=== PATIENT | male | born 1980 | race Caucasian/White ===

== ENCOUNTER 2016-06-21 13:51 | Emergency (ER) | payer MEDICARE ==
[2016-06-21] MEDS ORDERED: SODIUM CHLORIDE 0.9% 1,000 ML IV STA (14:17)
[2016-06-21] MEDS ORDERED: ONDANSETRON 4 MG/2 ML VIAL IVP STA (14:21)
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
[2016-06-21 15:05] LABS: Basophils # (A) 0.1 k/uL (0-0.2); Basophils % (A) 1 %; CH 30.7; CHCM 34.5; Eosinophils # (A) 0.2 k/uL (0-0.7); Eosinophils % (A) 3 %; HCT 42.1 % (39.0-53.0); HDW 3.12; HGB 14.1 gm/dL (13.0-17.5); Luc # (Auto) 0.12; Luc % (Auto) 2; Lymphocytes # (A) 1.6 k/uL (1.0-4.8); Lymphocytes % (A) 32 %; MCH 29.9 pg (25.0-35.0); MCHC 33.4 g/dL (31.0-37.0); MCV 89.3 fL (80.0-100.0); Mean Platelet Volume 10.5; Monocytes # (A) 0.5 k/uL (0-1.0); Monocytes % (A) 9 %; Neutrophils # (A) 2.6 k/uL (1.3-7.7); Neutrophils % (A) 52 %; RBC 4.72 m/uL (4.30-5.90); RDW 13.1 % (11.5-15.5); WBC (Perox) 5.19
[2016-06-21 15:15] LABS: ALT 39 U/L (21-72); AST 24 U/L (17-59); Alkaline Phosphatase 85 U/L (38-126); Anion Gap 16 mmol/L; Blood Urea Nitrogen <2 mg/dL (9-20); Calcium 10.5 mg/dL (8.4-10.2); Carbon Dioxide 23 mmol/L (22-30); Chloride 105 mmol/L (98-107); Glucose 85 mg/dL (74-99); Non-African American GFR(MDRD) >60 (>60 ml/min/1.73 sqM); Potassium 4.5 mmol/L (3.5-5.1); Sodium 144 mmol/L (137-145); Total Protein 7.8 g/dL (6.3-8.2)
--- NOTE | 2016-06-21 15:49 | XR ---
Right hand HISTORY: Trauma and pain 3 views of the right hand Correlation to prior right hand September Bone mineralization, joint spaces and alignment are maintained. Suspect old fractures of the distal f ourth and fifth metacarpals, there is volar angulation as on prior exam. There is soft tissue swellin g. IMPRESSION: No fracture or dislocation is evident.
[2016-06-21 16:13] VITALS: BP 100/69; PULSE 54; RESP 16; TEMP 97.7
== END 2016-06-21 16:14 | disposition home or self-care (01) ==
LOC: EC 13:51
DX: S60.221A Contusion of right hand, initial encounter (principal); R11.2 Nausea with vomiting, unspecified; W51.XXXA Accidental striking against or bumped into by another person, initial encounter; Z88.8 Allergy status to other drugs, medicaments and biological substances; Z79.899 Other long term (current) drug therapy
CPT/HCPCS: 99284; 96374; 96361; 36415; 80053; 82140; 85025; 73130; J2405

== ENCOUNTER 2016-06-24 19:25 | Emergency (ER) | payer MEDICARE ==
[2016-06-24 19:31] VITALS: TEMP 98.2
--- NOTE | 2016-06-24 19:44 | ED ---
General Adult HPI - General Source: patient, RN notes reviewed Mode of arrival: ambulatory Limitations: no limitations <Tony Salcido - Last Filed: 06/24/16 20:29> <Humberto Sahu - Last Filed: 06/24/16 22:43> - General Chief complaint: Shortness of Breath Stated complaint: Revisit GEORGE Time Seen by Provider: 06/24/16 19:35 - History of Present Illness Initial comments: 36-year-old male presents emergency Department chief complaint of shortness breath, vomiting. Patient states he was seen here on Friday for concerns of his ammonia level. 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 In states that he has been admitted in the past for his ammonia level. Patient states that his protocol for his condition. Patient sees a doctor out of the [facility]. Patient states that he's been vomiting blood in which she was seen here for this. Patient states denies smoking shortness of breath which is abnormal for him. Patient states she has no chest pain but states that he just for breath at rest and with exertion. Patient has no history of blood clots. Patient has fever, chills. Patient states he has been taken his medication as directed. Patient denies any diarrhea or constipation. Patient denies any other complaints at this time. (Tony Salcido) - Related Data Home Medications Medication Instructions Recorded Confirmed Acetaminophen Tab [Tylenol Tab] 325 - 650 mg PO Q4H PRN 06/21/16 06/24/16 Glycerol Phenylbutyrate [Ravicti] 6 ml PO TID@0900,1500,2100 06/21/16 06/24/16 Ibuprofen [Motrin] 200 - 400 mg PO Q6HR PRN 06/21/16 06/24/16 Phenylephrine/Acetaminophn/Pnm 1 packet PO ONCE PRN 06/24/16 06/24/16 [Theraflu Sinus & Cold Packet] Previous Rx's Medication Instructions Recorded Ondansetron Odt [Zofran ODT] 4 mg PO Q8HR PRN #10 tab 06/24/16 Allergies Allergy/AdvReac Type Severity Reaction Status Date / Time alprazolam [From Xanax] Allergy Unknown Verified 06/24/16 19:45 olanzapine [From Zyprexa] Allergy Unknown Verified 06/24/16 19:45 Review of Systems ROS Other: All systems not noted in ROS Statement are negative. <Tony Salcido - Last Filed: 06/24/16 20:29> ROS Other: All systems not noted in ROS Statement are negative. <Luis AlbertoHumberto - Last Filed: 06/24/16 22:43> ROS Statement: Those systems with pertinent positive or pertinent negative responses have been documented in the HPI. 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 Torn left ACL and left knee effusion-uses brace and cane prn, anemia-nromocytic, 2014 bilateral feet fx and R ankle fx, recent R hand fx per pt, ulcers and vomitted blood in past. Bone deficiency, bones break easily. Seizures, shingles 2010 History of Any Multi-Drug Resistant Organisms: MRSA Date of last positivie culture/infection: 2013 MDRO Source:: Back Past Surgical History: Adenoidectomy, Ear Surgery, Tonsillectomy Additional Past Surgical History / Comment(s): liver biopsy, L-knee drained of 30 ml of fluid, tubes bilateral ears. Past Anesthesia/Blood Transfusion Reactions: Previous Problems w/ Anesthesia Additional Past Anesthesia/Blood Transfusion Reaction / Comment(s): Unable to wake up and being overly aggressive. Past Psychological History: Anxiety, Depression, Schizophrenia Additional Psychological History / Comment(s): Poor impulse control, anger management issues. History of being placed in restraints, numerous inpatient psychiatric admissions including [facility]. Schizoaffecctive diorder. PT lives in apt. alone. He has a L knee brace and cane he uses prn. He does not drive-his sister or brother take him places. His sister-Nadya helps him with bills etc. Pt can read and write alittle. Smoking Status: Never smoker Past Alcohol Use History: None Reported Additional Past Alcohol Use History / Comment(s): Patient states he has been a nonsmoker. He used to smoke marijuana but has quit for 20 days now. He denies any street drug use or alcohol use or abuse. Past Drug Use History: Marijuana Additional Drug Use History / Comment(s): Patient denies but admits to taking a tablet form of tenzin - Past Family History Father Additional Family Medical History / Comment(s): Father at age 61 in April 2014, patient does not know cause of . Mother Family Medical History: Cancer Brother(s) Family Medical History: No Reported History Sister(s) Family Medical History: No Reported History <MichiTony galvez - Last Filed: 06/24/16 20:29> General Exam Limitations: no limitations General appearance: alert, in no apparent distress Head exam: Present: atraumatic, normocephalic, normal inspection Respiratory exam: Present: normal lung sounds bilaterally. Absent: respiratory distress, wheezes, rales, rhonchi, stridor Cardiovascular Exam: Present: regular rate, normal rhythm, normal heart sounds. Absent: systolic murmur, diastolic murmur, rubs, gallop, clicks GI/Abdominal exam: Present: soft, normal bowel sounds. Absent: distended, tenderness, guarding, rebound, rigid Neurological exam: Present: alert, oriented X3, CN II-XII intact Skin exam: Present: warm, dry, intact, normal color. Absent: rash <LolyTony Montenegro - Last Filed: 06/24/16 20:29> EKG Findings - EKG Comments: EKG Findings:: EKG performed at 19:52 sinus rhythm with a rate of 67 MD interval 162, QRS duration 100, QT/QTC 370/399 <MichileonorTony Lan - Last Filed: 06/24/16 20:29> Medical Decision Making - Lab Data Result diagrams: 06/24/16 20:13 <MichileonorTony Montenegro - Last Filed: 06/24/16 20:29> - Lab Data Result diagrams: 06/24/16 20:13 06/24/16 20:13 <Humberto Sahu - Last Filed: 06/24/16 22:43> - Medical Decision Making His labs show a white count of 5.7 hemoglobin 14 hematocrit of 41, glucose 96. INR 1.2, potassium mildly elevated at 5.4. The patient's BUN to creatinine 0.5 for the GFR greater than 60. His ammonia level is only 18. Patient of vomiting today he was given 1 L of fluid after these numbers came back. Patient reports feeling much better. He'll be advised to follow-up with family physician return emergency room as needed. Patient was given a prescription for Zofran to be used at home. Told to advance his fluids and diet (Humberto Sahu) - Lab Data Lab Results 06/24/16 06/24/16 06/24/16 Range/Units 20:13 20:13 20:20 WBC 5.7 (3.8-10.6) k/uL RBC 4.68 (4.30-5.90) m/uL Hgb 14.1 (13.0-17.5) gm/dL Hct 41.4 (39.0-53.0) % MCV 88.6 (80.0-100.0) fL MCH 30.2 (25.0-35.0) pg MCHC 34.1 (31.0-37.0) g/dL RDW 13.2 (11.5-15.5) % Plt Count 177 (150-450) k/uL Neutrophils % 49 % Lymphocytes % 39 % Monocytes % 6 % Eosinophils % 2 % Basophils % 1 % Neutrophils # 2.8 (1.3-7.7) k/uL Lymphocytes # 2.2 (1.0-4.8) k/uL Monocytes # 0.3 (0-1.0) k/uL Eosinophils # 0.1 (0-0.7) k/uL Basophils # 0.0 (0-0.2) k/uL PT 11.8 (9.0-12.0) sec INR 1.2 (<1.1) APTT 21.6 L (22.0-30.0) sec D-Dimer 0.22 (<0.60) mg/L FEU Sodium 143 (137-145) mmol/L Potassium 5.4 H (3.5-5.1) mmol/L Chloride 107 (98-107) mmol/L Carbon Dioxide 18 L (22-30) mmol/L Anion Gap 18 mmol/L BUN <2 L (9-20) mg/dL Creatinine 0.54 L (0.66-1.25) mg/dL Est GFR (MDRD) Af Amer >60 (>60 ml/min/1.73 sqM) Est GFR (MDRD) Non-Af >60 (>60 ml/min/1.73 sqM) Glucose 96 (74-99) mg/dL Calcium 9.9 (8.4-10.2) mg/dL Total Bilirubin 1.3 (0.2-1.3) mg/dL AST 43 (17-59) U/L ALT 27 (21-72) U/L Alkaline Phosphatase 85 (38-126) U/L Ammonia (<30) umol/L Total Protein 8.0 (6.3-8.2) g/dL Albumin 4.8 (3.5-5.0) g/dL 06/24/16 Range/Units 20:20 WBC (3.8-10.6) k/uL RBC (4.30-5.90) m/uL Hgb (13.0-17.5) gm/dL Hct (39.0-53.0) % MCV (80.0-100.0) fL MCH (25.0-35.0) pg MCHC (31.0-37.0) g/dL RDW (11.5-15.5) % Plt Count (150-450) k/uL Neutrophils % % Lymphocytes % % Monocytes % % Eosinophils % % Basophils % % Neutrophils # (1.3-7.7) k/uL Lymphocytes # (1.0-4.8) k/uL Monocytes # (0-1.0) k/uL Eosinophils # (0-0.7) k/uL Basophils # (0-0.2) k/uL PT (9.0-12.0) sec INR (<1.1) APTT (22.0-30.0) sec D-Dimer (<0.60) mg/L FEU Sodium (137-145) mmol/L Potassium (3.5-5.1) mmol/L Chloride (98-107) mmol/L Carbon Dioxide (22-30) mmol/L Anion Gap mmol/L BUN (9-20) mg/dL Creatinine (0.66-1.25) mg/dL Est GFR (MDRD) Af Amer (>60 ml/min/1.73 sqM) Est GFR (MDRD) Non-Af (>60 ml/min/1.73 sqM) Glucose (74-99) mg/dL Calcium (8.4-10.2) mg/dL Total Bilirubin (0.2-1.3) mg/dL AST (17-59) U/L ALT (21-72) U/L Alkaline Phosphatase (38-126) U/L Ammonia 18 (<30) umol/L Total Protein (6.3-8.2) g/dL Albumin (3.5-5.0) g/dL Disposition <Tony Salcido - Last Filed: 06/24/16 20:29> Time of Disposition: 22:43 <Humberto Sahu - Last Filed: 06/24/16 22:43> Clinical Impression: Nausea & vomiting Disposition: HOME SELF-CARE Condition: Stable Additional Instructions: Advanced diet liquids first. Use Zofran for nausea vomiting follow-up with family physician. Prescriptions: Ondansetron Odt [Zofran ODT] 4 mg PO Q8HR PRN #10 tab PRN Reason: Nausea
[2016-06-24 20:23] LABS: Basophils % (A) 1 %; CH 30.4; CHCM 34.5; Eosinophils # (A) 0.1 k/uL (0-0.7); Eosinophils % (A) 2 %; HCT 41.4 % (39.0-53.0); HGB 14.1 gm/dL (13.0-17.5); Luc # (Auto) 0.17; Luc % (Auto) 3; Lymphocytes # (A) 2.2 k/uL (1.0-4.8); Lymphocytes % (A) 39 %; MCH 30.2 pg (25.0-35.0); MCHC 34.1 g/dL (31.0-37.0); MCV 88.6 fL (80.0-100.0); Mean Platelet Volume 10.1; Monocytes # (A) 0.3 k/uL (0-1.0); Monocytes % (A) 6 %; Neutrophils # (A) 2.8 k/uL (1.3-7.7); Neutrophils % (A) 49 %; RBC 4.68 m/uL (4.30-5.90); RDW 13.2 % (11.5-15.5); WBC 5.7 k/uL (3.8-10.6); WBC (Perox) 6.08
[2016-06-24 20:37] LABS: ALT 27 U/L (21-72); AST 43 U/L (17-59); Alkaline Phosphatase 85 U/L (38-126); Anion Gap 18 mmol/L; Blood Urea Nitrogen <2 mg/dL (9-20); Calcium 9.9 mg/dL (8.4-10.2); Carbon Dioxide 18 mmol/L (22-30); Chloride 107 mmol/L (98-107); Glucose 96 mg/dL (74-99); Non-African American GFR(MDRD) >60 (>60 ml/min/1.73 sqM); Sodium 143 mmol/L (137-145); Total Bilirubin 1.3 mg/dL (0.2-1.3)
--- NOTE | 2016-06-24 20:48 | XR ---
EXAMINATION TYPE: XR chest 2V DATE OF EXAM: 06/24/2016 8:42 PM COMPARISON: 03/15/2015 HISTORY: Pain TECHNIQUE: Frontal and lateral views of the chest are obtained. FINDINGS: There is no focal air space opacity, pleural effusion, or pneumothorax seen. The cardiac silhouette size is within normal limits. The osseous structures are intact. IMPRESSION: No acute cardiopulmonary process.
[2016-06-24 20:49] LABS: Potassium 5.4 mmol/L (3.5-5.1)
[2016-06-24] MEDS ORDERED: HYDROcodone/APAP 5-325MG 1 EACH TAB PO STA (21:02)
[2016-06-24 21:11] LABS: INR 1.2 (<1.1); Prothrombin Time 11.8 sec (9.0-12.0)
[2016-06-24 21:15] LABS: Partial Thromboplastin Time 21.6 sec (22.0-30.0)
[2016-06-24] MEDS ORDERED: SODIUM CHLORIDE 0.9% 500 ML IV STA (21:30)
[2016-06-24] MEDS ORDERED: ONDANSETRON 4 MG/2 ML VIAL IVP STA (21:31)
[2016-06-24 22:37] VITALS: BP 117/61; PULSE 65; RESP 18
== END 2016-06-24 22:48 | disposition home or self-care (01) ==
LOC: EC 19:25
DX: R11.2 Nausea with vomiting, unspecified (principal); Z88.8 Allergy status to other drugs, medicaments and biological substances; Z79.899 Other long term (current) drug therapy
CPT/HCPCS: 99285; 96374; 96361; 36415; 93005; 85379; 80053; 82140; 85025; 85610; 85730; 71020; J2405

== ENCOUNTER 2016-07-16 11:49 | Observation (INO) | payer MEDICARE ==
--- NOTE | 2016-07-16 13:53 | ED ---
General Adult HPI - General Source: patient, RN notes reviewed Mode of arrival: ambulatory Limitations: no limitations <Lebron Duke - Last Filed: 07/16/16 20:40> <Humberto Sahu - Last Filed: 07/16/16 21:03> - General Chief complaint: Recheck/Abnormal Lab/Rx Stated complaint: Weak/abnormal labs Time Seen by Provider: 07/16/16 13:26 - History of Present Illness Initial comments: Patient is a 36-year-old male with a significant past medical history for Ornithine Transcarbamylase, who presents emergency room today with chief complaint of feeling like his ammonia may be running high. He does admit that 3 days ago he had some symptoms of puffiness around his eyes. States seem to improve. States she's noticed again today. He feels that his ammonia may be running elevated. Patient denies any other complaints or symptoms currently. Patient denies any recent fever, chills, shortness of breath, chest pain, back pain, abdominal pain, nausea or vomiting, numbness or tingling, dysuria or hematuria, constipation or diarrhea, headaches or visual changes, or any other complaints. (Lebron Duke) - Related Data Home Medications Medication Instructions Recorded Confirmed Acetaminophen Tab [Tylenol Tab] 325 - 650 mg PO Q4H PRN 06/21/16 07/16/16 Glycerol Phenylbutyrate [Ravicti] 6.6 gm PO TID@0900,1500,2100 06/21/16 07/16/16 Allergies Allergy/AdvReac Type Severity Reaction Status Date / Time alprazolam [From Xanax] Allergy Unknown Verified 07/16/16 13:09 olanzapine [From Zyprexa] Allergy Unknown Verified 07/16/16 13:09 sertraline [From Zoloft] Allergy Unknown Verified 07/16/16 13:09 Review of Systems ROS Other: All systems not noted in ROS Statement are negative. <Lebron Duke - Last Filed: 07/16/16 20:40> ROS Other: All systems not noted in ROS Statement are negative. <Humberto Sahu - Last Filed: 07/16/16 21:03> ROS Statement: Those systems with pertinent positive or pertinent negative responses have been documented in the HPI. 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 Torn left ACL and left knee effusion-uses brace and cane prn, anemia-nromocytic, 2013 bilateral feet fx and R ankle fx, recent R hand fx per pt, ulcers and vomitted blood in past. Bone deficiency, bones break easily. Seizures, shingles 2010 History of Any Multi-Drug Resistant Organisms: MRSA Date of last positivie culture/infection: 2013 MDRO Source:: Back Past Surgical History: Adenoidectomy, Ear Surgery, Tonsillectomy Additional Past Surgical History / Comment(s): liver biopsy, L-knee drained of 30 ml of fluid, tubes bilateral ears. Past Anesthesia/Blood Transfusion Reactions: Previous Problems w/ Anesthesia Additional Past Anesthesia/Blood Transfusion Reaction / Comment(s): Unable to wake up and being overly aggressive. Past Psychological History: Anxiety, Depression, Schizophrenia Additional Psychological History / Comment(s): Poor impulse control, anger management issues. History of being placed in restraints, numerous inpatient psychiatric admissions including [facility]. Schizoaffecctive diorder. PT lives in apt. alone. He has a L knee brace and cane he uses prn. He does not drive-his sister or brother take him places. His sister-Nadya helps him with bills etc. Pt can read and write alittle. Smoking Status: Never smoker Past Alcohol Use History: None Reported Additional Past Alcohol Use History / Comment(s): Patient states he has been a nonsmoker. He used to smoke marijuana but has quit for 20 days now. He denies any street drug use or alcohol use or abuse. Past Drug Use History: Marijuana Additional Drug Use History / Comment(s): Patient denies but admits to taking a tablet form of tenzin - Past Family History Father Additional Family Medical History / Comment(s): Father at age 61 in April 2014, patient does not know cause of . Mother Family Medical History: Cancer Brother(s) Family Medical History: No Reported History Sister(s) Family Medical History: No Reported History <Lebron Duke - Last Filed: 07/16/16 20:40> General Exam Limitations: no limitations <Lebron Duke - Last Filed: 07/16/16 20:40> <Humberto Sahu - Last Filed: 07/16/16 21:03> - General Exam Comments Initial Comments: General: The patient is awake and alert, in no distress, and does not appear acutely ill. Eye: Pupils are equal, round and reactive to light, extra-ocular movements are intact. No nystagmus. There is normal conjunctiva bilaterally. No signs of icterus. Ears, nose, mouth and throat: There are moist mucous membranes and no oral lesions. Neck: The neck is supple, there is no tenderness or JVD. Cardiovascular: There is a regular rate and rhythm. No murmur, rub or gallop is appreciated. Respiratory: Lungs are clear to auscultation, respirations are non-labored, breath sounds are equal. No wheezes, stridor, rales, or rhonchi. Gastrointestinal: Soft, non-distended, non-tender abdomen without masses or organomegaly noted. There is no rebound or guarding present. No CVA tenderness. Bowel sounds are unremarkable. Musculoskeletal: Normal ROM, no tenderness. Strength 5/5. Sensation intact. Pulses equal bilaterally 2+. Neurological: A&O x 3. CN II-XII intact, There are no obvious motor or sensory deficits. Coordination appears grossly intact. Speech is normal. Skin: Skin is warm and dry and no rashes or lesions are noted. Psychiatric: Cooperative, appropriate mood & affect, normal judgment. (Lebron Duke) Course <Lebron Duke - Last Filed: 07/16/16 20:40> <Humberto Sahu - Last Filed: 07/16/16 21:03> Vital Signs 07/16/16 07/16/16 07/16/16 12:17 14:16 17:23 Temperature 98.1 F Pulse Rate 49 L 42 L 38 L Respiratory 18 18 18 Rate Blood Pressure 122/78 129/73 125/76 O2 Sat by Pulse 99 98 99 Oximetry 07/16/16 19:15 Temperature 97.6 F Pulse Rate 40 L Respiratory 18 Rate Blood Pressure 137/63 O2 Sat by Pulse 98 Oximetry - Reevaluation(s) Reevaluation #1: 07/16/16 16:56 Patient's reexamined at this time shows no signs of distress. His ammonia level L. In the emergency room on initial draw. Patient does have a hyperammonemia protocol which does recommend giving 1 L of D10 over 90 minutes with additives of sodium Phenylacetate, Na Benzoate, [id number]. This case was discussed with attending physician along with pharmacist. Our hospital does not have these additives. Reviews of patient's past visits were reviewed. Pharmacist also reviewing thoroughly which reveals potassium may be substituted along with a D10. Patient was given patient was given D10 with potassium acetate 20 mEq bolus over 2 hours which improved patient's symptoms and ammonia level in the past. Patient will be given this bolus here in the emergency room and have a pneumonia rechecked after bolus was done. 07/16/16 20:22 Patient reexamined at this time shows no signs of distress. Patient's repeat ammonia level was 53 in the emergency room after a bolus of D 10 with 20 mEq of potassium acetate. Patient case was discussed with on-call physician for his doctor discussed the case with Dr. Guevara his physician who manages his OTC. Recommending that he can be admitted and observed overnight with continuing fluids of D 10 1/2 at 150 an hour. Advised ammonia level in the morning. Advised neuro checks with stat ammonia level if any symptoms increase or worsen. On-call resident states she may be called if there is any change or questions with his care. Phone number is [phone] at pager #[phone] (Lebron Duke) EKG Findings - EKG Comments: EKG Findings:: EKG performed at 1408: Shows bradycardia 43 bpm. AL interval 160. QRS 86. QT/QTc 474/392. No acute ST changes. <Lebron Duke - Last Filed: 07/16/16 20:40> Medical Decision Making - Lab Data Result diagrams: 07/16/16 14:20 07/16/16 14:20 <Lebron Duke - Last Filed: 07/16/16 20:40> - Lab Data Result diagrams: 07/16/16 14:20 07/16/16 14:20 <Humberto Sahu - Last Filed: 07/16/16 21:03> - Medical Decision Making Case discussed with Dr. Starkey on-call hospitalist. Patient be admitted his service. Per recommendations from the patient's specialist she is to be admitted continued on D10 150 ML's per hour with recheck of his ammonia level morning. Dr. Sahu (Humberto Sahu) - Lab Data Lab Results 07/16/16 07/16/16 07/16/16 Range/Units 14:06 14:20 14:20 WBC 4.8 (3.8-10.6) k/uL RBC 4.38 (4.30-5.90) m/uL Hgb 13.0 (13.0-17.5) gm/dL Hct 38.5 L (39.0-53.0) % MCV 87.9 (80.0-100.0) fL MCH 29.6 (25.0-35.0) pg MCHC 33.6 (31.0-37.0) g/dL RDW 13.3 (11.5-15.5) % Plt Count 141 L (150-450) k/uL Neutrophils % 56 % Lymphocytes % 32 % Monocytes % 7 % Eosinophils % 3 % Basophils % 1 % Neutrophils # 2.6 (1.3-7.7) k/uL Lymphocytes # 1.5 (1.0-4.8) k/uL Monocytes # 0.3 (0-1.0) k/uL Eosinophils # 0.1 (0-0.7) k/uL Basophils # 0.0 (0-0.2) k/uL Sodium 144 (137-145) mmol/L Potassium 4.5 (3.5-5.1) mmol/L Chloride 107 (98-107) mmol/L Carbon Dioxide 25 (22-30) mmol/L Anion Gap 12 mmol/L BUN <2 L (9-20) mg/dL Creatinine 0.51 L (0.66-1.25) mg/dL Est GFR (MDRD) Af Amer >60 (>60 ml/min/1.73 sqM) Est GFR (MDRD) Non-Af >60 (>60 ml/min/1.73 sqM) Glucose 98 (74-99) mg/dL Calcium 9.6 (8.4-10.2) mg/dL Total Bilirubin 0.9 (0.2-1.3) mg/dL AST 29 (17-59) U/L ALT 37 (21-72) U/L Alkaline Phosphatase 71 (38-126) U/L Ammonia 50 H (<30) umol/L Troponin I (0.000-0.034) ng/mL Total Protein 7.4 (6.3-8.2) g/dL Albumin 4.4 (3.5-5.0) g/dL 07/16/16 07/16/16 07/16/16 Range/Units 14:20 18:32 19:59 WBC (3.8-10.6) k/uL RBC (4.30-5.90) m/uL Hgb (13.0-17.5) gm/dL Hct (39.0-53.0) % MCV (80.0-100.0) fL MCH (25.0-35.0) pg MCHC (31.0-37.0) g/dL RDW (11.5-15.5) % Plt Count (150-450) k/uL Neutrophils % % Lymphocytes % % Monocytes % % Eosinophils % % Basophils % % Neutrophils # (1.3-7.7) k/uL Lymphocytes # (1.0-4.8) k/uL Monocytes # (0-1.0) k/uL Eosinophils # (0-0.7) k/uL Basophils # (0-0.2) k/uL Sodium (137-145) mmol/L Potassium (3.5-5.1) mmol/L Chloride (98-107) mmol/L Carbon Dioxide (22-30) mmol/L Anion Gap mmol/L BUN (9-20) mg/dL Creatinine (0.66-1.25) mg/dL Est GFR (MDRD) Af Amer (>60 ml/min/1.73 sqM) Est GFR (MDRD) Non-Af (>60 ml/min/1.73 sqM) Glucose (74-99) mg/dL Calcium (8.4-10.2) mg/dL Total Bilirubin (0.2-1.3) mg/dL AST (17-59) U/L ALT (21-72) U/L Alkaline Phosphatase (38-126) U/L Ammonia 53 H 158 H (<30) umol/L Troponin I <0.012 (0.000-0.034) ng/mL Total Protein (6.3-8.2) g/dL Albumin (3.5-5.0) g/dL Disposition Time of Disposition: 20:26 <Lebron Duke - Last Filed: 01/31/17 20:40> <Humberto Sahu - Last Filed: 07/16/16 21:03> Clinical Impression: Hyperammonemia Disposition: ADMITTED IP TO THIS HOSP Condition: Stable
[2016-07-16 14:36] LABS: Basophils % (A) 1 %; CH 30.1; CHCM 34.4; Eosinophils # (A) 0.1 k/uL (0-0.7); Eosinophils % (A) 3 %; HCT 38.5 % (39.0-53.0); HDW 3.15; Luc # (Auto) 0.11; Luc % (Auto) 2; Lymphocytes # (A) 1.5 k/uL (1.0-4.8); Lymphocytes % (A) 32 %; MCH 29.6 pg (25.0-35.0); MCHC 33.6 g/dL (31.0-37.0); MCV 87.9 fL (80.0-100.0); Mean Platelet Volume 10.3; Monocytes # (A) 0.3 k/uL (0-1.0); Monocytes % (A) 7 %; Neutrophils # (A) 2.6 k/uL (1.3-7.7); Neutrophils % (A) 56 %; RBC 4.38 m/uL (4.30-5.90); RDW 13.3 % (11.5-15.5); WBC 4.8 k/uL (3.8-10.6)
[2016-07-16 14:56] LABS: Anion Gap 12 mmol/L; Calcium 9.6 mg/dL (8.4-10.2); Carbon Dioxide 25 mmol/L (22-30); Chloride 107 mmol/L (98-107); Glucose 98 mg/dL (74-99); Non-African American GFR(MDRD) >60 (>60 ml/min/1.73 sqM); Sodium 144 mmol/L (137-145); Total Bilirubin 0.9 mg/dL (0.2-1.3); Total Protein 7.4 g/dL (6.3-8.2)
[2016-07-16 15:09] LABS: Potassium 4.5 mmol/L (3.5-5.1)
[2016-07-16 15:10] LABS: ALT 37 U/L (21-72); AST 29 U/L (17-59); Alkaline Phosphatase 71 U/L (38-126); Blood Urea Nitrogen <2 mg/dL (9-20)
[2016-07-16] MEDS ORDERED: DEXTROSE 10% IN WATER 1,000 ML IV ONE (16:06)
[2016-07-16] MEDS ORDERED: [UNRECOGNIZED DRUG - OTHER] IV ONE ×3 (17:00)
[2016-07-16] MEDS ORDERED: SODIUM CHLORIDE IV ONE ×3 (17:00)
[2016-07-16] MEDS ORDERED: WATER IV ONE ×3 (17:00)
[2016-07-16] MEDS ORDERED: DEXTROSE IV ONE ×3 (17:00)
[2016-07-16] MEDS ORDERED: IBUPROFEN 600 MG TAB PO STA (17:42)
[2016-07-16] MEDS ORDERED: NALOXONE 0.4 MG/ML 1 ML VIAL IV PRN (20:29)
[2016-07-17] MEDS: DEXTROSE 10% IV ONE ×2 (00:52→03:46)
[2016-07-17] MEDS: WATER IV ONE ×2 (00:52→03:46)
[2016-07-17] MEDS: SODIUM ACETATE IV ONE ×2 (00:52→03:46)
[2016-07-17 07:57] LABS: Basophils % (A) 1 %; CH 30.1; CHCM 34.4; Eosinophils # (A) 0.1 k/uL (0-0.7); Eosinophils % (A) 3 %; HDW 3.14; Luc # (Auto) 0.09; Luc % (Auto) 2; Lymphocytes # (A) 1.5 k/uL (1.0-4.8); Lymphocytes % (A) 32 %; MCH 30.2 pg (25.0-35.0); MCHC 34.3 g/dL (31.0-37.0); MCV 87.8 fL (80.0-100.0); Mean Platelet Volume 10.5; Monocytes # (A) 0.3 k/uL (0-1.0); Monocytes % (A) 7 %; Neutrophils # (A) 2.7 k/uL (1.3-7.7); Neutrophils % (A) 56 %; RBC 3.99 m/uL (4.30-5.90); RDW 13.3 % (11.5-15.5); WBC 4.7 k/uL (3.8-10.6); WBC (Perox) 5.31
[2016-07-17 08:03] LABS: ALT 36 U/L (21-72); AST 19 U/L (17-59); Alkaline Phosphatase 60 U/L (38-126); Anion Gap 9 mmol/L; Blood Urea Nitrogen <2 mg/dL (9-20); Calcium 9.2 mg/dL (8.4-10.2); Carbon Dioxide 27 mmol/L (22-30); Chloride 106 mmol/L (98-107); Glucose 139 mg/dL (74-99); Non-African American GFR(MDRD) >60 (>60 ml/min/1.73 sqM); Potassium 3.6 mmol/L (3.5-5.1); Sodium 142 mmol/L (137-145); Total Bilirubin 0.8 mg/dL (0.2-1.3); Total Protein 6.4 g/dL (6.3-8.2)
[2016-07-17] MEDS: [UNRECOGNIZED DRUG - OTHER] PO SCH ×3 (09:03→21:06)
[2016-07-17] MEDS ORDERED: SODIUM ACETATE IV ONE (12:00)
[2016-07-17] MEDS ORDERED: DEXTROSE 10% IV ONE (12:00)
[2016-07-17] MEDS ORDERED: WATER IV ONE (12:00)
[2016-07-17] MEDS: LACTULOSE 20 GM/30 ML CUP PO SCH ×2 (13:57→15:52)
--- NOTE | 2016-07-17 17:49 | HP ---
The patient is a 36-year-old with significant medical history of ornithine transcarbamylase deficiency, came in with confusion, found to have hyperammonemia with ammonia going up to 158. Patient was started on D5 10 at 150 mL/h and patient was started on low-protein diet with improvement in his ammonia to 56. Patient will be started on lactulose. Unfortunately, we do not have do not have other medications like sodium benzoate and sodium phenylacetate and L-arginine available in our hospital since, but since his ammonia level is improving and patient's mental status is alert and oriented x3 today, will continue with the present treatment and will recheck the ammonia level tomorrow and patient probably can be discharged tomorrow. Patient does have IBS. Patient denied any nausea, vomiting at this point of time, dysuria, hematuria. Home medications include glycerol phenylbutyrate, as he cannot take lactulose because of multiple bowel movements in a day because of his bowel syndrome. ROS: All other systems were reviewed and were negative. ALLERGIES: ALLERGIC TO ALPRAZOLAM, OLANZEPINE AND SERTRALINE. PAST MEDICAL HISTORY: Significant for on the ornithine transcarbamylase deficiency and hyperammonemia which was diagnosed when he was born and seizures secondary to that. Adenoidectomy, ear surgery, tonsillectomy, liver biopsy in the past, depression, schizophrenia. SOCIAL HISTORY: Patient denied any smoking. Occasional use of marijuana. Denied any alcohol abuse. FAMILY HISTORY: Father at the age of 61 cause of is unknown. Mother had some kind of cancer. PHYSICAL EXAMINATION: VITAL SIGNS: Temperature 96.9, pulse of 48 which is sinus bradycardia, which is normal for him. Respiratory rate of 18, blood pressure 136/74, saturating at 98% on room air. GENERAL: The patient is alert and oriented x3, not in any acute distress. Well developed, well nourished. HEENT: Pupils are round and equally reacting to light. EOMI. No scleral icterus. No conjunctival pallor. Normocephalic, atraumatic. No pharyngeal erythema. No thyromegaly. CARDIOVASCULAR: S1 and S2 present. No murmurs, rubs, or gallops. PULMONARY: Chest is clear to auscultation, no wheezing or crackles. ABDOMEN: Soft, nontender, nondistended, normoactive bowel sounds. No palpable organomegaly. MUSCULOSKELETAL: No joint swelling or deformity. EXTREMITIES: No cyanosis, clubbing, or pedal edema. NEUROLOGICAL: Gross neurological examination did not reveal any focal deficits. SKIN: No rashes. LABORATORY DATA: Ammonia level as mentioned above in the interval history. The rest of the laboratory data, no significant abnormality was appreciated. ASSESSMENT AND PLAN: 1. Metabolic encephalopathy secondary to hyperammonemia ornithine transcarbamylase deficiency as mentioned above. I will also start him on lactulose for a day with a bedside commode. Continue with D5 10 and low-protein diet. 2. Irritable bowel syndrome. 3. Depression, schizophrenia as per the history, although did not verify that with the patient. 4. Sinus bradycardia, which is normal for the patient without any symptoms. PLAN: Will repeat ammonia level and electrolytes tomorrow. If ammonia comes down, patient will be discharged tomorrow. His symptoms of encephalopathy are resolved at this point of time. [facility]
[2016-07-17] MEDS: ACETAMINOPHEN TAB 325 MG TAB PO PRN (19:15)
[2016-07-17] MEDS ORDERED: DEXTROSE 10% IV SCH ×2 (22:45)
[2016-07-17] MEDS ORDERED: SODIUM ACETATE IV SCH ×2 (22:45)
[2016-07-17] MEDS ORDERED: WATER IV SCH ×2 (22:45)
[2016-07-18 00:02] VITALS: RESP 20
[2016-07-18] MEDS: SODIUM ACETATE IV SCH ×6 (00:26→08:15)
[2016-07-18] MEDS: WATER IV SCH ×6 (00:26→08:15)
[2016-07-18] MEDS: DEXTROSE 10% IV SCH ×6 (00:26→08:15)
[2016-07-18] MEDS: ACETAMINOPHEN TAB 325 MG TAB PO PRN (00:30)
[2016-07-18] MEDS: [UNRECOGNIZED DRUG - OTHER] PO SCH (08:16)
[2016-07-18] MEDS: LACTULOSE 20 GM/30 ML CUP PO SCH (08:17)
[2016-07-18 10:21] LABS: CH 30.1; CHCM 34.7; HCT 40.2 % (39.0-53.0); HDW 3.16; HGB 13.5 gm/dL (13.0-17.5); MCH 29.2 pg (25.0-35.0); MCHC 33.5 g/dL (31.0-37.0); MCV 87.1 fL (80.0-100.0); Mean Platelet Volume 9.5; RBC 4.62 m/uL (4.30-5.90); RDW 13.2 % (11.5-15.5); WBC 5.8 k/uL (3.8-10.6)
[2016-07-18 11:14] LABS: Anion Gap 14 mmol/L; Calcium 9.5 mg/dL (8.4-10.2); Carbon Dioxide 23 mmol/L (22-30); Chloride 108 mmol/L (98-107); Glucose 118 mg/dL (74-99); Non-African American GFR(MDRD) >60 (>60 ml/min/1.73 sqM); Sodium 145 mmol/L (137-145); Total Bilirubin 1.1 mg/dL (0.2-1.3)
[2016-07-18 11:27] LABS: ALT 29 U/L (21-72); AST 35 U/L (17-59); Blood Urea Nitrogen <2 mg/dL (9-20); Potassium 4.5 mmol/L (3.5-5.1)
[2016-07-18 11:28] LABS: Alkaline Phosphatase 60 U/L (38-126)
[2016-07-18 14:55] VITALS: BP 126/77; PULSE 72; TEMP 98
--- NOTE | 2016-07-19 09:06 | DS ---
DATE OF ADMISSION: 07/16/2016 DATE OF DISCHARGE: 07/18/2016 Patient is a 36-year-old admitted with metabolic encephalopathy secondary to hyperammonemia, which is again secondary to ornithine transcarbamylase deficiency. Patient cannot tolerate lactulose because of which he has his own medication for his ammonia and patient improved with D5 and low-protein diet and lactulose here. But patient had multiple bowel movements secondary to lactulose. Patient's ammonia has gone down to 45 and patient is clinically doing well and patient will be discharged today. Patient was seen and examined on the day of discharge. Vital signs stable. PHYSICAL EXAMINATION: GENERAL: The patient is alert and oriented x3, not in any acute distress. Well developed, well nourished. HEENT: Pupils are round and equally reacting to light. EOMI. No scleral icterus. No conjunctival pallor. Normocephalic, atraumatic. No pharyngeal erythema. No thyromegaly. CARDIOVASCULAR: S1 and S2 present. No murmurs, rubs, or gallops. PULMONARY: Chest is clear to auscultation, no wheezing or crackles. ABDOMEN: Soft, nontender, nondistended, normoactive bowel sounds. No palpable organomegaly. MUSCULOSKELETAL: No joint swelling or deformity. EXTREMITIES: No cyanosis, clubbing, or pedal edema. NEUROLOGICAL: Gross neurological examination did not reveal any focal deficits. SKIN: No rashes. DISCHARGE DIAGNOSES: 1. Metabolic encephalopathy secondary to hyperammonemia, which is again secondary to ornithine transcarbamylase deficiency. 2. Irritable bowel syndrome. 3. Depression. 4. Sinus bradycardia, which is normal for his age and which is normal for him. Patient will be discharged today. Please refer to my depart summary for further details of discharge medication. Patient will follow with his primary care physician, Dr. Salvador Guevara in 3 to 7 days. Activity as tolerated. DIET: Low-protein diet. I spent greater than 35 minutes in total discharge process.
== END 2016-07-18 15:17 | disposition home or self-care (01) ==
LOC: EC 11:49 → 4MS4W 20:29
PROVIDERS: ADMIT Hospitalist; ATTEND Hospitalist
DX: E72.4 Disorders of ornithine metabolism (principal); K58.9 Irritable bowel syndrome, unspecified; F32.9 Major depressive disorder, single episode, unspecified; Z79.899 Other long term (current) drug therapy; Z88.8 Allergy status to other drugs, medicaments and biological substances; F25.9 Schizoaffective disorder, unspecified
CPT/HCPCS: 99285; 96365; 96366; 36415; 93005; 80053 ×3; 82140 ×3; 84484; 85025 ×2; 85027; G0378 ×3; 96360; 96361

== ENCOUNTER 2016-08-12 12:29 | Emergency (ER) | payer MEDICARE ==
--- NOTE | 2016-08-12 13:33 | ED ---
General Adult HPI - General Chief complaint: Recheck/Abnormal Lab/Rx Stated complaint: weakness, vomiting Time Seen by Provider: 08/12/16 13:09 Source: patient, RN notes reviewed, old records reviewed Mode of arrival: ambulatory Limitations: no limitations - History of Present Illness Initial comments: 36-year-old male with a history of OTC deficiency presenting for evaluation of his ammonia levels. Patient states that he does follow with a specialist through [facility]. He does take a special medication 3 times a day for his disorder. States he's predisposed to high ammonia levels due to this. He states that he has had multiple hospitalizations in the past due to hyperammonemia. States that over the past few days he has been feeling more irritable and sleepy at times, which is consistent with his prior elevated ammonia symptoms. He does have his medications with him in the ED. He denies any fevers or chills. He denies any chest pain or abdominal pain. - Related Data Home Medications Medication Instructions Recorded Confirmed Acetaminophen Tab [Tylenol Tab] 650 mg PO Q4H PRN 06/21/16 08/12/16 Glycerol Phenylbutyrate [Ravicti] 6.6 gm PO TID@0900,1500,2100 06/21/16 08/12/16 Ibuprofen [Motrin] 400 mg PO Q6HR PRN 08/12/16 08/12/16 Allergies Allergy/AdvReac Type Severity Reaction Status Date / Time alprazolam [From Xanax] Allergy Unknown Verified 08/12/16 13:55 olanzapine [From Zyprexa] Allergy Unknown Verified 08/12/16 13:55 sertraline [From Zoloft] Allergy Unknown Verified 08/12/16 13:55 Review of Systems ROS Statement: Those systems with pertinent positive or pertinent negative responses have been documented in the HPI. ROS Other: All systems not noted in ROS Statement are negative. 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 Torn left ACL and left knee effusion-uses brace and cane prn, anemia-nromocytic, 2013 bilateral feet fx and R ankle fx, recent R hand fx per pt, ulcers and vomitted blood in past. Bone deficiency, bones break easily. Seizures, shingles 2009 History of Any Multi-Drug Resistant Organisms: MRSA Date of last positivie culture/infection: 2013 MDRO Source:: Back Past Surgical History: Adenoidectomy, Ear Surgery, Tonsillectomy Additional Past Surgical History / Comment(s): liver biopsy, L-knee drained of 30 ml of fluid, tubes bilateral ears. Past Anesthesia/Blood Transfusion Reactions: Previous Problems w/ Anesthesia Additional Past Anesthesia/Blood Transfusion Reaction / Comment(s): Unable to wake up and being overly aggressive. Past Psychological History: Anxiety, Depression, Schizophrenia Additional Psychological History / Comment(s): Poor impulse control, anger management issues. History of being placed in restraints, numerous inpatient psychiatric admissions including [facility]. Schizoaffecctive diorder. PT lives in apt. alone. He has a L knee brace and cane he uses prn. He does not drive-his sister or brother take him places. His sister-Nadya helps him with bills etc. Pt can read and write alittle. Smoking Status: Never smoker Past Alcohol Use History: None Reported Additional Past Alcohol Use History / Comment(s): Patient states he has been a nonsmoker. He used to smoke marijuana but has quit for 20 days now. He denies any street drug use or alcohol use or abuse. Past Drug Use History: Marijuana Additional Drug Use History / Comment(s): Patient denies but admits to taking a tablet form of tenzin - Past Family History Father Additional Family Medical History / Comment(s): Father at age 61 in April 2014, patient does not know cause of . Mother Family Medical History: Cancer Brother(s) Family Medical History: No Reported History Sister(s) Family Medical History: No Reported History General Exam - General Exam Comments Initial Comments: General: Awake and Alert. No acute distress. Does not appear acutely ill. Eyes: DEA, EOM intact. No nystagmus. No scleral icterus. HENT: Atraumatic, normocephalic. Mucous membranes moist. Trachea midline. Poor dentition. Neck: The neck is supple, there is no tenderness or JVD. Cardiovascular: Regular rate and rhythm. No murmur, rub, or gallop is appreciated. Distal pulses intact. Respiratory: Lungs are clear to auscultation bilaterally. No wheezes, rales, rhonchi. No respiratory distress. Gastrointestinal: Soft, Nontender. No rebound or guarding. Non-distended. No masses or organomegaly noted. No CVA tenderness. Musculoskeletal: No tenderness. Normal ROM. No gross deformity. No strength deficits. Neurological: A&Ox3. CN II-XII grossly intact, There are no obvious motor or sensory deficits. Coordination appears grossly intact. Speech is normal. No asterixis. Skin: Skin is warm and dry and no rashes or lesions are noted. Psychiatric: Cooperative, appropriate mood & affect, normal judgment. Limitations: no limitations Course Vital Signs 08/12/16 08/12/16 12:45 15:18 Temperature 97.7 F 98.3 F Pulse Rate 56 L 79 Respiratory 20 18 Rate Blood Pressure 127/77 134/89 O2 Sat by Pulse 99 98 Oximetry Medical Decision Making - Medical Decision Making 36-year-old male with history of OTC presenting for evaluation of his ammonia levels. Patient states he's been feeling more irritable recently and is concerned his levels are high. Initial vitals stable, afebrile. Lab results with ammonia level at 49. Remainder of results appears stable. LFTs within normal limits. Patient was updated on his results. He states he only needs IV therapy of his ammonia is above 60. States since the level is not significantly elevated, he feels comfortable with plan for discharge home at this time. He states he does follow up with specialist at [facility] on 09/10/16. Discussed continuing to follow his dietary recommendations as well as taking his medications. Discussed importance of continued follow-up through [facility] and his PCP. Discussed concerning signs and symptoms for immediate return to the ED. Patient is agreeable with plan to discharge home. - Lab Data Result diagrams: 08/12/16 13:44 08/12/16 13:44 Lab Results 08/12/16 08/12/16 08/12/16 Range/Units 13:44 13:44 13:44 WBC 6.1 (3.8-10.6) k/uL RBC 4.71 (4.30-5.90) m/uL Hgb 14.1 (13.0-17.5) gm/dL Hct 41.0 (39.0-53.0) % MCV 87.1 (80.0-100.0) fL MCH 30.0 (25.0-35.0) pg MCHC 34.5 (31.0-37.0) g/dL RDW 13.6 (11.5-15.5) % Plt Count 149 L (150-450) k/uL Neutrophils % 60 % Lymphocytes % 29 % Monocytes % 6 % Eosinophils % 2 % Basophils % 2 % Neutrophils # 3.6 (1.3-7.7) k/uL Lymphocytes # 1.7 (1.0-4.8) k/uL Monocytes # 0.4 (0-1.0) k/uL Eosinophils # 0.1 (0-0.7) k/uL Basophils # 0.1 (0-0.2) k/uL Sodium 145 (137-145) mmol/L Potassium 4.6 (3.5-5.1) mmol/L Chloride 108 H (98-107) mmol/L Carbon Dioxide 23 (22-30) mmol/L Anion Gap 14 mmol/L BUN <2 L (9-20) mg/dL Creatinine 0.50 L (0.66-1.25) mg/dL Est GFR (MDRD) Af Amer >60 (>60 ml/min/1.73 sqM) Est GFR (MDRD) Non-Af >60 (>60 ml/min/1.73 sqM) Glucose 81 (74-99) mg/dL Calcium 9.8 (8.4-10.2) mg/dL Total Bilirubin 0.9 (0.2-1.3) mg/dL AST 39 (17-59) U/L ALT 30 (21-72) U/L Alkaline Phosphatase 77 (38-126) U/L Ammonia 49 H (<30) umol/L Total Protein 7.8 (6.3-8.2) g/dL Albumin 4.7 (3.5-5.0) g/dL Disposition Clinical Impression: OTC (ornithine transcarbamylase deficiency), Hyperammonemia Disposition: HOME SELF-CARE Condition: Stable Additional Instructions: Please continue your normal medications and dietary recommendations. Please continue to follow up with [facility] specialist. Referrals: Salvador Guevara MD [Primary Care Provider] - 1-2 days Time of Disposition: 15:04
[2016-08-12 14:01] LABS: Basophils # (A) 0.1 k/uL (0-0.2); Basophils % (A) 2 %; CH 30.3; Eosinophils # (A) 0.1 k/uL (0-0.7); Eosinophils % (A) 2 %; HDW 3.05; HGB 14.1 gm/dL (13.0-17.5); Luc # (Auto) 0.13; Luc % (Auto) 2; Lymphocytes # (A) 1.7 k/uL (1.0-4.8); Lymphocytes % (A) 29 %; MCHC 34.5 g/dL (31.0-37.0); MCV 87.1 fL (80.0-100.0); Monocytes # (A) 0.4 k/uL (0-1.0); Monocytes % (A) 6 %; Neutrophils # (A) 3.6 k/uL (1.3-7.7); Neutrophils % (A) 60 %; RBC 4.71 m/uL (4.30-5.90); RDW 13.6 % (11.5-15.5); WBC 6.1 k/uL (3.8-10.6); WBC (Perox) 6.12
[2016-08-12 14:13] LABS: ALT 30 U/L (21-72); AST 39 U/L (17-59); Alkaline Phosphatase 77 U/L (38-126); Anion Gap 14 mmol/L; Blood Urea Nitrogen <2 mg/dL (9-20); Calcium 9.8 mg/dL (8.4-10.2); Carbon Dioxide 23 mmol/L (22-30); Chloride 108 mmol/L (98-107); Glucose 81 mg/dL (74-99); Non-African American GFR(MDRD) >60 (>60 ml/min/1.73 sqM); Sodium 145 mmol/L (137-145); Total Bilirubin 0.9 mg/dL (0.2-1.3); Total Protein 7.8 g/dL (6.3-8.2)
[2016-08-12 14:30] LABS: Potassium 4.6 mmol/L (3.5-5.1)
[2016-08-12 15:18] VITALS: BP 134/89; PULSE 79; RESP 18; TEMP 98.3
== END 2016-08-12 15:18 | disposition home or self-care (01) ==
LOC: EC 12:29
DX: E72.4 Disorders of ornithine metabolism (principal); Z88.8 Allergy status to other drugs, medicaments and biological substances; Z86.14 Personal history of Methicillin resistant Staphylococcus aureus infection; Z79.899 Other long term (current) drug therapy
CPT/HCPCS: 36415; 80053; 82140; 85025; 99284

== ENCOUNTER 2016-08-19 05:22 | Emergency (ER) | payer MEDICARE ==
[2016-08-19 05:28] VITALS: RESP 18
[2016-08-19] MEDS ORDERED: traMADol 50 MG TAB PO STA (05:55)
--- NOTE | 2016-08-19 06:37 | ED ---
Lower Extremity Injury HPI - General Chief Complaint: Extremity Injury, Lower Stated Complaint: Foot Injury Time Seen by Provider: 08/19/16 05:41 Source: patient Mode of arrival: ambulatory Limitations: no limitations - History of Present Illness Initial Comments: This patient is a 36-year-old man who presents with pain and swelling to the dorsolateral aspect of his right foot which is been going on getting worse over the course of tonight. The patient does not recall any specific injury to his foot. Patient furthermore denies any systemic symptoms, including no fever or chills, chest pain, dyspnea, or palpitations. Denies risk factor for septic arthritis/osteomyelitis, including no IV drug use. He does state he has previously had gout. MD Complaint: foot injury Onset/Timin -: days(s) Injury: Foot: Right Place: home Severity: moderate Improves With: nothing Worsens With: weight bearing Associated Symptoms: swelling - Related Data Home Medications Medication Instructions Recorded Confirmed Acetaminophen Tab [Tylenol Tab] 650 mg PO Q4H PRN 06/21/16 08/19/16 Glycerol Phenylbutyrate [Ravicti] 6.6 gm PO TID@0900,1500,2100 06/21/16 08/19/16 Ibuprofen [Motrin] 400 mg PO Q6HR PRN 08/12/16 08/19/16 traMADol HCL [Ultram] 50 mg PO Q6HR PRN 08/19/16 08/19/16 Previous Rx's Medication Instructions Recorded predniSONE 60 mg PO DAILY #30 tab 08/19/16 traMADol HCl [Ultram] 50 mg PO Q6H PRN #20 tab 08/19/16 Allergies Allergy/AdvReac Type Severity Reaction Status Date / Time alprazolam [From Xanax] Allergy Unknown Verified 08/19/16 05:28 olanzapine [From Zyprexa] Allergy Unknown Verified 08/19/16 05:28 sertraline [From Zoloft] Allergy Unknown Verified 08/19/16 05:28 Review of Systems ROS Statement: Those systems with pertinent positive or pertinent negative responses have been documented in the HPI. ROS Other: All systems not noted in ROS Statement are negative. Constitutional: Denies: fever, chills Respiratory: Denies: cough, dyspnea Cardiovascular: Denies: chest pain, palpitations Musculoskeletal: Reports: as per HPI, joint swelling, arthralgia Skin: Denies: rash Neurological: Denies: weakness, numbness Past Medical History Additional Past Medical History / Comment(s): Other HX: Ornithine TransCarbamylase (OTC) deficiency, Impaired processing of protein and risk for intermittent hyperammonemia. Torn left ACL and left knee effusion-uses brace and cane prn, anemia-nromocytic, 2013 bilateral feet fx and R ankle fx, recent R hand fx per pt, ulcers and vomitted blood in past. Bone deficiency, bones break easily. Seizures, shingles 2010 History of Any Multi-Drug Resistant Organisms: MRSA Date of last positivie culture/infection: 2013 MDRO Source:: Back Past Surgical History: Adenoidectomy, Ear Surgery, Tonsillectomy Additional Past Surgical History / Comment(s): liver biopsy, L-knee drained of 30 ml of fluid, tubes bilateral ears. Past Anesthesia/Blood Transfusion Reactions: Previous Problems w/ Anesthesia Additional Past Anesthesia/Blood Transfusion Reaction / Comment(s): Unable to wake up and being overly aggressive. Past Psychological History: Anxiety, Depression, Schizophrenia Additional Psychological History / Comment(s): Poor impulse control, anger management issues. History of being placed in restraints, numerous inpatient psychiatric admissions including [facility]. Schizoaffecctive diorder. PT lives in apt. alone. He has a L knee brace and cane he uses prn. He does not drive-his sister or brother take him places. His sister-Nadya helps him with bills etc. Pt can read and write alittle. Smoking Status: Never smoker Past Alcohol Use History: None Reported Additional Past Alcohol Use History / Comment(s): Patient states he has been a nonsmoker. He used to smoke marijuana but has quit for 20 days now. He denies any street drug use or alcohol use or abuse. Past Drug Use History: Marijuana Additional Drug Use History / Comment(s): Patient denies but admits to taking a tablet form of tenzin - Past Family History Father Additional Family Medical History / Comment(s): Father at age 61 in April 2014, patient does not know cause of . Mother Family Medical History: Cancer Brother(s) Family Medical History: No Reported History Sister(s) Family Medical History: No Reported History General Exam Limitations: no limitations General appearance: alert, in no apparent distress Head exam: Present: atraumatic, normocephalic Eye exam: Present: normal appearance Cardiovascular Exam: Present: other (Normal pedal pulses) Extremities exam: Present: tenderness, other (The patient has tenderness and mild soft tissue swelling along the dorsum of the right foot particularly laterally over the fifth metatarsal. No obvious deformity.) Neurological exam: Absent: motor sensory deficit Skin exam: Present: warm, dry, intact, normal color. Absent: rash Course Vital Signs 08/19/16 05:26 Temperature 97.2 F L Pulse Rate 70 Respiratory 18 Rate Blood Pressure 116/79 O2 Sat by Pulse 98 Oximetry Disposition Clinical Impression: Sprain of foot, right Narrative: Possible gout Disposition: HOME SELF-CARE Condition: Fair Instructions: Foot Sprain (ED) Prescriptions: predniSONE 60 mg PO DAILY #30 tab traMADol HCl [Ultram] 50 mg PO Q6H PRN #20 tab PRN Reason: Pain Referrals: Salvador Guevara MD [Primary Care Provider] - 1-2 days
[2016-08-19] MEDS ORDERED: predniSONE 20 MG TAB PO STA (06:51)
[2016-08-19 06:57] VITALS: BP 119/69; PULSE 88; TEMP 98
--- NOTE | 2016-08-19 06:59 | XR ---
EXAM: XR Right Foot Complete, 3 Views. CLINICAL HISTORY: Pain. TECHNIQUE: Frontal, lateral and oblique views of the right foot. COMPARISON: No relevant prior studies available. FINDINGS: Bones/joints: No acute fracture. No dislocation. Soft tissues: Unremarkable. No radiopaque foreign body. IMPRESSION: No acute abnormality.
== END 2016-08-19 06:57 | disposition home or self-care (01) ==
LOC: EC 05:22
DX: S93.601A Unspecified sprain of right foot, initial encounter (principal); E72.4 Disorders of ornithine metabolism; Z79.899 Other long term (current) drug therapy; Z88.8 Allergy status to other drugs, medicaments and biological substances; Z87.39 Personal history of other diseases of the musculoskeletal system and connective tissue; X58.XXXA Exposure to other specified factors, initial encounter
CPT/HCPCS: 73630; 99283; J7512

== ENCOUNTER 2016-08-30 08:04 | Emergency (ER) | payer MEDICARE ==
[2016-08-30] MEDS ORDERED: SODIUM CHLORIDE 0.9% 1,000 ML IV STA (08:25)
[2016-08-30] MEDS ORDERED: ONDANSETRON 4 MG/2 ML VIAL IVP STA ×2 (08:25→09:45)
--- NOTE | 2016-08-30 08:36 | ED ---
General Adult HPI - General Chief complaint: Recheck/Abnormal Lab/Rx Stated complaint: THINKS AMONIA LEVEL OFF Time Seen by Provider: 08/30/16 08:17 Source: patient, RN notes reviewed Mode of arrival: ambulatory Limitations: no limitations - History of Present Illness Initial comments: Patient 36-year-old male with significant past medical history for\ Ornithine transcarbamylase deficiency, who presents today with chief complaint of increased nausea vomiting and symptoms of elevated ammonia. Patient does admit that he's noticed that his mood has changed work he's been more irritable over the last 2 days. States she's had symptoms of nausea vomiting over the last 2 days. Patient does admit that the symptoms are consistent with his ammonia level on the rise. He states he has been taking his medication as prescribed. He denies any other complaints or symptoms. Patient denies any recent fever, chills, shortness of breath, chest pain, back pain, abdominal pain, numbness or tingling, dysuria or hematuria, constipation or diarrhea, headaches or visual changes, or any other complaints. - Related Data Home Medications Medication Instructions Recorded Confirmed Acetaminophen Tab [Tylenol Tab] 650 mg PO Q4H PRN 06/21/16 08/30/16 Glycerol Phenylbutyrate [Ravicti] 6.6 gm PO TID@0900,1500,2100 06/21/16 08/30/16 Ibuprofen [Motrin] 400 mg PO Q6HR PRN 08/12/16 08/30/16 traMADol HCL [Ultram] 50 mg PO Q6HR PRN 08/19/16 08/30/16 Allergies Allergy/AdvReac Type Severity Reaction Status Date / Time alprazolam [From Xanax] Allergy Unknown Verified 08/30/16 08:25 olanzapine [From Zyprexa] Allergy Unknown Verified 08/30/16 08:25 sertraline [From Zoloft] Allergy Unknown Verified 08/30/16 08:25 Review of Systems ROS Statement: Those systems with pertinent positive or pertinent negative responses have been documented in the HPI. ROS Other: All systems not noted in ROS Statement are negative. 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 Torn left ACL and left knee effusion-uses brace and cane prn, anemia-nromocytic, 2013 bilateral feet fx and R ankle fx, recent R hand fx per pt, ulcers and vomitted blood in past. Bone deficiency, bones break easily. Seizures, shingles 2010 History of Any Multi-Drug Resistant Organisms: MRSA Date of last positivie culture/infection: 2013 MDRO Source:: Back Past Surgical History: Adenoidectomy, Ear Surgery, Tonsillectomy Additional Past Surgical History / Comment(s): liver biopsy, L-knee drained of 30 ml of fluid, tubes bilateral ears. Past Anesthesia/Blood Transfusion Reactions: Previous Problems w/ Anesthesia Additional Past Anesthesia/Blood Transfusion Reaction / Comment(s): Unable to wake up and being overly aggressive. Past Psychological History: Anxiety, Depression, Schizophrenia Additional Psychological History / Comment(s): Poor impulse control, anger management issues. History of being placed in restraints, numerous inpatient psychiatric admissions including [facility]. Schizoaffecctive diorder. PT lives in apt. alone. He has a L knee brace and cane he uses prn. He does not drive-his sister or brother take him places. His sister-Nadya helps him with bills etc. Pt can read and write alittle. Smoking Status: Never smoker Past Alcohol Use History: None Reported Additional Past Alcohol Use History / Comment(s): Patient states he has been a nonsmoker. He used to smoke marijuana but has quit for 20 days now. He denies any street drug use or alcohol use or abuse. Past Drug Use History: Marijuana Additional Drug Use History / Comment(s): Patient denies but admits to taking a tablet form of tenzin - Past Family History Father Additional Family Medical History / Comment(s): Father at age 61 in April 2014, patient does not know cause of . Mother Family Medical History: Cancer Brother(s) Family Medical History: No Reported History Sister(s) Family Medical History: No Reported History General Exam - General Exam Comments Initial Comments: General: The patient is awake and alert, in no distress, and does not appear acutely ill. Eye: Pupils are equal, round and reactive to light, extra-ocular movements are intact. No nystagmus. There is normal conjunctiva bilaterally. No signs of icterus. Ears, nose, mouth and throat: There are moist mucous membranes and no oral lesions. Neck: The neck is supple, there is no tenderness or JVD. Cardiovascular: There is a regular rate and rhythm. No murmur, rub or gallop is appreciated. Respiratory: Lungs are clear to auscultation, respirations are non-labored, breath sounds are equal. No wheezes, stridor, rales, or rhonchi. Gastrointestinal: Soft, non-distended, non-tender abdomen without masses or organomegaly noted. There is no rebound or guarding present. No CVA tenderness. Bowel sounds are unremarkable. Musculoskeletal: Normal ROM, no tenderness. Strength 5/5. Sensation intact. Pulses equal bilaterally 2+. Neurological: A&O x 3. CN II-XII intact, There are no obvious motor or sensory deficits. Coordination appears grossly intact. Speech is normal. Skin: Skin is warm and dry and no rashes or lesions are noted. Psychiatric: Cooperative, appropriate mood & affect, normal judgment. Limitations: no limitations Course Vital Signs 08/30/16 08/30/16 08/30/16 08:06 08:37 11:13 Temperature 97.8 F Pulse Rate 95 72 83 Respiratory 20 16 16 Rate Blood Pressure 126/105 118/77 165/65 O2 Sat by Pulse 98 96 100 Oximetry - Reevaluation(s) Reevaluation #1: 08/30/16 09:35 [place] with [place] [facility] recommends starting D10 0.9 at 150 hour. He will consult attending and calls back. 08/30/16 09:49 Case was rediscussed with beverage specialist at [facility] [place] Jae who at this time recommends transfer to [facility] for further evaluation and medications as we do not have some of the additives available here at [facility]. Patient has been started on D10 0.9. Patient updated at this time and aware of the plan. Will be transferred via EMS. 08/30/16 10:08 Case discussed with [facility] emergency physician Dr. Perry who recommends as patient is stable that he can be a direct admit to the hospital. At this time we are awaiting callback from hospitalist group for possible direct admission. 08/30/16 11:14 Case discussed with beverage specialist Dr. Rowe once again who recommends that patient go to the ER for faster treatment and possible admission to ICU from the ER. Case was then again discussed with human services case manager who notified accepting physician Dr. Perry. Patient will be transferred by EMS. Medical Decision Making - Lab Data Result diagrams: 08/30/16 08:25 08/30/16 08:25 Lab Results 08/30/16 08/30/16 08/30/16 Range/Units 08:25 08:25 08:25 WBC 7.6 (3.8-10.6) k/uL RBC 4.91 (4.30-5.90) m/uL Hgb 14.6 (13.0-17.5) gm/dL Hct 42.9 (39.0-53.0) % MCV 87.5 (80.0-100.0) fL MCH 29.7 (25.0-35.0) pg MCHC 33.9 (31.0-37.0) g/dL RDW 13.8 (11.5-15.5) % Plt Count 179 (150-450) k/uL Neutrophils % 55 % Lymphocytes % 30 % Monocytes % 9 % Eosinophils % 1 % Basophils % 1 % Neutrophils # 4.2 (1.3-7.7) k/uL Lymphocytes # 2.3 (1.0-4.8) k/uL Monocytes # 0.7 (0-1.0) k/uL Eosinophils # 0.1 (0-0.7) k/uL Basophils # 0.1 (0-0.2) k/uL Sodium 143 (137-145) mmol/L Potassium 4.8 (3.5-5.1) mmol/L Chloride 109 H (98-107) mmol/L Carbon Dioxide 18 L (22-30) mmol/L Anion Gap 16 mmol/L BUN 4 L (9-20) mg/dL Creatinine 0.61 L (0.66-1.25) mg/dL Est GFR (MDRD) Af Amer >60 (>60 ml/min/1.73 sqM) Est GFR (MDRD) Non-Af >60 (>60 ml/min/1.73 sqM) Glucose 109 H (74-99) mg/dL Calcium 10.0 (8.4-10.2) mg/dL Total Bilirubin 1.5 H (0.2-1.3) mg/dL AST 30 (17-59) U/L ALT 37 (21-72) U/L Alkaline Phosphatase 70 (38-126) U/L Ammonia 114 H (<30) umol/L Total Protein 7.9 (6.3-8.2) g/dL Albumin 4.7 (3.5-5.0) g/dL Disposition Clinical Impression: Hyperammonemia, OTC (ornithine transcarbamylase deficiency) Disposition: OTHER INSTITUTION NOT DEFINED Condition: Stable Referrals: Salvador Guevara MD [Primary Care Provider] - 1-2 days Time of Disposition: 09:50 (Transferred via EMS) - Out of Hospital Transfer - Req. Specs Out of Hospital Transfer - Requested Specifics: Other Emergency Center ([facility])
[2016-08-30 08:54] LABS: Basophils # (A) 0.1 k/uL (0-0.2); Basophils % (A) 1 %; CH 30.8; CHCM 35.3; Eosinophils # (A) 0.1 k/uL (0-0.7); Eosinophils % (A) 1 %; HCT 42.9 % (39.0-53.0); HDW 2.92; HGB 14.6 gm/dL (13.0-17.5); Luc # (Auto) 0.26; Luc % (Auto) 3; Lymphocytes # (A) 2.3 k/uL (1.0-4.8); Lymphocytes % (A) 30 %; MCH 29.7 pg (25.0-35.0); MCHC 33.9 g/dL (31.0-37.0); MCV 87.5 fL (80.0-100.0); Mean Platelet Volume 10.2; Monocytes # (A) 0.7 k/uL (0-1.0); Monocytes % (A) 9 %; Neutrophils # (A) 4.2 k/uL (1.3-7.7); Neutrophils % (A) 55 %; RBC 4.91 m/uL (4.30-5.90); RDW 13.8 % (11.5-15.5); WBC 7.6 k/uL (3.8-10.6); WBC (Perox) 7.65
[2016-08-30 09:08] LABS: ALT 37 U/L (21-72); AST 30 U/L (17-59); Alkaline Phosphatase 70 U/L (38-126); Anion Gap 16 mmol/L; Blood Urea Nitrogen 4 mg/dL (9-20); Carbon Dioxide 18 mmol/L (22-30); Chloride 109 mmol/L (98-107); Glucose 109 mg/dL (74-99); Non-African American GFR(MDRD) >60 (>60 ml/min/1.73 sqM); Potassium 4.8 mmol/L (3.5-5.1); Sodium 143 mmol/L (137-145); Total Bilirubin 1.5 mg/dL (0.2-1.3); Total Protein 7.9 g/dL (6.3-8.2)
[2016-08-30] MEDS ORDERED: DEXTROSE 5%-0.9% NACL 1,000 ML IV SCH (09:45)
[2016-08-30 12:09] VITALS: BP 117/57; PULSE 76; RESP 14; TEMP 97.5
== END 2016-08-30 12:15 | disposition short-term general hospital (02) ==
LOC: EC 08:04
DX: E72.4 Disorders of ornithine metabolism (principal); R11.2 Nausea with vomiting, unspecified; Z79.899 Other long term (current) drug therapy; Z88.8 Allergy status to other drugs, medicaments and biological substances
CPT/HCPCS: 99284; 96374; 96376; 96361; 36415; 80053; 82140; 85025; J2405

== ENCOUNTER 2016-09-20 00:56 | Emergency (ER) | payer MEDICARE ==
--- NOTE | 2016-09-20 01:30 | ED ---
General Adult HPI - General Chief complaint: Extremity Injury, Upper Stated complaint: Poss Hand Fx Time Seen by Provider: 09/20/16 01:10 Source: patient, RN notes reviewed Mode of arrival: ambulatory Limitations: no limitations - History of Present Illness Initial comments: This is a 36-year-old male presents with right hand and wrist pain after punching a table. Patient states he got angry and upset when he punched a table. Patient denies any numbness/tingling/weakness. Patient reports pain to the ulnar aspect of the right hand and wrist. Patient reports he has OTC deficiency and feels he's been vomiting more lately and would like his ammonia level checked. Patient states he also feels more angry when his ammonia levels are elevated. Patient denies any recent fever, chills, shortness breath, chest pain, abdominal pain, nausea/vomiting/diarrhea, back pain, hematuria, headache , or visual changes, or any other complaints. - Related Data Home Medications Medication Instructions Recorded Confirmed Acetaminophen Tab [Tylenol Tab] 650 mg PO Q4H PRN 06/21/16 08/30/16 Glycerol Phenylbutyrate [Ravicti] 6.6 gm PO TID@0900,1500,2100 06/21/16 08/30/16 Ibuprofen [Motrin] 400 mg PO Q6HR PRN 08/12/16 08/30/16 traMADol HCL [Ultram] 50 mg PO Q6HR PRN 08/19/16 08/30/16 Previous Rx's Medication Instructions Recorded traMADol HCL [Ultram] 50 mg PO Q6HR #12 tab 09/20/16 Allergies Allergy/AdvReac Type Severity Reaction Status Date / Time alprazolam [From Xanax] Allergy Unknown Verified 08/30/16 08:25 olanzapine [From Zyprexa] Allergy Unknown Verified 08/30/16 08:25 sertraline [From Zoloft] Allergy Unknown Verified 08/30/16 08:25 Review of Systems ROS Statement: Those systems with pertinent positive or pertinent negative responses have been documented in the HPI. ROS Other: All systems not noted in ROS Statement are negative. 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 Torn left ACL and left knee effusion-uses brace and cane prn, anemia-nromocytic, 2013 bilateral feet fx and R ankle fx, recent R hand fx per pt, ulcers and vomitted blood in past. Bone deficiency, bones break easily. Seizures, shingles 2010 History of Any Multi-Drug Resistant Organisms: MRSA Date of last positivie culture/infection: 2013 MDRO Source:: Back Past Surgical History: Adenoidectomy, Ear Surgery, Tonsillectomy Additional Past Surgical History / Comment(s): liver biopsy, L-knee drained of 30 ml of fluid, tubes bilateral ears. Past Anesthesia/Blood Transfusion Reactions: Previous Problems w/ Anesthesia Additional Past Anesthesia/Blood Transfusion Reaction / Comment(s): Unable to wake up and being overly aggressive. Past Psychological History: Anxiety, Depression, Schizophrenia Additional Psychological History / Comment(s): Poor impulse control, anger management issues. History of being placed in restraints, numerous inpatient psychiatric admissions including [facility]. Schizoaffecctive diorder. PT lives in apt. alone. He has a L knee brace and cane he uses prn. He does not drive-his sister or brother take him places. His sister-Nadya helps him with bills etc. Pt can read and write alittle. Smoking Status: Never smoker Past Alcohol Use History: None Reported Additional Past Alcohol Use History / Comment(s): Patient states he has been a nonsmoker. He used to smoke marijuana but has quit for 20 days now. He denies any street drug use or alcohol use or abuse. Past Drug Use History: Marijuana Additional Drug Use History / Comment(s): Patient denies but admits to taking a tablet form of tenzin - Past Family History Father Additional Family Medical History / Comment(s): Father at age 61 in April 2014, patient does not know cause of . Mother Family Medical History: Cancer Brother(s) Family Medical History: No Reported History Sister(s) Family Medical History: No Reported History General Exam - General Exam Comments Initial Comments: General: The patient is awake and alert, in no distress, and does not appear acutely ill. Neck: The neck is supple, there is no tenderness or JVD. Cardiovascular: There is a regular rate and rhythm. No murmur, rub or gallop is appreciated. Respiratory: Lungs are clear to auscultation, respirations are non-labored, breath sounds are equal. No wheezes, stridor, rales, or rhonchi. Musculoskeletal: Patient has limited range of motion of the right hand due to pain. Patient has tenderness to palpation over the ulnar aspect of the right hand and to the fourth and fifth digits. Patient also has tenderness to palpation over the ulnar aspect of the right wrist. No tenderness of the anatomical snuffbox. Patient strength 5/5 and Sensation intact. Radial pulses 2+ bilaterally and capillary refill is normal at less than 2 seconds. Neurological: A&O x 3. CN II-XII intact, There are no obvious motor or sensory deficits. Coordination appears grossly intact. Speech is normal. Skin: There is erythema to the ulnar aspect of the right hand. Abrasion over the third MCP joint of the dorsal aspect of the right hand. Skin is warm and dry and no rashes or lesions are noted. Psychiatric: Normal mood and affect. Limitations: no limitations Course Vital Signs 09/20/16 09/20/16 00:59 03:14 Temperature 98.2 F 97.8 F Pulse Rate 69 80 Respiratory 16 20 Rate Blood Pressure 117/68 119/69 O2 Sat by Pulse 99 97 Oximetry Medical Decision Making - Medical Decision Making This is a 36-year-old male presents with right hand and wrist pain after punching a table. On physical exam patient has limited range of motion of the right hand due to pain. Patient is tender to palpation over the ulnar aspect of the right hand and to the fourth and fifth digits. Patient also has tenderness to palpation over the ulnar aspect of the right wrist. No tenderness of the anatomical snuffbox. Patient strength 5/5 and Sensation intact. Radial pulses 2+ bilaterally and capillary refill is normal at less than 2 seconds. There is swelling and ecchymosis to the ulnar aspect of the right hand. Patient is also requesting that his ammonia levels be checked due to history of OTC deficiency. Basic labs are drawn. X-rays of the right hand and wrist were done and reviewed showing: X-ray right hand: Acute largely nondisplaced fracture involving the fifth metacarpal Center at the neck. X-ray right wrist: Acute boxer's fracture of the fifth metacarpal neck. Reports by Dr. Forrest A short arm ulnar gutter splint to the right upper extremity was placed. Neurovascular was rechecked and is intact. Patient was instructed to stay non -weightbearing to the right upper extremity. Patient was instructed to rest, ice, elevate and keep splint on until follow-up with orthopedics. Discussed with patient to follow-up with orthopedics in the next 1-2 days. Please return to the [facility] symptoms worsen or for any other concerns. Patient's ammonia level was elevated but patient states he will not stay for any further evaluation as he "knows that that is not high enough for him to be treated". I offered patient further workup. Patient refuses any further workup and states he will come back if his symptoms begin to worsen. I discussed return parameters. I discussed follow-up with orthopedics and his family doctor. Patient will be given a prescription for tramadol for breakthrough pain otherwise I discussed Motrin. Discussed that patient should follow up with PCP in one to 2 days or return to the [facility] for any worsening symptoms or for any further concerns. Patient was receptive to this plan and patient will be discharged home. I discussed this case with attending physician Dr. Hewitt who agrees the plan as stated above. - Lab Data Result diagrams: 09/20/16 02:01 Lab Results 09/20/16 09/20/16 Range/Units 02:01 02:01 WBC 7.2 (3.8-10.6) k/uL RBC 4.73 (4.30-5.90) m/uL Hgb 14.1 (13.0-17.5) gm/dL Hct 42.1 (39.0-53.0) % MCV 89.0 (80.0-100.0) fL MCH 29.8 (25.0-35.0) pg MCHC 33.5 (31.0-37.0) g/dL RDW 14.0 (11.5-15.5) % Plt Count 166 (150-450) k/uL Neutrophils % 54 % Lymphocytes % 34 % Monocytes % 7 % Eosinophils % 2 % Basophils % 1 % Neutrophils # 3.8 (1.3-7.7) k/uL Lymphocytes # 2.5 (1.0-4.8) k/uL Monocytes # 0.5 (0-1.0) k/uL Eosinophils # 0.1 (0-0.7) k/uL Basophils # 0.1 (0-0.2) k/uL Ammonia 51 H (<30) umol/L Disposition Clinical Impression: Boxers fracture Disposition: HOME SELF-CARE Condition: Good Instructions: Boxer Fracture (ED) Additional Instructions: Please rest, ice, elevate, and use splint for support. Do not get the splint wet. Please leave splint on until follow-up. Please stay nonweightbearing to the right upper extremity. Please use [id number] Motrin and tramadol for pain. Please follow up with orthopedics tomorrow or as soon as possible. Please follow-up with the PCP tomorrow. Please return to the [facility] for any worsening symptoms or for any further concerns. Prescriptions: traMADol HCL [Ultram] 50 mg PO Q6HR #12 tab Referrals: Salvador Guevara MD [Primary Care Provider] - 1-2 days Curly Patton MD [Medical Doctor] - 1-2 days Time of Disposition: 03:12
--- NOTE | 2016-09-20 01:51 | XR ---
EXAM: XR Right Wrist Complete, 3 or More Views. CLINICAL HISTORY: Reason: Pain fifth metacarpal. TECHNIQUE: Frontal, lateral, and oblique views of the right wrist. COMPARISON: No relevant prior studies available. FINDINGS: Acute largely nondisplaced fracture involving the neck of the fifth metacarpal with volar angulation of the distal component. This is compatible with a boxer's type fracture. Adjacent soft tissue swelling. No dislocation. IMPRESSION: Acute boxer's fracture of the fifth metacarpal neck.
--- NOTE | 2016-09-20 01:53 | XR ---
EXAM: XR Right Hand Complete, 3 or More Views. CLINICAL HISTORY: Reason: Pain TECHNIQUE: Frontal, lateral, and oblique views of the right hand. COMPARISON: No relevant prior studies available. FINDINGS: Bones/joints: Acute largely nondisplaced fracture involving the fifth metacarpal centered at the neck. Associated volar angulation of the distal component. No other acute or healing fracture or malalignment. Soft tissues: Soft tissue swelling about the fracture site. No additional soft tissue abnormalities. No radiopaque foreign body. IMPRESSION: Acute largely nondisplaced fracture involving the fifth metacarpal centered at the neck.
[2016-09-20 02:16] LABS: Basophils # (A) 0.1 k/uL (0-0.2); Basophils % (A) 1 %; CH 30.3; CHCM 34.2; Eosinophils # (A) 0.1 k/uL (0-0.7); Eosinophils % (A) 2 %; HCT 42.1 % (39.0-53.0); HDW 2.84; HGB 14.1 gm/dL (13.0-17.5); Luc # (Auto) 0.17; Luc % (Auto) 2; Lymphocytes # (A) 2.5 k/uL (1.0-4.8); Lymphocytes % (A) 34 %; MCH 29.8 pg (25.0-35.0); MCHC 33.5 g/dL (31.0-37.0); Mean Platelet Volume 9.5; Monocytes # (A) 0.5 k/uL (0-1.0); Monocytes % (A) 7 %; Neutrophils # (A) 3.8 k/uL (1.3-7.7); Neutrophils % (A) 54 %; RBC 4.73 m/uL (4.30-5.90); WBC 7.2 k/uL (3.8-10.6); WBC (Perox) 6.81
[2016-09-20] MEDS ORDERED: traMADol 50 MG TAB PO STA (02:25)
[2016-09-20 03:03] LABS: ALT 32 U/L (21-72); AST 23 U/L (17-59); Alkaline Phosphatase 76 U/L (38-126); Anion Gap 16 mmol/L; Blood Urea Nitrogen <2 mg/dL (9-20); Calcium 10.4 mg/dL (8.4-10.2); Carbon Dioxide 20 mmol/L (22-30); Chloride 108 mmol/L (98-107); Glucose 91 mg/dL (74-99); Non-African American GFR(MDRD) >60 (>60 ml/min/1.73 sqM); Potassium 3.9 mmol/L (3.5-5.1); Sodium 144 mmol/L (137-145); Total Bilirubin 1.2 mg/dL (0.2-1.3); Total Protein 7.6 g/dL (6.3-8.2)
[2016-09-20 03:15] VITALS: BP 119/69; PULSE 80; RESP 20; TEMP 97.8
== END 2016-09-20 03:15 | disposition home or self-care (01) ==
LOC: EC 00:56
DX: S62.366A Nondisplaced fracture of neck of fifth metacarpal bone, right hand, initial encounter for closed fracture (principal); E72.4 Disorders of ornithine metabolism; Z88.8 Allergy status to other drugs, medicaments and biological substances; Z79.899 Other long term (current) drug therapy; W22.03XA Walked into furniture, initial encounter
CPT/HCPCS: 29125; 36415; 80053; 82140; 85025; 99283

== ENCOUNTER 2016-10-19 09:54 | Emergency (ER) | payer MEDICARE ==
[2016-10-19 10:59] VITALS: BP 116/59; PULSE 50; RESP 18; TEMP 98
[2016-10-19] MEDS ORDERED: ONDANSETRON 4 MG/2 ML VIAL IVP STA (12:07)
[2016-10-19] MEDS ORDERED: SODIUM CHLORIDE 0.45% 1,000 ML IV SCH (12:15)
--- NOTE | 2016-10-19 12:25 | ED ---
General Adult HPI - General Chief complaint: Recheck/Abnormal Lab/Rx Stated complaint: abn labs Time Seen by Provider: 10/19/16 11:45 Source: patient, RN notes reviewed, old records reviewed Mode of arrival: ambulatory Limitations: no limitations - History of Present Illness Initial comments: This is a 36-year-old male with a history of an ornithine transcarbamylase deficiency. He frequently gets hyper ammonia anemia who states he had the onset around 9 PM last evening of multiple episodes of nausea and vomiting he's had some chills along with it some dizziness lightheadedness. He still feels nauseated now. He did present with a protocol for how he is to be treated when this happens. He believes his ammonia level may be high. He has no other complaints he states it feels like frequent prior episodes. He denies any blood in his emesis. No blood per rectum no constipation very minimal abdominal discomfort. No chest pain no shortness of breath - Related Data Home Medications Medication Instructions Recorded Confirmed Acetaminophen Tab [Tylenol Tab] 650 mg PO Q4H PRN 06/21/16 10/19/16 Glycerol Phenylbutyrate [Ravicti] 6.6 gm PO TID@0900,1500,2100 06/21/16 10/19/16 Ibuprofen [Motrin] 400 mg PO Q6HR PRN 08/12/16 10/19/16 Previous Rx's Medication Instructions Recorded Metoclopramide [Reglan] 10 mg PO ACHS PRN #14 tab 10/19/16 Allergies Allergy/AdvReac Type Severity Reaction Status Date / Time alprazolam [From Xanax] Allergy Unknown Verified 10/19/16 11:48 olanzapine [From Zyprexa] Allergy Unknown Verified 10/19/16 11:48 sertraline [From Zoloft] Allergy Unknown Verified 10/19/16 11:48 Review of Systems ROS Statement: Those systems with pertinent positive or pertinent negative responses have been documented in the HPI. ROS Other: All systems not noted in ROS Statement are negative. 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 Torn left ACL and left knee effusion-uses brace and cane prn, anemia-nromocytic, 2014 bilateral feet fx and R ankle fx, recent R hand fx per pt, ulcers and vomitted blood in past. Bone deficiency, bones break easily. Seizures, shingles 2010 History of Any Multi-Drug Resistant Organisms: MRSA Date of last positivie culture/infection: 2013 MDRO Source:: Back Past Surgical History: Adenoidectomy, Ear Surgery, Tonsillectomy Additional Past Surgical History / Comment(s): liver biopsy, L-knee drained of 30 ml of fluid, tubes bilateral ears. Past Anesthesia/Blood Transfusion Reactions: Previous Problems w/ Anesthesia Additional Past Anesthesia/Blood Transfusion Reaction / Comment(s): Unable to wake up and being overly aggressive. Past Psychological History: Anxiety, Depression, Schizophrenia Additional Psychological History / Comment(s): Poor impulse control, anger management issues. History of being placed in restraints, numerous inpatient psychiatric admissions including [facility]. Schizoaffecctive diorder. PT lives in apt. alone. He has a L knee brace and cane he uses prn. He does not drive-his sister or brother take him places. His sister-Nadya helps him with bills etc. Pt can read and write alittle. Smoking Status: Never smoker Past Alcohol Use History: None Reported Additional Past Alcohol Use History / Comment(s): Patient states he has been a nonsmoker. He used to smoke marijuana but has quit for 20 days now. He denies any street drug use or alcohol use or abuse. Past Drug Use History: Marijuana Additional Drug Use History / Comment(s): Patient denies but admits to taking a tablet form of tenzin - Past Family History Father Additional Family Medical History / Comment(s): Father at age 61 in April 2014, patient does not know cause of . Mother Family Medical History: Cancer Brother(s) Family Medical History: No Reported History Sister(s) Family Medical History: No Reported History General Exam - General Exam Comments Initial Comments: This is a well-developed well-nourished awake alert oriented 3 male Limitations: no limitations General appearance: alert, in no apparent distress Head exam: Present: atraumatic, normocephalic, normal inspection Eye exam: Present: normal appearance, PERRL, EOMI. Absent: scleral icterus, conjunctival injection, periorbital swelling ENT exam: Present: mucous membranes dry Neck exam: Present: normal inspection. Absent: tenderness, meningismus, lymphadenopathy Respiratory exam: Present: normal lung sounds bilaterally. Absent: respiratory distress, wheezes, rales, rhonchi, stridor Cardiovascular Exam: Present: normal rhythm, bradycardia, normal heart sounds. Absent: systolic murmur, diastolic murmur, rubs, gallop, clicks GI/Abdominal exam: Present: soft, tenderness (Mild epigastric tenderness palpation no guarding no rebound no masses no bruits), normal bowel sounds. Absent: distended, guarding, rebound, rigid Extremities exam: Present: normal inspection, full ROM, normal capillary refill. Absent: tenderness, pedal edema, joint swelling, calf tenderness Back exam: Present: normal inspection Neurological exam: Present: alert, oriented X3, CN II-XII intact Psychiatric exam: Present: normal affect, normal mood Skin exam: Present: warm, dry, intact, normal color. Absent: rash Course Vital Signs 10/19/16 10:56 Temperature 98 F Pulse Rate 50 L Respiratory 18 Rate Blood Pressure 116/59 O2 Sat by Pulse 96 Oximetry Medical Decision Making - Medical Decision Making I did discuss findings with the patient is feeling better at this time. His ammonia level is within normal limits he will be discharged he is a follow-up with his doctor and return when necessary he does state the Zofran is not covered by his insurance will try different antiemetic. - Lab Data Result diagrams: 10/19/16 12:47 10/19/16 12:33 Lab Results 10/19/16 10/19/16 10/19/16 Range/Units 12:33 12:33 12:47 WBC 4.7 (3.8-10.6) k/uL RBC 4.32 (4.30-5.90) m/uL Hgb 13.1 (13.0-17.5) gm/dL Hct 37.8 L (39.0-53.0) % MCV 87.5 (80.0-100.0) fL MCH 30.4 (25.0-35.0) pg MCHC 34.7 (31.0-37.0) g/dL RDW 14.1 (11.5-15.5) % Plt Count 122 L (150-450) k/uL Neutrophils % 52 % Lymphocytes % 34 % Monocytes % 7 % Eosinophils % 3 % Basophils % 1 % Neutrophils # 2.4 (1.3-7.7) k/uL Lymphocytes # 1.6 (1.0-4.8) k/uL Monocytes # 0.3 (0-1.0) k/uL Eosinophils # 0.1 (0-0.7) k/uL Basophils # 0.0 (0-0.2) k/uL Sodium 143 (137-145) mmol/L Potassium 4.4 (3.5-5.1) mmol/L Chloride 111 H (98-107) mmol/L Carbon Dioxide 25 (22-30) mmol/L Anion Gap 7 mmol/L BUN <2 L (9-20) mg/dL Creatinine 0.43 L (0.66-1.25) mg/dL Est GFR (MDRD) Af Amer >60 (>60 ml/min/1.73 sqM) Est GFR (MDRD) Non-Af >60 (>60 ml/min/1.73 sqM) Glucose 91 (74-99) mg/dL Calcium 9.5 (8.4-10.2) mg/dL Magnesium 1.6 (1.6-2.3) mg/dL Total Bilirubin 0.9 (0.2-1.3) mg/dL AST 34 (17-59) U/L ALT 29 (21-72) U/L Alkaline Phosphatase 68 (38-126) U/L Ammonia 29 (<30) umol/L Total Protein 6.8 (6.3-8.2) g/dL Albumin 3.9 (3.5-5.0) g/dL Amylase 52 (30-110) U/L Lipase 192 (23-300) U/L - Radiology Data Radiology results: report reviewed (X-rays are nonspecific.), image reviewed Disposition Clinical Impression: Acute gastritis, Emesis Disposition: HOME SELF-CARE Condition: Good Instructions: Gastritis (ED), Acute Nausea and Vomiting (ED) Prescriptions: Metoclopramide [Reglan] 10 mg PO ACHS PRN #14 tab PRN Reason: Nausea
[2016-10-19 12:53] LABS: ALT 29 U/L (21-72); AST 34 U/L (17-59); Alkaline Phosphatase 68 U/L (38-126); Amylase 52 U/L (30-110); Anion Gap 7 mmol/L; Blood Urea Nitrogen <2 mg/dL (9-20); Calcium 9.5 mg/dL (8.4-10.2); Carbon Dioxide 25 mmol/L (22-30); Chloride 111 mmol/L (98-107); Glucose 91 mg/dL (74-99); Magnesium 1.6 mg/dL (1.6-2.3); Non-African American GFR(MDRD) >60 (>60 ml/min/1.73 sqM); Sodium 143 mmol/L (137-145); Total Bilirubin 0.9 mg/dL (0.2-1.3); Total Protein 6.8 g/dL (6.3-8.2)
[2016-10-19 12:57] LABS: Potassium 4.4 mmol/L (3.5-5.1)
[2016-10-19] MEDS ORDERED: WATER IV SCH ×3 (13:00)
[2016-10-19] MEDS ORDERED: [UNRECOGNIZED DRUG - OTHER] IV SCH ×3 (13:00)
[2016-10-19] MEDS ORDERED: DEXTROSE IV SCH ×3 (13:00)
[2016-10-19] MEDS ORDERED: SODIUM CHLORIDE IV SCH ×3 (13:00)
--- NOTE | 2016-10-19 13:21 | XR ---
EXAMINATION TYPE: XR KUB DATE OF EXAM: 10/19/2016 12:58 PM COMPARISON: NONE INDICATION: Pain TECHNIQUE: Acute abdominal series in both supine and upright views. FINDINGS: There is a nonspecific bowel gas pattern with air within small bowel loops as well as the colon. Psoas margins are normal. No organomegaly is present. No suspicious air-fluid levels or differential air-fluid levels are present. No free air is present. Probable phlebolith is in the right hemipelvis. IMPRESSION: 1. Nonspecific abdomen
[2016-10-19 13:31] LABS: Basophils % (A) 1 %; CH 30.6; CHCM 35.1; Eosinophils # (A) 0.1 k/uL (0-0.7); Eosinophils % (A) 3 %; HCT 37.8 % (39.0-53.0); HDW 2.83; HGB 13.1 gm/dL (13.0-17.5); Luc # (Auto) 0.13; Luc % (Auto) 3; Lymphocytes # (A) 1.6 k/uL (1.0-4.8); Lymphocytes % (A) 34 %; MCH 30.4 pg (25.0-35.0); MCHC 34.7 g/dL (31.0-37.0); MCV 87.5 fL (80.0-100.0); Mean Platelet Volume 10.5; Monocytes # (A) 0.3 k/uL (0-1.0); Monocytes % (A) 7 %; Neutrophils # (A) 2.4 k/uL (1.3-7.7); Neutrophils % (A) 52 %; RBC 4.32 m/uL (4.30-5.90); RDW 14.1 % (11.5-15.5); WBC 4.7 k/uL (3.8-10.6); WBC (Perox) 4.43
[2016-10-19] MEDS ORDERED: ONDANSETRON ODT 4 MG TAB PO STA (14:16)
== END 2016-10-19 14:23 | disposition home or self-care (01) ==
LOC: EC 09:54
DX: K29.00 Acute gastritis without bleeding (principal); R11.2 Nausea with vomiting, unspecified; Z53.20 Procedure and treatment not carried out because of patient's decision for unspecified reasons; Z79.899 Other long term (current) drug therapy; Z88.8 Allergy status to other drugs, medicaments and biological substances
CPT/HCPCS: 36415; 74000; 80053; 82140; 82150; 83690; 83735; 85025; 99284

== ENCOUNTER 2016-10-26 18:25 | Emergency (ER) | payer MEDICARE ==
[2016-10-26 18:46] VITALS: BP 122/68; PULSE 63; RESP 18; TEMP 97.9
[2016-10-26] MEDS ORDERED: ACET/COD 300 MG/30 MG STARTER PACK 6 TAB BTL PO STA (19:00)
--- NOTE | 2016-10-26 19:04 | ED ---
Extremity Problem HPI - General Chief complaint: Extremity Problem,Nontraumatic Stated complaint: rt foot swelling Time Seen by Provider: 10/26/16 18:49 Source: patient, RN notes reviewed, old records reviewed Mode of arrival: ambulatory Limitations: no limitations - History of Present Illness Initial comments: Physical 36-year-old male presents emergency department complaining of right foot pain for the past 2 days. Patient reports is also started to swell. Patient refusing some errands and walking on his foot more frequent lately 2 days ago. He states that he woke up with this pain on his foot. He reports he took some Motrin and tramadol with little relief of pain. Patient denies any fever or chills. He reports he has had a history of gout but has not had a flare for a long time. He has a history of OTC disorder. He states that he did the nausea vomiting abdominal pain or any other symptoms besides his foot pain. Patient states it is, very able to walk on it. He came to the emergency department with a chair. Patient was that he has history of multiple fractures in his foot. He states that he thinks he may have fractured due to walking on a more frequently. - Related Data Home Medications Medication Instructions Recorded Confirmed Glycerol Phenylbutyrate [Ravicti] 6.6 gm PO TID@0900,1500,2100 06/21/16 10/26/16 Ibuprofen [Motrin] 800 mg PO BID PRN 10/26/16 10/26/16 Previous Rx's Medication Instructions Recorded Metoclopramide [Reglan] 10 mg PO ACHS PRN #14 tab 10/19/16 Acetaminophen-Codeine 300-30mg 1 tab PO Q4H PRN #15 tablet 10/26/16 [Tylenol #3] Ibuprofen [Motrin] 800 mg PO Q8HR PRN #20 tab 10/26/16 Allergies Allergy/AdvReac Type Severity Reaction Status Date / Time alprazolam [From Xanax] AdvReac Liver Verified 10/26/16 18:51 Complications olanzapine [From Zyprexa] AdvReac Liver Verified 10/26/16 18:51 Complications sertraline [From Zoloft] AdvReac Liver Verified 10/26/16 18:51 Complications Review of Systems ROS Statement: Those systems with pertinent positive or pertinent negative responses have been documented in the HPI. ROS Other: All systems not noted in ROS Statement are negative. 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 Torn left ACL and left knee effusion-uses brace and cane prn, anemia-nromocytic, 2013 bilateral feet fx and R ankle fx, recent R hand fx per pt, ulcers and vomitted blood in past. Bone deficiency, bones break easily. Seizures, shingles 2010 History of Any Multi-Drug Resistant Organisms: MRSA Date of last positivie culture/infection: 2013 MDRO Source:: Back Past Surgical History: Adenoidectomy, Ear Surgery, Tonsillectomy Additional Past Surgical History / Comment(s): liver biopsy, L-knee drained of 30 ml of fluid, tubes bilateral ears. Past Anesthesia/Blood Transfusion Reactions: Previous Problems w/ Anesthesia Additional Past Anesthesia/Blood Transfusion Reaction / Comment(s): Unable to wake up and being overly aggressive. Past Psychological History: Anxiety, Depression, Schizophrenia Additional Psychological History / Comment(s): Poor impulse control, anger management issues. History of being placed in restraints, numerous inpatient psychiatric admissions including [facility]. Schizoaffecctive diorder. PT lives in apt. alone. He has a L knee brace and cane he uses prn. He does not drive-his sister or brother take him places. His sister-Nadya helps him with bills etc. Pt can read and write alittle. Smoking Status: Never smoker Past Alcohol Use History: None Reported Additional Past Alcohol Use History / Comment(s): Patient states he has been a nonsmoker. He used to smoke marijuana but has quit for 20 days now. He denies any street drug use or alcohol use or abuse. Past Drug Use History: Marijuana Additional Drug Use History / Comment(s): Patient denies but admits to taking a tablet form of tenzin - Past Family History Father Additional Family Medical History / Comment(s): Father at age 61 in April 2014, patient does not know cause of . Mother Family Medical History: Cancer Brother(s) Family Medical History: No Reported History Sister(s) Family Medical History: No Reported History General Exam - General Exam Comments Initial Comments: This is a 36-year-old male in no acute distress. Limitations: no limitations General appearance: alert, in no apparent distress Head exam: Present: atraumatic, normocephalic, normal inspection Eye exam: Present: normal appearance, PERRL, EOMI. Absent: scleral icterus, conjunctival injection, periorbital swelling ENT exam: Present: normal exam, mucous membranes moist Neck exam: Present: normal inspection. Absent: tenderness, meningismus, lymphadenopathy Respiratory exam: Present: normal lung sounds bilaterally. Absent: respiratory distress, wheezes, rales, rhonchi, stridor Cardiovascular Exam: Present: regular rate, normal rhythm, normal heart sounds. Absent: systolic murmur, diastolic murmur, rubs, gallop, clicks GI/Abdominal exam: Present: soft, normal bowel sounds. Absent: distended, tenderness, guarding, rebound, rigid Extremities exam: Present: normal inspection, full ROM, normal capillary refill. Absent: tenderness, pedal edema, joint swelling, calf tenderness Right Upper Arm exam: Present: normal inspection Right Knee exam: Present: normal inspection, full ROM Lower Leg exam: Present: normal inspection, full ROM Ankle exam: Present: normal inspection, full ROM Foot/Toe exam: Present: full ROM, tenderness, swelling. Absent: normal inspection (Patient is a mild swelling over the dorsum of the foot. Patient swelling and tenderness is mainly over the first through third metatarsals. No evidence of swelling or redness of the great toe.) Neurovascular tendon exam: Present: no vascular compromise Gait: observed and limited by pain Back exam: Present: normal inspection Neurological exam: Present: alert, oriented X3, CN II-XII intact Psychiatric exam: Present: normal affect, normal mood Skin exam: Present: warm, dry, intact, normal color. Absent: rash Course Vital Signs 10/26/16 18:43 Temperature 97.9 F Pulse Rate 63 Respiratory 18 Rate Blood Pressure 122/68 O2 Sat by Pulse 100 Oximetry Medical Decision Making - Medical Decision Making Is a 36-year-old male presents emergency department with chief complaint of 2 days of right foot pain. Patient presents that occurred after he was ambulatory work for the landed walking. He reports that there is also some swelling. Does have a history of gout. Patient states that he is having difficulty trying to bear any weight on it. He does have history of multiple fractures in the foot in the same he reinjured it. Patient denies a specific trauma that would cause this injury. Patient will receive x-rays. Patient only given one Tylenol with Codeine for pain. Patient is foot does not appear to be significantly swollen or any erythema suggesting signs of gout. Discussed the patient needs to take anti-inflammatory medication I will write him for Tylenol 3 for the pain is worse. Patient was wrapped in an Brigido wrap and instructed to keep the foot elevated. Instructed following up with orthopedic if symptoms continue to persist. Also instructed on return to primary's. Patient understands she'll plan will comply. - Radiology Data Radiology results: report reviewed Foot x-ray was reviewed and negative for any acute process. No evidence of fracture or dislocation. Disposition Clinical Impression: Right foot pain Disposition: HOME SELF-CARE Condition: Good Instructions: Foot Sprain (ED) Additional Instructions: Patient is to follow-up with orthopedic physician. Return to emergency department if any alarming signs or symptoms occur. Patient to take a temperature and pain medication. Patent the foot wrapped. Monitor for any increased redness over the foot. Care physician as well. Prescriptions: Acetaminophen-Codeine 300-30mg [Tylenol #3] 1 tab PO Q4H PRN #15 tablet PRN Reason: Pain Ibuprofen [Motrin] 800 mg PO Q8HR PRN #20 tab PRN Reason: Pain Referrals: Salvador Guevara MD [Primary Care Provider] - 1-2 days Macy Jain PAC [PHYSICIAN EDUCATOR [facility]] - 1-2 days Time of Disposition: 19:24
--- NOTE | 2016-10-26 19:55 | XR ---
EXAMINATION TYPE: XR foot complete RT DATE OF EXAM: 10/26/2016 7:03 PM COMPARISON: NONE HISTORY: Foot pain and swelling TECHNIQUE: 3 views FINDINGS: Metatarsals appear intact. I see no fracture nor dislocation. There are no erosions. Joint spaces are normal. IMPRESSION: Negative right foot exam. No sign of inflammatory arthritis.
== END 2016-10-26 19:34 | disposition home or self-care (01) ==
LOC: EC 18:25
DX: M79.671 Pain in right foot (principal); M79.89 Other specified soft tissue disorders; Z79.899 Other long term (current) drug therapy; Z88.8 Allergy status to other drugs, medicaments and biological substances; Z87.898 Personal history of other specified conditions
CPT/HCPCS: 99284

== ENCOUNTER 2016-11-13 19:13 | Emergency (ER) | payer MEDICARE, OTHER ==
[2016-11-13 19:53] VITALS: RESP 18; TEMP 98.4
--- NOTE | 2016-11-13 22:16 | ED ---
General Adult HPI - General Chief complaint: Recheck/Abnormal Lab/Rx Stated complaint: Recheck Labs Time Seen by Provider: 11/13/16 19:58 Source: patient, RN notes reviewed, old records reviewed Mode of arrival: ambulatory Limitations: no limitations - History of Present Illness Initial comments: Chief complaint history of present illness a 36-year-old male who is seen frequent emergency room for rechecks of his ammonia level. The patient has medications that he takes daily. he is here to get him on the level rechecked. No specific complaints patient otherwise looks alert and oriented vital signs are stable. The patient states his medications that he takes regularly at home which is just half mile from here. He has a bicycle he did not bring them with him tonight. His medications and to be given after we administer fluids. - Related Data Home Medications Medication Instructions Recorded Confirmed Glycerol Phenylbutyrate [Ravicti] 6.6 gm PO TID@0900,1500,2100 06/21/16 11/13/16 Metoclopramide [Reglan] 10 mg PO HS PRN 11/13/16 11/13/16 Previous Rx's Medication Instructions Recorded Acetaminophen-Codeine 300-30mg 1 tab PO Q4H PRN #15 tablet 10/26/16 [Tylenol #3] Ibuprofen [Motrin] 800 mg PO Q8HR PRN #20 tab 10/26/16 Allergies Allergy/AdvReac Type Severity Reaction Status Date / Time alprazolam [From Xanax] AdvReac Liver Verified 11/13/16 20:59 Complications olanzapine [From Zyprexa] AdvReac Liver Verified 11/13/16 20:59 Complications sertraline [From Zoloft] AdvReac Liver Verified 11/13/16 20:59 Complications Review of Systems ROS Statement: Those systems with pertinent positive or pertinent negative responses have been documented in the HPI. review of systems all complaining any chest pain shows breath GI/ problems. Past medical problems significant for ALLERGIES to alprazolam olanzapine and sertraline. 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 Problems include torn left ACL, he had bilateral feet fractures right ankle fracture hand fracture. 2. Ulcers emesis. The bones. Seizures shingles. Past history of MRSA. Surgeries also include adenoids. Surgery and tonsils. Past psychological issues of anxiety depression and schizophrenia. Patient states she is a nonsmoker.family history includes cancers of unknown types. ROS Other: All systems not noted in ROS Statement are negative. 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 Torn left ACL and left knee effusion-uses brace and cane prn, anemia-nromocytic, 2014 bilateral feet fx and R ankle fx, recent R hand fx per pt, ulcers and vomitted blood in past. Bone deficiency, bones break easily. Seizures, shingles 2010 History of Any Multi-Drug Resistant Organisms: MRSA Date of last positivie culture/infection: 2013 MDRO Source:: Back Past Surgical History: Adenoidectomy, Ear Surgery, Tonsillectomy Additional Past Surgical History / Comment(s): liver biopsy, L-knee drained of 30 ml of fluid, tubes bilateral ears. Past Anesthesia/Blood Transfusion Reactions: Previous Problems w/ Anesthesia Additional Past Anesthesia/Blood Transfusion Reaction / Comment(s): Unable to wake up and being overly aggressive. Past Psychological History: Anxiety, Depression, Schizophrenia Additional Psychological History / Comment(s): Poor impulse control, anger management issues. History of being placed in restraints, numerous inpatient psychiatric admissions including [facility]. Schizoaffecctive diorder. PT lives in [facility]. alone. He has a L knee brace and cane he uses prn. He does not drive-his sister or brother take him places. His sister-Nadya helps him with bills etc. Pt can read and write alittle. Smoking Status: Never smoker Past Alcohol Use History: None Reported Additional Past Alcohol Use History / Comment(s): Patient states he has been a nonsmoker. He used to smoke marijuana but has quit for 20 days now. He denies any street drug use or alcohol use or abuse. Past Drug Use History: Marijuana Additional Drug Use History / Comment(s): Patient denies but admits to taking a tablet form of tenzin - Past Family History Father Additional Family Medical History / Comment(s): Father at age 61 in April 2014, patient does not know cause of . Mother Family Medical History: Cancer Brother(s) Family Medical History: No Reported History Sister(s) Family Medical History: No Reported History General Exam - General Exam Comments Initial Comments: General: The patient is awake and alert, in no distress, and does not appear acutely ill. HEENT just here to get his ammonia level checked.temp 98 respiratory rate 18 pulse 98, blood pressure 133/89 to 97% O2 on room air. Neck: neck is supple no neck pain. Cardiovascular: no palpitations, heart rate normal no murmur. Respiratory: Lungs are clear to auscultation, respirations are non-labored, breath sounds are equal. No wheezes, stridor, rales, or rhonchi. Gastrointestinal: Soft, non-distended, non-tender abdomen without masses or organomegaly noted. There is no rebound or guarding present. No CVA tenderness. Bowel sounds are unremarkable. Back: There is no tenderness to palpation in the midline. There is no obvious deformity. No rashes noted. Musculoskeletal: Normal ROM, no tenderness, There is no pedal edema. There is no calf tenderness or swelling. Sensation intact. Pulses equal bilaterally 2+. Neurological: CN II-XII intact, There are no obvious motor or sensory deficits. Coordination appears grossly intact. Speech is normal.no neuro deficits. Skin: Skin is warm and dry and no rashes or lesions are noted. Psychiatric: past history depression and anxiety. Limitations: no limitations Course Vital Signs 11/13/16 19:49 Temperature 98.4 F Pulse Rate 98 Respiratory 18 Rate Blood Pressure 133/89 O2 Sat by Pulse 97 Oximetry Medical Decision Making - Medical Decision Making medical decision making the patient's request was for an ammonia level to be done reported to be 88 by lab. He states that he feels fine and wants to go home take his medications at home. He states he did not bring the medication he would need after receiving medications such as IV fluids here is comfortable going home will return for repeat ammonia level in the morning if he doesn't feel well. Otherwise the patient is not demonstrating or complaining of any symptoms suggestive of elevated ammonia. The patient is declining going home getting his medications and returning this evening.. patient states labs been wrong in the past and he feels much better than the lab reported. He states on one previous occasion the result was 70 but when rechecked in [place] was only 30 he was angry that he was sent down there for no good reason. Therefore the patient states he will come back tomorrow to get a recheck after takes medications Tigan tomorrow. Again the patient has no complaints. 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 Follow-up with family physician. Referrals: Salvador Guevara MD [Primary Care Provider] - 1-2 days Time of Disposition: 22:28
[2016-11-13 22:40] VITALS: BP 138/90; PULSE 72
== END 2016-11-13 22:40 | disposition home or self-care (01) ==
LOC: EC 19:13
DX: E72.4 Disorders of ornithine metabolism (principal); Z86.14 Personal history of Methicillin resistant Staphylococcus aureus infection; Z79.899 Other long term (current) drug therapy; Z88.8 Allergy status to other drugs, medicaments and biological substances
CPT/HCPCS: 36415; 82140; 99284

== ENCOUNTER 2016-12-05 15:05 | Emergency (ER) | payer OTHER, MEDICARE ==
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
[2016-12-05] MEDS: IBUPROFEN 800 MG TAB PO STA (16:35)
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
[2016-12-05 16:53] VITALS: BP 119/77; PULSE 51; RESP 18; TEMP 97.1
== END 2016-12-05 16:52 | disposition home or self-care (01) ==
LOC: EC 15:05
DX: S80.02XA Contusion of left knee, initial encounter (principal); M76.892 Other specified enthesopathies of left lower limb, excluding foot; M25.862 Other specified joint disorders, left knee; M25.572 Pain in left ankle and joints of left foot; E72.4 Disorders of ornithine metabolism; Z79.899 Other long term (current) drug therapy; Z88.8 Allergy status to other drugs, medicaments and biological substances; V13.4XXA Pedal cycle driver injured in collision with car, pick-up truck or van in traffic accident, initial encounter; Y92.410 Unspecified street and highway as the place of occurrence of the external cause; Y93.55 Activity, bike riding
CPT/HCPCS: 99283

== ENCOUNTER 2016-12-10 12:43 | Emergency (ER) | payer MEDICARE, OTHER ==
[2016-12-10] MEDS ORDERED: ONDANSETRON 4 MG/2 ML VIAL IVP STA (13:08)
[2016-12-10] MEDS ORDERED: SODIUM CHLORIDE 0.9% 1,000 ML IV ONE (13:08)
--- NOTE | 2016-12-10 13:12 | ED ---
General Adult HPI - General Chief complaint: Nausea/Vomiting/Diarrhea Stated complaint: Vomiting Time Seen by Provider: 12/10/16 12:54 Source: patient, RN notes reviewed Mode of arrival: ambulatory Limitations: no limitations - History of Present Illness Initial comments: Patient is a 36-year-old male presents emergency room for evaluation. Patient states he has ornithine transcarbamylase deficiency. Patient states he feels like his ammonia levels are elevated. Patient states last night he began with nausea and increased mood irritation. Patient states his symptoms are consistent with elevated ammonia levels. Patient denies dizziness. Patient denies chest pain shortness of breath. Patient denies abdominal pain. Patient states he wants his ammonia level checked. - Related Data Home Medications Medication Instructions Recorded Confirmed Ibuprofen [Motrin] 800 mg PO Q8H PRN 12/10/16 12/10/16 Ravicti 6 ml PO TID 12/10/16 12/10/16 Allergies Allergy/AdvReac Type Severity Reaction Status Date / Time alprazolam [From Xanax] AdvReac Liver Verified 12/10/16 13:41 Complications olanzapine [From Zyprexa] AdvReac Liver Verified 12/10/16 13:41 Complications sertraline [From Zoloft] AdvReac Liver Verified 12/10/16 13:41 Complications Review of Systems ROS Statement: Those systems with pertinent positive or pertinent negative responses have been documented in the HPI. ROS Other: All systems not noted in ROS Statement are negative. 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 Torn left ACL and left knee effusion-uses brace and cane prn, anemia-nromocytic, 2013 bilateral feet fx and R ankle fx, recent R hand fx per pt, ulcers and vomitted blood in past. Bone deficiency, bones break easily. Seizures, shingles 2010 History of Any Multi-Drug Resistant Organisms: MRSA Date of last positivie culture/infection: 2013 MDRO Source:: Back Past Surgical History: Adenoidectomy, Ear Surgery, Tonsillectomy Additional Past Surgical History / Comment(s): liver biopsy, L-knee drained of 30 ml of fluid, tubes bilateral ears. Past Anesthesia/Blood Transfusion Reactions: Previous Problems w/ Anesthesia Additional Past Anesthesia/Blood Transfusion Reaction / Comment(s): Unable to wake up and being overly aggressive. Past Psychological History: Anxiety, Depression, Schizophrenia Smoking Status: Never smoker Past Alcohol Use History: None Reported Past Drug Use History: Marijuana - Past Family History Father Additional Family Medical History / Comment(s): Father at age 61 in April 2014, patient does not know cause of . Mother Family Medical History: Cancer Brother(s) Family Medical History: No Reported History Sister(s) Family Medical History: No Reported History General Exam - General Exam Comments Initial Comments: Sitting in exam room, no distress. Limitations: no limitations General appearance: alert, in no apparent distress Head exam: Present: atraumatic, normocephalic, normal inspection Eye exam: Present: normal appearance ENT exam: Present: normal exam Neck exam: Present: normal inspection Respiratory exam: Present: normal lung sounds bilaterally. Absent: respiratory distress Cardiovascular Exam: Present: regular rate, normal rhythm, normal heart sounds GI/Abdominal exam: Present: soft, normal bowel sounds. Absent: distended, tenderness, guarding, rebound, rigid Extremities exam: Present: normal inspection Back exam: Present: normal inspection Neurological exam: Present: alert, oriented X3, CN II-XII intact, normal gait Psychiatric exam: Present: normal affect, normal mood Skin exam: Present: warm, dry, intact, normal color. Absent: rash Course Vital Signs 12/10/16 12/10/16 12/10/16 12:50 13:45 14:27 Temperature 97.5 F L 97.8 F Pulse Rate 53 L 42 L 52 L Respiratory 20 18 20 Rate Blood Pressure 140/81 121/59 130/68 O2 Sat by Pulse 99 100 99 Oximetry 12/10/16 14:55 Temperature 97.5 F L Pulse Rate 50 L Respiratory 18 Rate Blood Pressure 126/72 O2 Sat by Pulse 100 Oximetry EKG Findings - EKG Comments: EKG Findings:: Bradycardia, ventricular rate 35 bpm, QRS duration 106 ms, QT/ QTC 512/390 ms Medical Decision Making - Medical Decision Making Patient is a 36-year-old male presents to the emergency room for evaluation of possible elevated ammonia level. Patient's ammonia level 17 at this time. Patient's heart rate noted to be bradycardic. Patient was playing in an awkward position. Patient states this is normal for him while laying down. While patient is sitting up patient's heart rate greater than 50 bpm. Patient denies any chest pain, shortness of breath, headache or dizziness. Patient states he feels better and would like to be discharged home. Return parameters discussed. Case discussed Dr. Hewitt. - Lab Data Result diagrams: 12/10/16 13:00 12/10/16 13:00 Lab Results 12/10/16 12/10/16 12/10/16 Range/Units 13:00 13:00 13:00 WBC 5.3 (3.8-10.6) k/uL RBC 4.58 (4.30-5.90) m/uL Hgb 14.3 (13.0-17.5) gm/dL Hct 39.9 (39.0-53.0) % MCV 87.1 (80.0-100.0) fL MCH 31.2 (25.0-35.0) pg MCHC 35.8 (31.0-37.0) g/dL RDW 13.4 (11.5-15.5) % Plt Count 179 (150-450) k/uL Neutrophils % 53 % Lymphocytes % 32 % Monocytes % 8 % Eosinophils % 3 % Basophils % 1 % Neutrophils # 2.9 (1.3-7.7) k/uL Lymphocytes # 1.7 (1.0-4.8) k/uL Monocytes # 0.4 (0-1.0) k/uL Eosinophils # 0.1 (0-0.7) k/uL Basophils # 0.1 (0-0.2) k/uL PT (9.0-12.0) sec INR (<1.1) APTT (22.0-30.0) sec Sodium 143 (137-145) mmol/L Potassium 4.2 (3.5-5.1) mmol/L Chloride 108 H (98-107) mmol/L Carbon Dioxide 23 (22-30) mmol/L Anion Gap 12 mmol/L BUN <2 L (9-20) mg/dL Creatinine 0.44 L (0.66-1.25) mg/dL Est GFR (MDRD) Af Amer >60 (>60 ml/min/1.73 sqM) Est GFR (MDRD) Non-Af >60 (>60 ml/min/1.73 sqM) Glucose 97 (74-99) mg/dL Calcium 9.5 (8.4-10.2) mg/dL Magnesium 1.5 L (1.6-2.3) mg/dL Total Bilirubin 1.0 (0.2-1.3) mg/dL AST 23 (17-59) U/L ALT 24 (21-72) U/L Alkaline Phosphatase 75 (38-126) U/L Ammonia 17 (<30) umol/L Total Creatine Kinase (55-170) U/L CK-MB (CK-2) (0.0-2.4) ng/mL CK-MB (CK-2) Rel Index Troponin I (0.000-0.034) ng/mL Total Protein 7.2 (6.3-8.2) g/dL Albumin 4.4 (3.5-5.0) g/dL Amylase 49 (30-110) U/L Lipase 187 (23-300) U/L 12/10/16 12/10/16 Range/Units 13:00 13:00 WBC (3.8-10.6) k/uL RBC (4.30-5.90) m/uL Hgb (13.0-17.5) gm/dL Hct (39.0-53.0) % MCV (80.0-100.0) fL MCH (25.0-35.0) pg MCHC (31.0-37.0) g/dL RDW (11.5-15.5) % Plt Count (150-450) k/uL Neutrophils % % Lymphocytes % % Monocytes % % Eosinophils % % Basophils % % Neutrophils # (1.3-7.7) k/uL Lymphocytes # (1.0-4.8) k/uL Monocytes # (0-1.0) k/uL Eosinophils # (0-0.7) k/uL Basophils # (0-0.2) k/uL PT 11.4 (9.0-12.0) sec INR 1.1 (<1.1) APTT 26.0 (22.0-30.0) sec Sodium (137-145) mmol/L Potassium (3.5-5.1) mmol/L Chloride (98-107) mmol/L Carbon Dioxide (22-30) mmol/L Anion Gap mmol/L BUN (9-20) mg/dL Creatinine (0.66-1.25) mg/dL Est GFR (MDRD) Af Amer (>60 ml/min/1.73 sqM) Est GFR (MDRD) Non-Af (>60 ml/min/1.73 sqM) Glucose (74-99) mg/dL Calcium (8.4-10.2) mg/dL Magnesium (1.6-2.3) mg/dL Total Bilirubin (0.2-1.3) mg/dL AST (17-59) U/L ALT (21-72) U/L Alkaline Phosphatase (38-126) U/L Ammonia (<30) umol/L Total Creatine Kinase 76 (55-170) U/L CK-MB (CK-2) 1.1 (0.0-2.4) ng/mL CK-MB (CK-2) Rel Index 1.4 Troponin I <0.012 (0.000-0.034) ng/mL Total Protein (6.3-8.2) g/dL Albumin (3.5-5.0) g/dL Amylase (30-110) U/L Lipase (23-300) U/L Disposition Clinical Impression: Nausea and vomiting, OTC (ornithine transcarbamylase deficiency) Disposition: HOME SELF-CARE Condition: Good Instructions: Acute Nausea and Vomiting (ED) Additional Instructions: Please follow up with primary care provider in 1-2 days. Continue taking prescribed medications. If any new symptom arises or symptoms worsen, return to ER as soon as possible. Referrals: Salvador Guevara MD [Primary Care Provider] - 1-2 days Time of Disposition: 14:22
[2016-12-10 13:31] LABS: Basophils # (A) 0.1 k/uL (0-0.2); Basophils % (A) 1 %; CH 29.6; CHCM 34.2; Eosinophils # (A) 0.1 k/uL (0-0.7); Eosinophils % (A) 3 %; HCT 39.9 % (39.0-53.0); HDW 3.18; HGB 14.3 gm/dL (13.0-17.5); Luc # (Auto) 0.17; Luc % (Auto) 3; Lymphocytes # (A) 1.7 k/uL (1.0-4.8); Lymphocytes % (A) 32 %; MCH 31.2 pg (25.0-35.0); MCHC 35.8 g/dL (31.0-37.0); MCV 87.1 fL (80.0-100.0); Mean Platelet Volume 9.5; Monocytes # (A) 0.4 k/uL (0-1.0); Monocytes % (A) 8 %; Neutrophils # (A) 2.9 k/uL (1.3-7.7); Neutrophils % (A) 53 %; RBC 4.58 m/uL (4.30-5.90); RDW 13.4 % (11.5-15.5); WBC 5.3 k/uL (3.8-10.6)
[2016-12-10 13:44] LABS: ALT 24 U/L (21-72); AST 23 U/L (17-59); Alkaline Phosphatase 75 U/L (38-126); Amylase 49 U/L (30-110); Anion Gap 12 mmol/L; Blood Urea Nitrogen <2 mg/dL (9-20); Calcium 9.5 mg/dL (8.4-10.2); Carbon Dioxide 23 mmol/L (22-30); Chloride 108 mmol/L (98-107); Glucose 97 mg/dL (74-99); Magnesium 1.5 mg/dL (1.6-2.3); Non-African American GFR(MDRD) >60 (>60 ml/min/1.73 sqM); Potassium 4.2 mmol/L (3.5-5.1); Sodium 143 mmol/L (137-145); Total Protein 7.2 g/dL (6.3-8.2)
[2016-12-10 14:08] LABS: Creatine Kinase 76 U/L (55-170)
[2016-12-10 14:11] LABS: INR 1.1 (<1.1); Prothrombin Time 11.4 sec (9.0-12.0)
[2016-12-10 14:21] LABS: Creatine Kinase MB 1.1 ng/mL (0.0-2.4); Troponin I <0.012 ng/mL (0.000-0.034)
[2016-12-10 14:56] VITALS: BP 126/72; PULSE 50; RESP 18; TEMP 97.5
== END 2016-12-10 14:55 | disposition home or self-care (01) ==
LOC: EC 12:43
DX: R11.2 Nausea with vomiting, unspecified (principal); E72.4 Disorders of ornithine metabolism; Z88.8 Allergy status to other drugs, medicaments and biological substances; Z79.899 Other long term (current) drug therapy
CPT/HCPCS: 99284; 96374; 96361; 36415; 93005; 80053; 82140; 82150; 82550; 82553; 83690; 83735; 84484; 85025; 85610; 85730; J2405

== ENCOUNTER 2016-12-28 12:53 | Emergency (ER) | payer MEDICARE, OTHER ==
[2016-12-28] MEDS ORDERED: ONDANSETRON 4 MG/2 ML VIAL IVP STA (14:22)
--- NOTE | 2016-12-28 14:28 | ED ---
General Adult HPI - General Chief complaint: Recheck/Abnormal Lab/Rx Stated complaint: poss pneumonia Time Seen by Provider: 12/28/16 14:02 Source: patient, RN notes reviewed, old records reviewed Mode of arrival: ambulatory Limitations: no limitations - History of Present Illness Initial comments: If complaint and history of present illness a 36-year-old male here with OTC. Patient's been emergency room multiple times with past several years. He states maybe comes fatigued and has vomiting his ammonia level is usually elevated. Renal protocol to follow once the patient arrives. Lab labs and D5 half-normal with potassium added started while labs are pending. We do not have D10. - Related Data Home Medications Medication Instructions Recorded Confirmed Ibuprofen [Motrin] 800 mg PO Q8H PRN 12/10/16 12/28/16 Ravicti 6 ml PO TID 12/10/16 12/28/16 Allergies Allergy/AdvReac Type Severity Reaction Status Date / Time alprazolam [From Xanax] AdvReac Liver Verified 12/28/16 14:19 Complications olanzapine [From Zyprexa] AdvReac Liver Verified 12/28/16 14:19 Complications sertraline [From Zoloft] AdvReac Liver Verified 12/28/16 14:19 Complications Review of Systems ROS Statement: Those systems with pertinent positive or pertinent negative responses have been documented in the HPI. Review of systems. The patient states she is under stress. Sometimes this causes him to feel fatigued. Also has had some vomiting. Denies any illegal drugs or alcohol. No fevers. No headache chest pain shortness breath GI/ problems other than some vomiting. No diarrhea. All systems were reviewed. Past medical problems significant for OTC, ornithine transcarbamylase efficiency. No other medical problems. Surgeries tonsils, adenoids and ear surgery liver biopsy. Patient's family history not respiratory. ALLERGIES to olanzapine and sertraline and alprazolam. Encouraged not to smoke he does smoke marijuana. ROS Other: All systems not noted in ROS Statement are negative. 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 Torn left ACL and left knee effusion-uses brace and cane prn, anemia-nromocytic, 2014 bilateral feet fx and R ankle fx, recent R hand fx per pt, ulcers and vomitted blood in past. Bone deficiency, bones break easily. Seizures, shingles 2010 History of Any Multi-Drug Resistant Organisms: MRSA Date of last positivie culture/infection: 2013 MDRO Source:: Back Past Surgical History: Adenoidectomy, Ear Surgery, Tonsillectomy Additional Past Surgical History / Comment(s): liver biopsy, L-knee drained of 30 ml of fluid, tubes bilateral ears. Past Anesthesia/Blood Transfusion Reactions: Previous Problems w/ Anesthesia Additional Past Anesthesia/Blood Transfusion Reaction / Comment(s): Unable to wake up and being overly aggressive. Past Psychological History: Anxiety, Depression, Schizophrenia Smoking Status: Never smoker Past Alcohol Use History: None Reported Past Drug Use History: Marijuana - Past Family History Father Additional Family Medical History / Comment(s): Father at age 61 in April 2014, patient does not know cause of . Mother Family Medical History: Cancer Brother(s) Family Medical History: No Reported History Sister(s) Family Medical History: No Reported History General Exam - General Exam Comments Initial Comments: General: The patient is awake and alert, in no distress, and does not appear acutely ill. Take isn't feel normal. Feels fatigued. He has been under some stress lately which increases his symptoms of OTC. Vital signs temp 98.0 pulse 84 respiratory rate 18 pulse ox 90% room air blood pressure 140/95 Eye: Pupils are equal, round and reactive to light, extra-ocular movements are intact ; there is normal conjunctiva bilaterally. No signs of icterus. Ears, nose, mouth and throat: There are moist mucous membranes and no oral lesions. Neck: The neck is supple, there is no tenderness , no anterior cervical lymphadenopathy. Cardiovascular: There is a regular rate and rhythm. No murmur, rub or gallop is appreciated. Respiratory: Lungs are clear to auscultation, respirations are non-labored, breath sounds are equal. No wheezes, stridor, rales, or rhonchi. Gastrointestinal: Soft, non-distended, non-tender abdomen without masses or organomegaly noted. There is no rebound or guarding present. No CVA tenderness. Bowel sounds are unremarkable. Back: There is no tenderness to palpation in the midline. There is no obvious deformity. No rashes noted. Musculoskeletal: Normal ROM, no tenderness, There is no pedal edema. There is no calf tenderness or swelling. Sensation intact. Pulses equal bilaterally 2+. Neurological: CN II-XII intact, There are no obvious motor or sensory deficits. Coordination appears grossly intact. Speech is normal. Objective feeling of fatigue, normal neuro deficits Skin: Skin is warm and dry and no rashes or lesions are noted. Limitations: no limitations Course Vital Signs 12/28/16 12/28/16 13:08 15:11 Temperature 98 F Pulse Rate 84 55 L Respiratory 18 18 Rate Blood Pressure 140/95 124/65 O2 Sat by Pulse 98 99 Oximetry Medical Decision Making - Medical Decision Making Medical decision-making. The patient's labs show white count 7.8 hemoglobin and hematocrit of 42, potassium 4.2 with a BUN less than 2 creatinine 0.47 and GFR greater than 60. Glucose 82. Amylase lipase within normal limits. Ammonia level only 46. Patient was hydrated with D5 0.45 and potassium added. Patient reports feeling much better. He took his own occasions for his OTC. Patient states she feels great and wants to go home she'll be discharged. Advised to follow-up with his family physician and his basketball scout. - Lab Data Result diagrams: 12/28/16 15:15 12/28/16 15:15 Lab Results 12/28/16 12/28/16 12/28/16 Range/Units 15:15 15:15 15:15 WBC 7.8 (3.8-10.6) k/uL RBC 4.96 (4.30-5.90) m/uL Hgb 15.0 (13.0-17.5) gm/dL Hct 42.6 (39.0-53.0) % MCV 85.9 (80.0-100.0) fL MCH 30.2 (25.0-35.0) pg MCHC 35.2 (31.0-37.0) g/dL RDW 13.7 (11.5-15.5) % Plt Count 199 (150-450) k/uL Neutrophils % 65 % Lymphocytes % 25 % Monocytes % 6 % Eosinophils % 2 % Basophils % 1 % Neutrophils # 5.0 (1.3-7.7) k/uL Lymphocytes # 1.9 (1.0-4.8) k/uL Monocytes # 0.5 (0-1.0) k/uL Eosinophils # 0.1 (0-0.7) k/uL Basophils # 0.1 (0-0.2) k/uL Sodium 143 (137-145) mmol/L Potassium 4.2 (3.5-5.1) mmol/L Chloride 111 H (98-107) mmol/L Carbon Dioxide 18 L (22-30) mmol/L Anion Gap 14 mmol/L BUN <2 L (9-20) mg/dL Creatinine 0.47 L (0.66-1.25) mg/dL Est GFR (MDRD) Af Amer >60 (>60 ml/min/1.73 sqM) Est GFR (MDRD) Non-Af >60 (>60 ml/min/1.73 sqM) Glucose 82 (74-99) mg/dL Calcium 10.4 H (8.4-10.2) mg/dL Total Bilirubin 1.4 H (0.2-1.3) mg/dL AST 27 (17-59) U/L ALT 37 (21-72) U/L Alkaline Phosphatase 76 (38-126) U/L Ammonia 46 H (<30) umol/L Total Protein 7.8 (6.3-8.2) g/dL Albumin 4.8 (3.5-5.0) g/dL Amylase 42 (30-110) U/L Lipase 129 (23-300) U/L Disposition Clinical Impression: OTC (ornithine transcarbamylase deficiency) Disposition: HOME SELF-CARE Condition: Fair Instructions: Metabolic Syndrome X (ED) Additional Instructions: Continue home medications follow-up with her family physician return emergency room as needed Referrals: Salvador Guevara MD [Primary Care Provider] - 1-2 days Time of Disposition: 16:26
[2016-12-28] MEDS ORDERED: D5-0.45% NACL WITH KCL 20MEQ/L 1,000 ML IV SCH (15:00)
[2016-12-28 15:28] LABS: Basophils # (A) 0.1 k/uL (0-0.2); Basophils % (A) 1 %; CH 29.7; CHCM 34.7; Eosinophils # (A) 0.1 k/uL (0-0.7); Eosinophils % (A) 2 %; HCT 42.6 % (39.0-53.0); Luc # (Auto) 0.19; Luc % (Auto) 2; Lymphocytes # (A) 1.9 k/uL (1.0-4.8); Lymphocytes % (A) 25 %; MCH 30.2 pg (25.0-35.0); MCHC 35.2 g/dL (31.0-37.0); MCV 85.9 fL (80.0-100.0); Mean Platelet Volume 10.1; Monocytes # (A) 0.5 k/uL (0-1.0); Monocytes % (A) 6 %; Neutrophils % (A) 65 %; RBC 4.96 m/uL (4.30-5.90); RDW 13.7 % (11.5-15.5); WBC 7.8 k/uL (3.8-10.6); WBC (Perox) 7.86
[2016-12-28 15:38] LABS: ALT 37 U/L (21-72); AST 27 U/L (17-59); Alkaline Phosphatase 76 U/L (38-126); Amylase 42 U/L (30-110); Anion Gap 14 mmol/L; Blood Urea Nitrogen <2 mg/dL (9-20); Calcium 10.4 mg/dL (8.4-10.2); Carbon Dioxide 18 mmol/L (22-30); Chloride 111 mmol/L (98-107); Glucose 82 mg/dL (74-99); Non-African American GFR(MDRD) >60 (>60 ml/min/1.73 sqM); Potassium 4.2 mmol/L (3.5-5.1); Sodium 143 mmol/L (137-145); Total Bilirubin 1.4 mg/dL (0.2-1.3); Total Protein 7.8 g/dL (6.3-8.2)
[2016-12-28 16:45] VITALS: BP 118/71; PULSE 72; RESP 20; TEMP 98.5
== END 2016-12-28 16:43 | disposition home or self-care (01) ==
LOC: EC 12:53
DX: E72.4 Disorders of ornithine metabolism (principal); R11.10 Vomiting, unspecified; Z88.8 Allergy status to other drugs, medicaments and biological substances; Z79.899 Other long term (current) drug therapy
CPT/HCPCS: 99284; 96365; 96375; 36415; 80053; 82140; 82150; 83690; 85025; J2405

== ENCOUNTER 2017-01-12 08:45 | Emergency (ER) | payer MEDICARE, OTHER ==
[2017-01-12 09:35] VITALS: RESP 16
[2017-01-12 09:36] LABS: Basophils % (A) 1 %; CH 30.9; CHCM 35.3; Eosinophils # (A) 0.2 k/uL (0-0.7); Eosinophils % (A) 3 %; HCT 38.7 % (39.0-53.0); HDW 2.91; HGB 13.2 gm/dL (13.0-17.5); Luc # (Auto) 0.11; Luc % (Auto) 2; Lymphocytes # (A) 1.8 k/uL (1.0-4.8); Lymphocytes % (A) 32 %; MCHC 34.1 g/dL (31.0-37.0); MCV 87.9 fL (80.0-100.0); Mean Platelet Volume 10.6; Monocytes # (A) 0.4 k/uL (0-1.0); Monocytes % (A) 6 %; Neutrophils # (A) 3.1 k/uL (1.3-7.7); Neutrophils % (A) 56 %; RDW 14.1 % (11.5-15.5); WBC 5.6 k/uL (3.8-10.6); WBC (Perox) 5.95
[2017-01-12] MEDS ORDERED: SODIUM CHLORIDE 0.9% 1,000 ML IV STA (09:37)
--- NOTE | 2017-01-12 09:40 | ED ---
General Adult HPI - General Chief complaint: Recheck/Abnormal Lab/Rx Stated complaint: abnormal labs Time Seen by Provider: 01/12/17 09:01 Source: patient, RN notes reviewed Mode of arrival: ambulatory Limitations: no limitations - History of Present Illness Initial comments: Patient is 36-year-old male with significant past medical history for Orinithine Transcarbmalase, who presents emergency room today with a chief complaint of possible elevated ammonia level. He does admit that over the last week she's been under a lot of stress. He states he no distress, is moaning local high. Also admits that he's felt somewhat nauseous. She has felt somewhat run down. Patient denies any recent fever, chills, shortness of breath , chest pain, back pain, abdominal pain, vomiting, numbness or tingling, dysuria or hematuria, constipation or diarrhea, headaches or visual changes, or any other complaints. - Related Data Home Medications Medication Instructions Recorded Confirmed Ibuprofen [Motrin] 800 mg PO Q8H PRN 12/10/16 12/28/16 Ravicti 6 ml PO TID 12/10/16 12/28/16 Previous Rx's Medication Instructions Recorded Ondansetron [Zofran] 4 mg PO Q8HR PRN #15 tab 01/12/17 Allergies Allergy/AdvReac Type Severity Reaction Status Date / Time alprazolam [From Xanax] AdvReac Liver Verified 01/12/17 08:49 Complications olanzapine [From Zyprexa] AdvReac Liver Verified 01/12/17 08:49 Complications sertraline [From Zoloft] AdvReac Liver Verified 01/12/17 08:49 Complications Review of Systems ROS Statement: Those systems with pertinent positive or pertinent negative responses have been documented in the HPI. ROS Other: All systems not noted in ROS Statement are negative. 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 Torn left ACL and left knee effusion-uses brace and cane prn, anemia-nromocytic, 2013 bilateral feet fx and R ankle fx, recent R hand fx per pt, ulcers and vomitted blood in past. Bone deficiency, bones break easily. Seizures, shingles 2010 History of Any Multi-Drug Resistant Organisms: MRSA Date of last positivie culture/infection: 2013 MDRO Source:: Back Past Surgical History: Adenoidectomy, Ear Surgery, Tonsillectomy Additional Past Surgical History / Comment(s): liver biopsy, L-knee drained of 30 ml of fluid, tubes bilateral ears. Past Anesthesia/Blood Transfusion Reactions: Previous Problems w/ Anesthesia Additional Past Anesthesia/Blood Transfusion Reaction / Comment(s): Unable to wake up and being overly aggressive. Past Psychological History: Anxiety, Depression, Schizophrenia Smoking Status: Never smoker Past Alcohol Use History: None Reported Past Drug Use History: Marijuana - Past Family History Father Additional Family Medical History / Comment(s): Father at age 61 in April 2014, patient does not know cause of . Mother Family Medical History: Cancer Brother(s) Family Medical History: No Reported History Sister(s) Family Medical History: No Reported History General Exam - General Exam Comments Initial Comments: General: The patient is awake and alert, in no distress, and does not appear acutely ill. Eye: Pupils are equal, round and reactive to light, extra-ocular movements are intact. No nystagmus. There is normal conjunctiva bilaterally. No signs of icterus. Ears, nose, mouth and throat: There are moist mucous membranes and no oral lesions. Neck: The neck is supple, there is no tenderness or JVD. Cardiovascular: There is a regular rate and rhythm. No murmur, rub or gallop is appreciated. Respiratory: Lungs are clear to auscultation, respirations are non-labored, breath sounds are equal. No wheezes, stridor, rales, or rhonchi. Gastrointestinal: Soft, non-distended, non-tender abdomen without masses or organomegaly noted. There is no rebound or guarding present. No CVA tenderness. Bowel sounds are unremarkable. Musculoskeletal: Normal ROM, no tenderness. Strength 5/5. Sensation intact. Pulses equal bilaterally 2+. Neurological: A&O x 3. CN II-XII intact, There are no obvious motor or sensory deficits. Coordination appears grossly intact. Speech is normal. Skin: Skin is warm and dry and no rashes or lesions are noted. Psychiatric: Cooperative, appropriate mood & affect, normal judgment. Limitations: no limitations Course Vital Signs 01/12/17 01/12/17 01/12/17 08:47 09:33 10:11 Temperature 97.0 F L 97.8 F Pulse Rate 55 L 46 L 43 L Respiratory 20 16 16 Rate Blood Pressure 117/78 122/70 122/67 O2 Sat by Pulse 96 98 100 Oximetry Medical Decision Making - Medical Decision Making Patient's labs been reviewed unremarkable. Ammonia level XIX today. Patient feeling better after liter bolus. Will be discharged home with a prescription for Zofran. Advised follow-up family doctor return for any other concerns. - Lab Data Result diagrams: 01/12/17 06:23 01/12/17 06:23 Lab Results 01/12/17 01/12/17 01/12/17 Range/Units 06:23 06:23 06:23 WBC 5.6 (3.8-10.6) k/uL RBC 4.40 (4.30-5.90) m/uL Hgb 13.2 (13.0-17.5) gm/dL Hct 38.7 L (39.0-53.0) % MCV 87.9 (80.0-100.0) fL MCH 30.0 (25.0-35.0) pg MCHC 34.1 (31.0-37.0) g/dL RDW 14.1 (11.5-15.5) % Plt Count 146 L (150-450) k/uL Neutrophils % 56 % Lymphocytes % 32 % Monocytes % 6 % Eosinophils % 3 % Basophils % 1 % Neutrophils # 3.1 (1.3-7.7) k/uL Lymphocytes # 1.8 (1.0-4.8) k/uL Monocytes # 0.4 (0-1.0) k/uL Eosinophils # 0.2 (0-0.7) k/uL Basophils # 0.0 (0-0.2) k/uL PT (9.0-12.0) sec INR (<1.2) APTT (22.0-30.0) sec Sodium 143 (137-145) mmol/L Potassium 3.5 (3.5-5.1) mmol/L Chloride 110 H (98-107) mmol/L Carbon Dioxide 23 (22-30) mmol/L Anion Gap 10 mmol/L BUN <2 L (9-20) mg/dL Creatinine 0.49 L (0.66-1.25) mg/dL Est GFR (MDRD) Af Amer >60 (>60 ml/min/1.73 sqM) Est GFR (MDRD) Non-Af >60 (>60 ml/min/1.73 sqM) Glucose 94 (74-99) mg/dL Calcium 9.0 (8.4-10.2) mg/dL Total Bilirubin 0.5 (0.2-1.3) mg/dL AST 27 (17-59) U/L ALT 39 (21-72) U/L Alkaline Phosphatase 64 (38-126) U/L Ammonia 19 (<30) umol/L Total Protein 6.1 L (6.3-8.2) g/dL Albumin 3.8 (3.5-5.0) g/dL 01/12/17 Range/Units 06:23 WBC (3.8-10.6) k/uL RBC (4.30-5.90) m/uL Hgb (13.0-17.5) gm/dL Hct (39.0-53.0) % MCV (80.0-100.0) fL MCH (25.0-35.0) pg MCHC (31.0-37.0) g/dL RDW (11.5-15.5) % Plt Count (150-450) k/uL Neutrophils % % Lymphocytes % % Monocytes % % Eosinophils % % Basophils % % Neutrophils # (1.3-7.7) k/uL Lymphocytes # (1.0-4.8) k/uL Monocytes # (0-1.0) k/uL Eosinophils # (0-0.7) k/uL Basophils # (0-0.2) k/uL PT 11.9 (9.0-12.0) sec INR 1.2 H (<1.2) APTT 25.5 (22.0-30.0) sec Sodium (137-145) mmol/L Potassium (3.5-5.1) mmol/L Chloride (98-107) mmol/L Carbon Dioxide (22-30) mmol/L Anion Gap mmol/L BUN (9-20) mg/dL Creatinine (0.66-1.25) mg/dL Est GFR (MDRD) Af Amer (>60 ml/min/1.73 sqM) Est GFR (MDRD) Non-Af (>60 ml/min/1.73 sqM) Glucose (74-99) mg/dL Calcium (8.4-10.2) mg/dL Total Bilirubin (0.2-1.3) mg/dL AST (17-59) U/L ALT (21-72) U/L Alkaline Phosphatase (38-126) U/L Ammonia (<30) umol/L Total Protein (6.3-8.2) g/dL Albumin (3.5-5.0) g/dL Disposition Clinical Impression: Nausea Disposition: HOME SELF-CARE Condition: Good Instructions: Acute Nausea and Vomiting (ED) Additional Instructions: Please use medication as discussed. Please follow-up with family doctor in the next 2 days of symptoms have not improved. Please return to emergency room if the symptoms increase or worsen or for any other concerns. Prescriptions: Ondansetron [Zofran] 4 mg PO Q8HR PRN #15 tab PRN Reason: Nausea Referrals: Salvador Guevara MD [Primary Care Provider] - 1-2 days Time of Disposition: 10:18
[2017-01-12 09:47] LABS: ALT 39 U/L (21-72); AST 27 U/L (17-59); Alkaline Phosphatase 64 U/L (38-126); Anion Gap 10 mmol/L; Blood Urea Nitrogen <2 mg/dL (9-20); Carbon Dioxide 23 mmol/L (22-30); Chloride 110 mmol/L (98-107); Glucose 94 mg/dL (74-99); Non-African American GFR(MDRD) >60 (>60 ml/min/1.73 sqM); Potassium 3.5 mmol/L (3.5-5.1); Sodium 143 mmol/L (137-145); Total Bilirubin 0.5 mg/dL (0.2-1.3); Total Protein 6.1 g/dL (6.3-8.2)
[2017-01-12 09:57] LABS: INR 1.2 (<1.2); Partial Thromboplastin Time 25.5 sec (22.0-30.0); Prothrombin Time 11.9 sec (9.0-12.0)
[2017-01-12 10:13] VITALS: BP 122/67; PULSE 43; TEMP 97.8
== END 2017-01-12 10:48 | disposition home or self-care (01) ==
LOC: EC 08:45
DX: R11.0 Nausea (principal); Z88.8 Allergy status to other drugs, medicaments and biological substances; Z79.899 Other long term (current) drug therapy
CPT/HCPCS: 36415; 80053; 82140; 85025; 85610; 85730; 96360; 99283

== ENCOUNTER 2017-02-02 17:47 | Emergency (ER) | payer MEDICARE, OTHER ==
[2017-02-02 17:58] VITALS: TEMP 99.7
--- NOTE | 2017-02-02 18:14 | ED ---
General Adult HPI - General Chief complaint: Abdominal Pain Stated complaint: need amonia level checked Time Seen by Provider: 02/02/17 18:06 Source: patient, RN notes reviewed Mode of arrival: wheelchair Limitations: no limitations - History of Present Illness Initial comments: 36-year-old male presents to the emergency department with a chief complaint of concern about his ammonia level. Patient suffers from OTC deficiency. Patient states pneumonia level will sometimes go eye. Patient states had some nausea vomiting increased stress today he reveals that he is more anxious than normal which are typically his signs of his pneumonia may be hydrating thought that he should be seen. Patient denies any abdominal pain. Patient states he has had some mild diarrhea. Patient states that he is not currently having any other symptoms at this time. Patient denies any abdominal pain. Patient denies any recent fever, chills, shortness of breath, chest pain, back pain, abdominal pain ,numbness or tingling, dysuria or hematuria, constipation, headaches or visual changes, or any other current symptoms. - Related Data Home Medications Medication Instructions Recorded Confirmed Ravicti 1.1gram/Ml 6.6 gm PO TID 02/02/17 02/02/17 Allergies Allergy/AdvReac Type Severity Reaction Status Date / Time alprazolam [From Xanax] AdvReac Liver Verified 02/02/17 18:16 Complications cyclobenzaprine AdvReac Confusion Verified 02/02/17 18:16 [From Flexeril] olanzapine [From Zyprexa] AdvReac Liver Verified 02/02/17 18:16 Complications sertraline [From Zoloft] AdvReac Liver Verified 02/02/17 18:16 Complications Review of Systems ROS Statement: Those systems with pertinent positive or pertinent negative responses have been documented in the HPI. ROS Other: All systems not noted in ROS Statement are negative. 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 Torn left ACL and left knee effusion-uses brace and cane prn, anemia-nromocytic, 2013 bilateral feet fx and R ankle fx, recent R hand fx per pt, ulcers and vomitted blood in past. Bone deficiency, bones break easily. Seizures, shingles 2010 History of Any Multi-Drug Resistant Organisms: MRSA Date of last positivie culture/infection: 2013 MDRO Source:: Back Past Surgical History: Adenoidectomy, Ear Surgery, Tonsillectomy Additional Past Surgical History / Comment(s): liver biopsy, L-knee drained of 30 ml of fluid, tubes bilateral ears. Past Anesthesia/Blood Transfusion Reactions: Previous Problems w/ Anesthesia Additional Past Anesthesia/Blood Transfusion Reaction / Comment(s): Unable to wake up and being overly aggressive. Past Psychological History: Anxiety, Bipolar, Depression Smoking Status: Never smoker Past Alcohol Use History: None Reported Past Drug Use History: Marijuana - Past Family History Father Additional Family Medical History / Comment(s): Father at age 61 in April 2014, patient does not know cause of . Mother Family Medical History: Cancer Brother(s) Family Medical History: No Reported History Sister(s) Family Medical History: No Reported History General Exam - General Exam Comments Initial Comments: General: The patient is awake and alert, in no distress, and does not appear acutely ill. Eye: Pupils are equal, round and reactive to light, extra-ocular movements are intact; there is normal conjunctiva bilaterally. No signs of icterus. Ears, nose, mouth and throat: There are moist mucous membranes and no oral lesions. Neck: The neck is supple, there is no tenderness. Cardiovascular: There is a regular rate and rhythm. No murmur, rub or gallop is appreciated. Respiratory: Lungs are clear to auscultation, respirations are non-labored, breath sounds are equal. No wheezes, stridor, rales, or rhonchi. Gastrointestinal: Soft, non-distended, non-tender abdomen without masses or organomegaly noted. There is no rebound or guarding present. No CVA tenderness. Bowel sounds are unremarkable. Back: There is no tenderness to palpation in the midline. There is no obvious deformity. No rashes noted. Musculoskeletal: Normal ROM, no tenderness, There is no pedal edema. There is no calf tenderness or swelling. Sensation intact. Pulses equal bilaterally 2+. Neurological: CN II-XII intact, There are no obvious motor or sensory deficits. Coordination appears grossly intact. Speech is normal. Skin: Skin is warm and dry and no rashes or lesions are noted. Psychiatric: Cooperative, appropriate mood & affect, normal judgment. Limitations: no limitations Course Vital Signs 02/02/17 02/02/17 17:55 18:58 Temperature 99.7 F H Pulse Rate 113 H 80 Respiratory 20 18 Rate Blood Pressure 153/82 128/87 O2 Sat by Pulse 95 96 Oximetry Medical Decision Making - Medical Decision Making 36-year-old male presents emergency Department chief complaint of concern about his ammonia level. At this time ammonia level is normal. Labwork otherwise does appear stable compared to previous. This time the patient will be discharged home. We discussed follow-up return parameters QUESTIONS. He stated he understood and he is given plan. He will be discharged at this time. - Lab Data Result diagrams: 02/02/17 18:25 02/02/17 18:25 Lab Results 02/02/17 02/02/17 02/02/17 Range/Units 18:25 18:25 18:25 WBC 8.3 (3.8-10.6) k/uL RBC 5.16 (4.30-5.90) m/uL Hgb 15.7 (13.0-17.5) gm/dL Hct 45.6 (39.0-53.0) % MCV 88.3 (80.0-100.0) fL MCH 30.3 (25.0-35.0) pg MCHC 34.3 (31.0-37.0) g/dL RDW 13.7 (11.5-15.5) % Plt Count 196 (150-450) k/uL Neutrophils % 70 % Lymphocytes % 20 % Monocytes % 7 % Eosinophils % 1 % Basophils % 0 % Neutrophils # 5.8 (1.3-7.7) k/uL Lymphocytes # 1.6 (1.0-4.8) k/uL Monocytes # 0.6 (0-1.0) k/uL Eosinophils # 0.1 (0-0.7) k/uL Basophils # 0.0 (0-0.2) k/uL PT (9.0-12.0) sec INR (<1.2) APTT (22.0-30.0) sec Sodium 147 H (137-145) mmol/L Potassium 3.8 (3.5-5.1) mmol/L Chloride 112 H (98-107) mmol/L Carbon Dioxide 18 L (22-30) mmol/L Anion Gap 17 mmol/L BUN <2 L (9-20) mg/dL Creatinine 0.70 (0.66-1.25) mg/dL Est GFR (MDRD) Af Amer >60 (>60 ml/min/1.73 sqM) Est GFR (MDRD) Non-Af >60 (>60 ml/min/1.73 sqM) Glucose 110 H (74-99) mg/dL Plasma Lactic Acid Juan A 1.3 (0.7-2.0) mmol/L Calcium 10.7 H (8.4-10.2) mg/dL Total Bilirubin 1.0 (0.2-1.3) mg/dL AST 27 (17-59) U/L ALT 35 (21-72) U/L Alkaline Phosphatase 95 (38-126) U/L Ammonia 27 (<30) umol/L Total Protein 7.9 (6.3-8.2) g/dL Albumin 4.9 (3.5-5.0) g/dL Amylase 45 (30-110) U/L Lipase 85 (23-300) U/L Urine Color Urine Appearance (Clear) Urine pH (5.0-8.0) Ur Specific [place] (1.001-1.035) Urine Protein (Negative) Urine Glucose (UA) (Negative) Urine Ketones (Negative) Urine Blood (Negative) Urine Nitrite (Negative) Urine Bilirubin (Negative) Urine Urobilinogen (<2.0) mg/dL Ur Leukocyte Esterase (Negative) Urine RBC (0-5) /hpf Urine WBC (0-5) /hpf Hyaline Casts (0-2) /lpf Urine Mucus (None) /hpf 02/02/17 02/02/17 Range/Units 18:25 18:52 WBC (3.8-10.6) k/uL RBC (4.30-5.90) m/uL Hgb (13.0-17.5) gm/dL Hct (39.0-53.0) % MCV (80.0-100.0) fL MCH (25.0-35.0) pg MCHC (31.0-37.0) g/dL RDW (11.5-15.5) % Plt Count (150-450) k/uL Neutrophils % % Lymphocytes % % Monocytes % % Eosinophils % % Basophils % % Neutrophils # (1.3-7.7) k/uL Lymphocytes # (1.0-4.8) k/uL Monocytes # (0-1.0) k/uL Eosinophils # (0-0.7) k/uL Basophils # (0-0.2) k/uL PT 12.1 H (9.0-12.0) sec INR 1.2 H (<1.2) APTT 24.4 (22.0-30.0) sec Sodium (137-145) mmol/L Potassium (3.5-5.1) mmol/L Chloride (98-107) mmol/L Carbon Dioxide (22-30) mmol/L Anion Gap mmol/L BUN (9-20) mg/dL Creatinine (0.66-1.25) mg/dL Est GFR (MDRD) Af Amer (>60 ml/min/1.73 sqM) Est GFR (MDRD) Non-Af (>60 ml/min/1.73 sqM) Glucose (74-99) mg/dL Plasma Lactic Acid Juan A (0.7-2.0) mmol/L Calcium (8.4-10.2) mg/dL Total Bilirubin (0.2-1.3) mg/dL AST (17-59) U/L ALT (21-72) U/L Alkaline Phosphatase (38-126) U/L Ammonia (<30) umol/L Total Protein (6.3-8.2) g/dL Albumin (3.5-5.0) g/dL Amylase (30-110) U/L Lipase (23-300) U/L Urine Color Yellow Urine Appearance Clear (Clear) Urine pH 5.0 (5.0-8.0) Ur Specific [place] 1.030 (1.001-1.035) Urine Protein 1+ H (Negative) Urine Glucose (UA) Negative (Negative) Urine Ketones Negative (Negative) Urine Blood Small H (Negative) Urine Nitrite Negative (Negative) Urine Bilirubin Negative (Negative) Urine Urobilinogen <2.0 (<2.0) mg/dL Ur Leukocyte Esterase Negative (Negative) Urine RBC 9 H (0-5) /hpf Urine WBC 5 (0-5) /hpf Hyaline Casts 17 H (0-2) /lpf Urine Mucus Rare H (None) /hpf Disposition Clinical Impression: Nausea & vomiting Disposition: HOME SELF-CARE Condition: Stable Instructions: Acute Nausea and Vomiting (ED) Additional Instructions: Please use medication as discussed. Please follow up with family doctor if symptoms have not improved over the next two days. Please return to the emergency room if your symptoms increase or worsen or for any other concerns. Referrals: Salvador Guevara MD [Primary Care Provider] - 1-2 days Time of Disposition: 19:17
[2017-02-02] MEDS ORDERED: ONDANSETRON 4 MG/2 ML VIAL IVP STA (18:16)
[2017-02-02] MEDS ORDERED: IBUPROFEN 600 MG TAB PO STA (18:16)
[2017-02-02 18:41] LABS: Basophils % (A) 0 %; CHCM 34.1; Eosinophils # (A) 0.1 k/uL (0-0.7); Eosinophils % (A) 1 %; HCT 45.6 % (39.0-53.0); HDW 3.05; HGB 15.7 gm/dL (13.0-17.5); Luc # (Auto) 0.14; Luc % (Auto) 2; Lymphocytes # (A) 1.6 k/uL (1.0-4.8); Lymphocytes % (A) 20 %; MCH 30.3 pg (25.0-35.0); MCHC 34.3 g/dL (31.0-37.0); MCV 88.3 fL (80.0-100.0); Mean Platelet Volume 9.4; Monocytes # (A) 0.6 k/uL (0-1.0); Monocytes % (A) 7 %; Neutrophils # (A) 5.8 k/uL (1.3-7.7); Neutrophils % (A) 70 %; RBC 5.16 m/uL (4.30-5.90); RDW 13.7 % (11.5-15.5); WBC 8.3 k/uL (3.8-10.6); WBC (Perox) 7.98
[2017-02-02 18:51] LABS: INR 1.2 (<1.2); Partial Thromboplastin Time 24.4 sec (22.0-30.0); Prothrombin Time 12.1 sec (9.0-12.0)
[2017-02-02 18:52] LABS: ALT 35 U/L (21-72); AST 27 U/L (17-59); Alkaline Phosphatase 95 U/L (38-126); Amylase 45 U/L (30-110); Anion Gap 17 mmol/L; Blood Urea Nitrogen <2 mg/dL (9-20); Calcium 10.7 mg/dL (8.4-10.2); Carbon Dioxide 18 mmol/L (22-30); Chloride 112 mmol/L (98-107); Glucose 110 mg/dL (74-99); Non-African American GFR(MDRD) >60 (>60 ml/min/1.73 sqM); Potassium 3.8 mmol/L (3.5-5.1); Sodium 147 mmol/L (137-145); Total Protein 7.9 g/dL (6.3-8.2)
[2017-02-02 19:05] LABS: Appearance,Urine Clear (Clear); Bilirubin,Urine Negative (Negative); Glucose,Urine (UA) Negative (Negative); Ketones,Urine Negative (Negative); Leukocyte Esterase,Urine Negative (Negative); Mucus,Urine Rare /hpf; Nitrite,Urine Negative (Negative); Particle Count 7135; Protein,Urine 1+ (Negative); RBC,Urine 9 /hpf (0-5); UA Billing (MACRO vs. MICRO) MICRO; Urobilinogen,Urine <2.0 mg/dL (<2.0); WBC,Urine 5 /hpf (0-5)
[2017-02-02 19:09] VITALS: BP 128/87; PULSE 80; RESP 18
== END 2017-02-02 19:30 | disposition home or self-care (01) ==
LOC: EC 17:47
DX: R11.2 Nausea with vomiting, unspecified (principal); R19.7 Diarrhea, unspecified; F41.9 Anxiety disorder, unspecified; F31.9 Bipolar disorder, unspecified; F43.9 Reaction to severe stress, unspecified; Z79.899 Other long term (current) drug therapy; Z88.8 Allergy status to other drugs, medicaments and biological substances; Z86.14 Personal history of Methicillin resistant Staphylococcus aureus infection
CPT/HCPCS: 99283; 96374; 36415; 80053; 82140; 82150; 83605; 83690; 85025; 85610; 85730; 81001; 87040; 87086; J2405

== ENCOUNTER 2017-02-05 08:05 | Observation (INO) | payer MEDICARE, OTHER ==
[2017-02-05] MEDS ORDERED: SODIUM CHLORIDE 0.9% 1,000 ML IV ONE (08:25)
[2017-02-05] MEDS ORDERED: METOCLOPRAMIDE 5 MG/ML 2 ML VIAL IVP STA (08:26)
[2017-02-05] MEDS ORDERED: diphenhydrAMINE 50 MG/ML 1 ML VIAL IVP STA (08:26)
--- NOTE | 2017-02-05 08:30 | ED ---
General Adult HPI - General Chief complaint: Nausea/Vomiting/Diarrhea Stated complaint: CONCERNED ABOUT HIGH AMONIA LEVEL Time Seen by Provider: 02/05/17 08:17 Source: patient, RN notes reviewed, old records reviewed Mode of arrival: ambulatory Limitations: no limitations - History of Present Illness Initial comments: This is a 36-year-old male presenting to the emergency Department chief complaint of the concern about his ammonia level. Patient has a history of OTC deficiency. Patient ports over the past 2 days has had increased nausea and vomiting. Patient also reports that he feels very tired and weak. Patient reports that the symptoms are consistent with having an elevated ammonia level. Patient reports that he has been trying Zofran at home with no relief. He estimates he drinks water it comes back up. Patient states that he has had normal urination, denies any blood in the urine. Patient states that he is had to be sent to [facility] before when the symptoms have been more severe. Patient denies any recent fever, chills, shortness of breath, chest pain, back pain, numbness or tingling, dysuria or hematuria, constipation or diarrhea, headaches or visual changes, or any other current symptoms - Related Data Home Medications Medication Instructions Recorded Confirmed Ravicti 1.1gram/Ml 6.6 gm PO TID 02/02/17 02/05/17 Allergies Allergy/AdvReac Type Severity Reaction Status Date / Time alprazolam [From Xanax] AdvReac Liver Verified 02/05/17 08:40 Complications cyclobenzaprine AdvReac Confusion Verified 02/05/17 08:40 [From Flexeril] olanzapine [From Zyprexa] AdvReac Liver Verified 02/05/17 08:40 Complications sertraline [From Zoloft] AdvReac Liver Verified 02/05/17 08:40 Complications Review of Systems ROS Statement: Those systems with pertinent positive or pertinent negative responses have been documented in the HPI. ROS Other: All systems not noted in ROS Statement are negative. 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 Torn left ACL and left knee effusion-uses brace and cane prn, anemia-nromocytic, 2014 bilateral feet fx and R ankle fx, recent R hand fx per pt, ulcers and vomitted blood in past. Bone deficiency, bones break easily. Seizures, shingles 2010 History of Any Multi-Drug Resistant Organisms: MRSA Date of last positivie culture/infection: 2013 MDRO Source:: Back Past Surgical History: Adenoidectomy, Ear Surgery, Tonsillectomy Additional Past Surgical History / Comment(s): liver biopsy, L-knee drained of 30 ml of fluid, tubes bilateral ears. Past Anesthesia/Blood Transfusion Reactions: Previous Problems w/ Anesthesia Additional Past Anesthesia/Blood Transfusion Reaction / Comment(s): Unable to wake up and being overly aggressive. Past Psychological History: Anxiety, Bipolar, Depression Smoking Status: Never smoker Past Alcohol Use History: None Reported Past Drug Use History: Marijuana - Past Family History Father Additional Family Medical History / Comment(s): Father at age 61 in April 2014, patient does not know cause of . Mother Family Medical History: Cancer Brother(s) Family Medical History: No Reported History Sister(s) Family Medical History: No Reported History General Exam - General Exam Comments Initial Comments: This is a 36-year-old male. Patient does not appear to be in any acute distress. Limitations: no limitations General appearance: alert, in no apparent distress Head exam: Present: atraumatic, normocephalic, normal inspection Eye exam: Present: normal appearance, PERRL, EOMI. Absent: scleral icterus, conjunctival injection, periorbital swelling ENT exam: Present: normal exam, mucous membranes moist Neck exam: Present: normal inspection. Absent: tenderness, meningismus, lymphadenopathy Respiratory exam: Present: normal lung sounds bilaterally. Absent: respiratory distress, wheezes, rales, rhonchi, stridor Cardiovascular Exam: Present: regular rate, normal rhythm, normal heart sounds. Absent: systolic murmur, diastolic murmur, rubs, gallop, clicks GI/Abdominal exam: Present: soft, tenderness (Mild abdominal tenderness.), normal bowel sounds. Absent: distended, guarding, rebound, rigid Extremities exam: Present: normal inspection, full ROM, normal capillary refill. Absent: tenderness, pedal edema, joint swelling, calf tenderness Back exam: Present: normal inspection Neurological exam: Present: alert, oriented X3, CN II-XII intact Psychiatric exam: Present: normal affect, normal mood Skin exam: Present: warm, dry, intact, normal color. Absent: rash Course Vital Signs 02/05/17 08:11 Temperature 96.9 F L Pulse Rate 77 Respiratory 18 Rate Blood Pressure 114/83 O2 Sat by Pulse 96 Oximetry Medical Decision Making - Medical Decision Making 36-year-old male chief complaint of concern of an ammonia level due to nausea and vomiting. Patient has history of OTC deficiency. Patient was given IV fluids, lab work obtained. It is noted the patient's ammonia level is slightly elevated at 31. Patient does have a protocol he has with him in regards to his treatment for his metabolic disorder. Patient was switched to D10 at 150 mls per hour. Discussed this case with Dr. Denney. We will admit the patient for rehydration and for medication according is protocol. Case was discussed by Dr. Denney with Dr. Stevens. Patient was given Reglan and Benadryl reports that his nausea has subsided. According to his protocol he needs to having no protein calories for the first 24 hours. UIn protocol, there are specific sodium, and protein replacements the need to be in his IV fluids. This will be discussed to the admitting physician. - Lab Data Result diagrams: 02/05/17 08:25 02/05/17 08:25 Lab Results 02/05/17 02/05/17 02/05/17 Range/Units 08:25 08:25 08:25 WBC 6.9 (3.8-10.6) k/uL RBC 5.31 (4.30-5.90) m/uL Hgb 16.0 (13.0-17.5) gm/dL Hct 45.9 (39.0-53.0) % MCV 86.3 (80.0-100.0) fL MCH 30.1 (25.0-35.0) pg MCHC 34.9 (31.0-37.0) g/dL RDW 13.8 (11.5-15.5) % Plt Count 210 (150-450) k/uL Neutrophils % 57 % Lymphocytes % 30 % Monocytes % 7 % Eosinophils % 2 % Basophils % 1 % Neutrophils # 3.9 (1.3-7.7) k/uL Lymphocytes # 2.1 (1.0-4.8) k/uL Monocytes # 0.5 (0-1.0) k/uL Eosinophils # 0.1 (0-0.7) k/uL Basophils # 0.1 (0-0.2) k/uL Sodium 142 (137-145) mmol/L Potassium 3.7 (3.5-5.1) mmol/L Chloride 110 H (98-107) mmol/L Carbon Dioxide 16 L (22-30) mmol/L Anion Gap 16 mmol/L BUN <2 L (9-20) mg/dL Creatinine 0.70 (0.66-1.25) mg/dL Est GFR (MDRD) Af Amer >60 (>60 ml/min/1.73 sqM) Est GFR (MDRD) Non-Af >60 (>60 ml/min/1.73 sqM) Glucose 117 H (74-99) mg/dL Calcium 10.0 (8.4-10.2) mg/dL Total Bilirubin 1.2 (0.2-1.3) mg/dL AST 23 (17-59) U/L ALT 33 (21-72) U/L Alkaline Phosphatase 99 (38-126) U/L Ammonia 31 H (<30) umol/L Total Protein 7.5 (6.3-8.2) g/dL Albumin 4.7 (3.5-5.0) g/dL Amylase 43 (30-110) U/L Lipase 212 (23-300) U/L Disposition Clinical Impression: OTC (ornithine transcarbamylase deficiency), Hyperammonemia, Nausea & vomiting Disposition: ADMITTED IP TO THIS [facility] Condition: Stable Referrals: Salvador Guevara MD [Primary Care Provider] - 1-2 days Time of Disposition: 09:49
[2017-02-05 08:52] LABS: ALT 33 U/L (21-72); AST 23 U/L (17-59); Alkaline Phosphatase 99 U/L (38-126); Amylase 43 U/L (30-110); Anion Gap 16 mmol/L; Blood Urea Nitrogen <2 mg/dL (9-20); Carbon Dioxide 16 mmol/L (22-30); Chloride 110 mmol/L (98-107); Glucose 117 mg/dL (74-99); Non-African American GFR(MDRD) >60 (>60 ml/min/1.73 sqM); Potassium 3.7 mmol/L (3.5-5.1); Sodium 142 mmol/L (137-145); Total Bilirubin 1.2 mg/dL (0.2-1.3); Total Protein 7.5 g/dL (6.3-8.2)
[2017-02-05 08:55] LABS: Basophils # (A) 0.1 k/uL (0-0.2); Basophils % (A) 1 %; CH 30.2; CHCM 35.2; Eosinophils # (A) 0.1 k/uL (0-0.7); Eosinophils % (A) 2 %; HCT 45.9 % (39.0-53.0); HDW 3.08; Luc % (Auto) 3; Lymphocytes # (A) 2.1 k/uL (1.0-4.8); Lymphocytes % (A) 30 %; MCH 30.1 pg (25.0-35.0); MCHC 34.9 g/dL (31.0-37.0); MCV 86.3 fL (80.0-100.0); Mean Platelet Volume 9.2; Monocytes # (A) 0.5 k/uL (0-1.0); Monocytes % (A) 7 %; Neutrophils # (A) 3.9 k/uL (1.3-7.7); Neutrophils % (A) 57 %; RBC 5.31 m/uL (4.30-5.90); RDW 13.8 % (11.5-15.5); WBC 6.9 k/uL (3.8-10.6); WBC (Perox) 6.45
[2017-02-05] MEDS ORDERED: DEXTROSE 10% IN WATER 1,000 ML IV ONE (09:23)
[2017-02-05 09:38] LABS: Appearance,Urine Cloudy (Clear); Bilirubin,Urine Negative (Negative); Glucose,Urine (UA) Negative (Negative); Ketones,Urine Negative (Negative); Leukocyte Esterase,Urine Negative (Negative); Mucus,Urine Occasional /hpf; Nitrite,Urine Negative (Negative); Particle Count 4749; Protein,Urine 1+ (Negative); RBC,Urine 1 /hpf (0-5); UA Billing (MACRO vs. MICRO) MICRO; Urobilinogen,Urine <2.0 mg/dL (<2.0); WBC,Urine 21 /hpf (0-5)
[2017-02-05] MEDS ORDERED: NALOXONE 0.4 MG/ML 1 ML VIAL IV PRN ×2 (09:49→11:11)
[2017-02-05] MEDS ORDERED: ONDANSETRON 4 MG/2 ML VIAL IVP PRN (11:13)
[2017-02-05] MEDS ORDERED: IBUPROFEN 800 MG TAB PO PRN (11:22)
[2017-02-05] MEDS ORDERED: SODIUM CHLORIDE 0.9% 1,000 ML IV SCH (11:30)
--- NOTE | 2017-02-05 11:40 | P.HPIM ---
History of Present Illness H&P Date: 02/05/17 Chief Complaint: Nausea and vomiting This patient is a very pleasant 36 years old male with history of ornitine transcarbamylase defficiency came to the hospital with complaints of nausea and vomiting that he experienced in the past 3 days. When his symptoms started he put himself on a low-protein diet and despite that did not have improvement in his symptoms. Upon presentation to the emergency department he was found to have an ammonia level of 31. Patient has some nausea at present time, no vomiting or abdominal pain, no diarrhea, fever, chills, cough or any adverse symptoms. Review of Systems Constitutional: Patient reports no fever, no chills, has some weight loss in the past week Eyes: Patient reports no double vision, no visual changes ENT: Patient reports no rhinorrhea, no post nasal drip, no sore throat Cardiovascular: Patient reports no chest, no edema, no palpitations, no syncope , no orthopnea, no paroxysmal nocturnal dyspnea. Respiratory: Patient reports no dyspnea, no cough, no wheeze Gastrointestinal: Patient reports nausea and vomiting Genitourinary: Patient reports no dysuria, no urinary frequency, no hematuria. Musculoskeletal: Patient reports no unusual joint pain, no joint swelling or weakness. Patient reports no muscular pain. Psychiatric: Patient reports no changes in mood, no sleeping problems. Patient reports no changes in memory. Endocrine: Patient reports no thirst, no polyuria, no cold intolerance, no heat intolerance. Neurological: Patient reports no unusual paresthesias, no seizures, no paresis , no paralysis, no facila droop, no headache. Heme/Lymphatic: Patient reports no easy bruising, no bleeding tendency, no lymphadenopathy. Allergic/ Immunologic: Patient reports no recent allergic reactions or immunologic history. Skin: Patient reports no rashes or unusual lesions. 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 intermittent hyperammonemia, hyperammonemia with AMS, torn left ACL and left knee effusion- uses brace and cane prn, anemia-normocytic, 2014 bilateral feet fx and R ankle fx, recent R hand fx per pt-no longer casted, gastric ulcers and vomited blood in past, IBS, kidney stones passed by pt, bone deficiency- bones break easily, seizures-last one many yrs ago, shingles 2010 History of Any Multi-Drug Resistant Organisms: MRSA Date of last positivie culture/infection: 2013 MDRO Source:: Back Past Surgical History: Adenoidectomy, Ear Surgery, Tonsillectomy Additional Past Surgical History / Comment(s): liver biopsy, L-knee drained of 30 ml of fluid, tubes bilateral ears. Past Anesthesia/Blood Transfusion Reactions: Previous Problems w/ Anesthesia Additional Past Anesthesia/Blood Transfusion Reaction / Comment(s): Unable to wake up and being overly aggressive. Smoking Status: Never smoker - Past Family History Father Additional Family Medical History / Comment(s): Father at age 61 in April 2014, patient does not know cause of . Mother History Unknown: Yes Family Medical History: Cancer Brother(s) Family Medical History: No Reported History Sister(s) Family Medical History: No Reported History Medications and Allergies Home Medications Medication Instructions Recorded Confirmed Type Ravicti 1.1gram/Ml 6.6 gm PO TID 02/02/17 02/05/17 History Allergies Allergy/AdvReac Type Severity Reaction Status Date / Time alprazolam [From Xanax] AdvReac Liver Verified 02/05/17 08:40 Complications cyclobenzaprine AdvReac Confusion Verified 02/05/17 08:40 [From Flexeril] olanzapine [From Zyprexa] AdvReac Liver Verified 02/05/17 08:40 Complications sertraline [From Zoloft] AdvReac Liver Verified 02/05/17 08:40 Complications Physical Exam Vitals: Vital Signs Temp Pulse Pulse Resp BP BP Pulse Ox 02/05/17 11:02 97.9 F 60 18 105/61 97 02/05/17 10:35 97.9 F 76 14 113/61 99 02/05/17 08:11 96.9 F L 77 18 114/83 96 Intake and Output 02/04/17 02/05/17 02/05/17 22:59 06:59 14:59 Other: Voiding Method Toilet Weight 83.7 kg Patient Weight 02/06/17 06:59 Weight 83.7 kg Constitutional: No acute distress, conversant, pleasant Eyes: Anicteric sclerae, moist conjunctiva ENMT: NC/AT poor dentition Neck: Supple, FROM, no masses, or JVD No thyromegaly Lungs: Clear to auscultation Clear to percussion Normal respiratory effort, no accessory muscle use Cardiovascular: Heart regular in rate and rhythm, No murmurs, gallops, or rubs No peripheral edema Abdominal: Soft Nontender, no guarding, rebound or rigidity Abdomen moving with respiration Normoactive bowel sounds No hepatomegaly, No splenomegaly No palpable mass Skin: Normal temperature, tone, texture, turgor No induration No subcutaneous nodules No rash, lesions No ulcers Extremities: No digital cyanosis No clubbing Pedal pulses intact and symmetrical Radial pulses intact and symmetrical Normal gait and station No calf tenderness Psychiatric: Alert and oriented to person, place and time Appropriate affect Intact judgement Neuro: Muscles Strength 5/5 in all 4 extremities Sensation to light touch grossly present throughout Cranial nerves II-XII grossly intact No focal sensory deficits Results CBC & Chem 7: 02/05/17 08:25 02/05/17 08:25 Labs: Abnormal Lab Results - Last 24 Hours (Table) 02/05/17 02/05/17 Range/Units 08:25 08:25 Chloride 110 H (98-107) mmol/L Carbon Dioxide 16 L (22-30) mmol/L BUN <2 L (9-20) mg/dL Glucose 117 H (74-99) mg/dL Ammonia 31 H (<30) umol/L Thrombosis Risk Factor Assmnt - DVT/VTE Prophylaxis DVT/VTE Prophylaxis: Mechanical Prophylaxis ordered - Choose All That Apply Any of the Below Risk Factors Present?: Yes Each Factor Represents 1 point: Obesity (BMI >25) Other Risk Factors: No Other congenital or acquired thrombophilia - If yes, enter type in comment: No Thrombosis Risk Factor Assessment Total Risk Factor Score: 1 Thrombosis Risk Factor Assessment Level: Low Risk Assessment and Plan (1) Nausea & vomiting Narrative/Plan: Continue supportive treatment with IV fluids and antiemetics Status: Acute (2) OTC (ornithine transcarbamylase deficiency) Narrative/Plan: Repeat ammonia level. I have called mechanical specialist in [facility] who did not recommend to follow the protocol for OTC deficiency since patient's ammonia level is normal. Recommendation was to repeat ammonia level and continue home medications. We will recheck ammonia and electrolytes. Order low-protein diet. Will admit patient for observation 24 hours. Status: Acute (3) DVT prophylaxis Narrative/Plan: Early ambulation and SCDs bilaterally while in bed Status: Acute
[2017-02-05 14:26] VITALS: BMI 27.2
[2017-02-05] MEDS: [UNRECOGNIZED DRUG - OTHER] PO SCH ×2 (15:01→21:10)
[2017-02-05] MEDS: LOPERAMIDE 2 MG CAP PO PRN ×2 (17:07→21:14)
[2017-02-06 06:53] LABS: CH 30.7; CHCM 33.9; HCT 38.1 % (39.0-53.0); HDW 2.92; MCH 29.7 pg (25.0-35.0); MCHC 32.7 g/dL (31.0-37.0); MCV 90.8 fL (80.0-100.0); RBC 4.19 m/uL (4.30-5.90); RDW 14.2 % (11.5-15.5); WBC 5.7 k/uL (3.8-10.6)
[2017-02-06 07:04] LABS: HGB 12.4 gm/dL (13.0-17.5)
[2017-02-06 07:13] LABS: Anion Gap 7 mmol/L; Blood Urea Nitrogen <2 mg/dL (9-20); Calcium 8.7 mg/dL (8.4-10.2); Carbon Dioxide 21 mmol/L (22-30); Chloride 113 mmol/L (98-107); Glucose 102 mg/dL (74-99); Magnesium 1.5 mg/dL (1.6-2.3); Non-African American GFR(MDRD) >60 (>60 ml/min/1.73 sqM); Potassium 3.8 mmol/L (3.5-5.1); Sodium 141 mmol/L (137-145)
[2017-02-06 07:36] VITALS: BP 112/59; PULSE 59; RESP 16; TEMP 98.2
[2017-02-06] MEDS ORDERED: FAMOTIDINE 20 MG/2 ML VIAL IV SCH (09:00)
[2017-02-06] MEDS: [UNRECOGNIZED DRUG - OTHER] PO SCH (09:09)
[2017-02-06] MEDS: LOPERAMIDE 2 MG CAP PO PRN (09:17)
[2017-02-06] MEDS ORDERED: ONDANSETRON ODT 4 MG TAB PO PRN (13:26)
--- NOTE | 2017-02-06 14:34 | P.DS ---
Providers Date of admission: 02/05/17 10:00 Expected date of discharge: 02/06/17 Attending physician: Katie Ackerman DO Primary care physician: Salvador Guevara - Discharge Diagnosis(es) (1) Nausea & vomiting HPI: This patient is a very pleasant 36 years old male with history of ornitine transcarbamylase defficiency came to the hospital with complaints of nausea and vomiting that he experienced in the past 3 days. When his symptoms started he put himself on a low-protein diet and despite that did not have improvement in his symptoms. Upon presentation to the emergency department he was found to have an ammonia level of 31. Patient has some nausea at present time, no vomiting or abdominal pain, no diarrhea, fever, chills, cough or any other symptoms. Hospital course: After patient was admitted to the medical floor I have contacted his mental health program specialist in [facility], he did not recommend to follow OTC deficiency protocol this patient's ammonia level is normal. Patient received supportive treatment with IV fluids, antiemetics and Imodium. His symptoms resolved and he is able to tolerate oral intake. Discharged home in improved and stable condition with recommendations to follow up with PCP in one week. Discharge time less than 30 minutes. Physical exam: Gen.-No acute distress, awake alert oriented 3. HEENT-normocephalic and atraumatic Neck supple, trachea midline. Cardiovascular exam-normal S1-S2, regular rate. Chest clear to auscultation bilaterally, no wheezes or rhonchi. Abdomen is soft, nondistended, normoactive bowel sounds. Skin is warm dry and clear. Current Visit: Yes Status: Acute (2) OTC (ornithine transcarbamylase deficiency) Current Visit: Yes Status: Acute (3) DVT prophylaxis Current Visit: Yes Status: Acute Patient Condition at Discharge: Stable Plan - Discharge Summary New Discharge Prescriptions: New Ondansetron Odt [Zofran ODT] 4 mg PO Q8HR PRN #30 tab PRN Reason: Nausea Continue Ravicti 1.1gram/Ml 6.6 gm PO TID Discharge Medication List Ravicti 1.1gram/Ml 6.6 gm PO TID 02/02/17 [History] Ondansetron Odt [Zofran ODT] 4 mg PO Q8HR PRN #30 tab 02/06/17 [Rx] Follow up Appointment(s)/Referral(s): Salvador Guevara MD [Primary Care Provider] - 1-2 days Discharge Disposition: HOME SELF-CARE
== END 2017-02-06 13:55 | disposition home or self-care (01) ==
LOC: EC 08:05 → 3OBS 10:00
PROVIDERS: ADMIT Internal Medicine; ATTEND Internal Medicine
DX: R11.2 Nausea with vomiting, unspecified (principal); E72.4 Disorders of ornithine metabolism; E66.9 Obesity, unspecified; Z68.27 Body mass index [BMI] 27.0-27.9, adult; Z79.899 Other long term (current) drug therapy; Z88.8 Allergy status to other drugs, medicaments and biological substances; Z86.14 Personal history of Methicillin resistant Staphylococcus aureus infection
CPT/HCPCS: 99285; 96375 ×3; 96361 ×4; 96374; 36415; 80053; 80048; 82140 ×2; 82150; 83690; 83735; 85025; 85027; 81001; G0378 ×2; J1200; J2765

== ENCOUNTER 2017-03-04 16:23 | Emergency (ER) | payer MEDICARE, OTHER ==
[2017-03-04 16:35] VITALS: RESP 16; TEMP 97.9
--- NOTE | 2017-03-04 16:42 | ED ---
General Adult HPI - General Chief complaint: Recheck/Abnormal Lab/Rx Stated complaint: recheck Time Seen by Provider: 03/04/17 16:31 Source: patient, RN notes reviewed Mode of arrival: ambulatory Limitations: no limitations - History of Present Illness Initial comments: 36-year-old male presents to the emergency department with a chief complaint of concern for elevated ammonia. He states he's been more argumentative and he has a cold today.making his ammonia.. Patient denies any pain or discomfort at this time. Patient states he has had a few episodes of vomiting. Patient was concerned due to his symptoms without that he should be evaluated. Patient denies any recent fever, chills, shortness of breath, chest pain, back pain, abdominal pain, nausea, numbness or tingling, dysuria or hematuria, constipation or diarrhea, headaches or visual changes, or any other current symptoms. - Related Data Home Medications Medication Instructions Recorded Confirmed Ibuprofen [Motrin] 800 mg PO DAILY PRN 03/04/17 03/04/17 guaiFENesin SYRUP 100MG/5ML 200 mg PO BID PRN 03/04/17 03/04/17 [Robitussin] Allergies Allergy/AdvReac Type Severity Reaction Status Date / Time alprazolam [From Xanax] AdvReac Liver Verified 03/04/17 17:07 Complications cyclobenzaprine AdvReac Confusion Verified 03/04/17 17:07 [From Flexeril] olanzapine [From Zyprexa] AdvReac Liver Verified 03/04/17 17:07 Complications sertraline [From Zoloft] AdvReac Liver Verified 03/04/17 17:07 Complications Review of Systems ROS Statement: Those systems with pertinent positive or pertinent negative responses have been documented in the HPI. ROS Other: All systems not noted in ROS Statement are negative. 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 intermittent hyperammonemia, hyperammonemia with AMS, torn left ACL and left knee effusion- uses brace and cane prn, anemia-normocytic, 2014 bilateral feet fx and R ankle fx, recent R hand fx per pt-no longer casted, gastric ulcers and vomited blood in past, IBS, kidney stones passed by pt, bone deficiency- bones break easily, seizures-last one many yrs ago, shingles 2010 History of Any Multi-Drug Resistant Organisms: MRSA Date of last positivie culture/infection: 2013 MDRO Source:: Back Past Surgical History: Adenoidectomy, Ear Surgery, Tonsillectomy Additional Past Surgical History / Comment(s): liver biopsy, L-knee drained of 30 ml of fluid, tubes bilateral ears. Past Anesthesia/Blood Transfusion Reactions: Previous Problems w/ Anesthesia Additional Past Anesthesia/Blood Transfusion Reaction / Comment(s): Unable to wake up and being overly aggressive. Past Psychological History: Anxiety, Bipolar, Depression Smoking Status: Never smoker Past Alcohol Use History: None Reported Past Drug Use History: Marijuana - Past Family History Father Additional Family Medical History / Comment(s): Father at age 61 in April 2014, patient does not know cause of . Mother History Unknown: Yes Family Medical History: Cancer Brother(s) Family Medical History: No Reported History Sister(s) Family Medical History: No Reported History General Exam - General Exam Comments Initial Comments: General: The patient is awake and alert, in no distress, and does not appear acutely ill. Eye: Pupils are equal, round and reactive to light, extra-ocular movements are intact; there is normal conjunctiva bilaterally. No signs of icterus. Ears, nose, mouth and throat: There are moist mucous membranes. Neck: The neck is supple, there is no tenderness. Cardiovascular: There is a regular rate and rhythm. No murmur, rub or gallop is appreciated. Respiratory: Lungs are clear to auscultation, respirations are non-labored, breath sounds are equal. No wheezes, stridor, rales, or rhonchi. Gastrointestinal: Soft, non-distended, non-tender abdomen without masses or organomegaly noted. There is no rebound or guarding present. No CVA tenderness. Bowel sounds are unremarkable. Back: There is no tenderness to palpation in the midline. There is no obvious deformity. No rashes noted. Musculoskeletal: Normal ROM, no tenderness, There is no pedal edema. There is no calf tenderness or swelling. Sensation intact. Pulses equal bilaterally 2+. Neurological: CN II-XII intact, There are no obvious motor or sensory deficits. Coordination appears grossly intact. Speech is normal. Skin: Skin is warm and dry and no rashes or lesions are noted. Psychiatric: Cooperative, appropriate mood & affect, normal judgment. Limitations: no limitations Course Vital Signs 03/04/17 16:32 Temperature 97.9 F Pulse Rate 87 Respiratory 16 Rate Blood Pressure 133/89 O2 Sat by Pulse 94 L Oximetry Medical Decision Making - Medical Decision Making 36 yo male Presents emergency department with a chief complaint of concern for elevated ammonia level. This time patient's ammonia is 16. This time we discussed discharged home. We discussed Follow-up and all the patient's questions. He stated he understood the plan. - Lab Data Result diagrams: 03/04/17 16:54 03/04/17 16:54 Lab Results 03/04/17 03/04/17 03/04/17 Range/Units 16:54 16:54 16:54 WBC 6.1 (3.8-10.6) k/uL RBC 4.73 (4.30-5.90) m/uL Hgb 14.0 (13.0-17.5) gm/dL Hct 41.7 (39.0-53.0) % MCV 88.1 (80.0-100.0) fL MCH 29.5 (25.0-35.0) pg MCHC 33.5 (31.0-37.0) g/dL RDW 14.7 (11.5-15.5) % Plt Count 174 (150-450) k/uL Neutrophils % 55 % Lymphocytes % 32 % Monocytes % 6 % Eosinophils % 3 % Basophils % 1 % Neutrophils # 3.4 (1.3-7.7) k/uL Lymphocytes # 2.0 (1.0-4.8) k/uL Monocytes # 0.3 (0-1.0) k/uL Eosinophils # 0.2 (0-0.7) k/uL Basophils # 0.1 (0-0.2) k/uL Sodium 142 (137-145) mmol/L Potassium 3.8 (3.5-5.1) mmol/L Chloride 109 H (98-107) mmol/L Carbon Dioxide 18 L (22-30) mmol/L Anion Gap 15 mmol/L BUN <2 L (9-20) mg/dL Creatinine 0.55 L (0.66-1.25) mg/dL Est GFR (MDRD) Af Amer >60 (>60 ml/min/1.73 sqM) Est GFR (MDRD) Non-Af >60 (>60 ml/min/1.73 sqM) Glucose 88 (74-99) mg/dL Calcium 9.5 (8.4-10.2) mg/dL Phosphorus 3.2 (2.5-4.5) mg/dL Magnesium 1.4 L (1.6-2.3) mg/dL Total Bilirubin 1.0 (0.2-1.3) mg/dL AST 25 (17-59) U/L ALT 21 (21-72) U/L Alkaline Phosphatase 89 (38-126) U/L Ammonia 16 (<30) umol/L Total Protein 7.1 (6.3-8.2) g/dL Albumin 4.2 (3.5-5.0) g/dL Disposition Clinical Impression: Upper respiratory infection Disposition: HOME SELF-CARE Condition: Stable Instructions: Upper Respiratory Infection (ED) Additional Instructions: Please use medication as discussed. Please follow up with family doctor if symptoms have not improved over the next two days. Please return to the emergency room if your symptoms increase or worsen or for any other concerns. Referrals: Salvador Guevara MD [Primary Care Provider] - 1-2 days Time of Disposition: 18:00
[2017-03-04 17:08] LABS: Basophils # (A) 0.1 k/uL (0-0.2); Basophils % (A) 1 %; CH 30.8; CHCM 35.1; Eosinophils # (A) 0.2 k/uL (0-0.7); Eosinophils % (A) 3 %; HCT 41.7 % (39.0-53.0); HDW 2.85; Luc # (Auto) 0.15; Luc % (Auto) 2; Lymphocytes % (A) 32 %; MCH 29.5 pg (25.0-35.0); MCHC 33.5 g/dL (31.0-37.0); MCV 88.1 fL (80.0-100.0); Monocytes # (A) 0.3 k/uL (0-1.0); Monocytes % (A) 6 %; Neutrophils # (A) 3.4 k/uL (1.3-7.7); Neutrophils % (A) 55 %; RBC 4.73 m/uL (4.30-5.90); RDW 14.7 % (11.5-15.5); WBC 6.1 k/uL (3.8-10.6); WBC (Perox) 6.35
[2017-03-04 17:23] LABS: ALT 21 U/L (21-72); AST 25 U/L (17-59); Alkaline Phosphatase 89 U/L (38-126); Anion Gap 15 mmol/L; Blood Urea Nitrogen <2 mg/dL (9-20); Calcium 9.5 mg/dL (8.4-10.2); Carbon Dioxide 18 mmol/L (22-30); Chloride 109 mmol/L (98-107); Glucose 88 mg/dL (74-99); Magnesium 1.4 mg/dL (1.6-2.3); Non-African American GFR(MDRD) >60 (>60 ml/min/1.73 sqM); Phosphorous 3.2 mg/dL (2.5-4.5); Potassium 3.8 mmol/L (3.5-5.1); Sodium 142 mmol/L (137-145); Total Protein 7.1 g/dL (6.3-8.2)
--- NOTE | 2017-03-04 17:57 | XR ---
EXAMINATION TYPE: XR chest 2V DATE OF EXAM: 03/04/2017 CLINICAL HISTORY: Cough TECHNIQUE: Frontal and lateral views of the chest are obtained. COMPARISON: 06/24/2016 FINDINGS: There is no focal air space opacity, pleural effusion, or pneumothorax seen. The cardiac silhouette size is within normal limits. The osseous structures are intact. IMPRESSION: No acute cardiopulmonary process.
[2017-03-04 18:24] VITALS: BP 116/72; PULSE 55
== END 2017-03-04 18:24 | disposition home or self-care (01) ==
LOC: EC 16:23
DX: J06.9 Acute upper respiratory infection, unspecified (principal); R11.10 Vomiting, unspecified; Z86.14 Personal history of Methicillin resistant Staphylococcus aureus infection; Z88.8 Allergy status to other drugs, medicaments and biological substances
CPT/HCPCS: 36415; 71020; 80053; 82140; 83735; 84100; 85025; 99283

== ENCOUNTER 2017-03-28 09:14 | Emergency (ER) | payer MEDICARE, OTHER ==
[2017-03-28] MEDS ORDERED: SODIUM CHLORIDE 0.9% 1,000 ML IV STA (09:24)
--- NOTE | 2017-03-28 09:29 | ED ---
General Adult HPI - General Chief complaint: Headache Stated complaint: needs amonia level checked Time Seen by Provider: 03/28/17 09:23 Source: patient, RN notes reviewed Mode of arrival: ambulatory Limitations: no limitations - History of Present Illness Initial comments: Patient is a 36-year-old male with significant past medical history for OTC deficiency, who presents today with chief complaint of headache and generalized body aches. He states his symptoms are consistent when his ammonia level against arise. He does admit that he's been under a lot of stress. States he thought he should come to have his level checked. Patient denies any recent fever, chills, shortness of breath, chest pain, back pain, abdominal pain, nausea or vomiting, numbness or tingling, dysuria or hematuria, constipation or diarrhea, visual changes, or any other complaints. - Related Data Home Medications Medication Instructions Recorded Confirmed Ravicti 1.1gm/Ml 6.6 gm PO TID@0900,1500,2100 03/28/17 03/28/17 Allergies Allergy/AdvReac Type Severity Reaction Status Date / Time alprazolam [From Xanax] AdvReac Liver Verified 03/28/17 09:30 Complications cyclobenzaprine AdvReac Confusion Verified 03/28/17 09:30 [From Flexeril] olanzapine [From Zyprexa] AdvReac Liver Verified 03/28/17 09:30 Complications sertraline [From Zoloft] AdvReac Liver Verified 03/28/17 09:30 Complications Review of Systems ROS Statement: Those systems with pertinent positive or pertinent negative responses have been documented in the HPI. ROS Other: All systems not noted in ROS Statement are negative. 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 intermittent hyperammonemia, hyperammonemia with AMS, torn left ACL and left knee effusion- uses brace and cane prn, anemia-normocytic, 2013 bilateral feet fx and R ankle fx, recent R hand fx per pt-no longer casted, gastric ulcers and vomited blood in past, IBS, kidney stones passed by pt, bone deficiency- bones break easily, seizures-last one many yrs ago, shingles 2010 History of Any Multi-Drug Resistant Organisms: MRSA Date of last positivie culture/infection: 2013 MDRO Source:: Back Past Surgical History: Adenoidectomy, Ear Surgery, Tonsillectomy Additional Past Surgical History / Comment(s): liver biopsy, L-knee drained of 30 ml of fluid, tubes bilateral ears. Past Anesthesia/Blood Transfusion Reactions: Previous Problems w/ Anesthesia Additional Past Anesthesia/Blood Transfusion Reaction / Comment(s): Unable to wake up and being overly aggressive. Past Psychological History: Anxiety, Bipolar, Depression Smoking Status: Never smoker Past Alcohol Use History: None Reported Past Drug Use History: Marijuana - Past Family History Father Additional Family Medical History / Comment(s): Father at age 61 in April 2014, patient does not know cause of . Mother History Unknown: Yes Family Medical History: Cancer Brother(s) Family Medical History: No Reported History Sister(s) Family Medical History: No Reported History General Exam - General Exam Comments Initial Comments: General: The patient is awake and alert, in no distress, and does not appear acutely ill. Eye: Pupils are equal, round and reactive to light, extra-ocular movements are intact. No nystagmus. There is normal conjunctiva bilaterally. No signs of icterus. Ears, nose, mouth and throat: There are moist mucous membranes and no oral lesions. Neck: The neck is supple, there is no tenderness or JVD. Cardiovascular: There is a regular rate and rhythm. No murmur, rub or gallop is appreciated. Respiratory: Lungs are clear to auscultation, respirations are non-labored, breath sounds are equal. No wheezes, stridor, rales, or rhonchi. Gastrointestinal: Soft, non-distended, non-tender abdomen without masses or organomegaly noted. There is no rebound or guarding present. No CVA tenderness. Bowel sounds are unremarkable. Musculoskeletal: Normal ROM, no tenderness. Strength 5/5. Sensation intact. Pulses equal bilaterally 2+. Neurological: A&O x 3. CN II-XII intact, There are no obvious motor or sensory deficits. Coordination appears grossly intact. Speech is normal. Skin: Skin is warm and dry and no rashes or lesions are noted. Psychiatric: Cooperative, appropriate mood & affect, normal judgment. Limitations: no limitations Course Vital Signs 03/28/17 03/28/17 03/28/17 09:19 12:27 15:37 Temperature 97.4 F L Pulse Rate 57 L 56 L 72 Respiratory 16 18 16 Rate Blood Pressure 122/65 94/51 107/77 O2 Sat by Pulse 97 96 97 Oximetry - Reevaluation(s) Reevaluation #1: 03/28/17 11:31 Case was discussed with Dr. Dustin Flores at [facility]. Patient admits to taking his medication this morning at 9 AM before coming here to the emergency room. His ammonia level was 63 currently. Patient does admit to headache with some bodyaches. Patient has been started on D10 half saline with potassium acetate additive. Dr. Flores recommends rechecking ammonia level 3-4 hours after fluids have been given. Patient is aware the plan at this time states understanding and agreement with plan. 03/28/17 15:40 Patient repeat ammonia level was 86. Case was discussed with Dr. Flores who recommends patient be transferred for further treatment. Patient has been updated and is in agreement at this time. 1610 Case was discussed with [facility] transfer nurse. At this time they will call us back to see if they will accept the patient 03/28/17 17:14 Case discussed with at [facility] who will accept the patient. Patient will be transferred by EMS. Patient will be continued on D10 half saline with potassium acetate additive 20 mEq per liter. Patient's protocol will be sent with the patient. Medical Decision Making - Lab Data Result diagrams: 03/28/17 09:37 03/28/17 09:37 Lab Results 03/28/17 03/28/17 03/28/17 Range/Units 09:37 09:37 09:37 WBC 4.6 (3.8-10.6) k/uL RBC 4.15 L (4.30-5.90) m/uL Hgb 12.6 L (13.0-17.5) gm/dL Hct 37.7 L (39.0-53.0) % MCV 90.9 (80.0-100.0) fL MCH 30.5 (25.0-35.0) pg MCHC 33.5 (31.0-37.0) g/dL RDW 14.8 (11.5-15.5) % Plt Count 175 (150-450) k/uL Neutrophils % 49 % Lymphocytes % 34 % Monocytes % 8 % Eosinophils % 5 % Basophils % 1 % Neutrophils # 2.3 (1.3-7.7) k/uL Lymphocytes # 1.6 (1.0-4.8) k/uL Monocytes # 0.4 (0-1.0) k/uL Eosinophils # 0.2 (0-0.7) k/uL Basophils # 0.0 (0-0.2) k/uL Sodium 143 (137-145) mmol/L Potassium 3.7 (3.5-5.1) mmol/L Chloride 110 H (98-107) mmol/L Carbon Dioxide 21 L (22-30) mmol/L Anion Gap 12 mmol/L BUN <2 L (9-20) mg/dL Creatinine 0.54 L (0.66-1.25) mg/dL Est GFR (MDRD) Af Amer >60 (>60 ml/min/1.73 sqM) Est GFR (MDRD) Non-Af >60 (>60 ml/min/1.73 sqM) Glucose 114 H (74-99) mg/dL Calcium 9.2 (8.4-10.2) mg/dL Magnesium 1.6 (1.6-2.3) mg/dL Total Bilirubin 0.4 (0.2-1.3) mg/dL AST 21 (17-59) U/L ALT 27 (21-72) U/L Alkaline Phosphatase 73 (38-126) U/L Ammonia 63 H (<30) umol/L Total Protein 6.3 (6.3-8.2) g/dL Albumin 3.8 (3.5-5.0) g/dL 03/28/17 Range/Units 15:09 WBC (3.8-10.6) k/uL RBC (4.30-5.90) m/uL Hgb (13.0-17.5) gm/dL Hct (39.0-53.0) % MCV (80.0-100.0) fL MCH (25.0-35.0) pg MCHC (31.0-37.0) g/dL RDW (11.5-15.5) % Plt Count (150-450) k/uL Neutrophils % % Lymphocytes % % Monocytes % % Eosinophils % % Basophils % % Neutrophils # (1.3-7.7) k/uL Lymphocytes # (1.0-4.8) k/uL Monocytes # (0-1.0) k/uL Eosinophils # (0-0.7) k/uL Basophils # (0-0.2) k/uL Sodium (137-145) mmol/L Potassium (3.5-5.1) mmol/L Chloride (98-107) mmol/L Carbon Dioxide (22-30) mmol/L Anion Gap mmol/L BUN (9-20) mg/dL Creatinine (0.66-1.25) mg/dL Est GFR (MDRD) Af Amer (>60 ml/min/1.73 sqM) Est GFR (MDRD) Non-Af (>60 ml/min/1.73 sqM) Glucose (74-99) mg/dL Calcium (8.4-10.2) mg/dL Magnesium (1.6-2.3) mg/dL Total Bilirubin (0.2-1.3) mg/dL AST (17-59) U/L ALT (21-72) U/L Alkaline Phosphatase (38-126) U/L Ammonia 86 H (<30) umol/L Total Protein (6.3-8.2) g/dL Albumin (3.5-5.0) g/dL Disposition Clinical Impression: Hyperammonemia, OTC (ornithine transcarbamylase deficiency) Disposition: OTHER INSTITUTION NOT DEFINED Condition: Stable Referrals: Salvador Guevara MD [Primary Care Provider] - 1-2 days Time of Disposition: 16:42 - Out of Hospital Transfer - Req. Specs Out of Hospital Transfer - Requested Specifics: Other Emergency Center ([facility])
[2017-03-28 10:09] LABS: Basophils % (A) 1 %; CH 30.8; Eosinophils # (A) 0.2 k/uL (0-0.7); Eosinophils % (A) 5 %; HCT 37.7 % (39.0-53.0); HDW 2.74; HGB 12.6 gm/dL (13.0-17.5); Luc # (Auto) 0.12; Luc % (Auto) 3; Lymphocytes # (A) 1.6 k/uL (1.0-4.8); Lymphocytes % (A) 34 %; MCH 30.5 pg (25.0-35.0); MCHC 33.5 g/dL (31.0-37.0); MCV 90.9 fL (80.0-100.0); Mean Platelet Volume 10.4; Monocytes # (A) 0.4 k/uL (0-1.0); Monocytes % (A) 8 %; Neutrophils # (A) 2.3 k/uL (1.3-7.7); Neutrophils % (A) 49 %; RBC 4.15 m/uL (4.30-5.90); RDW 14.8 % (11.5-15.5); WBC 4.6 k/uL (3.8-10.6)
[2017-03-28 10:23] LABS: ALT 27 U/L (21-72); AST 21 U/L (17-59); Alkaline Phosphatase 73 U/L (38-126); Anion Gap 12 mmol/L; Blood Urea Nitrogen <2 mg/dL (9-20); Calcium 9.2 mg/dL (8.4-10.2); Carbon Dioxide 21 mmol/L (22-30); Chloride 110 mmol/L (98-107); Glucose 114 mg/dL (74-99); Magnesium 1.6 mg/dL (1.6-2.3); Non-African American GFR(MDRD) >60 (>60 ml/min/1.73 sqM); Potassium 3.7 mmol/L (3.5-5.1); Sodium 143 mmol/L (137-145); Total Bilirubin 0.4 mg/dL (0.2-1.3); Total Protein 6.3 g/dL (6.3-8.2)
[2017-03-28] MEDS ORDERED: WATER IV ONE ×3 (10:52)
[2017-03-28] MEDS ORDERED: POTASSIUM ACETATE IV ONE ×3 (10:52)
[2017-03-28] MEDS ORDERED: DEXTROSE 10% IV ONE ×3 (10:52)
[2017-03-28] MEDS ORDERED: SODIUM ACETATE IV ONE ×3 (10:52)
[2017-03-28] MEDS ORDERED: IBUPROFEN 600 MG TAB PO STA (11:51)
[2017-03-28 15:39] VITALS: RESP 16
[2017-03-28 17:15] VITALS: BP 109/66; TEMP 97.7
[2017-03-28 18:27] VITALS: PULSE 64
== END 2017-03-28 18:25 | disposition short-term general hospital (02) ==
LOC: EC 09:14
DX: E72.4 Disorders of ornithine metabolism (principal); F43.9 Reaction to severe stress, unspecified; R51 Headache; R52 Pain, unspecified; Z79.899 Other long term (current) drug therapy; Z88.8 Allergy status to other drugs, medicaments and biological substances
CPT/HCPCS: 36415; 80053; 82140; 83735; 85025; 96361; 96365; 96366; 99284

== ENCOUNTER 2017-06-13 11:04 | Emergency (ER) | payer MEDICARE, OTHER ==
[2017-06-13] MEDS ORDERED: ONDANSETRON 4 MG/2 ML VIAL IVP STA (11:39)
[2017-06-13] MEDS ORDERED: KETOROLAC 30 MG/ML 1 ML VIAL IVP STA (11:39)
[2017-06-13] MEDS ORDERED: SODIUM CHLORIDE 0.9% 500 ML IV STA (11:39)
--- NOTE | 2017-06-13 11:41 | ED ---
General Adult HPI - General Chief complaint: Abdominal Pain Stated complaint: Kidney stones Time Seen by Provider: 06/13/17 11:10 Source: patient, RN notes reviewed Mode of arrival: ambulatory Limitations: no limitations - History of Present Illness Initial comments: This 37-year-old male who presents emergency Department complaining of right lower quadrant abdominal pain and having some hematuria which started yesterday. Patient states he has a past medical history significant for or Ornithine. transcarbamylase deficiency. Patient states that he still in the past this is exactly how it feels. Patient denies any nausea vomiting or diarrhea. Patient denies any fever chills. Patient denies any back pain. Patient states it does hurt to press on the abdomen. Patient denies any injury or trauma. Patient denies any chest pain palpitations difficulty breathing shortness of breath. - Related Data Home Medications Medication Instructions Recorded Confirmed Ravicti 1.1gm/Ml 6.6 gm PO TID@0900,1500,2100 03/28/17 06/13/17 Previous Rx's Medication Instructions Recorded Hydrocodone/Acetaminophen [[place] 1 each PO Q4HR PRN #20 tab 06/13/17 5-325] Ibuprofen [Motrin] 600 mg PO Q6HR PRN #20 tab 06/13/17 Allergies Allergy/AdvReac Type Severity Reaction Status Date / Time alprazolam [From Xanax] AdvReac Liver Verified 06/13/17 11:32 Complications cyclobenzaprine AdvReac Confusion Verified 06/13/17 11:32 [From Flexeril] olanzapine [From Zyprexa] AdvReac Liver Verified 06/13/17 11:32 Complications sertraline [From Zoloft] AdvReac Liver Verified 06/13/17 11:32 Complications Review of Systems ROS Statement: Those systems with pertinent positive or pertinent negative responses have been documented in the HPI. ROS Other: All systems not noted in ROS Statement are negative. 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 intermittent hyperammonemia, hyperammonemia with AMS, torn left ACL and left knee effusion- uses brace and cane prn, anemia-normocytic, 2014 bilateral feet fx and R ankle fx, recent R hand fx per pt-no longer casted, gastric ulcers and vomited blood in past, IBS, kidney stones passed by pt, bone deficiency- bones break easily, seizures-last one many yrs ago, shingles 2010 History of Any Multi-Drug Resistant Organisms: MRSA Date of last positivie culture/infection: 2013 MDRO Source:: Back Past Surgical History: Adenoidectomy, Ear Surgery, Tonsillectomy Additional Past Surgical History / Comment(s): liver biopsy, L-knee drained of 30 ml of fluid, tubes bilateral ears. Past Anesthesia/Blood Transfusion Reactions: Previous Problems w/ Anesthesia Additional Past Anesthesia/Blood Transfusion Reaction / Comment(s): Unable to wake up and being overly aggressive. Past Psychological History: Anxiety, Bipolar, Depression Smoking Status: Never smoker Past Alcohol Use History: None Reported Past Drug Use History: Marijuana - Past Family History Father Additional Family Medical History / Comment(s): Father at age 61 in April 2014, patient does not know cause of . Mother History Unknown: Yes Family Medical History: Cancer Brother(s) Family Medical History: No Reported History Sister(s) Family Medical History: No Reported History General Exam - General Exam Comments Initial Comments: GENERAL: Patient is well-developed and well-nourished. Patient is nontoxic and well- hydrated and is in mild distress. ENT: Neck is soft and supple. No significant lymphadenopathy is noted. Oropharynx is clear. Moist mucous membranes. Neck has full range of motion without eliciting any pain. EYES: The sclera were anicteric and conjunctiva were pink and moist. Extraocular movements were intact and pupils were equal round and reactive to light. Eyelids were unremarkable. PULMONARY: Unlabored respirations. Good breath sounds bilaterally. No audible rales rhonchi or wheezing was noted. CARDIOVASCULAR: There is a regular rate and rhythm without any murmurs gallops or rubs. ABDOMEN: Mild right lower quadrant abdominal pain on palpation no rebound or guarding SKIN: Skin is clear with no lesions or rashes and otherwise unremarkable. NEUROLOGIC: Patient is alert and oriented x3. Cranial nerves II through XII are grossly intact. Motor and sensory are also intact. Normal speech, volume and content. Symmetrical smile. MUSCULOSKELETAL: Normal extremities with adequate strength and full range of motion. LYMPHATICS: No significant lymphadenopathy is noted PSYCHIATRIC: Normal psychiatric evaluation. Normal interpersonal interactions appears functionally intact in deals appropriately with others. No signs of depression. No signs of anxiety. Limitations: no limitations Course Vital Signs 06/13/17 11:13 Temperature 97.7 F Pulse Rate 74 Respiratory 18 Rate Blood Pressure 136/94 O2 Sat by Pulse 99 Oximetry Medical Decision Making - Medical Decision Making CAT scan shows a 3 mm ureteral stone on the right. - Lab Data Result diagrams: 06/13/17 11:28 06/13/17 11:28 Lab Results 06/13/17 06/13/17 06/13/17 Range/Units 11:28 11:28 11:28 WBC 7.8 (3.8-10.6) k/uL RBC 5.08 (4.30-5.90) m/uL Hgb 14.8 (13.0-17.5) gm/dL Hct 44.6 (39.0-53.0) % MCV 87.7 (80.0-100.0) fL MCH 29.2 (25.0-35.0) pg MCHC 33.2 (31.0-37.0) g/dL RDW 14.3 (11.5-15.5) % Plt Count 181 (150-450) k/uL Neutrophils % 62 % Lymphocytes % 25 % Monocytes % 6 % Eosinophils % 5 % Basophils % 1 % Neutrophils # 4.8 (1.3-7.7) k/uL Lymphocytes # 2.0 (1.0-4.8) k/uL Monocytes # 0.5 (0-1.0) k/uL Eosinophils # 0.4 (0-0.7) k/uL Basophils # 0.1 (0-0.2) k/uL Sodium 141 (137-145) mmol/L Potassium 4.3 (3.5-5.1) mmol/L Chloride 108 H (98-107) mmol/L Carbon Dioxide 24 (22-30) mmol/L Anion Gap 9 mmol/L BUN <2 L (9-20) mg/dL Creatinine 0.51 L (0.66-1.25) mg/dL Est GFR (MDRD) Af Amer >60 (>60 ml/min/1.73 sqM) Est GFR (MDRD) Non-Af >60 (>60 ml/min/1.73 sqM) Glucose 109 H (74-99) mg/dL Calcium 10.1 (8.4-10.2) mg/dL Total Bilirubin 0.8 (0.2-1.3) mg/dL AST 22 (17-59) U/L ALT 33 (21-72) U/L Alkaline Phosphatase 76 (38-126) U/L Ammonia (<30) umol/L Total Protein 7.4 (6.3-8.2) g/dL Albumin 4.4 (3.5-5.0) g/dL Amylase 88 (30-110) U/L Lipase 631 H (23-300) U/L Urine Color Red Urine Appearance Cloudy (Clear) Urine pH 5.5 (5.0-8.0) Ur Specific [place] 1.020 (1.001-1.035) Urine Protein 1+ H (Negative) Urine Glucose (UA) Negative (Negative) Urine Ketones Negative (Negative) Urine Blood Large H (Negative) Urine Nitrite Negative (Negative) Urine Bilirubin Negative (Negative) Urine Urobilinogen <2.0 (<2.0) mg/dL Ur Leukocyte Esterase Trace H (Negative) Urine RBC >182 H (0-5) /hpf Urine WBC 14 H (0-5) /hpf Urine Mucus Many H (None) /hpf 06/13/ Range/Units 11:28 WBC (3.8-10.6) k/uL RBC (4.30-5.90) m/uL Hgb (13.0-17.5) gm/dL Hct (39.0-53.0) % MCV (80.0-100.0) fL MCH (25.0-35.0) pg MCHC (31.0-37.0) g/dL RDW (11.5-15.5) % Plt Count (150-450) k/uL Neutrophils % % Lymphocytes % % Monocytes % % Eosinophils % % Basophils % % Neutrophils # (1.3-7.7) k/uL Lymphocytes # (1.0-4.8) k/uL Monocytes # (0-1.0) k/uL Eosinophils # (0-0.7) k/uL Basophils # (0-0.2) k/uL Sodium (137-145) mmol/L Potassium (3.5-5.1) mmol/L Chloride (98-107) mmol/L Carbon Dioxide (22-30) mmol/L Anion Gap mmol/L BUN (9-20) mg/dL Creatinine (0.66-1.25) mg/dL Est GFR (MDRD) Af Amer (>60 ml/min/1.73 sqM) Est GFR (MDRD) Non-Af (>60 ml/min/1.73 sqM) Glucose (74-99) mg/dL Calcium (8.4-10.2) mg/dL Total Bilirubin (0.2-1.3) mg/dL AST (17-59) U/L ALT (21-72) U/L Alkaline Phosphatase (38-126) U/L Ammonia 23 (<30) umol/L Total Protein (6.3-8.2) g/dL Albumin (3.5-5.0) g/dL Amylase (30-110) U/L Lipase (23-300) U/L Urine Color Urine Appearance (Clear) Urine pH (5.0-8.0) Ur Specific [place] (1.001-1.035) Urine Protein (Negative) Urine Glucose (UA) (Negative) Urine Ketones (Negative) Urine Blood (Negative) Urine Nitrite (Negative) Urine Bilirubin (Negative) Urine Urobilinogen (<2.0) mg/dL Ur Leukocyte Esterase (Negative) Urine RBC (0-5) /hpf Urine WBC (0-5) /hpf Urine Mucus (None) /hpf Disposition Clinical Impression: Kidney stone Disposition: HOME SELF-CARE Condition: Good Instructions: Kidney Stones (ED) Prescriptions: Hydrocodone/Acetaminophen [[place] 5-325] 1 each PO Q4HR PRN #20 tab PRN Reason: Pain Ibuprofen [Motrin] 600 mg PO Q6HR PRN #20 tab PRN Reason: For pain Referrals: Salvador Guevara MD [Primary Care Provider] - 1-2 days Time of Disposition: 12:42
[2017-06-13 11:59] LABS: Basophils # (A) 0.1 k/uL (0-0.2); Basophils % (A) 1 %; Eosinophils # (A) 0.4 k/uL (0-0.7); Eosinophils % (A) 5 %; HCT 44.6 % (39.0-53.0); HGB 14.8 gm/dL (13.0-17.5); Lymphocytes % (A) 25 %; MCH 29.2 pg (25.0-35.0); MCHC 33.2 g/dL (31.0-37.0); MCV 87.7 fL (80.0-100.0); Mean Platelet Volume 10.6; Monocytes # (A) 0.5 k/uL (0-1.0); Monocytes % (A) 6 %; Neutrophils # (A) 4.8 k/uL (1.3-7.7); Neutrophils % (A) 62 %; Platelet Count 181 k/uL (150-450); RBC 5.08 m/uL (4.30-5.90); RDW 14.3 % (11.5-15.5); WBC 7.8 k/uL (3.8-10.6)
[2017-06-13 12:07] LABS: Appearance,Urine Cloudy (Clear); Bilirubin,Urine Negative (Negative); Blood,Urine Large (Negative); Color,Urine Red; Glucose,Urine (UA) Negative (Negative); Ketones,Urine Negative (Negative); Leukocyte Esterase,Urine Trace (Negative); Mucus,Urine Many /hpf; Nitrite,Urine Negative (Negative); PH, Urine 5.5 (5.0-8.0); Protein,Urine 1+ (Negative); RBC,Urine >182 /hpf (0-5); Urobilinogen,Urine <2.0 mg/dL (<2.0); WBC,Urine 14 /hpf (0-5)
[2017-06-13 12:10] LABS: ALT 33 U/L (21-72); AST 22 U/L (17-59); Albumin 4.4 g/dL (3.5-5.0); Alkaline Phosphatase 76 U/L (38-126); Amylase 88 U/L (30-110); Anion Gap 9 mmol/L; Blood Urea Nitrogen <2 mg/dL (9-20); Calcium 10.1 mg/dL (8.4-10.2); Carbon Dioxide 24 mmol/L (22-30); Chloride 108 mmol/L (98-107); Glucose 109 mg/dL (74-99); Lipase 631 U/L (23-300); Potassium 4.3 mmol/L (3.5-5.1); Sodium 141 mmol/L (137-145); Total Bilirubin 0.8 mg/dL (0.2-1.3); Total Protein 7.4 g/dL (6.3-8.2)
--- NOTE | 2017-06-13 12:19 | CT ---
EXAMINATION TYPE: CT abdomen pelvis wo con DATE OF EXAM: 06/13/2017 COMPARISON: 04/11/2015 HISTORY: Lt sided pelvic pain, gross hematuria, history of renal stone CT DLP: 1007 mGycm Automated exposure control for dose reduction was used. TECHNIQUE: Helical acquisition of images was performed from the lung bases through the pelvis. FINDINGS: Lack of intravenous and oral contrast limit evaluation of both the hollow and solid viscera . LUNG BASES: No significant abnormality is appreciated. LIVER/GB: No significant abnormality is appreciated. No evidence of cholelithiasis. PANCREAS: No significant abnormality is seen. No ductal dilatation. SPLEEN: Spleen is nonenlarged measuring 11.0 cm in craniocaudal dimension. ADRENALS: No significant abnormality is seen. KIDNEYS: There is a 3 mm nodule is at the right distal ureterovesicular junction with resultant mild hydroureteronephrosis and periureteral fat stranding. No perinephric or periureteral fluid collection s. FREE AIR: No free air is visualized ADENOPATHY: None visualized REPRODUCTIVE ORGANS: No significant abnormality is seen URINARY BLADDER: No significant abnormality is seen. OSSEOUS STRUCTURES: The previously seen patchy sclerosis of the femoral heads with serpiginous morph ology on the left again may represent avascular necrosis with no progression in comparison to the anali or. BOWEL: Bowel is largely decompressed and therefore incompletely evaluated. There is redemonstration of the few previously seen right hemicolonic diverticula. Appendix is visualized and air-filled witho ut inflammatory change. IMPRESSION: 1. OBSTRUCTING 3 MM CALCULUS AT THE RIGHT URETEROVESICULAR JUNCTION CREATING MILD RIGHT HYDROURETERON EPHROSIS AND PERINEPHRIC FAT STRANDING. 2. SIMILAR PATCHY SCLEROSIS OF THE FEMORAL HEADS IN COMPARISON TO THE PRIOR EXAM OF 2014 THAT AGAIN M AY REPRESENT AVASCULAR NECROSIS WITHOUT PROGRESSION IN THE INTERIM.
--- NOTE | 2017-06-13 12:22 | XR ---
EXAMINATION TYPE: XR KUB DATE OF EXAM: 06/13/2017 12:12 PM CLINICAL HISTORY: History of kidney stones presents with abdominal pain. TECHNIQUE: Two Upright KUB images of the abdomen are obtained. COMPARISON: CT abdomen and pelvis from earlier today abdominal x-ray October 19, 2016. FINDINGS: Scattered gas is seen in non-distended stomach and small bowel loops. Gas and fecal materia l is seen in non-distended colon. There is no visceromegaly, pneumoperitoneum, or abnormal calcificat ion appreciated. The lung bases are clear and the osseous structures are intact. IMPRESSION: Overall nonobstructive bowel gas pattern. No definite nephrolithiasis.
[2017-06-13] MEDS ORDERED: HYDROmorphone 1 MG/ML 1 ML SYRINGE IVP STA (12:31)
[2017-06-13 12:57] VITALS: BP 133/74; PULSE 45; RESP 16; TEMP 98
== END 2017-06-13 13:00 | disposition home or self-care (01) ==
LOC: EC 11:04
DX: N20.0 Calculus of kidney (principal); N20.1 Calculus of ureter; E72.20 Disorder of urea cycle metabolism, unspecified; Z79.899 Other long term (current) drug therapy; Z88.8 Allergy status to other drugs, medicaments and biological substances; Z86.14 Personal history of Methicillin resistant Staphylococcus aureus infection
CPT/HCPCS: 36415; 80053; 82140; 82150; 83690; 85025; 81001; 74000; 74176; 99284; 96374; 96375 ×2; J2405; J1885; J1170

== ENCOUNTER 2017-07-05 16:41 | Emergency (ER) | payer MEDICARE, OTHER ==
[2017-07-05 17:02] VITALS: RESP 16; TEMP 98
[2017-07-05] MEDS ORDERED: DEXTROSE 10% IN WATER 1,000 ML with SODIUM CHLORIDE 4MEQ/ML VIAL 77 MEQ IV ONE (17:19)
[2017-07-05] MEDS ORDERED: KETOROLAC 30 MG/ML 1 ML VIAL IVP STA (17:38)
[2017-07-05] MEDS ORDERED: ONDANSETRON 4 MG/2 ML VIAL IVP STA (17:38)
--- NOTE | 2017-07-05 17:41 | ED ---
Recheck HPI - General Chief Complaint: Recheck/Abnormal Lab/Rx Stated Complaint: Headache Time Seen by Provider: 07/05/17 17:14 Source: patient, RN notes reviewed, old records reviewed Mode of arrival: ambulatory Limitations: no limitations - History of Present Illness Initial Comments: This patient is a 37-year-old male presents to emergency Department chief complaint of irritability, confusion, headache, nausea and diarrhea. Patient has a history of partial OTC deficiency. Patient reports that he believes that his ammonia levels are high due to his symptoms. Patient reports that he has been argumentative with his family, and encouraged him to come in to the emergency department. Patient has a protocol for when he arrives to the emergency department of what needs to be started and ordered for the patient. He denies any specific pain at this time besides a mild headache.Patient denies any recent fever, chills, shortness of breath, chest pain, back pain, abdominal pain, nausea vomiting, numbness or tingling, dysuria or hematuria, constipation or diarrhea,visual changes, or any other current symptoms - Related Data Home Medications Medication Instructions Recorded Confirmed Ravicti 1.1gm/Ml 6.6 gm PO TID@0900,1500,2100 03/28/17 07/05/17 Allergies Allergy/AdvReac Type Severity Reaction Status Date / Time acetaminophen [From Tylenol] AdvReac Liver Verified 07/05/17 17:28 Complications alprazolam [From Xanax] AdvReac Liver Verified 07/05/17 17:28 Complications cyclobenzaprine AdvReac Confusion Verified 07/05/17 17:28 [From Flexeril] olanzapine [From Zyprexa] AdvReac Liver Verified 07/05/17 17:28 Complications sertraline [From Zoloft] AdvReac Liver Verified 07/05/17 17:28 Complications Review of Systems ROS Statement: Those systems with pertinent positive or pertinent negative responses have been documented in the HPI. ROS Other: All systems not noted in ROS Statement are negative. 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 intermittent hyperammonemia, hyperammonemia with AMS, torn left ACL and left knee effusion- uses brace and cane prn, anemia-normocytic, 2014 bilateral feet fx and R ankle fx, recent R hand fx per pt-no longer casted, gastric ulcers and vomited blood in past, IBS, kidney stones passed by pt, bone deficiency- bones break easily, seizures-last one many yrs ago, shingles 2010 History of Any Multi-Drug Resistant Organisms: MRSA Date of last positivie culture/infection: 2013 MDRO Source:: Back Past Surgical History: Adenoidectomy, Ear Surgery, Tonsillectomy Additional Past Surgical History / Comment(s): liver biopsy, L-knee drained of 30 ml of fluid, tubes bilateral ears. Past Anesthesia/Blood Transfusion Reactions: Previous Problems w/ Anesthesia Additional Past Anesthesia/Blood Transfusion Reaction / Comment(s): Unable to wake up and being overly aggressive. Past Psychological History: Anxiety, Bipolar, Depression Smoking Status: Never smoker Past Alcohol Use History: None Reported Past Drug Use History: Marijuana - Past Family History Father Additional Family Medical History / Comment(s): Father at age 61 in April 2014, patient does not know cause of . Mother History Unknown: Yes Family Medical History: Cancer Brother(s) Family Medical History: No Reported History Sister(s) Family Medical History: No Reported History General Exam - General Exam Comments Initial Comments: This patient is a 37-year-old male. Patient does not appear to be in any acute distress. Limitations: no limitations General appearance: alert, in no apparent distress Head exam: Present: atraumatic, normocephalic, normal inspection Eye exam: Present: normal appearance, PERRL, EOMI. Absent: scleral icterus, conjunctival injection, periorbital swelling ENT exam: Present: normal oropharynx, mucous membranes moist. Absent: normal exam (Poor dentition.) Neck exam: Present: normal inspection. Absent: tenderness, meningismus, lymphadenopathy Respiratory exam: Present: normal lung sounds bilaterally. Absent: respiratory distress, wheezes, rales, rhonchi, stridor Cardiovascular Exam: Present: regular rate, normal rhythm, normal heart sounds. Absent: systolic murmur, diastolic murmur, rubs, gallop, clicks GI/Abdominal exam: Present: soft, normal bowel sounds. Absent: distended, tenderness, guarding, rebound, rigid Extremities exam: Present: normal inspection, full ROM, normal capillary refill. Absent: tenderness, pedal edema, joint swelling, calf tenderness Back exam: Present: normal inspection Neurological exam: Present: alert, oriented X3, CN II-XII intact Psychiatric exam: Present: normal affect, normal mood Skin exam: Present: warm, dry, intact, normal color. Absent: rash Course Vital Signs 07/05/17 17:01 Temperature 98.0 F Pulse Rate 79 Respiratory 16 Rate Blood Pressure 131/87 O2 Sat by Pulse 99 Oximetry Medical Decision Making - Medical Decision Making Patient is a 37-year-old male with history of OTC deficiency presents with irritability, headaches, diarrhea for the past few days. Patient reports that he has history of OTC deficiency believes his ammonia levels are elevated. Patient was given a 10 per patient's protocol, lab work was obtained. Patient was given Toradol and Zofran for his headache and nausea. Patient ammonia levels noted to be 21. This is within normal limits. Patient was informed of this. He also had a mildly low magnesium of 1.3. I will replace it at this time. I discussed the patient should follow up with his primary care provider. Discussed increasing his fluid intake. Patient understands treatment plan will comply. Return parameters were discussed. Discussed case with Dr. Echeverria. - Lab Data Result diagrams: 07/05/17 17:35 07/05/17 17:35 Lab Results 07/05/17 07/05/17 07/05/17 Range/Units 17:35 17:35 17:43 WBC 5.5 (3.8-10.6) k/uL RBC 4.60 (4.30-5.90) m/uL Hgb 13.7 (13.0-17.5) gm/dL Hct 40.4 (39.0-53.0) % MCV 88.0 (80.0-100.0) fL MCH 29.8 (25.0-35.0) pg MCHC 33.9 (31.0-37.0) g/dL RDW 13.2 (11.5-15.5) % Plt Count 166 (150-450) k/uL Neutrophils % 58 % Lymphocytes % 31 % Monocytes % 5 % Eosinophils % 3 % Basophils % 1 % Neutrophils # 3.2 (1.3-7.7) k/uL Lymphocytes # 1.7 (1.0-4.8) k/uL Monocytes # 0.3 (0-1.0) k/uL Eosinophils # 0.2 (0-0.7) k/uL Basophils # 0.0 (0-0.2) k/uL Sodium 144 (137-145) mmol/L Potassium 3.8 (3.5-5.1) mmol/L Chloride 107 (98-107) mmol/L Carbon Dioxide 24 (22-30) mmol/L Anion Gap 13 mmol/L BUN <2 L (9-20) mg/dL Creatinine 0.53 L (0.66-1.25) mg/dL Est GFR (MDRD) Af Amer >60 (>60 ml/min/1.73 sqM) Est GFR (MDRD) Non-Af >60 (>60 ml/min/1.73 sqM) Glucose 115 H (74-99) mg/dL Calcium 11.2 H (8.4-10.2) mg/dL Magnesium 1.3 L (1.6-2.3) mg/dL Total Bilirubin 0.6 (0.2-1.3) mg/dL AST 29 (17-59) U/L ALT 42 (21-72) U/L Alkaline Phosphatase 72 (38-126) U/L Ammonia 21 (<30) umol/L Total Protein 6.8 (6.3-8.2) g/dL Albumin 4.3 (3.5-5.0) g/dL Amylase 48 (30-110) U/L Lipase 125 (23-300) U/L - Radiology Data Radiology results: report reviewed Disposition Clinical Impression: OTC (ornithine transcarbamylase deficiency), Headache, Hypomagnesemia Disposition: HOME SELF-CARE Condition: Good Instructions: Acute Headache (ED) Additional Instructions: Patient advised to a take Motrin Tylenol for further headaches. Increase your fluid intake. Return to emergency department if any alarming signs or symptoms occur. Referrals: Salvador Guevara MD [Primary Care Provider] - 1-2 days Time of Disposition: 18:32
[2017-07-05 17:42] LABS: Basophils % (A) 1 %; Eosinophils # (A) 0.2 k/uL (0-0.7); Eosinophils % (A) 3 %; HCT 40.4 % (39.0-53.0); HGB 13.7 gm/dL (13.0-17.5); Lymphocytes # (A) 1.7 k/uL (1.0-4.8); Lymphocytes % (A) 31 %; MCH 29.8 pg (25.0-35.0); MCHC 33.9 g/dL (31.0-37.0); Monocytes # (A) 0.3 k/uL (0-1.0); Monocytes % (A) 5 %; Neutrophils # (A) 3.2 k/uL (1.3-7.7); Neutrophils % (A) 58 %; Platelet Count 166 k/uL (150-450); RDW 13.2 % (11.5-15.5); WBC 5.5 k/uL (3.8-10.6)
[2017-07-05 17:53] LABS: ALT 42 U/L (21-72); AST 29 U/L (17-59); Albumin 4.3 g/dL (3.5-5.0); Alkaline Phosphatase 72 U/L (38-126); Amylase 48 U/L (30-110); Anion Gap 13 mmol/L; Blood Urea Nitrogen <2 mg/dL (9-20); Calcium 11.2 mg/dL (8.4-10.2); Carbon Dioxide 24 mmol/L (22-30); Chloride 107 mmol/L (98-107); Glucose 115 mg/dL (74-99); Lipase 125 U/L (23-300); Magnesium 1.3 mg/dL (1.6-2.3); Potassium 3.8 mmol/L (3.5-5.1); Sodium 144 mmol/L (137-145); Total Bilirubin 0.6 mg/dL (0.2-1.3); Total Protein 6.8 g/dL (6.3-8.2)
[2017-07-05] MEDS ORDERED: MAGNESIUM OXIDE 400 MG TAB PO STA (18:32)
[2017-07-05 18:39] VITALS: BP 138/96; PULSE 72
== END 2017-07-05 19:14 | disposition home or self-care (01) ==
LOC: EC 16:41
DX: E72.4 Disorders of ornithine metabolism (principal); E83.42 Hypomagnesemia; R51 Headache; R19.7 Diarrhea, unspecified; R41.0 Disorientation, unspecified; R11.0 Nausea; Z79.899 Other long term (current) drug therapy; Z88.8 Allergy status to other drugs, medicaments and biological substances; Z86.14 Personal history of Methicillin resistant Staphylococcus aureus infection
CPT/HCPCS: 99284; 96374; 96375; 96361; 36415; 80053; 82140; 82150; 83690; 83735; 85025; J2405; J1885

== ENCOUNTER 2017-07-15 15:36 | Emergency (ER) | payer MEDICARE, OTHER ==
--- NOTE | 2017-07-15 17:51 | ED ---
Weakness HPI - General Chief complaint: Weakness Stated complaint: weakness Time Seen by Provider: 07/15/17 17:41 Source: patient Mode of arrival: ambulatory Limitations: no limitations - History of Present Illness Initial comments: 37-year-old male patient with a past medical history significant for OTC deficiency presents to the emergency department today for complaints of generalized weakness, confusion, vomiting, and diarrhea. Patient states that he had 4 teeth removed on Friday, states that the symptoms started after the procedure. States that they have been worsening over the weekend. He states that a trigger for his condition can be related to increased stress on the body. He states that he believes that his ammonia levels are high related to this. He denies any hematochezia, melena, or hematemesis. He denies any documented fevers however states he has been having hot and cold flashes. He denies any sweats or rash. Denies any dizziness or headache. Patient denies any recent shortness breath, chest pain, abdominal pain, constipation, back pain , numbness, tingling, dizziness, weakness, hematuria, dysuria, urinary urgency, urinary frequency, headache, visual changes, or any other complaints. - Related Data Home Medications Medication Instructions Recorded Confirmed Ravicti 1.1gm/Ml 6.6 gm PO TID@0900,1500,2100 03/28/17 07/15/17 Ibuprofen [Motrin] 800 mg PO BID PRN 07/15/17 07/15/17 Previous Rx's Medication Instructions Recorded traMADol HCl [Ultram] 50 mg PO Q6H PRN #12 tab 07/15/17 Allergies Allergy/AdvReac Type Severity Reaction Status Date / Time acetaminophen [From Tylenol] AdvReac Liver Verified 07/15/17 18:37 Complications alprazolam [From Xanax] AdvReac Liver Verified 07/15/17 18:37 Complications cyclobenzaprine AdvReac Confusion Verified 07/15/17 18:37 [From Flexeril] olanzapine [From Zyprexa] AdvReac Liver Verified 07/15/17 18:37 Complications sertraline [From Zoloft] AdvReac Liver Verified 07/15/17 18:37 Complications Review of Systems ROS Statement: Those systems with pertinent positive or pertinent negative responses have been documented in the HPI. ROS Other: All systems not noted in ROS Statement are negative. 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 intermittent hyperammonemia, hyperammonemia with AMS, torn left ACL and left knee effusion- uses brace and cane prn, anemia-normocytic, 2013 bilateral feet fx and R ankle fx, recent R hand fx per pt-no longer casted, gastric ulcers and vomited blood in past, IBS, kidney stones passed by pt, bone deficiency- bones break easily, seizures-last one many yrs ago, shingles 2010 History of Any Multi-Drug Resistant Organisms: MRSA Date of last positivie culture/infection: 2013 MDRO Source:: Back Past Surgical History: Adenoidectomy, Ear Surgery, Tonsillectomy Additional Past Surgical History / Comment(s): liver biopsy, L-knee drained of 30 ml of fluid, tubes bilateral ears. Past Anesthesia/Blood Transfusion Reactions: Previous Problems w/ Anesthesia Additional Past Anesthesia/Blood Transfusion Reaction / Comment(s): Unable to wake up and being overly aggressive. Past Psychological History: Anxiety, Bipolar, Depression Smoking Status: Never smoker Past Alcohol Use History: None Reported Past Drug Use History: Marijuana - Past Family History Father Additional Family Medical History / Comment(s): Father at age 61 in April 2014, patient does not know cause of . Mother History Unknown: Yes Family Medical History: Cancer Brother(s) Family Medical History: No Reported History Sister(s) Family Medical History: No Reported History General Exam Limitations: no limitations General appearance: alert, in no apparent distress, other (This is a well- developed, well-nourished adult male patient in no acute distress. Vital signs upon presentation are temperature 97.6F, pulse 99, respirations 18, blood pressure 116/78, pulse ox 97% on room air.) Eye exam: Present: normal appearance, PERRL, EOMI. Absent: scleral icterus, conjunctival injection, nystagmus, periorbital swelling ENT exam: Present: normal exam, normal oropharynx, mucous membranes moist Neck exam: Present: normal inspection. Absent: tenderness, meningismus, lymphadenopathy Respiratory exam: Present: normal lung sounds bilaterally. Absent: respiratory distress, wheezes, rales, rhonchi, stridor Cardiovascular Exam: Present: regular rate, normal rhythm, normal heart sounds. Absent: systolic murmur, diastolic murmur, rubs, gallop, clicks GI/Abdominal exam: Present: soft, normal bowel sounds. Absent: distended, tenderness, guarding, rebound, rigid Neurological exam: Present: alert, oriented X3, CN II-XII intact, other ( Strength in all 4 extremities is 5/5) Psychiatric exam: Present: normal affect, normal mood Skin exam: Present: warm, dry, intact, pallor. Absent: normal color, rash Course Vital Signs 07/15/17 07/15/17 16:23 18:41 Temperature 97.6 F Pulse Rate 99 83 Respiratory 18 16 Rate Blood Pressure 116/78 168/121 O2 Sat by Pulse 97 97 Oximetry Medical Decision Making - Medical Decision Making 37 year-old male patient percents to the emergency department today for complaints of generalized weakness, vomiting, and diarrhea. Physical examination is unremarkable. Abdomen soft and nontender. Labs reviewed and did reveal a mildly elevated white blood cell count 11.3, potassium of 5.4, chloride of 108, calcium 10.4, phosphorus 5.9. Patient was concerned about his ammonia level being elevated as he does have OTC deficiency, his ammonia today is 22. Patient has been informed of results. Nursing staff did have trouble obtaining IV access, patient declines IV at this time states that he will go home and push fluids. I did educate regarding the importance of hydration. He is instructed to follow-up with his primary care physician as soon as possible for repeat labs. He is instructed to return here immediate for any new, worsening, or concerning symptoms. He verbalizes understanding and agrees with this plan. - Lab Data Result diagrams: 07/15/17 18:15 07/15/17 18:15 Lab Results 07/15/17 07/15/17 07/15/17 Range/Units 18:15 18:15 18:15 WBC 11.3 H (3.8-10.6) k/uL RBC 5.78 (4.30-5.90) m/uL Hgb 16.7 D (13.0-17.5) gm/dL Hct 51.5 (39.0-53.0) % MCV 88.9 (80.0-100.0) fL MCH 28.9 (25.0-35.0) pg MCHC 32.5 (31.0-37.0) g/dL RDW 13.0 (11.5-15.5) % Plt Count 216 (150-450) k/uL Neutrophils % 70 % Lymphocytes % 20 % Monocytes % 7 % Eosinophils % 1 % Basophils % 0 % Neutrophils # 7.9 H (1.3-7.7) k/uL Lymphocytes # 2.3 (1.0-4.8) k/uL Monocytes # 0.7 (0-1.0) k/uL Eosinophils # 0.2 (0-0.7) k/uL Basophils # 0.1 (0-0.2) k/uL Sodium 144 (137-145) mmol/L Potassium 5.4 H (3.5-5.1) mmol/L Chloride 108 H (98-107) mmol/L Carbon Dioxide 15 L (22-30) mmol/L Anion Gap 21 mmol/L BUN 3 L (9-20) mg/dL Creatinine 1.20 (0.66-1.25) mg/dL Est GFR (MDRD) Af Amer >60 (>60 ml/min/1.73 sqM) Est GFR (MDRD) Non-Af >60 (>60 ml/min/1.73 sqM) Glucose 101 H (74-99) mg/dL Calcium 10.4 H (8.4-10.2) mg/dL Phosphorus 5.9 H (2.5-4.5) mg/dL Magnesium 1.8 (1.6-2.3) mg/dL Total Bilirubin 0.4 (0.2-1.3) mg/dL AST 21 (17-59) U/L ALT 26 (21-72) U/L Alkaline Phosphatase 92 (38-126) U/L Ammonia 22 (<30) umol/L Total Protein 8.4 H (6.3-8.2) g/dL Albumin 4.9 (3.5-5.0) g/dL Disposition Clinical Impression: Vomiting, Diarrhea Disposition: HOME SELF-CARE Condition: Good Instructions: Dehydration (ED), Acute Nausea and Vomiting (ED), Acute Diarrhea (ED) Additional Instructions: Increase fluids, especially water. Follow up with her primary care physician as soon as possible. Return here immediately for any new, worsening, or concerning symptoms. Prescriptions: traMADol HCl [Ultram] 50 mg PO Q6H PRN #12 tab PRN Reason: Pain Referrals: Salvador Guevara MD [Primary Care Provider] - 1-2 days Time of Disposition: 19:57
[2017-07-15] MEDS ORDERED: SODIUM CHLORIDE 0.9% 1,000 ML IV ONE (17:53)
[2017-07-15] MEDS ORDERED: VANCOMYCIN IV PER PHARMACY 1 EACH MISC MISCELLANE PRN (17:54)
[2017-07-15] MEDS ORDERED: ONDANSETRON ODT 4 MG TAB PO STA (18:17)
[2017-07-15] MEDS ORDERED: traMADol 50 MG TAB PO STA (18:22)
[2017-07-15 18:37] LABS: Basophils # (A) 0.1 k/uL (0-0.2); Basophils % (A) 0 %; Eosinophils # (A) 0.2 k/uL (0-0.7); Eosinophils % (A) 1 %; HCT 51.5 % (39.0-53.0); Lymphocytes # (A) 2.3 k/uL (1.0-4.8); Lymphocytes % (A) 20 %; MCH 28.9 pg (25.0-35.0); MCHC 32.5 g/dL (31.0-37.0); MCV 88.9 fL (80.0-100.0); Mean Platelet Volume 9.2; Monocytes # (A) 0.7 k/uL (0-1.0); Monocytes % (A) 7 %; Neutrophils # (A) 7.9 k/uL (1.3-7.7); Neutrophils % (A) 70 %; Platelet Count 216 k/uL (150-450); RBC 5.78 m/uL (4.30-5.90); WBC 11.3 k/uL (3.8-10.6)
[2017-07-15 18:41] LABS: HGB 16.7 gm/dL (13.0-17.5)
[2017-07-15 18:45] LABS: ALT 26 U/L (21-72); AST 21 U/L (17-59); Albumin 4.9 g/dL (3.5-5.0); Alkaline Phosphatase 92 U/L (38-126); Anion Gap 21 mmol/L; Blood Urea Nitrogen 3 mg/dL (9-20); Calcium 10.4 mg/dL (8.4-10.2); Carbon Dioxide 15 mmol/L (22-30); Chloride 108 mmol/L (98-107); Glucose 101 mg/dL (74-99); Magnesium 1.8 mg/dL (1.6-2.3); Phosphorus 5.9 mg/dL (2.5-4.5); Potassium 5.4 mmol/L (3.5-5.1); Sodium 144 mmol/L (137-145); Total Bilirubin 0.4 mg/dL (0.2-1.3); Total Protein 8.4 g/dL (6.3-8.2)
[2017-07-15] MEDS ORDERED: ONDANSETRON 4 MG ODT STARTER PACK 2 TAB BTL PO STA (19:57)
[2017-07-15 20:23] VITALS: BP 145/87; PULSE 79; RESP 18; TEMP 98.9
== END 2017-07-15 20:22 | disposition home or self-care (01) ==
LOC: EC 15:36
DX: R11.10 Vomiting, unspecified (principal); R19.7 Diarrhea, unspecified; R53.1 Weakness; D72.829 Elevated white blood cell count, unspecified; Z86.14 Personal history of Methicillin resistant Staphylococcus aureus infection; Z53.8 Procedure and treatment not carried out for other reasons; Z88.6 Allergy status to analgesic agent; Z88.8 Allergy status to other drugs, medicaments and biological substances; Z79.899 Other long term (current) drug therapy
CPT/HCPCS: 36415; 80053; 82140; 83735; 84100; 85025; 99284; S0119

== ENCOUNTER 2017-07-17 09:11 | Emergency (ER) | payer MEDICARE, OTHER ==
[2017-07-17] MEDS ORDERED: ONDANSETRON 4 MG/2 ML VIAL IVP STA (09:47)
[2017-07-17] MEDS ORDERED: SODIUM CHLORIDE 0.9% 1,000 ML IV STA (09:47)
--- NOTE | 2017-07-17 09:49 | ED ---
General Adult HPI - General Chief complaint: Nausea/Vomiting/Diarrhea Stated complaint: Vomiting Time Seen by Provider: 07/17/17 09:34 Source: patient, RN notes reviewed Mode of arrival: wheelchair Limitations: no limitations - History of Present Illness Initial comments: Patient is a 37-year-old male with a significant past medical history for ornithine transcarbamylase deficiency, who presents emergency room today with chief complaint of increased nausea vomiting over the last 2 days. He doesn't that he was seen here late last night for this complaint. States he was feeling okay when he went home but the symptoms got worse. Currently having nausea vomiting in the room. Patient admits to some abdominal cramping. Patient denies any recent fever, chills, shortness of breath, chest pain, back pain, numbness or tingling, dysuria or hematuria, constipation or diarrhea, headaches or visual changes, or any other complaints. - Related Data Home Medications Medication Instructions Recorded Confirmed Ravicti 1.1gm/Ml 6.6 gm PO TID@0900,1500,2100 03/28/17 07/17/17 Ibuprofen [Motrin] 800 mg PO BID PRN 07/15/17 07/17/17 Previous Rx's Medication Instructions Recorded traMADol HCl [Ultram] 50 mg PO Q6H PRN #12 tab 07/15/17 Allergies Allergy/AdvReac Type Severity Reaction Status Date / Time acetaminophen [From Tylenol] AdvReac Liver Verified 07/17/17 10:19 Complications alprazolam [From Xanax] AdvReac Liver Verified 07/17/17 10:19 Complications cyclobenzaprine AdvReac Confusion Verified 07/17/17 10:19 [From Flexeril] olanzapine [From Zyprexa] AdvReac Liver Verified 07/17/17 10:19 Complications sertraline [From Zoloft] AdvReac Liver Verified 07/17/17 10:19 Complications Review of Systems ROS Statement: Those systems with pertinent positive or pertinent negative responses have been documented in the HPI. ROS Other: All systems not noted in ROS Statement are negative. 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 intermittent hyperammonemia, hyperammonemia with AMS, torn left ACL and left knee effusion- uses brace and cane prn, anemia-normocytic, 2013 bilateral feet fx and R ankle fx, recent R hand fx per pt-no longer casted, gastric ulcers and vomited blood in past, IBS, kidney stones passed by pt, bone deficiency- bones break easily, seizures-last one many yrs ago, shingles 2010 History of Any Multi-Drug Resistant Organisms: MRSA Date of last positivie culture/infection: 2013 MDRO Source:: Back Past Surgical History: Adenoidectomy, Ear Surgery, Tonsillectomy Additional Past Surgical History / Comment(s): liver biopsy, L-knee drained of 30 ml of fluid, tubes bilateral ears. Past Anesthesia/Blood Transfusion Reactions: Previous Problems w/ Anesthesia Additional Past Anesthesia/Blood Transfusion Reaction / Comment(s): Unable to wake up and being overly aggressive. Past Psychological History: Anxiety, Bipolar, Depression Smoking Status: Never smoker Past Alcohol Use History: None Reported Past Drug Use History: Marijuana - Past Family History Father Additional Family Medical History / Comment(s): Father at age 61 in April 2014, patient does not know cause of . Mother History Unknown: Yes Family Medical History: Cancer Brother(s) Family Medical History: No Reported History Sister(s) Family Medical History: No Reported History General Exam - General Exam Comments Initial Comments: General: The patient is awake and alert. Actively vomiting. Eye: Pupils are equal, round and reactive to light, extra-ocular movements are intact. No nystagmus. There is normal conjunctiva bilaterally. No signs of icterus. Ears, nose, mouth and throat: There are moist mucous membranes and no oral lesions. Neck: The neck is supple, there is no tenderness or JVD. Cardiovascular: There is a regular rate and rhythm. No murmur, rub or gallop is appreciated. Respiratory: Lungs are clear to auscultation, respirations are non-labored, breath sounds are equal. No wheezes, stridor, rales, or rhonchi. Gastrointestinal: Soft, non-distended, non-tender abdomen without masses or organomegaly noted. There is no rebound or guarding present. No CVA tenderness. Bowel sounds are unremarkable. Musculoskeletal: Normal ROM, no tenderness. Strength 5/5. Sensation intact. Pulses equal bilaterally 2+. Neurological: A&O x 3. CN II-XII intact, There are no obvious motor or sensory deficits. Coordination appears grossly intact. Speech is normal. Skin: Skin is warm and dry and no rashes or lesions are noted. Psychiatric: Cooperative, appropriate mood & affect, normal judgment. Limitations: no limitations Course Vital Signs 07/17/17 07/17/17 07/17/17 09:21 12:29 17:10 Temperature 97.7 F 97.5 F L Pulse Rate 99 78 64 Respiratory 16 18 14 Rate Blood Pressure 119/90 119/87 109/75 O2 Sat by Pulse 98 100 94 L Oximetry 07/17/17 19:10 Temperature 98 F Pulse Rate 78 Respiratory 16 Rate Blood Pressure 167/91 O2 Sat by Pulse 96 Oximetry - Reevaluation(s) Reevaluation #1: 07/17/17 11:20: Case was discussed with patient's personal security specialist through [facility]. His labs reviewed shows ammonia level at 79. His ammonia was 25 last night. Patient has taken his Rivicti this morning. Patient did have nausea vomiting on presentation to the hospital is much more comfortable at this time resting in the stretcher. No nausea vomiting eating ice chips. Patient case discussed with resident operations administrative assistant who has discussed case with her attending and at this time recommending D10 half normal saline with potassium chloride 20 mEq at 150 mL/h. They recommended rechecking his ammonia level in 3 -4 hours. Patient at this time is resting comfortably will be continued to be monitored closely. 07/17/17 16:42 Case was rediscussed with on-call doctor Jennifer personal security specialist on-call for Dr. Guevara. Patient's repeat ammonia level is 19 years emergency room is tolerating fluids and food. Is feeling much better. No nausea or vomiting. They do recommend admission overnight to continue with his IV fluids for further calorie intake. They've asked to be called in the morning for an update. Phone number is [phone] patient #[id number]. 07/17/17 19:38 Case was discussed and seen by attending physician Dr. Echeverria who did discuss with admitting physician Dr. Leiva. At this time they're limited beds available in the hospital. Patient has been here in the emergency room for over 10 hours. He has received IV fluids. His repeat ammonia level has come back in good range. Patient is holding down by mouth food and liquids. It was discussed with the patient about being discharged he is agreeable to this feels comfortable being discharged home to follow-up tomorrow or return if any symptoms increase or worsen. Medical Decision Making - Lab Data Result diagrams: 07/17/17 10:15 07/17/17 10:15 Lab Results 07/17/17 07/17/17 07/17/17 Range/Units 10:15 10:15 10:15 WBC 8.4 (3.8-10.6) k/uL RBC 5.58 (4.30-5.90) m/uL Hgb 16.5 (13.0-17.5) gm/dL Hct 48.3 (39.0-53.0) % MCV 86.7 (80.0-100.0) fL MCH 29.6 (25.0-35.0) pg MCHC 34.2 (31.0-37.0) g/dL RDW 14.3 (11.5-15.5) % Plt Count 192 (150-450) k/uL Neutrophils % 72 % Lymphocytes % 17 % Monocytes % 8 % Eosinophils % 1 % Basophils % 0 % Neutrophils # 6.1 (1.3-7.7) k/uL Lymphocytes # 1.4 (1.0-4.8) k/uL Monocytes # 0.7 (0-1.0) k/uL Eosinophils # 0.1 (0-0.7) k/uL Basophils # 0.0 (0-0.2) k/uL Sodium 143 (137-145) mmol/L Potassium 4.5 (3.5-5.1) mmol/L Chloride 110 H (98-107) mmol/L Carbon Dioxide 14 L (22-30) mmol/L Anion Gap 19 mmol/L BUN 3 L (9-20) mg/dL Creatinine 1.50 H (0.66-1.25) mg/dL Est GFR (MDRD) Af Amer >60 (>60 ml/min/1.73 sqM) Est GFR (MDRD) Non-Af 53 (>60 ml/min/1.73 sqM) Glucose 121 H (74-99) mg/dL Calcium 9.6 (8.4-10.2) mg/dL Total Bilirubin 0.7 (0.2-1.3) mg/dL AST 16 L (17-59) U/L ALT 24 (21-72) U/L Alkaline Phosphatase 92 (38-126) U/L Ammonia 79 H (<30) umol/L Total Protein 7.9 (6.3-8.2) g/dL Albumin 4.7 (3.5-5.0) g/dL Influenza Type A RNA (Not Detectd) Influenza Type B (PCR) (Not Detectd) 07/17/17 07/17/17 Range/Units 10:15 15:50 WBC (3.8-10.6) k/uL RBC (4.30-5.90) m/uL Hgb (13.0-17.5) gm/dL Hct (39.0-53.0) % MCV (80.0-100.0) fL MCH (25.0-35.0) pg MCHC (31.0-37.0) g/dL RDW (11.5-15.5) % Plt Count (150-450) k/uL Neutrophils % % Lymphocytes % % Monocytes % % Eosinophils % % Basophils % % Neutrophils # (1.3-7.7) k/uL Lymphocytes # (1.0-4.8) k/uL Monocytes # (0-1.0) k/uL Eosinophils # (0-0.7) k/uL Basophils # (0-0.2) k/uL Sodium (137-145) mmol/L Potassium (3.5-5.1) mmol/L Chloride (98-107) mmol/L Carbon Dioxide (22-30) mmol/L Anion Gap mmol/L BUN (9-20) mg/dL Creatinine (0.66-1.25) mg/dL Est GFR (MDRD) Af Amer (>60 ml/min/1.73 sqM) Est GFR (MDRD) Non-Af (>60 ml/min/1.73 sqM) Glucose (74-99) mg/dL Calcium (8.4-10.2) mg/dL Total Bilirubin (0.2-1.3) mg/dL AST (17-59) U/L ALT (21-72) U/L Alkaline Phosphatase (38-126) U/L Ammonia 19 (<30) umol/L Total Protein (6.3-8.2) g/dL Albumin (3.5-5.0) g/dL Influenza Type A RNA Not Detected (Not Detectd) Influenza Type B (PCR) Not Detected (Not Detectd) Disposition Clinical Impression: OTC (ornithine transcarbamylase deficiency), Hyperammonemia Disposition: HOME SELF-CARE Condition: Good Referrals: Salvador Guevara MD [Primary Care Provider] - 1-2 days Time of Disposition: 19:40
[2017-07-17 10:41] LABS: Basophils % (A) 0 %; Eosinophils # (A) 0.1 k/uL (0-0.7); Eosinophils % (A) 1 %; HCT 48.3 % (39.0-53.0); HGB 16.5 gm/dL (13.0-17.5); Lymphocytes # (A) 1.4 k/uL (1.0-4.8); Lymphocytes % (A) 17 %; MCH 29.6 pg (25.0-35.0); MCHC 34.2 g/dL (31.0-37.0); MCV 86.7 fL (80.0-100.0); Mean Platelet Volume 9.5; Monocytes # (A) 0.7 k/uL (0-1.0); Monocytes % (A) 8 %; Neutrophils # (A) 6.1 k/uL (1.3-7.7); Neutrophils % (A) 72 %; Platelet Count 192 k/uL (150-450); RBC 5.58 m/uL (4.30-5.90); RDW 14.3 % (11.5-15.5); WBC 8.4 k/uL (3.8-10.6)
[2017-07-17 10:42] LABS: ALT 24 U/L (21-72); AST 16 U/L (17-59); Albumin 4.7 g/dL (3.5-5.0); Alkaline Phosphatase 92 U/L (38-126); Anion Gap 19 mmol/L; Blood Urea Nitrogen 3 mg/dL (9-20); Calcium 9.6 mg/dL (8.4-10.2); Carbon Dioxide 14 mmol/L (22-30); Chloride 110 mmol/L (98-107); Glucose 121 mg/dL (74-99); Potassium 4.5 mmol/L (3.5-5.1); Sodium 143 mmol/L (137-145); Total Bilirubin 0.7 mg/dL (0.2-1.3); Total Protein 7.9 g/dL (6.3-8.2)
[2017-07-17] MEDS: [UNRECOGNIZED DRUG - OTHER] IV ONE ×6 (11:58→13:20)
[2017-07-17] MEDS: WATER IV ONE ×6 (11:58→13:20)
[2017-07-17] MEDS: SODIUM CHLORIDE IV ONE ×6 (11:58→13:20)
[2017-07-17] MEDS: DEXTROSE IV ONE ×6 (11:58→13:20)
[2017-07-17] MEDS ORDERED: NALOXONE 0.4 MG/ML 1 ML VIAL IV PRN (17:01)
[2017-07-17] MEDS ORDERED: ONDANSETRON 4 MG/2 ML VIAL IVP PRN (17:01)
[2017-07-17 19:57] VITALS: BP 129/86; PULSE 84; RESP 17; TEMP 98.2
== END 2017-07-17 20:02 | disposition home or self-care (01) ==
LOC: EC 09:11
DX: E72.4 Disorders of ornithine metabolism (principal); Z86.14 Personal history of Methicillin resistant Staphylococcus aureus infection; Z88.6 Allergy status to analgesic agent; Z88.8 Allergy status to other drugs, medicaments and biological substances; Z79.899 Other long term (current) drug therapy
CPT/HCPCS: 36415; 80053; 82140; 85025; 87502; 99284; 96365; 96366 ×5; 96375; 96361; J2405; J3480

== ENCOUNTER 2017-09-01 19:32 | Emergency (ER) | payer MEDICARE, OTHER ==
[2017-09-01 19:40] VITALS: RESP 20
[2017-09-01 20:23] LABS: Basophils # (A) 0.1 k/uL (0-0.2); Basophils % (A) 1 %; Eosinophils # (A) 0.2 k/uL (0-0.7); Eosinophils % (A) 2 %; HCT 43.3 % (39.0-53.0); HGB 15.3 gm/dL (13.0-17.5); Lymphocytes # (A) 1.8 k/uL (1.0-4.8); Lymphocytes % (A) 27 %; MCH 30.4 pg (25.0-35.0); MCHC 35.3 g/dL (31.0-37.0); MCV 86.1 fL (80.0-100.0); Mean Platelet Volume 9.1; Monocytes # (A) 0.3 k/uL (0-1.0); Monocytes % (A) 4 %; Neutrophils # (A) 4.3 k/uL (1.3-7.7); Neutrophils % (A) 65 %; Platelet Count 217 k/uL (150-450); RBC 5.03 m/uL (4.30-5.90); RDW 13.5 % (11.5-15.5); WBC 6.6 k/uL (3.8-10.6)
[2017-09-01 20:35] LABS: ALT 18 U/L (21-72); AST 22 U/L (17-59); Albumin 4.8 g/dL (3.5-5.0); Alkaline Phosphatase 78 U/L (38-126); Anion Gap 14 mmol/L; Blood Urea Nitrogen 3 mg/dL (9-20); Calcium 10.5 mg/dL (8.4-10.2); Carbon Dioxide 18 mmol/L (22-30); Chloride 113 mmol/L (98-107); Glucose 81 mg/dL (74-99); Potassium 4.2 mmol/L (3.5-5.1); Sodium 145 mmol/L (137-145); Total Bilirubin 0.7 mg/dL (0.2-1.3)
[2017-09-01] MEDS ORDERED: DEXTROSE IV ONE ×4 (20:45→21:00)
[2017-09-01] MEDS ORDERED: WATER IV ONE ×4 (20:45→21:00)
[2017-09-01] MEDS ORDERED: NACL IV ONE (20:45)
[2017-09-01] MEDS ORDERED: KCL IV ONE (20:45)
[2017-09-01] MEDS ORDERED: [UNRECOGNIZED DRUG - OTHER] IV ONE ×3 (21:00)
[2017-09-01] MEDS ORDERED: SODIUM CHLORIDE IV ONE ×3 (21:00)
--- NOTE | 2017-09-01 21:01 | ED ---
General Adult HPI - General Chief complaint: Recheck/Abnormal Lab/Rx Stated complaint: Vomiting Time Seen by Provider: 09/01/17 20:41 Source: patient, RN notes reviewed Mode of arrival: ambulatory Limitations: no limitations - History of Present Illness Initial comments: 37-year-old male presents to the emergency department with a chief complaint of nausea vomiting. Patient has been nausea vomiting for the past 2 days. The patient states that he is concerned that his ammonia level may be elevated she thought that he should be seen. Patient states that he is not having any other symptoms. He has been able to tolerate orally he just does have some episodes of vomiting. He denies any other symptoms at this time. He denies any pain. Patient denies any recent fever, chills, shortness of breath, chest pain, back pain, abdominal pain, nausea vomiting, numbness or tingling, dysuria or hematuria, constipation or diarrhea, headaches or visual changes, or any other current symptoms. - Related Data Home Medications Medication Instructions Recorded Confirmed Ravicti 1.1gm/Ml 6.6 gm PO TID@0900,1500,2100 03/28/17 09/01/17 Ibuprofen [Motrin] 800 mg PO BID PRN 07/15/17 09/01/17 Allergies Allergy/AdvReac Type Severity Reaction Status Date / Time acetaminophen [From Tylenol] AdvReac Liver Verified 09/01/17 20:40 Complications alprazolam [From Xanax] AdvReac Liver Verified 09/01/17 20:40 Complications cyclobenzaprine AdvReac Confusion Verified 09/01/17 20:40 [From Flexeril] olanzapine [From Zyprexa] AdvReac Liver Verified 09/01/17 20:40 Complications sertraline [From Zoloft] AdvReac Liver Verified 09/01/17 20:40 Complications Review of Systems ROS Statement: Those systems with pertinent positive or pertinent negative responses have been documented in the HPI. ROS Other: All systems not noted in ROS Statement are negative. 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 intermittent hyperammonemia, hyperammonemia with AMS, torn left ACL and left knee effusion- uses brace and cane prn, anemia-normocytic, 2014 bilateral feet fx and R ankle fx, recent R hand fx per pt-no longer casted, gastric ulcers and vomited blood in past, IBS, kidney stones passed by pt, bone deficiency- bones break easily, seizures-last one many yrs ago, shingles 2010 History of Any Multi-Drug Resistant Organisms: MRSA Date of last positivie culture/infection: 2013 MDRO Source:: Back Past Surgical History: Adenoidectomy, Ear Surgery, Tonsillectomy Additional Past Surgical History / Comment(s): liver biopsy, L-knee drained of 30 ml of fluid, tubes bilateral ears. Past Anesthesia/Blood Transfusion Reactions: Previous Problems w/ Anesthesia Additional Past Anesthesia/Blood Transfusion Reaction / Comment(s): Unable to wake up and being overly aggressive. Past Psychological History: Anxiety, Bipolar, Depression Smoking Status: Never smoker Past Alcohol Use History: None Reported Past Drug Use History: Marijuana - Past Family History Father Additional Family Medical History / Comment(s): Father at age 61 in April 2014, patient does not know cause of . Mother History Unknown: Yes Family Medical History: Cancer Brother(s) Family Medical History: No Reported History Sister(s) Family Medical History: No Reported History General Exam Limitations: no limitations General appearance: alert, in no apparent distress ENT exam: Present: normal exam, mucous membranes moist Neck exam: Present: normal inspection. Absent: tenderness, meningismus, lymphadenopathy Respiratory exam: Present: normal lung sounds bilaterally. Absent: respiratory distress, wheezes, rales, rhonchi, stridor Cardiovascular Exam: Present: regular rate, normal rhythm, normal heart sounds. Absent: systolic murmur, diastolic murmur, rubs, gallop, clicks Neurological exam: Present: alert, oriented X3 Psychiatric exam: Present: normal affect, normal mood Skin exam: Present: warm, dry, intact, normal color. Absent: rash Course Vital Signs 09/01/17 19:36 Temperature 97.1 F L Pulse Rate 76 Respiratory 20 Rate Blood Pressure 136/89 O2 Sat by Pulse 98 Oximetry Medical Decision Making - Medical Decision Making 37-year-old male presents to the emergency department with a chief complaint of concern for elevated ammonia level. Patient's level is 59. The metabolic on- call center nurse from [facility] was contacted. This and patient does not want to have an IV they stated as long as that he can tolerate sugary drinks at home he can be discharged to follow-up. The patient is in agreement this plan. He does not want IV he states he would like to go home. At this time we will respect his wishes. Patient will be discharged. We did discuss return parameters all questions. Patient is in agreement with this plan. - Lab Data Result diagrams: 09/01/17 19:45 09/01/17 19:45 Lab Results 09/01/17 09/01/17 09/01/17 Range/Units 19:45 19:45 19:45 WBC 6.6 (3.8-10.6) k/uL RBC 5.03 (4.30-5.90) m/uL Hgb 15.3 (13.0-17.5) gm/dL Hct 43.3 (39.0-53.0) % MCV 86.1 (80.0-100.0) fL MCH 30.4 (25.0-35.0) pg MCHC 35.3 (31.0-37.0) g/dL RDW 13.5 (11.5-15.5) % Plt Count 217 (150-450) k/uL Neutrophils % 65 % Lymphocytes % 27 % Monocytes % 4 % Eosinophils % 2 % Basophils % 1 % Neutrophils # 4.3 (1.3-7.7) k/uL Lymphocytes # 1.8 (1.0-4.8) k/uL Monocytes # 0.3 (0-1.0) k/uL Eosinophils # 0.2 (0-0.7) k/uL Basophils # 0.1 (0-0.2) k/uL Sodium 145 (137-145) mmol/L Potassium 4.2 (3.5-5.1) mmol/L Chloride 113 H (98-107) mmol/L Carbon Dioxide 18 L (22-30) mmol/L Anion Gap 14 mmol/L BUN 3 L (9-20) mg/dL Creatinine 0.50 L (0.66-1.25) mg/dL Est GFR (CKD-EPI)AfAm >90 (>60 ml/min/1.73 sqM) Est GFR (CKD-EPI)NonAf >90 (>60 ml/min/1.73 sqM) Glucose 81 (74-99) mg/dL Calcium 10.5 H (8.4-10.2) mg/dL Total Bilirubin 0.7 (0.2-1.3) mg/dL AST 22 (17-59) U/L ALT 18 L (21-72) U/L Alkaline Phosphatase 78 (38-126) U/L Ammonia 59 H (<30) umol/L Total Protein 8.0 (6.3-8.2) g/dL Albumin 4.8 (3.5-5.0) g/dL Disposition Clinical Impression: Vomiting Disposition: HOME SELF-CARE Condition: Stable Instructions: Acute Nausea and Vomiting (ED) Additional Instructions: Please use medication as discussed. Please follow up with family doctor if symptoms have not improved over the next two days. Please return to the emergency room if your symptoms increase or worsen or for any other concerns. Please increase sugary drinks and hydration at home. If you are unable to tolerate this please return to the emergency department. Referrals: Salvador Guevara MD [Primary Care Provider] - 1-2 days Time of Disposition: 21:00
--- NOTE | 2017-09-01 21:14 | ED ---
Medical Decision Making - Medical Decision Making The metabolic on-call physician no well called back and she states that she would like us to watch the patient and give him IV fluids for 3 hours and recheck ammonia following that. Patient states that he will stay for this per her recommendation. At this time repeat ammonia is reviewed patient states his headache has improved he is had no nausea or vomiting. Has decreased to 51. Metabolic on- call physician was contacted. She is comfortable with discharged home. We did discuss return parameters follow-up with patient. He is in agreement. - Lab Data Result diagrams: 09/01/17 19:45 09/01/17 19:45 Lab Results 09/01/17 09/01/17 09/01/17 Range/Units 19:45 19:45 19:45 WBC 6.6 (3.8-10.6) k/uL RBC 5.03 (4.30-5.90) m/uL Hgb 15.3 (13.0-17.5) gm/dL Hct 43.3 (39.0-53.0) % MCV 86.1 (80.0-100.0) fL MCH 30.4 (25.0-35.0) pg MCHC 35.3 (31.0-37.0) g/dL RDW 13.5 (11.5-15.5) % Plt Count 217 (150-450) k/uL Neutrophils % 65 % Lymphocytes % 27 % Monocytes % 4 % Eosinophils % 2 % Basophils % 1 % Neutrophils # 4.3 (1.3-7.7) k/uL Lymphocytes # 1.8 (1.0-4.8) k/uL Monocytes # 0.3 (0-1.0) k/uL Eosinophils # 0.2 (0-0.7) k/uL Basophils # 0.1 (0-0.2) k/uL Sodium 145 (137-145) mmol/L Potassium 4.2 (3.5-5.1) mmol/L Chloride 113 H (98-107) mmol/L Carbon Dioxide 18 L (22-30) mmol/L Anion Gap 14 mmol/L BUN 3 L (9-20) mg/dL Creatinine 0.50 L (0.66-1.25) mg/dL Est GFR (CKD-EPI)AfAm >90 (>60 ml/min/1.73 sqM) Est GFR (CKD-EPI)NonAf >90 (>60 ml/min/1.73 sqM) Glucose 81 (74-99) mg/dL Calcium 10.5 H (8.4-10.2) mg/dL Total Bilirubin 0.7 (0.2-1.3) mg/dL AST 22 (17-59) U/L ALT 18 L (21-72) U/L Alkaline Phosphatase 78 (38-126) U/L Ammonia 59 H (<30) umol/L Total Protein 8.0 (6.3-8.2) g/dL Albumin 4.8 (3.5-5.0) g/dL 09/02/17 Range/Units 01:02 WBC (3.8-10.6) k/uL RBC (4.30-5.90) m/uL Hgb (13.0-17.5) gm/dL Hct (39.0-53.0) % MCV (80.0-100.0) fL MCH (25.0-35.0) pg MCHC (31.0-37.0) g/dL RDW (11.5-15.5) % Plt Count (150-450) k/uL Neutrophils % % Lymphocytes % % Monocytes % % Eosinophils % % Basophils % % Neutrophils # (1.3-7.7) k/uL Lymphocytes # (1.0-4.8) k/uL Monocytes # (0-1.0) k/uL Eosinophils # (0-0.7) k/uL Basophils # (0-0.2) k/uL Sodium (137-145) mmol/L Potassium (3.5-5.1) mmol/L Chloride (98-107) mmol/L Carbon Dioxide (22-30) mmol/L Anion Gap mmol/L BUN (9-20) mg/dL Creatinine (0.66-1.25) mg/dL Est GFR (CKD-EPI)AfAm (>60 ml/min/1.73 sqM) Est GFR (CKD-EPI)NonAf (>60 ml/min/1.73 sqM) Glucose (74-99) mg/dL Calcium (8.4-10.2) mg/dL Total Bilirubin (0.2-1.3) mg/dL AST (17-59) U/L ALT (21-72) U/L Alkaline Phosphatase (38-126) U/L Ammonia 51 H (<30) umol/L Total Protein (6.3-8.2) g/dL Albumin (3.5-5.0) g/dL Disposition Clinical Impression: Vomiting Disposition: HOME SELF-CARE Condition: Stable Instructions: Acute Nausea and Vomiting (ED) Additional Instructions: Please use medication as discussed. Please follow up with family doctor if symptoms have not improved over the next two days. Please return to the emergency room if your symptoms increase or worsen or for any other concerns. Please increase sugary drinks and hydration at home. If you are unable to tolerate this please return to the emergency department. Referrals: Salvador Guevara MD [Primary Care Provider] - 1-2 days Time of Disposition: 01:34
[2017-09-02 00:37] VITALS: BP 135/96; PULSE 61
[2017-09-02 01:49] VITALS: TEMP 98.1
== END 2017-09-02 01:49 | disposition home or self-care (01) ==
LOC: EC 19:32
DX: R11.2 Nausea with vomiting, unspecified (principal); E72.20 Disorder of urea cycle metabolism, unspecified; Z86.14 Personal history of Methicillin resistant Staphylococcus aureus infection; Z79.899 Other long term (current) drug therapy; Z88.6 Allergy status to analgesic agent; Z88.8 Allergy status to other drugs, medicaments and biological substances; Z53.20 Procedure and treatment not carried out because of patient's decision for unspecified reasons
CPT/HCPCS: 36415; 80053; 82140; 85025; 99284; 96365; 96366 ×3; J3480

== ENCOUNTER 2017-10-04 15:32 | Emergency (ER) | payer MEDICARE, OTHER ==
[2017-10-04 16:51] LABS: ALT 18 U/L (21-72); AST 25 U/L (17-59); Albumin 4.5 g/dL (3.5-5.0); Alkaline Phosphatase 58 U/L (38-126); Anion Gap 19 mmol/L; Blood Urea Nitrogen 3 mg/dL (9-20); Calcium 10.4 mg/dL (8.4-10.2); Carbon Dioxide 17 mmol/L (22-30); Chloride 112 mmol/L (98-107); Glucose 86 mg/dL (74-99); Lipase 138 U/L (23-300); Magnesium 1.4 mg/dL (1.6-2.3); Potassium 4.2 mmol/L (3.5-5.1); Sodium 148 mmol/L (137-145); Total Bilirubin 0.9 mg/dL (0.2-1.3); Total Protein 7.2 g/dL (6.3-8.2)
[2017-10-04 17:21] VITALS: RESP 20
[2017-10-04 17:30] LABS: Appearance,Urine Clear (Clear); Bilirubin,Urine Negative (Negative); Blood,Urine Negative (Negative); Color,Urine Yellow; Glucose,Urine (UA) Negative (Negative); Ketones,Urine Negative (Negative); Leukocyte Esterase,Urine Negative (Negative); Nitrite,Urine Negative (Negative); PH, Urine 5.5 (5.0-8.0); Protein,Urine Trace (Negative); Urobilinogen,Urine <2.0 mg/dL (<2.0)
[2017-10-04] MEDS ORDERED: DEXTROSE 10% IN WATER 1,000 ML IV ONE (17:30)
[2017-10-04 17:40] LABS: ABG Base Excess -5.1 mmol/L; ABG HCO3 20 mmol/L (21-25); ABG Oxygen Saturation 98.5 % (94-97); ABG PCO2 32 mmHg (35-45); ABG PO2 110 mmHg (83-108); ABG TCO2 21 mmol/L (19-24)
[2017-10-04] MEDS ORDERED: DEXTROSE 10 % IN WATER 1,000 ML IV STA (17:41)
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
[2017-10-04 18:29] LABS: Basophils # (A) 0.1 k/uL (0-0.2); Basophils % (A) 1 %; Eosinophils # (A) 0.2 k/uL (0-0.7); Eosinophils % (A) 2 %; HCT 39.8 % (39.0-53.0); HGB 13.4 gm/dL (13.0-17.5); Lymphocytes % (A) 25 %; MCH 29.4 pg (25.0-35.0); MCHC 33.7 g/dL (31.0-37.0); MCV 87.2 fL (80.0-100.0); Mean Platelet Volume 10.7; Monocytes # (A) 0.6 k/uL (0-1.0); Monocytes % (A) 8 %; Neutrophils # (A) 5.1 k/uL (1.3-7.7); Neutrophils % (A) 63 %; Platelet Count 169 k/uL (150-450); RBC 4.57 m/uL (4.30-5.90); RDW 13.6 % (11.5-15.5)
[2017-10-04 22:34] VITALS: BP 134/84; PULSE 80; TEMP 98.3
== END 2017-10-04 22:25 | disposition home or self-care (01) ==
LOC: EC 15:32
DX: E72.20 Disorder of urea cycle metabolism, unspecified (principal); R19.7 Diarrhea, unspecified; R10.84 Generalized abdominal pain; Z79.899 Other long term (current) drug therapy; Z88.8 Allergy status to other drugs, medicaments and biological substances; Z86.14 Personal history of Methicillin resistant Staphylococcus aureus infection
CPT/HCPCS: 36415; 36600; 80053; 81003; 82009; 82140; 82805; 83690; 83735; 85025; 96360; 99283

== ENCOUNTER 2017-10-20 11:21 | Emergency (ER) | payer MEDICARE, OTHER ==
[2017-10-20] MEDS ORDERED: KETOROLAC 30 MG/ML 1 ML VIAL IVP STA (11:59)
[2017-10-20] MEDS ORDERED: traMADol 50 MG TAB PO STA (11:59)
[2017-10-20] MEDS ORDERED: SODIUM CHLORIDE 0.9% 1,000 ML IV ONE (12:00)
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
[2017-10-20 12:05] LABS: Basophils # (A) 0.1 k/uL (0-0.2); Basophils % (A) 1 %; Eosinophils # (A) 0.2 k/uL (0-0.7); Eosinophils % (A) 4 %; HCT 36.4 % (39.0-53.0); HGB 12.8 gm/dL (13.0-17.5); Lymphocytes # (A) 1.3 k/uL (1.0-4.8); Lymphocytes % (A) 23 %; MCHC 35.2 g/dL (31.0-37.0); Mean Platelet Volume 10.3; Monocytes # (A) 0.4 k/uL (0-1.0); Monocytes % (A) 7 %; Neutrophils # (A) 3.8 k/uL (1.3-7.7); Neutrophils % (A) 65 %; Platelet Count 169 k/uL (150-450); RBC 4.29 m/uL (4.30-5.90); RDW 13.4 % (11.5-15.5); WBC 5.8 k/uL (3.8-10.6)
--- NOTE | 2017-10-20 12:05 | XR ---
EXAMINATION TYPE: XR hand complete RT DATE OF EXAM: 10/20/2017 COMPARISON: 09/20/2016 HISTORY: Pain TECHNIQUE: Three views are submitted. FINDINGS: The osseous structures are intact. The joint spaces are preserved and there is no acute fracture or dislocation. Chronic deformity of the fifth metacarpal. IMPRESSION: 1. No definite acute fracture or dislocation if symptoms persist, follow-up study in 7 to 10 days wo uld be suggested
[2017-10-20 12:06] LABS: ALT 26 U/L (21-72); AST 25 U/L (17-59); Albumin 4.1 g/dL (3.5-5.0); Alkaline Phosphatase 73 U/L (38-126); Anion Gap 14 mmol/L; Blood Urea Nitrogen 3 mg/dL (9-20); Calcium 9.3 mg/dL (8.4-10.2); Carbon Dioxide 25 mmol/L (22-30); Chloride 110 mmol/L (98-107); Glucose 98 mg/dL (74-99); Potassium 3.5 mmol/L (3.5-5.1); Sodium 149 mmol/L (137-145); Total Bilirubin 0.5 mg/dL (0.2-1.3); Total Protein 6.3 g/dL (6.3-8.2)
[2017-10-20] MEDS ORDERED: traMADol 50 MG STARTER PACK 3 TAB BTL PO STA (12:53)
[2017-10-20 12:55] VITALS: BP 132/75; PULSE 62; RESP 16; TEMP 97.7
== END 2017-10-20 12:57 | disposition home or self-care (01) ==
LOC: EC 11:21
DX: S69.91XA Unspecified injury of right wrist, hand and finger(s), initial encounter (principal); E72.4 Disorders of ornithine metabolism; R74.8 Abnormal levels of other serum enzymes; Z86.14 Personal history of Methicillin resistant Staphylococcus aureus infection; Z79.899 Other long term (current) drug therapy; Z88.8 Allergy status to other drugs, medicaments and biological substances; W22.8XXA Striking against or struck by other objects, initial encounter
CPT/HCPCS: 36415; 80053; 82140; 85025; 73130; 99284; 96374; 96361; J1885

== ENCOUNTER 2017-11-11 09:06 | Emergency (ER) | payer MEDICARE ==
[2017-11-11 09:19] VITALS: TEMP 98.7
[2017-11-11] MEDS ORDERED: SODIUM CHLORIDE 0.9% 1,000 ML IV STA (10:23)
[2017-11-11] MEDS ORDERED: ONDANSETRON 4 MG/2 ML VIAL IVP STA (10:23)
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
[2017-11-11 11:40] LABS: ALT 27 U/L (21-72); AST 31 U/L (17-59); Albumin 4.6 g/dL (3.5-5.0); Alkaline Phosphatase 64 U/L (38-126); Amylase 46 U/L (30-110); Anion Gap 15 mmol/L; Blood Urea Nitrogen 3 mg/dL (9-20); Calcium 10.8 mg/dL (8.4-10.2); Carbon Dioxide 18 mmol/L (22-30); Chloride 108 mmol/L (98-107); Glucose 104 mg/dL (74-99); Lipase 181 U/L (23-300); Sodium 141 mmol/L (137-145); Total Bilirubin 1.4 mg/dL (0.2-1.3); Total Protein 7.4 g/dL (6.3-8.2)
[2017-11-11 11:43] LABS: Potassium 4.8 mmol/L (3.5-5.1)
[2017-11-11] MEDS ORDERED: WATER IV ONE ×3 (12:30)
[2017-11-11] MEDS ORDERED: DEXTROSE IV ONE ×3 (12:30)
[2017-11-11] MEDS ORDERED: [UNRECOGNIZED DRUG - OTHER] IV ONE ×3 (12:30)
[2017-11-11] MEDS ORDERED: SODIUM CHLORIDE IV ONE ×3 (12:30)
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
[2017-11-11 12:59] VITALS: RESP 18
[2017-11-11 13:07] LABS: Basophils # (A) 0.1 k/uL (0-0.2); Basophils % (A) 1 %; Eosinophils # (A) 0.2 k/uL (0-0.7); Eosinophils % (A) 3 %; HCT 43.3 % (39.0-53.0); HGB 14.8 gm/dL (13.0-17.5); Lymphocytes # (A) 2.1 k/uL (1.0-4.8); Lymphocytes % (A) 30 %; MCH 30.1 pg (25.0-35.0); MCHC 34.2 g/dL (31.0-37.0); MCV 88.1 fL (80.0-100.0); Mean Platelet Volume 9.2; Monocytes # (A) 0.4 k/uL (0-1.0); Monocytes % (A) 6 %; Neutrophils # (A) 4.2 k/uL (1.3-7.7); Neutrophils % (A) 59 %; Platelet Count 194 k/uL (150-450); RBC 4.91 m/uL (4.30-5.90); RDW 13.4 % (11.5-15.5); WBC 7.2 k/uL (3.8-10.6)
[2017-11-11 16:02] VITALS: BP 115/73; PULSE 54
== END 2017-11-11 16:00 | disposition home or self-care (01) ==
LOC: EC 09:06
DX: S62.626A Displaced fracture of middle phalanx of right little finger, initial encounter for closed fracture (principal); R11.2 Nausea with vomiting, unspecified; R19.7 Diarrhea, unspecified; E72.20 Disorder of urea cycle metabolism, unspecified; Z86.14 Personal history of Methicillin resistant Staphylococcus aureus infection; Z79.899 Other long term (current) drug therapy; Z88.8 Allergy status to other drugs, medicaments and biological substances; W22.8XXA Striking against or struck by other objects, initial encounter
CPT/HCPCS: 36415; 80053; 82140; 82150; 83690; 85025; 73130; 99284; 96365; 96366; 96375; 96361; J2405; J3480

== ENCOUNTER 2018-01-02 17:39 | Emergency (ER) | payer MEDICARE ==
[2018-01-02 18:26] VITALS: RESP 18
[2018-01-02] MEDS ORDERED: SODIUM CHLORIDE 0.9% 1,000 ML IV ONE (18:27)
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
[2018-01-02 19:16] LABS: Anion Gap 7 mmol/L; Blood Urea Nitrogen 2 mg/dL (9-20); Carbon Dioxide 26 mmol/L (22-30); Chloride 105 mmol/L (98-107); Glucose 73 mg/dL (74-99); Potassium 4.1 mmol/L (3.5-5.1); Sodium 138 mmol/L (137-145)
[2018-01-02 19:17] LABS: ALT 27 U/L (21-72); AST 20 U/L (17-59); Albumin 3.9 g/dL (3.5-5.0); Alkaline Phosphatase 76 U/L (38-126); Calcium 9.6 mg/dL (8.4-10.2); Total Bilirubin 0.5 mg/dL (0.2-1.3); Total Protein 6.2 g/dL (6.3-8.2)
[2018-01-02 19:40] LABS: Basophils % (A) 1 %; Eosinophils # (A) 0.2 k/uL (0-0.7); Eosinophils % (A) 2 %; HCT 38.6 % (39.0-53.0); HGB 13.3 gm/dL (13.0-17.5); Lymphocytes # (A) 1.9 k/uL (1.0-4.8); Lymphocytes % (A) 30 %; MCH 29.9 pg (25.0-35.0); MCHC 34.4 g/dL (31.0-37.0); MCV 86.9 fL (80.0-100.0); Mean Platelet Volume 9.1; Monocytes # (A) 0.4 k/uL (0-1.0); Monocytes % (A) 7 %; Neutrophils # (A) 3.6 k/uL (1.3-7.7); Neutrophils % (A) 58 %; Platelet Count 175 k/uL (150-450); RBC 4.45 m/uL (4.30-5.90); RDW 13.2 % (11.5-15.5); WBC 6.2 k/uL (3.8-10.6)
[2018-01-02] MEDS ORDERED: KETOROLAC 30 MG/ML 1 ML VIAL IVP STA (19:46)
[2018-01-02 20:36] VITALS: BP 114/67; PULSE 46; TEMP 97.9
== END 2018-01-02 20:36 | disposition home or self-care (01) ==
LOC: EC 17:39
DX: E72.4 Disorders of ornithine metabolism (principal); R51 Headache; R11.0 Nausea; Z79.899 Other long term (current) drug therapy; Z88.8 Allergy status to other drugs, medicaments and biological substances
CPT/HCPCS: 36415; 80053; 82140; 85025; 99283; 96374; 96361; J1885

== ENCOUNTER → 2018-01-15 | Outpatient (CLI) | payer MEDICARE ==
[2018-01-15 11:08] LABS: ALT 20 U/L (21-72); AST 19 U/L (17-59); Albumin 4.5 g/dL (3.5-5.0); Alkaline Phosphatase 71 U/L (38-126); Anion Gap 13 mmol/L; Basophils # (A) 0.1 k/uL (0-0.2); Basophils % (A) 1 %; Blood Urea Nitrogen 2 mg/dL (9-20); Calcium 9.7 mg/dL (8.4-10.2); Carbon Dioxide 19 mmol/L (22-30); Chloride 108 mmol/L (98-107); Cholesterol 156 mg/dL (<200); Eosinophils # (A) 0.1 k/uL (0-0.7); Eosinophils % (A) 2 %; Glucose 105 mg/dL (74-99); HCT 42.7 % (39.0-53.0); HDL Cholesterol 64 mg/dL (40-60); HGB 14.1 gm/dL (13.0-17.5); LDL Cholesterol,Calculated 82 mg/dL (0-99); Lymphocytes # (A) 1.7 k/uL (1.0-4.8); Lymphocytes % (A) 36 %; MCH 29.4 pg (25.0-35.0); MCHC 33.1 g/dL (31.0-37.0); MCV 88.9 fL (80.0-100.0); Mean Platelet Volume 9.2; Monocytes # (A) 0.3 k/uL (0-1.0); Monocytes % (A) 6 %; Neutrophils # (A) 2.5 k/uL (1.3-7.7); Neutrophils % (A) 54 %; Platelet Count 168 k/uL (150-450); RDW 13.5 % (11.5-15.5); Sodium 140 mmol/L (137-145); Total Bilirubin 1.1 mg/dL (0.2-1.3); Total Protein 7.1 g/dL (6.3-8.2); Triglycerides 51 mg/dL (<150); WBC 4.6 k/uL (3.8-10.6)
[2018-01-15 16:52] LABS: Folate, Serum 5.7 ng/mL; Vitamin D 25 Hydroxy 27.2 ng/mL (30.0-100.0)
[2018-01-15 17:29] LABS: Hemoglobin A1C 5.5 % (4.0-6.0)
[2018-01-16 12:04] LABS: Albumin 4.33 g/dL (3.80-4.90); Gamma Globulin 0.83 g/dL (0.70-1.50)
== END | disposition home or self-care (01) ==
LOC: LABWHC1 10:25
PROVIDERS: ATTEND Nurse Practitioner Family
DX: E72.4 Disorders of ornithine metabolism (principal); K21.9 Gastro-esophageal reflux disease without esophagitis; F31.32 Bipolar disorder, current episode depressed, moderate
CPT/HCPCS: 36415; 80053; 80061; 82140; 82306; 82607; 82746; 83036; 84165; 85025

== ENCOUNTER 2018-01-29 11:19 | Emergency (ER) | payer MEDICARE, OTHER ==
[2018-01-29 11:30] VITALS: RESP 18
[2018-01-29] MEDS ORDERED: KETOROLAC 30 MG/ML 1 ML VIAL IVP STA (12:32)
[2018-01-29 12:45] LABS: Basophils % (A) 1 %; Eosinophils # (A) 0.2 k/uL (0-0.7); Eosinophils % (A) 3 %; HCT 36.6 % (39.0-53.0); HGB 12.3 gm/dL (13.0-17.5); Lymphocytes # (A) 1.5 k/uL (1.0-4.8); Lymphocytes % (A) 26 %; MCH 29.8 pg (25.0-35.0); MCHC 33.5 g/dL (31.0-37.0); Mean Platelet Volume 9.5; Monocytes # (A) 0.4 k/uL (0-1.0); Monocytes % (A) 8 %; Neutrophils # (A) 3.6 k/uL (1.3-7.7); Neutrophils % (A) 62 %; Platelet Count 155 k/uL (150-450); RBC 4.12 m/uL (4.30-5.90); RDW 13.6 % (11.5-15.5); WBC 5.8 k/uL (3.8-10.6)
[2018-01-29 12:55] LABS: ALT 31 U/L (21-72); AST 23 U/L (17-59); Albumin 3.9 g/dL (3.5-5.0); Alkaline Phosphatase 76 U/L (38-126); Anion Gap 9 mmol/L; Blood Urea Nitrogen <2 mg/dL (9-20); Calcium 9.1 mg/dL (8.4-10.2); Carbon Dioxide 23 mmol/L (22-30); Chloride 109 mmol/L (98-107); Glucose 79 mg/dL (74-99); Potassium 4.6 mmol/L (3.5-5.1); Sodium 141 mmol/L (137-145); Total Bilirubin 0.6 mg/dL (0.2-1.3); Total Protein 6.6 g/dL (6.3-8.2); Uric Acid 7.1 mg/dL (3.5-8.5)
--- NOTE | 2018-01-29 13:07 | XR ---
EXAMINATION TYPE: XR foot complete RT DATE OF EXAM: 01/29/2018 CLINICAL HISTORY: Right foot swelling and pain TECHNIQUE: Frontal, lateral, and oblique images of the right foot are obtained. COMPARISON: 10/26/2016 FINDINGS: There is no acute fracture/dislocation evident in the right foot. The joint spaces in the right foot appear within normal limits. The overlying soft tissue of the midfoot demonstrate soft t issue swelling. No radio opaque foreign body. IMPRESSION: Mild midfoot soft tissue swelling circumferentially with no acute fracture or dislocation in the right foot.
[2018-01-29] MEDS ORDERED: SODIUM CHLORIDE 0.9% 1,000 ML IV ONE (13:12)
[2018-01-29] MEDS ORDERED: SODIUM CHLORIDE 0.9% 1,000 ML IV SCH (13:15)
[2018-01-29] MEDS ORDERED: methylPREDNISolone SOD SUCCI 125 MG/2 ML VIAL IV STA (13:20)
--- NOTE | 2018-01-29 13:23 | ED ---
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 He reports it's been going on for weeks. He reports that he's had a history of gout in the past and believes that he may have a similar exacerbation today. He reports pain with ambulation over the foot. He states that he's been using crutches. He denies any trauma to the foot or ankle. He denies any peripheral paresthesias. - Related Data Home Medications Medication Instructions Recorded Confirmed Ravicti 1.1gm/Ml 6.6 gm PO TID@0900,1500,2100 03/28/17 01/29/18 Ibuprofen [Motrin] 800 mg PO BID PRN 07/15/17 01/29/18 Citalopram Hydrobromide [CeleXA] 40 mg PO DAILY 01/29/18 01/29/18 Esomeprazole Magnesium [NexIUM] 40 mg PO DAILY 01/29/18 01/29/18 Previous Rx's Medication Instructions Recorded Indomethacin [Indocin] 25 mg PO TID #15 capsule 01/29/18 methylPREDNISolone Dose Pack 4 mg PO DIRECTED #21 package 01/29/18 [Medrol Dose Pack] Allergies Allergy/AdvReac Type Severity Reaction Status Date / Time alprazolam [From Xanax] AdvReac Liver Verified 01/29/18 12:40 Complications cyclobenzaprine AdvReac Confusion Verified 01/29/18 12:40 [From Flexeril] olanzapine [From Zyprexa] AdvReac Liver Verified 01/29/18 12:40 Complications sertraline [From Zoloft] AdvReac Liver Verified 01/29/18 12:40 Complications Review of Systems ROS Statement: Those systems with pertinent positive or pertinent negative responses have been documented in the HPI. ROS Other: All systems not noted in ROS Statement are negative. 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 intermittent hyperammonemia, hyperammonemia with AMS, torn left ACL and left knee effusion- uses brace and cane prn, anemia-normocytic, 2013 bilateral feet fx and R ankle fx, recent R hand fx per pt-no longer casted, gastric ulcers and vomited blood in past, IBS, kidney stones passed by pt, bone deficiency- bones break easily, seizures-last one many yrs ago, shingles 2009 History of Any Multi-Drug Resistant Organisms: MRSA Date of last positivie culture/infection: 2013 MDRO Source:: Back Past Surgical History: Adenoidectomy, Ear Surgery, Tonsillectomy Additional Past Surgical History / Comment(s): liver biopsy, L-knee drained of 30 ml of fluid, tubes bilateral ears. Past Anesthesia/Blood Transfusion Reactions: Previous Problems w/ Anesthesia Additional Past Anesthesia/Blood Transfusion Reaction / Comment(s): Unable to wake up and being overly aggressive. Past Psychological History: Anxiety, Bipolar, Depression Smoking Status: Never smoker Past Alcohol Use History: None Reported Past Drug Use History: Marijuana - Past Family History Father Additional Family Medical History / Comment(s): Father at age 61 in April 2014, patient does not know cause of . Mother History Unknown: Yes Family Medical History: Cancer Brother(s) Family Medical History: No Reported History Sister(s) Family Medical History: No Reported History General Exam - General Exam Comments Initial Comments: Patient is a 37-year-old male. Alert and oriented. No acute distress. Limitations: no limitations General appearance: alert, in no apparent distress Head exam: Present: atraumatic, normocephalic, normal inspection Eye exam: Present: normal appearance, PERRL, EOMI. Absent: scleral icterus, conjunctival injection, periorbital swelling ENT exam: Present: normal exam, mucous membranes moist Neck exam: Present: normal inspection. Absent: tenderness, meningismus, lymphadenopathy Respiratory exam: Present: normal lung sounds bilaterally. Absent: respiratory distress, wheezes, rales, rhonchi, stridor Cardiovascular Exam: Present: regular rate, normal rhythm, normal heart sounds. Absent: systolic murmur, diastolic murmur, rubs, gallop, clicks GI/Abdominal exam: Present: soft, normal bowel sounds. Absent: distended, tenderness, guarding, rebound, rigid Extremities exam: Present: normal inspection, full ROM, normal capillary refill. Absent: tenderness, pedal edema, joint swelling, calf tenderness Right Ankle exam: Present: normal inspection, full ROM Foot/Toe exam: Present: normal inspection, full ROM (tenderness to palpation over mid foot. Mild erythema. ), swelling Neurovascular tendon exam: Present: no vascular compromise, pulse deficit Gait: observed and normal Back exam: Present: normal inspection Neurological exam: Present: alert, oriented X3, CN II-XII intact Psychiatric exam: Present: normal affect, normal mood Skin exam: Present: warm, dry, intact, normal color. Absent: rash Course Vital Signs 01/29/18 11:27 Temperature 98.3 F Pulse Rate 52 L Respiratory 18 Rate Blood Pressure 118/78 O2 Sat by Pulse 99 Oximetry Medical Decision Making - Medical Decision Making 37-year-old male presents emergency department today with right foot pain and swelling for the past week. Has history of OTC deficiency. I did check laboratory. Mild elevation of pneumonia at this time at 67. Did give the Patient fluids. He did Complain of Any Symptoms Complaint with Her Associate with His Usual Elevated Ammonia Level Including Fatigue Dizziness. Patient x- ray of the foot shows no evidence of any acute abdomen or maladies. He had no trauma. Patient could likely have a gout exacerbation since similar to his previous ones. We'll start the Patient on steroids and anti-inflammatory medication. Given an Brigido wrap. Discussed close follow-up with PCP. All questions answered return parameters were discussed. - Lab Data Result diagrams: 01/29/18 12:32 01/29/18 12:32 Lab Results 01/29/18 01/29/18 01/29/18 Range/Units 12:32 12:32 12:32 WBC 5.8 (3.8-10.6) k/uL RBC 4.12 L (4.30-5.90) m/uL Hgb 12.3 L (13.0-17.5) gm/dL Hct 36.6 L (39.0-53.0) % MCV 89.0 (80.0-100.0) fL MCH 29.8 (25.0-35.0) pg MCHC 33.5 (31.0-37.0) g/dL RDW 13.6 (11.5-15.5) % Plt Count 155 (150-450) k/uL Neutrophils % 62 % Lymphocytes % 26 % Monocytes % 8 % Eosinophils % 3 % Basophils % 1 % Neutrophils # 3.6 (1.3-7.7) k/uL Lymphocytes # 1.5 (1.0-4.8) k/uL Monocytes # 0.4 (0-1.0) k/uL Eosinophils # 0.2 (0-0.7) k/uL Basophils # 0.0 (0-0.2) k/uL Sodium 141 (137-145) mmol/L Potassium 4.6 (3.5-5.1) mmol/L Chloride 109 H (98-107) mmol/L Carbon Dioxide 23 (22-30) mmol/L Anion Gap 9 mmol/L BUN <2 L (9-20) mg/dL Creatinine 0.40 L (0.66-1.25) mg/dL Est GFR (CKD-EPI)AfAm >90 (>60 ml/min/1.73 sqM) Est GFR (CKD-EPI)NonAf >90 (>60 ml/min/1.73 sqM) Glucose 79 (74-99) mg/dL Uric Acid 7.1 (3.5-8.5) mg/dL Calcium 9.1 (8.4-10.2) mg/dL Total Bilirubin 0.6 (0.2-1.3) mg/dL AST 23 (17-59) U/L ALT 31 (21-72) U/L Alkaline Phosphatase 76 (38-126) U/L Ammonia 67 H (<30) umol/L Total Protein 6.6 (6.3-8.2) g/dL Albumin 3.9 (3.5-5.0) g/dL - Radiology Data Radiology results: report reviewed Midfoot soft tissue swelling circumferentially with no fracture dislocation. Disposition Clinical Impression: Swelling of right foot, Pain in right foot Disposition: HOME SELF-CARE Condition: Good Instructions: Gout (ED), Swollen Joint (ED) Additional Instructions: Patient is to rest, have close follow up with your primary care physician. Take the medication as prescribed. Return to the emergency department if any alarming signs or symptoms occur. Prescriptions: Indomethacin [Indocin] 25 mg PO TID #15 capsule methylPREDNISolone Dose Pack [Medrol Dose Pack] 4 mg PO DIRECTED #21 package Is patient prescribed a controlled substance at d/c from ED?: No Referrals: Salvador Guevara MD [Primary Care Provider] - 1-2 days Time of Disposition: 14:13
[2018-01-29 15:41] VITALS: BP 126/62; PULSE 55; TEMP 98.1
== END 2018-01-29 15:38 | disposition home or self-care (01) ==
LOC: EC 11:19
DX: M79.89 Other specified soft tissue disorders (principal); M79.671 Pain in right foot; L53.9 Erythematous condition, unspecified; E72.4 Disorders of ornithine metabolism; F32.9 Major depressive disorder, single episode, unspecified; Z79.899 Other long term (current) drug therapy; Z88.8 Allergy status to other drugs, medicaments and biological substances; Z86.14 Personal history of Methicillin resistant Staphylococcus aureus infection; Z87.19 Personal history of other diseases of the digestive system; Z53.8 Procedure and treatment not carried out for other reasons
CPT/HCPCS: 36415; 80053; 82140; 84550; 85025; 73630; 99284; 96374; 96375; 96361; J2930; J1885

== ENCOUNTER 2018-02-03 14:18 | Emergency (ER) | payer MEDICARE ==
[2018-02-03 14:32] VITALS: RESP 18
[2018-02-03 16:09] LABS: Basophils % (A) 0 %; Eosinophils # (A) 0.1 k/uL (0-0.7); Eosinophils % (A) 1 %; HCT 45.3 % (39.0-53.0); HGB 14.7 gm/dL (13.0-17.5); Lymphocytes # (A) 2.3 k/uL (1.0-4.8); Lymphocytes % (A) 26 %; MCH 28.6 pg (25.0-35.0); MCHC 32.3 g/dL (31.0-37.0); MCV 88.6 fL (80.0-100.0); Mean Platelet Volume 8.8; Monocytes # (A) 0.8 k/uL (0-1.0); Monocytes % (A) 9 %; Neutrophils # (A) 5.5 k/uL (1.3-7.7); Neutrophils % (A) 62 %; Platelet Count 250 k/uL (150-450); RBC 5.12 m/uL (4.30-5.90); RDW 13.7 % (11.5-15.5); WBC 8.9 k/uL (3.8-10.6)
[2018-02-03 16:18] LABS: ALT 26 U/L (21-72); AST 15 U/L (17-59); Albumin 4.6 g/dL (3.5-5.0); Alkaline Phosphatase 79 U/L (38-126); Anion Gap 11 mmol/L; Blood Urea Nitrogen 4 mg/dL (9-20); Calcium 10.1 mg/dL (8.4-10.2); Carbon Dioxide 29 mmol/L (22-30); Chloride 104 mmol/L (98-107); Glucose 83 mg/dL (74-99); Sodium 144 mmol/L (137-145); Total Bilirubin 0.9 mg/dL (0.2-1.3); Total Protein 7.8 g/dL (6.3-8.2)
[2018-02-03 16:23] LABS: Potassium 2.9 mmol/L (3.5-5.1)
[2018-02-03] MEDS ORDERED: SODIUM CHLORIDE 0.9% 1,000 ML IV ONE ×2 (17:01)
[2018-02-03 17:55] LABS: Appearance,Urine Clear (Clear); Bilirubin,Urine Negative (Negative); Blood,Urine Negative (Negative); Color,Urine Colorless; Glucose,Urine (UA) Negative (Negative); Ketones,Urine Negative (Negative); Leukocyte Esterase,Urine Negative (Negative); Nitrite,Urine Negative (Negative); Protein,Urine Negative (Negative); Specific Gravity,Urine 1.004 (1.001-1.035); Urobilinogen,Urine <2.0 mg/dL (<2.0)
[2018-02-03 18:05] LABS: Amphetamine Screen,Urine Not Detected (NotDetected); Barbiturate Screen,Urine Not Detected (NotDetected); Benzodiazepines Screen,Urine Not Detected (NotDetected); Cocaine Screen,Urine Not Detected (NotDetected); Methadone Screen, Urine Not Detected (NotDetected); Opiate Screen,Urine Not Detected (NotDetected); Oxycodone Screen, Urine Not Detected (NotDetected); Phencyclidine Screen,Urine Not Detected (NotDetected); Tricyclic Antidepressant,Urine Not Detected (NotDetected); Urn Cannabinoid Scrn Not Detected (NotDetected)
--- NOTE | 2018-02-03 18:25 | XR ---
EXAMINATION: XR chest 2V DATE AND TIME: 02/03/2018 5:35 PM ORDERING PROVIDER: Star Hewitt DO CLINICAL INDICATION: altered mental status TECHNIQUE: PA and lateral COMPARISON: 03/04/2017 DESCRIPTION: The lungs are clear. The pleural spaces are negative. The cardiac silhouette is not enlarged. The mediastinal and pleural silhouettes are unremarkable. The skeletal structures are intact without focal findings. The soft tissues are unremarkable. IMPRESSION: NO ACUTE PROCESS.
[2018-02-03] MEDS ORDERED: POTASSIUM CHLORIDE ER 20 MEQ TAB.ER PO STA (18:44)
[2018-02-03] MEDS ORDERED: POTASSIUM BICARBONATE/CIT AC 20 MEQ TABLET.EFF PO ONE (18:44)
--- NOTE | 2018-02-03 18:45 | ED ---
General Adult HPI - General Chief complaint: Recheck/Abnormal Lab/Rx Stated complaint: Confusion Time Seen by Provider: 02/03/18 16:48 Source: family, RN notes reviewed, old records reviewed Mode of arrival: wheelchair Limitations: no limitations - History of Present Illness Initial comments: This is a 37-year-old male the ER for evaluation. Patient has known OTC deficiency. Patient coming in for altered mental state not acting appropriately. Per family patient has been is off all day, no recent change in medications no fevers no cough or congestion no headache no chest pain or shortness of breath no nausea vomiting diarrhea. states that he just is having difficulty been able to accomplish certain tasks and is refusing issue or symptoms of when he has high ammonia. - Related Data Home Medications Medication Instructions Recorded Confirmed Ravicti 1.1gm/Ml 6.6 gm PO TID@0900,1500,2100 03/28/17 02/03/18 Citalopram Hydrobromide [CeleXA] 40 mg PO DAILY 01/29/18 02/03/18 Esomeprazole Magnesium [NexIUM] 40 mg PO DAILY 01/29/18 02/03/18 ARIPiprazole [Abilify] 10 mg PO HS 02/03/18 02/03/18 methylPREDNISolone Dose Pack See Taper PO DIRECTED 02/03/18 02/03/18 [Medrol Dose Pack] Previous Rx's Medication Instructions Recorded Indomethacin [Indocin] 25 mg PO TID #15 capsule 01/29/18 Allergies Allergy/AdvReac Type Severity Reaction Status Date / Time alprazolam [From Xanax] AdvReac Liver Verified 02/03/18 16:37 Complications cyclobenzaprine AdvReac Confusion Verified 02/03/18 16:37 [From Flexeril] olanzapine [From Zyprexa] AdvReac Liver Verified 02/03/18 16:37 Complications sertraline [From Zoloft] AdvReac Liver Verified 02/03/18 16:37 Complications Review of Systems ROS Statement: Those systems with pertinent positive or pertinent negative responses have been documented in the HPI. ROS Other: All systems not noted in ROS Statement are negative. 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 intermittent hyperammonemia, hyperammonemia with AMS, torn left ACL and left knee effusion- uses brace and cane prn, anemia-normocytic, 2013 bilateral feet fx and R ankle fx, recent R hand fx per pt-no longer casted, gastric ulcers and vomited blood in past, IBS, kidney stones passed by pt, bone deficiency- bones break easily, seizures-last one many yrs ago, shingles 2010 History of Any Multi-Drug Resistant Organisms: MRSA Date of last positivie culture/infection: 2013 MDRO Source:: Back Past Surgical History: Adenoidectomy, Ear Surgery, Tonsillectomy Additional Past Surgical History / Comment(s): liver biopsy, L-knee drained of 30 ml of fluid, tubes bilateral ears. Past Anesthesia/Blood Transfusion Reactions: Previous Problems w/ Anesthesia Additional Past Anesthesia/Blood Transfusion Reaction / Comment(s): Unable to wake up and being overly aggressive. Past Psychological History: Anxiety, Bipolar, Depression Smoking Status: Never smoker Past Alcohol Use History: None Reported Past Drug Use History: Marijuana - Past Family History Father Additional Family Medical History / Comment(s): Father at age 61 in April 2014, patient does not know cause of . Mother History Unknown: Yes Family Medical History: Cancer Brother(s) Family Medical History: No Reported History Sister(s) Family Medical History: No Reported History General Exam Limitations: no limitations General appearance: alert, in no apparent distress Head exam: Present: atraumatic, normocephalic, normal inspection Eye exam: Present: normal appearance, PERRL, EOMI. Absent: scleral icterus, conjunctival injection, periorbital swelling ENT exam: Present: normal exam, mucous membranes moist Neck exam: Present: normal inspection. Absent: tenderness, meningismus, lymphadenopathy Respiratory exam: Present: normal lung sounds bilaterally. Absent: respiratory distress, wheezes, rales, rhonchi, stridor Cardiovascular Exam: Present: regular rate, normal rhythm, normal heart sounds. Absent: systolic murmur, diastolic murmur, rubs, gallop, clicks GI/Abdominal exam: Present: soft, normal bowel sounds. Absent: distended, tenderness, guarding, rebound, rigid Extremities exam: Present: normal inspection, full ROM, normal capillary refill. Absent: tenderness, pedal edema, joint swelling, calf tenderness Back exam: Present: normal inspection Neurological exam: Present: alert, oriented X3, CN II-XII intact Psychiatric exam: Present: normal affect, normal mood Skin exam: Present: warm, dry, intact, normal color. Absent: rash Course Vital Signs 02/03/18 02/03/18 02/03/18 14:29 16:39 18:44 Temperature 98.1 F Pulse Rate 51 L 45 L 51 L Respiratory 18 18 18 Rate Blood Pressure 120/79 163/93 124/69 O2 Sat by Pulse 97 98 98 Oximetry - Reevaluation(s) Reevaluation #1: 02/03/18 19:00 Medical record is reviewed, patient well-known to ER Reevaluation #2: 02/03/18 19:00 Patient believes his ammonia is high despite initial low reading of ammonia we will recheck patient's ammonia EKG Findings - EKG Comments: EKG Findings:: EKG shows sinus bradycardia rate of 46, PA 138, QRS 90, QTc 432 Medical Decision Making - Lab Data Result diagrams: 02/03/18 15:56 02/03/18 15:56 Lab Results 02/03/18 02/03/18 02/03/18 Range/Units 15:53 15:56 15:56 WBC 8.9 (3.8-10.6) k/uL RBC 5.12 (4.30-5.90) m/uL Hgb 14.7 (13.0-17.5) gm/dL Hct 45.3 (39.0-53.0) % MCV 88.6 (80.0-100.0) fL MCH 28.6 (25.0-35.0) pg MCHC 32.3 (31.0-37.0) g/dL RDW 13.7 (11.5-15.5) % Plt Count 250 (150-450) k/uL Neutrophils % 62 % Lymphocytes % 26 % Monocytes % 9 % Eosinophils % 1 % Basophils % 0 % Neutrophils # 5.5 (1.3-7.7) k/uL Lymphocytes # 2.3 (1.0-4.8) k/uL Monocytes # 0.8 (0-1.0) k/uL Eosinophils # 0.1 (0-0.7) k/uL Basophils # 0.0 (0-0.2) k/uL Sodium (137-145) mmol/L Potassium (3.5-5.1) mmol/L Chloride (98-107) mmol/L Carbon Dioxide (22-30) mmol/L Anion Gap mmol/L BUN (9-20) mg/dL Creatinine (0.66-1.25) mg/dL Est GFR (CKD-EPI)AfAm (>60 ml/min/1.73 sqM) Est GFR (CKD-EPI)NonAf (>60 ml/min/1.73 sqM) Glucose (74-99) mg/dL POC Glucose (mg/dL) (75-99) mg/dL POC Glu Video Game Creator ID Calcium (8.4-10.2) mg/dL Total Bilirubin (0.2-1.3) mg/dL AST (17-59) U/L ALT (21-72) U/L Alkaline Phosphatase (38-126) U/L Ammonia 43 H (<30) umol/L Troponin I <0.012 (0.000-0.034) ng/mL Total Protein (6.3-8.2) g/dL Albumin (3.5-5.0) g/dL Urine Color Urine Appearance (Clear) Urine pH (5.0-8.0) Ur Specific [place] (1.001-1.035) Urine Protein (Negative) Urine Glucose (UA) (Negative) Urine Ketones (Negative) Urine Blood (Negative) Urine Nitrite (Negative) Urine Bilirubin (Negative) Urine Urobilinogen (<2.0) mg/dL Ur Leukocyte Esterase (Negative) Urine Opiates Screen (NotDetected) Ur Oxycodone Screen (NotDetected) Urine Methadone Screen (NotDetected) Ur Propoxyphene Screen (NotDetected) Ur Barbiturates Screen (NotDetected) U Tricyclic Antidepress (NotDetected) Ur Phencyclidine Scrn (NotDetected) Ur Amphetamines Screen (NotDetected) U Methamphetamines Scrn (NotDetected) U Benzodiazepines Scrn (NotDetected) Urine Cocaine Screen (NotDetected) U Marijuana (THC) Screen (NotDetected) 02/03/18 02/03/18 02/03/18 Range/Units 15:56 17:40 17:40 WBC (3.8-10.6) k/uL RBC (4.30-5.90) m/uL Hgb (13.0-17.5) gm/dL Hct (39.0-53.0) % MCV (80.0-100.0) fL MCH (25.0-35.0) pg MCHC (31.0-37.0) g/dL RDW (11.5-15.5) % Plt Count (150-450) k/uL Neutrophils % % Lymphocytes % % Monocytes % % Eosinophils % % Basophils % % Neutrophils # (1.3-7.7) k/uL Lymphocytes # (1.0-4.8) k/uL Monocytes # (0-1.0) k/uL Eosinophils # (0-0.7) k/uL Basophils # (0-0.2) k/uL Sodium 144 (137-145) mmol/L Potassium 2.9 L* (3.5-5.1) mmol/L Chloride 104 (98-107) mmol/L Carbon Dioxide 29 (22-30) mmol/L Anion Gap 11 mmol/L BUN 4 L (9-20) mg/dL Creatinine 0.48 L (0.66-1.25) mg/dL Est GFR (CKD-EPI)AfAm >90 (>60 ml/min/1.73 sqM) Est GFR (CKD-EPI)NonAf >90 (>60 ml/min/1.73 sqM) Glucose 83 (74-99) mg/dL POC Glucose (mg/dL) (75-99) mg/dL POC Glu Video Game Creator ID Calcium 10.1 (8.4-10.2) mg/dL Total Bilirubin 0.9 (0.2-1.3) mg/dL AST 15 L (17-59) U/L ALT 26 (21-72) U/L Alkaline Phosphatase 79 (38-126) U/L Ammonia (<30) umol/L Troponin I (0.000-0.034) ng/mL Total Protein 7.8 (6.3-8.2) g/dL Albumin 4.6 (3.5-5.0) g/dL Urine Color Colorless Urine Appearance Clear (Clear) Urine pH 7.0 (5.0-8.0) Ur Specific [place] 1.004 (1.001-1.035) Urine Protein Negative (Negative) Urine Glucose (UA) Negative (Negative) Urine Ketones Negative (Negative) Urine Blood Negative (Negative) Urine Nitrite Negative (Negative) Urine Bilirubin Negative (Negative) Urine Urobilinogen <2.0 (<2.0) mg/dL Ur Leukocyte Esterase Negative (Negative) Urine Opiates Screen Not Detected (NotDetected) Ur Oxycodone Screen Not Detected (NotDetected) Urine Methadone Screen Not Detected (NotDetected) Ur Propoxyphene Screen Not Detected (NotDetected) Ur Barbiturates Screen Not Detected (NotDetected) U Tricyclic Antidepress Not Detected (NotDetected) Ur Phencyclidine Scrn Not Detected (NotDetected) Ur Amphetamines Screen Not Detected (NotDetected) U Methamphetamines Scrn Not Detected (NotDetected) U Benzodiazepines Scrn Not Detected (NotDetected) Urine Cocaine Screen Not Detected (NotDetected) U Marijuana (THC) Screen Not Detected (NotDetected) 02/03/18 Range/Units 18:43 WBC (3.8-10.6) k/uL RBC (4.30-5.90) m/uL Hgb (13.0-17.5) gm/dL Hct (39.0-53.0) % MCV (80.0-100.0) fL MCH (25.0-35.0) pg MCHC (31.0-37.0) g/dL RDW (11.5-15.5) % Plt Count (150-450) k/uL Neutrophils % % Lymphocytes % % Monocytes % % Eosinophils % % Basophils % % Neutrophils # (1.3-7.7) k/uL Lymphocytes # (1.0-4.8) k/uL Monocytes # (0-1.0) k/uL Eosinophils # (0-0.7) k/uL Basophils # (0-0.2) k/uL Sodium (137-145) mmol/L Potassium (3.5-5.1) mmol/L Chloride (98-107) mmol/L Carbon Dioxide (22-30) mmol/L Anion Gap mmol/L BUN (9-20) mg/dL Creatinine (0.66-1.25) mg/dL Est GFR (CKD-EPI)AfAm (>60 ml/min/1.73 sqM) Est GFR (CKD-EPI)NonAf (>60 ml/min/1.73 sqM) Glucose (74-99) mg/dL POC Glucose (mg/dL) 77 (75-99) mg/dL POC Glu Video Game Creator ID Kerline Hunt Calcium (8.4-10.2) mg/dL Total Bilirubin (0.2-1.3) mg/dL AST (17-59) U/L ALT (21-72) U/L Alkaline Phosphatase (38-126) U/L Ammonia (<30) umol/L Troponin I (0.000-0.034) ng/mL Total Protein (6.3-8.2) g/dL Albumin (3.5-5.0) g/dL Urine Color Urine Appearance (Clear) Urine pH (5.0-8.0) Ur Specific [place] (1.001-1.035) Urine Protein (Negative) Urine Glucose (UA) (Negative) Urine Ketones (Negative) Urine Blood (Negative) Urine Nitrite (Negative) Urine Bilirubin (Negative) Urine Urobilinogen (<2.0) mg/dL Ur Leukocyte Esterase (Negative) Urine Opiates Screen (NotDetected) Ur Oxycodone Screen (NotDetected) Urine Methadone Screen (NotDetected) Ur Propoxyphene Screen (NotDetected) Ur Barbiturates Screen (NotDetected) U Tricyclic Antidepress (NotDetected) Ur Phencyclidine Scrn (NotDetected) Ur Amphetamines Screen (NotDetected) U Methamphetamines Scrn (NotDetected) U Benzodiazepines Scrn (NotDetected) Urine Cocaine Screen (NotDetected) U Marijuana (THC) Screen (NotDetected) Disposition Clinical Impression: Hyperammonemia, Altered mental status Disposition: HOME SELF-CARE Condition: Good Instructions: Altered Mental Status (ED) Is patient prescribed a controlled substance at d/c from ED?: No Referrals: Salvador Guevara MD [Primary Care Provider] - 1-2 days
[2018-02-03 18:46] LABS: Glucose,Whole Blood 77 mg/dL (75-99)
[2018-02-03 20:30] LABS: Basophils % (A) 0 %; Eosinophils # (A) 0.2 k/uL (0-0.7); Eosinophils % (A) 2 %; HCT 42.5 % (39.0-53.0); HGB 13.4 gm/dL (13.0-17.5); Lymphocytes # (A) 2.4 k/uL (1.0-4.8); Lymphocytes % (A) 32 %; MCH 28.3 pg (25.0-35.0); MCHC 31.5 g/dL (31.0-37.0); MCV 89.9 fL (80.0-100.0); Mean Platelet Volume 8.4; Monocytes # (A) 0.6 k/uL (0-1.0); Monocytes % (A) 8 %; Neutrophils # (A) 4.2 k/uL (1.3-7.7); Neutrophils % (A) 56 %; Platelet Count 236 k/uL (150-450); RBC 4.73 m/uL (4.30-5.90); RDW 13.7 % (11.5-15.5); WBC 7.5 k/uL (3.8-10.6)
[2018-02-03 20:41] LABS: ALT 28 U/L (21-72); AST 13 U/L (17-59); Albumin 4.1 g/dL (3.5-5.0); Alkaline Phosphatase 63 U/L (38-126); Anion Gap 7 mmol/L; Blood Urea Nitrogen 3 mg/dL (9-20); Calcium 9.3 mg/dL (8.4-10.2); Carbon Dioxide 29 mmol/L (22-30); Chloride 109 mmol/L (98-107); Glucose 101 mg/dL (74-99); Potassium 4.3 mmol/L (3.5-5.1); Sodium 145 mmol/L (137-145); Total Bilirubin 0.7 mg/dL (0.2-1.3); Total Protein 6.8 g/dL (6.3-8.2)
[2018-02-03 21:14] VITALS: BP 158/94; PULSE 69; TEMP 98.5
== END 2018-02-03 21:16 | disposition home or self-care (01) ==
LOC: EC 14:18
DX: E72.20 Disorder of urea cycle metabolism, unspecified (principal); R41.82 Altered mental status, unspecified; G40.909 Epilepsy, unspecified, not intractable, without status epilepticus; F31.9 Bipolar disorder, unspecified; F41.9 Anxiety disorder, unspecified; Z86.14 Personal history of Methicillin resistant Staphylococcus aureus infection; Z79.899 Other long term (current) drug therapy; Z88.8 Allergy status to other drugs, medicaments and biological substances
CPT/HCPCS: 36415; 71046; 80053; 80306; 81003; 82140; 84484; 85025; 87086; 93005; 96360; 96361; 99285

== ENCOUNTER 2018-02-04 18:19 | Inpatient (IN) | payer MEDICARE ==
[2018-02-04] MEDS ORDERED: SODIUM CHLORIDE 0.9% 1,000 ML IV STA (19:36)
--- NOTE | 2018-02-04 20:11 | ED ---
General Adult HPI - General Chief complaint: Recheck/Abnormal Lab/Rx Stated complaint: visual disturbance Time Seen by Provider: 02/04/18 19:29 Source: patient, RN notes reviewed, old records reviewed Mode of arrival: ambulatory Limitations: no limitations - History of Present Illness Initial comments: Patient's a 37-year-old male seen with a past medical history for OTC deficiency. He does admit that he was seen here in the emergency room last night. She's had some confusion that started yesterday. He does admit that he' s had symptoms of nausea vomiting and diarrhea over the last 3 days. Patient states today he noticed that he was looking at his phone he had photosensitivity. Patient states still feeling somewhat confused at times. He states he is concerned about his ammonia level being elevated because the symptoms are consistent with symptoms that is had in the past. Patient denies any recent fever, chills, shortness of breath, chest pain, back pain, numbness or tingling, dysuria or hematuria, constipation, headaches or visual changes, or any other complaints. - Related Data Home Medications Medication Instructions Recorded Confirmed Ravicti 1.1gm/Ml 6.6 gm PO TID@0900,1500,2100 03/28/17 02/04/18 Citalopram Hydrobromide [CeleXA] 40 mg PO DAILY 01/29/18 02/04/18 Esomeprazole Magnesium [NexIUM] 40 mg PO DAILY 01/29/18 02/04/18 ARIPiprazole [Abilify] 10 mg PO HS 02/03/18 02/04/18 methylPREDNISolone Dose Pack See Taper PO DIRECTED 02/03/18 02/04/18 [Medrol Dose Pack] Previous Rx's Medication Instructions Recorded RX: Indomethacin [Indocin] 25 mg PO TID #15 capsule 01/29/18 Allergies Allergy/AdvReac Type Severity Reaction Status Date / Time alprazolam [From Xanax] AdvReac Liver Verified 02/04/18 20:17 Complications cyclobenzaprine AdvReac Confusion Verified 02/04/18 20:17 [From Flexeril] olanzapine [From Zyprexa] AdvReac Liver Verified 02/04/18 20:17 Complications sertraline [From Zoloft] AdvReac Liver Verified 02/04/18 20:17 Complications Review of Systems ROS Statement: Those systems with pertinent positive or pertinent negative responses have been documented in the HPI. ROS Other: All systems not noted in ROS Statement are negative. 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 intermittent hyperammonemia, hyperammonemia with AMS, torn left ACL and left knee effusion- uses brace and cane prn, anemia-normocytic, 2013 bilateral feet fx and R ankle fx, recent R hand fx per pt-no longer casted, gastric ulcers and vomited blood in past, IBS, kidney stones passed by pt, bone deficiency- bones break easily, seizures-last one many yrs ago, shingles 2010 History of Any Multi-Drug Resistant Organisms: MRSA Date of last positivie culture/infection: 2013 MDRO Source:: Back Past Surgical History: Adenoidectomy, Ear Surgery, Tonsillectomy Additional Past Surgical History / Comment(s): liver biopsy, L-knee drained of 30 ml of fluid, tubes bilateral ears. Past Anesthesia/Blood Transfusion Reactions: Previous Problems w/ Anesthesia Additional Past Anesthesia/Blood Transfusion Reaction / Comment(s): Unable to wake up and being overly aggressive. Past Psychological History: Anxiety, Bipolar, Depression Smoking Status: Never smoker Past Alcohol Use History: None Reported Past Drug Use History: Marijuana - Past Family History Father Additional Family Medical History / Comment(s): Father at age 61 in April 2014, patient does not know cause of . Mother History Unknown: Yes Family Medical History: Cancer Brother(s) Family Medical History: No Reported History Sister(s) Family Medical History: No Reported History General Exam - General Exam Comments Initial Comments: General: The patient is awake and alert, in no distress, and does not appear acutely ill. Eye: Pupils are equal, round and reactive to light, extra-ocular movements are intact. No nystagmus. There is normal conjunctiva bilaterally. No signs of icterus. Ears, nose, mouth and throat: There are moist mucous membranes and no oral lesions. Neck: The neck is supple, there is no tenderness or JVD. Cardiovascular: There is a regular rate and rhythm. No murmur, rub or gallop is appreciated. Respiratory: Lungs are clear to auscultation, respirations are non-labored, breath sounds are equal. No wheezes, stridor, rales, or rhonchi. Gastrointestinal: Soft, non-distended, non-tender abdomen without masses or organomegaly noted. There is no rebound or guarding present. No CVA tenderness. Bowel sounds are unremarkable. Musculoskeletal: Normal ROM, no tenderness. Sensation intact. Neurological: A&O x 3. CN II-XII intact, There are no obvious motor or sensory deficits. Coordination appears grossly intact. Speech is normal. Skin: Skin is warm and dry and no rashes or lesions are noted. Psychiatric: Cooperative, appropriate mood & affect, normal judgment. Limitations: no limitations Course Vital Signs 02/04/18 02/04/18 18:47 21:17 Temperature 98.2 F 97.6 F Pulse Rate 61 45 L Respiratory 20 15 Rate Blood Pressure 151/103 130/86 O2 Sat by Pulse 99 99 Oximetry - Reevaluation(s) Reevaluation #1: 02/04/18 21:51 Discussed case with On-call customer success specialist from [facility] Dr Chacko. Patient's ammonia level 58 at this time. Was 42 last night. Patient would home last night after IV fluids. Does admit that symptoms have stayed the same with nausea vomiting diarrhea at home. States noticed had photosensitivity today and still some confusion. Patient is resting comfortably at this time. Has had no nausea vomiting or diarrhea here in the ER. IV has been started by nursing staff and patient starting treatment dextrose 10% half-normal saline with 20 mEq of potassium chloride. Dr[address] Chacko will discuss case with his attending at this time Medical Decision Making - Medical Decision Making Case was discussed with on-call customer success specialist from [facility] Dr. Castle. At this time patient's ammonia is 58 he's doing well here in the emergency room. He's been started on dextrose 10% half-normal saline with 20 mEq of potassium. Running at 1 50 mL/h. They recommend continue with this treatment at this time recheck in the ammonia level. Stating that if patient is able to tolerate by mouth's and ammonia is improving may be discharged home. Patient will be started on the treatment here in the emergency room and admitted to the hospital for the IV fluids. - Lab Data Result diagrams: 02/04/18 20:24 02/04/18 21:10 Lab Results 02/04/18 02/04/18 02/04/18 Range/Units 20:24 20:24 21:10 WBC 7.2 (3.8-10.6) k/uL RBC 4.68 (4.30-5.90) m/uL Hgb 14.1 (13.0-17.5) gm/dL Hct 41.8 (39.0-53.0) % MCV 89.2 (80.0-100.0) fL MCH 30.0 (25.0-35.0) pg MCHC 33.7 (31.0-37.0) g/dL RDW 13.5 (11.5-15.5) % Plt Count 177 (150-450) k/uL Neutrophils % 61 % Lymphocytes % 28 % Monocytes % 7 % Eosinophils % 2 % Basophils % 0 % Neutrophils # 4.4 (1.3-7.7) k/uL Lymphocytes # 2.1 (1.0-4.8) k/uL Monocytes # 0.5 (0-1.0) k/uL Eosinophils # 0.2 (0-0.7) k/uL Basophils # 0.0 (0-0.2) k/uL Sodium 143 (137-145) mmol/L Potassium 4.2 (3.5-5.1) mmol/L Chloride 107 (98-107) mmol/L Carbon Dioxide 27 (22-30) mmol/L Anion Gap 9 mmol/L BUN 3 L (9-20) mg/dL Creatinine 0.43 L (0.66-1.25) mg/dL Est GFR (CKD-EPI)AfAm >90 (>60 ml/min/1.73 sqM) Est GFR (CKD-EPI)NonAf >90 (>60 ml/min/1.73 sqM) Glucose 94 (74-99) mg/dL Calcium 9.7 (8.4-10.2) mg/dL Total Bilirubin 0.7 (0.2-1.3) mg/dL AST 16 L (17-59) U/L ALT 31 (21-72) U/L Alkaline Phosphatase 74 (38-126) U/L Ammonia 58 H (<30) umol/L Total Protein 7.2 (6.3-8.2) g/dL Albumin 4.3 (3.5-5.0) g/dL Disposition Clinical Impression: Hyperammonemia, OTC (ornithine transcarbamylase deficiency) Disposition: ADMITTED IP TO THIS HOSP Condition: Stable Is patient prescribed a controlled substance at d/c from ED?: No Referrals: Salvador Guevara MD [Primary Care Provider] - 1-2 days Time of Disposition: 22:26
[2018-02-04] MEDS ORDERED: DEXTROSE IV ONE ×3 (20:28)
[2018-02-04] MEDS ORDERED: [UNRECOGNIZED DRUG - OTHER] IV ONE ×3 (20:28)
[2018-02-04] MEDS ORDERED: SODIUM CHLORIDE IV ONE ×3 (20:28)
[2018-02-04] MEDS ORDERED: WATER IV ONE ×3 (20:28)
[2018-02-04 20:39] LABS: Basophils % (A) 0 %; Eosinophils # (A) 0.2 k/uL (0-0.7); Eosinophils % (A) 2 %; HCT 41.8 % (39.0-53.0); HGB 14.1 gm/dL (13.0-17.5); Lymphocytes # (A) 2.1 k/uL (1.0-4.8); Lymphocytes % (A) 28 %; MCHC 33.7 g/dL (31.0-37.0); MCV 89.2 fL (80.0-100.0); Mean Platelet Volume 9.2; Monocytes # (A) 0.5 k/uL (0-1.0); Monocytes % (A) 7 %; Neutrophils # (A) 4.4 k/uL (1.3-7.7); Neutrophils % (A) 61 %; Platelet Count 177 k/uL (150-450); RBC 4.68 m/uL (4.30-5.90); RDW 13.5 % (11.5-15.5); WBC 7.2 k/uL (3.8-10.6)
[2018-02-04 21:37] LABS: ALT 31 U/L (21-72); AST 16 U/L (17-59); Albumin 4.3 g/dL (3.5-5.0); Alkaline Phosphatase 74 U/L (38-126); Anion Gap 9 mmol/L; Blood Urea Nitrogen 3 mg/dL (9-20); Calcium 9.7 mg/dL (8.4-10.2); Carbon Dioxide 27 mmol/L (22-30); Chloride 107 mmol/L (98-107); Glucose 94 mg/dL (74-99); Potassium 4.2 mmol/L (3.5-5.1); Sodium 143 mmol/L (137-145); Total Bilirubin 0.7 mg/dL (0.2-1.3); Total Protein 7.2 g/dL (6.3-8.2)
[2018-02-04] MEDS ORDERED: NALOXONE 0.4 MG/ML 1 ML VIAL IV PRN (22:26)
[2018-02-04] MEDS ORDERED: ACETAMINOPHEN TAB 325 MG TAB PO PRN (22:26)
[2018-02-04 23:49] LABS: Appearance,Urine Clear (Clear); Bilirubin,Urine Negative (Negative); Blood,Urine Negative (Negative); Color,Urine Light Yellow; Glucose,Urine (UA) Negative (Negative); Ketones,Urine Negative (Negative); Leukocyte Esterase,Urine Negative (Negative); Nitrite,Urine Negative (Negative); Protein,Urine Negative (Negative); Specific Gravity,Urine 1.015 (1.001-1.035); Urobilinogen,Urine <2.0 mg/dL (<2.0)
[2018-02-05 01:12] VITALS: BMI 27.3
[2018-02-05] MEDS: ONDANSETRON 4 MG/2 ML VIAL IVP PRN ×2 (04:56→10:51)
[2018-02-05 06:53] LABS: Glucose,Whole Blood 115 mg/dL (75-99)
[2018-02-05] MEDS: DEXTROSE IV SCH ×12 (08:08→21:27)
[2018-02-05] MEDS: WATER IV SCH ×12 (08:08→21:27)
[2018-02-05] MEDS ORDERED: PANTOPRAZOLE 40 MG TABLET PO SCH (09:00)
[2018-02-05] MEDS ORDERED: CITALOPRAM HYDROBROMIDE 20 MG TAB PO SCH (09:00)
[2018-02-05] MEDS: [UNRECOGNIZED DRUG - OTHER] PO SCH ×3 (10:19→21:32)
[2018-02-05 10:22] LABS: Anion Gap 9 mmol/L; Blood Urea Nitrogen 2 mg/dL (9-20); Calcium 8.6 mg/dL (8.4-10.2); Carbon Dioxide 23 mmol/L (22-30); Chloride 109 mmol/L (98-107); Glucose 129 mg/dL (74-99); Potassium 3.6 mmol/L (3.5-5.1); Sodium 141 mmol/L (137-145)
[2018-02-05 11:21] VITALS: RESP 16
--- NOTE | 2018-02-05 13:15 | P.CNPUL ---
History of Present Illness Consult date: 02/05/18 History of present illness: 37-year-old male patient with known history of a OTC deficiency, followed up by the metabolic center at the [facility], [facility]. The patient has had multiple admissions to the emergency when he comes in and checks his ammonia level due to concern of hyperammonemia. In any rate, he came in for the same yesterday to the emergency department and the same thing was acting confused. He was having some nausea and emesis and diarrhea for the past few days. He was also complaining of some photosensitivity. No fever. No chills. No chest pain. No shortness of breath. No focal neurological deficit. In the emergency department his initial ammonia level was at 58 and a subsequent level was at 286. During this time the patient was admitted to the hospital and on the floor he became unresponsive and this was obviously concerned specially with his elevated ammonia level. Emergency team came to evaluate the patient patient got moved to the intensive care unit. The patient was given dextrose infusion at the rate of 200 is an hour and subsequently aroused. His most recent ammonium level is at 50. Discussed the case with the team at the [facility]. The patient will be transferred today. He has been maintained on Ravicti 1.1 mg per mL solution 3 times a day. He also has a chronic history of bipolar disorder maintained on a combination of Celexa and Abilify on outpatient basis. He takes Nexium for acid reflux. Hemodynamically stable. Afebrile. Urinalysis is negative. The rest of the blood work essentially within normal with exception of the elevated ammonia level. Review of Systems Full 12 point review of system was done and the positive findings are all mentioned above in history of present illness 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 intermittent hyperammonemia, hyperammonemia with AMS, torn left ACL and left knee effusion- uses brace and cane prn, anemia-normocytic, 2013 bilateral feet fx and R ankle fx, recent R hand fx per pt-no longer casted, gastric ulcers and vomited blood in past, IBS, kidney stones passed by pt, bone deficiency- bones break easily, seizures-last one many yrs ago, shingles 2009, Gout, History of Any Multi-Drug Resistant Organisms: MRSA Date of last positivie culture/infection: 2013 MDRO Source:: Back Past Surgical History: Adenoidectomy, Ear Surgery, Tonsillectomy Additional Past Surgical History / Comment(s): liver biopsy, L-knee drained of 30 ml of fluid, tubes bilateral ears. Past Anesthesia/Blood Transfusion Reactions: Previous Problems w/ Anesthesia Additional Past Anesthesia/Blood Transfusion Reaction / Comment(s): Unable to wake up and being overly aggressive. Past Psychological History: Anxiety, Bipolar, Depression Additional Psychological History / Comment(s): Poor impulse control, anger management issues. History of being placed in restraints, numerous inpatient psychiatric admissions including [facility]. PT lives in apt. with significant other. He has a L knee brace and cane he uses prn. He does not drive-his significant other takes him places. Pt can read and write alittle. Smoking Status: Never smoker Past Alcohol Use History: None Reported Additional Past Alcohol Use History / Comment(s): Patient states he has been a nonsmoker. He smokes marijuana on occasion. Past Drug Use History: Marijuana Additional Drug Use History / Comment(s): see above - Past Family History Father Additional Family Medical History / Comment(s): Father at age 61 in April 2014, patient does not know cause of . Mother History Unknown: Yes Family Medical History: Cancer Brother(s) Family Medical History: No Reported History Sister(s) Family Medical History: No Reported History Medications and Allergies Home Medications Medication Instructions Recorded Confirmed Type Ravicti 1.1gm/Ml 6.6 gm PO TID@0900,1500,2100 03/28/17 02/04/18 History Citalopram Hydrobromide [CeleXA] 40 mg PO DAILY 01/29/18 02/04/18 History Esomeprazole Magnesium [NexIUM] 40 mg PO DAILY 01/29/18 02/04/18 History Indomethacin [Indocin] 25 mg PO TID #15 capsule 01/29/18 02/04/18 Rx ARIPiprazole [Abilify] 10 mg PO HS 02/03/18 02/04/18 History methylPREDNISolone Dose Pack See Taper PO DIRECTED 02/03/18 02/04/18 History [Medrol Dose Pack] Allergies Allergy/AdvReac Type Severity Reaction Status Date / Time alprazolam [From Xanax] AdvReac Liver Verified 02/04/18 20:17 Complications cyclobenzaprine AdvReac Confusion Verified 02/04/18 20:17 [From Flexeril] olanzapine [From Zyprexa] AdvReac Liver Verified 02/04/18 20:17 Complications sertraline [From Zoloft] AdvReac Liver Verified 02/04/18 20:17 Complications Physical Exam Vitals: Vital Signs Temp Pulse Pulse Resp BP BP Pulse Ox 02/05/18 12:00 98.6 F 62 16 139/92 97 02/05/18 11:00 48 L 16 153/79 97 02/05/18 10:00 48 L 20 143/91 98 02/05/18 09:30 47 L 16 152/86 97 02/05/18 09:00 51 L 48 L 14 152/86 100 02/05/18 08:30 52 L 14 137/78 95 02/05/18 08:00 97.6 F 58 L 50 L 20 134/100 137/78 98 02/05/18 07:00 56 L 134/100 92 L 02/05/18 06:53 99 02/05/18 06:15 45 L 16 108/78 99 02/05/18 01:13 97.6 F 58 L 16 130/76 99 02/04/18 23:58 98.1 F 52 L 18 138/88 98 02/04/18 21:17 97.6 F 45 L 15 130/86 99 02/04/18 18:47 98.2 F 61 20 151/103 99 Intake and Output 02/04/18 02/05/18 02/05/18 22:59 06:59 14:59 Intake Total 920 Output Total 825 Balance 95 Intake: IV 800 D12.5 800 Oral 120 Output: Urine 700 Emesis 125 Other: Voiding Method Toilet # Voids 0 # Bowel Movements 1 Weight 81.647 kg 86.3 kg The patient appeared well nourished and normally developed. Vital signs as documented. Head exam is unremarkable. No scleral icterus or corneal arcus noted. Neck is without jugular venous distension, thyromegaly, or carotid bruits. Carotid upstrokes are brisk bilaterally. Lungs are clear to auscultation and percussion. Cardiac exam reveals the PMI to be normally sized and situated. Rhythm is regular. First and second heart sounds normal. No murmurs, rubs or gallops. Abdominal exam reveals normal bowel sounds, no masses , no organomegaly and no aortic enlargement. Extremities are nonedematous and both femoral and pedal pulses are normal. Neurologically awake and alert and there is a focal neurological deficit.Examination of the skin revealed no evidence of significant rashes, suspicious appearing nevi or other concerning lesions. Results - Laboratory Findings CBC and BMP: 02/04/18 20:24 02/05/18 07:45 Abnormal lab findings: Abnormal Labs 02/04/18 02/04/18 02/05/18 20:24 21:10 05:26 Chloride BUN 3 L Creatinine 0.43 L Glucose POC Glucose (mg/dL) AST 16 L Ammonia 58 H 286 H 02/05/18 02/05/18 02/05/18 06:51 07:45 07:45 Chloride 109 H BUN 2 L Creatinine 0.37 L Glucose 129 H POC Glucose (mg/dL) 115 H AST Ammonia 50 H Assessment and Plan Plan: Assessment 1 altered mentation probably related to hyperammonemia in a sedation with OTC deficiency 2 Ornithine TransCarbamylase (OTC) deficiency, Impaired processing of protein and risk for intermittent hyperammonemia 3 torn left ACL and left knee effusion-uses brace and cane prn, 4 bipolar disorder 5 kidney stones 6 IVS 7 recurrent bouts of nausea and emesis and history of gastric ulcers Plan Patient is stable. No active pulmonary or critical care issue. Mental status is back to its baseline. The patient be transferred to [facility] to be evaluated by the metabolic team involved with this type of disorder
[2018-02-05 15:55] LABS: Glucose,Whole Blood 94 mg/dL (75-99)
[2018-02-05 19:34] LABS: Anion Gap 11 mmol/L; Blood Urea Nitrogen <2 mg/dL (9-20); Calcium 9.5 mg/dL (8.4-10.2); Carbon Dioxide 22 mmol/L (22-30); Chloride 109 mmol/L (98-107); Glucose 117 mg/dL (74-99); Potassium 3.9 mmol/L (3.5-5.1); Sodium 142 mmol/L (137-145)
--- NOTE | 2018-02-05 20:51 | P.HPIM ---
History of Present Illness This is a pleasant 37 years old male with past medical history significant for Ornithine transcarbamylase (OTC) deficiency which implies impaired processing of protein with higher risk of intermittent hypre-ammonia with associated possible delirium, also previous history of seizure disorders ( when i asked pt he denies to me , however pt is confused , no AED noticed in his med list) and GI bleed previous extremity fractures, history of stomach ulcer (confirmed to me by pt), operative bowel syndrome, nephrolithiasis, gout, and MRSA infection. He presented this time with confusion, patient is is that he was having difficult time finding Towel papers although they were next him, he is confused and he came to the emergency room and found his ammonia level high, the first was 42 as per patient and checked for taken into was 286, patient was treated with IV fluids and ammonia come down this morning to 50 high. He is still getting the 10 walker at 200 mL per hour. When asked patient if he has diarrhea, nausea vomiting, he said he cannot remembert Review of Systems CONSTITUTIONAL: No fever, no malaise, no fatigue. HEENT: No recent visual problems or hearing problems. Denied any sore throat. CARDIOVASCULAR: No orthopnea, PND, no palpitations, no syncope. PULMONARY: No shortness of breath, no cough, no hemoptysis. NEUROLOGICAL: No headaches, no weakness, no numbness. HEMATOLOGICAL: Denies any bleeding or petechiae. GENITOURINARY: Denies any burning micturition, frequency, or urgency. MUSCULOSKELETAL/RHEUMATOLOGICAL: Denies any joint pain, swelling, or any muscle pain. ENDOCRINE: Denies any polyuria or polydipsia. 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 intermittent hyperammonemia, hyperammonemia with AMS, torn left ACL and left knee effusion- uses brace and cane prn, anemia-normocytic, 2013 bilateral feet fx and R ankle fx, recent R hand fx per pt-no longer casted, gastric ulcers and vomited blood in past, IBS, kidney stones passed by pt, bone deficiency- bones break easily, seizures-last one many yrs ago, shingles 2009, Gout, History of Any Multi-Drug Resistant Organisms: MRSA Date of last positivie culture/infection: 2013 MDRO Source:: Back Past Surgical History: Adenoidectomy, Ear Surgery, Tonsillectomy Additional Past Surgical History / Comment(s): liver biopsy, L-knee drained of 30 ml of fluid, tubes bilateral ears. Past Anesthesia/Blood Transfusion Reactions: Previous Problems w/ Anesthesia Additional Past Anesthesia/Blood Transfusion Reaction / Comment(s): Unable to wake up and being overly aggressive. Past Psychological History: Anxiety, Bipolar, Depression Additional Psychological History / Comment(s): Poor impulse control, anger management issues. History of being placed in restraints, numerous inpatient psychiatric admissions including [facility]. PT lives in apt. with significant other. He has a L knee brace and cane he uses prn. He does not drive-his significant other takes him places. Pt can read and write alittle. Smoking Status: Never smoker Past Alcohol Use History: None Reported Additional Past Alcohol Use History / Comment(s): Patient states he has been a nonsmoker. He smokes marijuana on occasion. Past Drug Use History: Marijuana Additional Drug Use History / Comment(s): see above - Past Family History Father Additional Family Medical History / Comment(s): Father at age 61 in April 2014, patient does not know cause of . Mother History Unknown: Yes Family Medical History: Cancer Brother(s) Family Medical History: No Reported History Sister(s) Family Medical History: No Reported History Medications and Allergies Home Medications Medication Instructions Recorded Confirmed Type Ravicti 1.1gm/Ml 6.6 gm PO TID@0900,1500,2100 03/28/17 02/04/18 History Citalopram Hydrobromide [CeleXA] 40 mg PO DAILY 01/29/18 02/04/18 History Esomeprazole Magnesium [NexIUM] 40 mg PO DAILY 01/29/18 02/04/18 History Indomethacin [Indocin] 25 mg PO TID #15 capsule 01/29/18 02/04/18 Rx ARIPiprazole [Abilify] 10 mg PO HS 02/03/18 02/04/18 History methylPREDNISolone Dose Pack See Taper PO DIRECTED 02/03/18 02/04/18 History [Medrol Dose Pack] Allergies Allergy/AdvReac Type Severity Reaction Status Date / Time alprazolam [From Xanax] AdvReac Liver Verified 02/04/18 20:17 Complications cyclobenzaprine AdvReac Confusion Verified 02/04/18 20:17 [From Flexeril] olanzapine [From Zyprexa] AdvReac Liver Verified 02/04/18 20:17 Complications sertraline [From Zoloft] AdvReac Liver Verified 02/04/18 20:17 Complications Physical Exam Vitals: Vital Signs Temp Pulse Pulse Resp BP BP Pulse Ox 02/05/18 09:00 48 L 16 152/86 100 02/05/18 08:00 97.6 F 50 L 15 137/78 98 02/05/18 06:15 45 L 16 108/78 99 02/05/18 01:13 97.6 F 58 L 16 130/76 99 02/04/18 23:58 98.1 F 52 L 18 138/88 98 02/04/18 21:17 97.6 F 45 L 15 130/86 99 02/04/18 18:47 98.2 F 61 20 151/103 99 Intake and Output 02/04/18 02/05/18 02/05/18 22:59 06:59 14:59 Output Total 450 Balance -450 Output: Urine 450 Other: Weight 81.647 kg 86.3 kg GENERAL: The patient is alert and oriented x3,forgets at time and a little confused. not in any acute distress. Well developed, well nourished. pt looks confused and he can not remember certain things HEENT: Pupils are round and equally reacting to light. EOMI. No scleral icterus. No conjunctival pallor. Normocephalic, atraumatic. No pharyngeal erythema. No thyromegaly. CARDIOVASCULAR: S1 and S2 present. No murmurs, rubs, or gallops. PULMONARY: Chest is clear to auscultation, no wheezing or crackles. ABDOMEN: Soft, nontender, nondistended, normoactive bowel sounds. No palpable organomegaly. MUSCULOSKELETAL: No joint swelling or deformity. EXTREMITIES: No cyanosis, clubbing, or pedal edema. NEUROLOGICAL: Gross neurological examination did not reveal any focal deficits. SKIN: No rashes. Results CBC & Chem 7: 02/04/18 20:24 02/05/18 19:02 Labs: Abnormal Lab Results - Last 24 Hours (Table) 02/04/18 02/04/18 02/05/18 Range/Units 20:24 21:10 05:26 BUN 3 L (9-20) mg/dL Creatinine 0.43 L (0.66-1.25) mg/dL POC Glucose (mg/dL) (75-99) mg/dL AST 16 L (17-59) U/L Ammonia 58 H 286 H (<30) umol/L 02/05/18 02/05/18 Range/Units 06:51 07:45 BUN (9-20) mg/dL Creatinine (0.66-1.25) mg/dL POC Glucose (mg/dL) 115 H (75-99) mg/dL AST (17-59) U/L Ammonia 50 H (<30) umol/L Thrombosis Risk Factor Assmnt - Choose All That Apply Any of the Below Risk Factors Present?: No Assessment and Plan Assessment: Ornithine transcarbamylase (OTC) deficiency which implies impaired processing of protein with higher risk of intermittent hyperammonia with associated possible delirium, history of seizure disorders h/o GI bleed previous h/o extremity fractures history of stomach ulcer Irritable bowel syndrome nephrolithiasis gout h/o MRSA infection Plan: this is a 37 yo M with pmh of Ornithine transcarbamylase (OTC) deficiency who presents with confusion and high ammonia level. pt admitted to ICU, and started on D5W as per staff overnight and from recommendation of gene ped team at [facility] where pt is usually treated. his ammnia level is improving ,but he still has some confusion. continue with same treatment. continue with symptomatic treatment. monitor vitals and labs . monitor Na level. i discussed the case with from [facility]/ [facility] and he kindly accepted pt to transfer. pt informed and he agrees . pt is stable for transfer once open bed is available. transfer from ICU to general medical floor. d/w staff. GI and DVT prophylaxis. further recommendation based upon progress of pt. prognosis is guarded based upon my evaluation pt has capacity to make decision . at bed side upon pt request
[2018-02-05] MEDS ORDERED: ARIPiprazole 10 MG TAB PO SCH (21:00)
[2018-02-05] MEDS ORDERED: SODIUM CHLORIDE 0.9% 1,000 ML IV SCH (21:15)
[2018-02-05] MEDS ORDERED: WATER IV SCH ×8 (21:30→22:00)
[2018-02-05] MEDS ORDERED: DEXTROSE IV SCH ×8 (21:30→22:00)
[2018-02-05] MEDS ORDERED: WATER FOR INJECTION IV SCH ×6 (22:00)
[2018-02-05] MEDS ORDERED: STERILE IV SCH ×6 (22:00)
[2018-02-05] MEDS ORDERED: [UNRECOGNIZED DRUG - OTHER] IV SCH ×6 (22:00)
[2018-02-06 00:47] VITALS: BP 137/82; PULSE 61; TEMP 98.5
== END 2018-02-06 00:48 | disposition short-term general hospital (02) | DRG 642 ==
LOC: EC 18:19 → 4MS4W 23:17 → 6ICU 02-05 06:49 → OBSVTOIN 02-05 06:51 → 6SEL 02-05 18:13
PROVIDERS: ADMIT Hospitalist; ATTEND Hospitalist
DX: E72.4 Disorders of ornithine metabolism (principal); F41.9 Anxiety disorder, unspecified; G40.909 Epilepsy, unspecified, not intractable, without status epilepticus; K21.9 Gastro-esophageal reflux disease without esophagitis; K58.9 Irritable bowel syndrome, unspecified; N20.0 Calculus of kidney; F32.9 Major depressive disorder, single episode, unspecified; Z79.899 Other long term (current) drug therapy; Z86.14 Personal history of Methicillin resistant Staphylococcus aureus infection; Z87.11 Personal history of peptic ulcer disease; Z88.8 Allergy status to other drugs, medicaments and biological substances
CPT/HCPCS: 36415; 80048; 80053; 81003; 82140; 85025; 96361; 96365; 96366; 99285

== ENCOUNTER 2018-04-09 14:36 | Inpatient (IN) | payer MEDICARE ==
[2018-04-09] MEDS ORDERED: SODIUM CHLORIDE 0.9% 1,000 ML IV STA (15:23)
--- NOTE | 2018-04-09 15:52 | ED ---
Recheck HPI - General Chief Complaint: Recheck/Abnormal Lab/Rx Stated Complaint: ammonia levels off Time Seen by Provider: 04/09/18 15:23 Source: patient, RN notes reviewed, old records reviewed Mode of arrival: ambulatory Limitations: no limitations - History of Present Illness Initial Comments: This is a 37-year-old male the ER for evaluation. Patient has known multiple evaluations with no murmurs or for multiple issues. The patient's coming in for evaluation regarding possible altered mental status, possible elevated ammonia MD Complaint: abnormal lab (Ammonia) -: days(s) (1) Symptoms Since Prior Visit: no new symptoms Context: planned re-check (Symptom related) Associated Symptoms: malaise - Related Data Home Medications Medication Instructions Recorded Confirmed Ravicti 1.1gm/Ml 6.6 gm PO TID 03/28/17 04/09/18 Ibuprofen [Motrin] 800 mg PO TID 04/09/18 04/09/18 Allergies Allergy/AdvReac Type Severity Reaction Status Date / Time alprazolam [From Xanax] AdvReac Liver Verified 04/09/18 16:01 Complications cyclobenzaprine AdvReac Confusion Verified 04/09/18 16:01 [From Flexeril] olanzapine [From Zyprexa] AdvReac Liver Verified 04/09/18 16:01 Complications sertraline [From Zoloft] AdvReac Liver Verified 04/09/18 16:01 Complications Review of Systems ROS Statement: Those systems with pertinent positive or pertinent negative responses have been documented in the HPI. ROS Other: All systems not noted in ROS Statement are negative. 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 intermittent hyperammonemia, hyperammonemia with AMS, torn left ACL and left knee effusion- uses brace and cane prn, anemia-normocytic, 2013 bilateral feet fx and R ankle fx, recent R hand fx per pt-no longer casted, gastric ulcers and vomited blood in past, IBS, kidney stones passed by pt, bone deficiency- bones break easily, seizures-last one many yrs ago, shingles 2009, Gout, History of Any Multi-Drug Resistant Organisms: MRSA Date of last positivie culture/infection: 2013 MDRO Source:: Back Past Surgical History: Adenoidectomy, Ear Surgery, Tonsillectomy Additional Past Surgical History / Comment(s): liver biopsy, L-knee drained of 30 ml of fluid, tubes bilateral ears. Past Anesthesia/Blood Transfusion Reactions: Previous Problems w/ Anesthesia Additional Past Anesthesia/Blood Transfusion Reaction / Comment(s): Unable to wake up and being overly aggressive. Past Psychological History: Anxiety, Bipolar, Depression Smoking Status: Never smoker Past Alcohol Use History: None Reported Past Drug Use History: Marijuana - Past Family History Father Additional Family Medical History / Comment(s): Father at age 61 in April 2014, patient does not know cause of . Mother History Unknown: Yes Family Medical History: Cancer Brother(s) Family Medical History: No Reported History Sister(s) Family Medical History: No Reported History General Exam Limitations: no limitations General appearance: alert, in no apparent distress Head exam: Present: atraumatic, normocephalic, normal inspection Eye exam: Present: normal appearance, PERRL, EOMI. Absent: scleral icterus, conjunctival injection, periorbital swelling ENT exam: Present: normal exam, mucous membranes moist Neck exam: Present: normal inspection. Absent: tenderness, meningismus, lymphadenopathy Respiratory exam: Present: normal lung sounds bilaterally. Absent: respiratory distress, wheezes, rales, rhonchi, stridor Cardiovascular Exam: Present: regular rate, normal rhythm, normal heart sounds. Absent: systolic murmur, diastolic murmur, rubs, gallop, clicks GI/Abdominal exam: Present: soft, normal bowel sounds. Absent: distended, tenderness, guarding, rebound, rigid Extremities exam: Present: normal inspection, full ROM, normal capillary refill. Absent: tenderness, pedal edema, joint swelling, calf tenderness Back exam: Present: normal inspection Neurological exam: Present: alert, oriented X3, CN II-XII intact Psychiatric exam: Present: normal affect, normal mood Skin exam: Present: warm, dry, intact, normal color. Absent: rash Course Vital Signs 04/09/18 04/09/18 04/09/18 14:51 16:20 17:00 Temperature 97.7 F Pulse Rate 76 45 L 51 L Respiratory 20 18 18 Rate Blood Pressure 125/68 134/116 137/93 O2 Sat by Pulse 97 100 99 Oximetry - Reevaluation(s) Reevaluation #1: 04/09/18 16:35 Medical record is reviewed, well-known Reevaluation #2: 04/09/18 18:18 Patient will be admitted for reevaluation of ammonia after hydration and treatment Medical Decision Making - Medical Decision Making 37 male with history of OTC coming in with hyperammonemia. Patient be admitted for IV hydration taking all meds and will recheck ammonia - Lab Data Lab Results 04/09/18 04/09/18 Range/Units 15:23 16:20 PT 10.8 (9.0-12.0) sec INR 1.1 (<1.2) APTT 19.5 L (22.0-30.0) sec Plasma Lactic Acid Juan A 1.6 (0.7-2.0) mmol/L Ammonia 146 H (<30) umol/L - EKG Data -: EKG Interpreted by Me (EKG shows sinus bradycardia rate of 46, ME 146, QRS 90 , QTC 383) EKG shows normal: sinus rhythm Rate: bradycardia Disposition Clinical Impression: Hyperammonemia, OTC (ornithine transcarbamylase deficiency), Nausea & vomiting Disposition: ADMITTED IP TO THIS HOSP Condition: Fair Is patient prescribed a controlled substance at d/c from ED?: No Referrals: Salvador Guevara MD [Primary Care Provider] - 1-2 days
[2018-04-09 16:58] LABS: INR 1.1 (<1.2); Prothrombin Time 10.8 sec (9.0-12.0)
[2018-04-09 16:59] LABS: Lactic Acid, Venous 1.6 mmol/L (0.7-2.0)
[2018-04-09 17:11] LABS: Partial Thromboplastin Time 19.5 sec (22.0-30.0)
[2018-04-09 18:50] LABS: Basophils # (A) 0.1 k/uL (0-0.2); Basophils % (A) 1 %; Eosinophils # (A) 0.2 k/uL (0-0.7); Eosinophils % (A) 3 %; HCT 38.4 % (39.0-53.0); HGB 13.2 gm/dL (13.0-17.5); Lymphocytes % (A) 27 %; MCH 30.1 pg (25.0-35.0); MCHC 34.4 g/dL (31.0-37.0); MCV 87.4 fL (80.0-100.0); Mean Platelet Volume 9.2; Monocytes # (A) 0.4 k/uL (0-1.0); Monocytes % (A) 5 %; Neutrophils # (A) 4.6 k/uL (1.3-7.7); Neutrophils % (A) 63 %; Platelet Count 168 k/uL (150-450); RBC 4.39 m/uL (4.30-5.90); RDW 13.7 % (11.5-15.5); WBC 7.4 k/uL (3.8-10.6)
[2018-04-09 19:03] LABS: Creatine Kinase 68 U/L (55-170)
[2018-04-09 19:04] LABS: ALT 43 U/L (21-72); AST 26 U/L (17-59); Albumin 3.9 g/dL (3.5-5.0); Alkaline Phosphatase 58 U/L (38-126); Anion Gap 8 mmol/L; Blood Urea Nitrogen 4 mg/dL (9-20); Calcium 9.4 mg/dL (8.4-10.2); Carbon Dioxide 23 mmol/L (22-30); Chloride 111 mmol/L (98-107); Glucose 87 mg/dL (74-99); Magnesium 1.5 mg/dL (1.6-2.3); Phosphorus 3.7 mg/dL (2.5-4.5); Sodium 142 mmol/L (137-145); Total Bilirubin 0.7 mg/dL (0.2-1.3); Total Protein 6.3 g/dL (6.3-8.2)
[2018-04-09 19:15] LABS: Creatine Kinase MB 0.6 ng/mL (0.0-2.4); Troponin I <0.012 ng/mL (0.000-0.034)
[2018-04-09] MEDS ORDERED: MAGNESIUM SULFATE-D5W PMX 1 GM in DEXTROSE/WATER 1 100ML.BAG IVPB ONE (22:00)
--- NOTE | 2018-04-09 22:00 | P.HPIM ---
History of Present Illness H&P Date: 04/09/18 Chief Complaint: Nausea, history of OTC 37-year-old male with history of OTC (ornithine transcarbamylase deficiency) Patient presented the hospital due to nausea and not feeling well he was anticipating that his ammonia level would be very high so he came to the hospital for evaluation. He denies any confusion or any focal neurologic deficits. He claims to be compliant with his diet and home medications. In the emergency department she was found to have ammonia level of 131 and was admitted for IV fluid hydration and further monitoring. Currently patient feels comfortable he's tolerating diet denies any nausea or vomiting. Denies any abdominal pain. Denies any headache changes in his vision or hearing denies any GI bleeding. Patient provided me with his therapy protocol. Most of these medications are unavailable except for the D10 IV fluid. Patient reported that he is supposed to go to [facility] if the ammonia gets [id number]. I'm waiting for repeat ammonia level if it continues to go up I will be contacting his doctorat [facility] to arrange for the transfer Review of Systems Pertinent positives as noted in HPI. All other systems were reviewed and are negative 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 intermittent hyperammonemia, hyperammonemia with AMS, torn left ACL and left knee effusion- uses brace and cane prn, anemia-normocytic, 2014 bilateral feet fx and R ankle fx, recent R hand fx per pt-no longer casted, gastric ulcers and vomited blood in past, IBS, kidney stones passed by pt, bone deficiency- bones break easily, seizures-last one many yrs ago, shingles 2009, Gout, History of Any Multi-Drug Resistant Organisms: MRSA Date of last positivie culture/infection: 2013 MDRO Source:: Back Past Surgical History: Adenoidectomy, Ear Surgery, Tonsillectomy Additional Past Surgical History / Comment(s): liver biopsy, L-knee drained of 30 ml of fluid, tubes bilateral ears. Past Anesthesia/Blood Transfusion Reactions: Previous Problems w/ Anesthesia Additional Past Anesthesia/Blood Transfusion Reaction / Comment(s): Unable to wake up and being overly aggressive. Past Psychological History: Anxiety, Bipolar, Depression Additional Psychological History / Comment(s): Poor impulse control, anger management issues. History of being placed in restraints, numerous inpatient psychiatric admissions including [facility]. PT lives alone in [facility]. He has a L knee brace and cane he uses prn. Pt can read and write a little. Smoking Status: Never smoker Past Alcohol Use History: None Reported Additional Past Alcohol Use History / Comment(s): Patient states he has been a nonsmoker. He smokes marijuana on occasion. Past Drug Use History: Marijuana Additional Drug Use History / Comment(s): see above - Past Family History Father Family Medical History: Cancer, Liver Disease Additional Family Medical History / Comment(s): Father at age 61 in April 2014.colon cancer, cirrhosis of the liver Mother History Unknown: Yes Family Medical History: Cancer Brother(s) Family Medical History: No Reported History Sister(s) Family Medical History: No Reported History Medications and Allergies Home Medications Medication Instructions Recorded Confirmed Type Ravicti 1.1gm/Ml 6.6 gm PO TID 03/28/17 04/09/18 History Ibuprofen [Motrin] 800 mg PO TID 04/09/18 04/09/18 History Allergies Allergy/AdvReac Type Severity Reaction Status Date / Time alprazolam [From Xanax] AdvReac Liver Verified 04/09/18 16:01 Complications cyclobenzaprine AdvReac Confusion Verified 04/09/18 16:01 [From Flexeril] olanzapine [From Zyprexa] AdvReac Liver Verified 04/09/18 16:01 Complications sertraline [From Zoloft] AdvReac Liver Verified 04/09/18 16:01 Complications Physical Exam Vitals: Vital Signs Temp Pulse Resp BP Pulse Ox 04/09/18 19:32 98.9 F 04/09/18 19:30 55 L 10 L 138/83 98 04/09/18 18:30 40 L 9 L 122/90 04/09/18 18:00 47 L 16 119/76 04/09/18 17:00 51 L 18 137/93 99 04/09/18 16:20 45 L 18 134/116 100 04/09/18 14:51 97.7 F 76 20 125/68 97 Intake and Output 04/09/18 04/09/18 04/09/18 06:59 14:59 22:59 Other: Weight 92.306 kg Constitutional: No acute distress, conversant, pleasant, well-developed Eyes: Anicteric sclerae, moist conjunctiva, no lid-lag Pupils equal round reactive to light ENMT: NC/AT Oropharynx clear, no erythema, exudates Neck: Supple, FROM, no masses, or JVD No carotid bruits No thyromegaly Lungs: Clear to auscultation Clear to percussion Normal respiratory effort, no accessory muscle use Cardiovascular: Heart regular in rate and rhythm, No murmurs, gallops, or rubs No peripheral edema Abdominal: Soft Nontender, no guarding, rebound or rigidity Abdomen moving with respiration Normoactive bowel sounds No hepatomegaly, No splenomegaly No palpable mass No abdominal wall hernia noted Skin: Normal temperature, tone, texture, turgor No induration No subcutaneous nodules No rash, lesions No ulcers Extremities: No digital cyanosis No clubbing Pedal pulses intact and symmetrical Radial pulses intact and symmetrical No calf tenderness Psychiatric: Alert and oriented to person, place and time Appropriate affect fair judgement Neuro no asterixis Muscles Strength 5/5 in all 4 extremities Sensation to light touch grossly present throughout Cranial nerves II-XII grossly intact No focal sensory deficits Lymphatics: no palpable cervical or supraclavicular , or inguinal lymph nodes Results CBC & Chem 7: 04/09/18 18:35 04/09/18 18:35 Labs: Abnormal Lab Results - Last 24 Hours (Table) 04/09/18 04/09/18 04/09/18 Range/Units 15:23 16:20 18:35 Hct 38.4 L (39.0-53.0) % APTT 19.5 L (22.0-30.0) sec Chloride (98-107) mmol/L BUN (9-20) mg/dL Creatinine (0.66-1.25) mg/dL Magnesium (1.6-2.3) mg/dL Ammonia 146 H (<30) umol/L 04/09/18 Range/Units 18:35 Hct (39.0-53.0) % APTT (22.0-30.0) sec Chloride 111 H (98-107) mmol/L BUN 4 L (9-20) mg/dL Creatinine 0.46 L (0.66-1.25) mg/dL Magnesium 1.5 L (1.6-2.3) mg/dL Ammonia (<30) umol/L Assessment and Plan Assessment: 37-year-old male with history of OTC, patient admitted as inpatient with anticipated length of stay of more than 48 hours due to hyperammonemia, aggressive hydration was initiated, patient started on D10, no calories from protein. We'll follow up ammonia level if it continues to increase patient will be transferred to [facility] Plan: History of OTC Hyperammonemia, symptomatic Could not follow OTC management protocol that's a copy by the patient. Due to lack of the medications recommended. She will be started on D10 infusion and we'll kept on carb diet with no proteins Ammonia level and electrolytes will be followed closely every 6 hours, if ammonia continues to rise patient will be transferred to [facility] Continue home medications glycerol phenylbuterate She is scheduled to have frequent carb meals Hypomagnesemia Replace IV Monitor levels DVT prophylaxis patient is ambulatory, will be kept on mechanical DVT prophylaxis Preformed a thorough record review from recent hospitalization , patient presented to the ER with frequently with similar complaints of nausea and vomiting usually monitored in the ER and if his ammonia trends down he would be discharged home. Last admission was 2 months ago where he had an ammonia level of 31 and then was discharged in stable condition. Surrogate decision-maker: sister CODE STATUS: Full code Discussed with: Patient, ER, RN Anticipated discharge: 48-[address]: Home A total of 60 minutes was spent on the care of this complex patient more than 50 % of the time was spent in counseling and care coordination.
[2018-04-09] MEDS: DEXTROSE 10% IN WATER 500 ML IV SCH (22:17)
[2018-04-10] MEDS: ACETAMINOPHEN TAB 325 MG TAB PO PRN ×2 (00:47→09:59)
[2018-04-10] MEDS: [UNRECOGNIZED DRUG - OTHER] PO SCH ×4 (00:56→21:46)
[2018-04-10 01:16] LABS: Anion Gap 7 mmol/L; Blood Urea Nitrogen 4 mg/dL (9-20); Calcium 9.4 mg/dL (8.4-10.2); Carbon Dioxide 26 mmol/L (22-30); Chloride 107 mmol/L (98-107); Glucose 87 mg/dL (74-99); Potassium 3.5 mmol/L (3.5-5.1); Sodium 140 mmol/L (137-145)
[2018-04-10 08:26] LABS: Anion Gap 7 mmol/L; Blood Urea Nitrogen 3 mg/dL (9-20); Carbon Dioxide 25 mmol/L (22-30); Chloride 108 mmol/L (98-107); Glucose 120 mg/dL (74-99); Magnesium 1.8 mg/dL (1.6-2.3); Potassium 3.9 mmol/L (3.5-5.1); Sodium 140 mmol/L (137-145)
--- NOTE | 2018-04-10 09:25 | P.PN ---
Subjective Progress Note Date: 04/10/18 Principal diagnosis: Hyperammonemia Patient was seen and examined. No acute events overnight. He has no complaints this morning. He denies any confusion. He does complain of loose stool, 10 bowel movements over the past 24 hours. Patient reports that he can tell that his ammonia level is elevated when he starts to feel nauseous with diarrhea. Patient sees lead simulation modeling engineer and area development consultant Dr. [place] [facility] [place] He does report noncompliance with his diet. Ammonia level down from 146-52 this morning. He has no other complaints. Objective - Vital Signs Vital signs: Vital Signs Temp 97.5 F L 04/10/18 07:00 Pulse 65 04/10/18 07:00 Resp 18 04/10/18 07:00 BP 119/62 04/10/18 07:00 Pulse Ox 98 04/10/18 07:00 Intake & Output 04/09/18 04/10/18 04/10/18 18:59 06:59 18:59 Intake Total 1280 Balance 1280 Weight 92.306 kg Intake: Intake, IV Titration 500 Amount Dextrose 10% in Water 500 500 ml @ 50 mls/hr IV .Q10H [facility] Rx#:[id number] Oral 780 Other: # Voids 2 - Exam General: [non toxic], [no distress], [appears at stated age] Derm: [warm], [dry] Head: [atraumatic], [normocephalic], [symmetric] Eyes: [EOMI], [no lid lag], [anicteric sclera] Mouth: [no lip lesion], [mucus membranes moist] Cardiovascular: [S1S2 reg], [bradycardia], [positive posterior tibial pulse bilateral], Lungs: [CTA bilateral], [no rhonchi, no rales] , [no accessory muscle use] Abdominal: [soft], [ nontender to palpation], [no guarding], [no appreciable organomegaly] Ext: [no gross muscle atrophy], [no edema], [no contractures], [no asterixis] Neuro: [ CN II-XI grossly intact], [no focal neuro deficits] Psych: [Alert], [oriented], [appropriate affect] - Labs CBC & Chem 7: 04/09/18 18:35 04/10/18 07:32 Labs: Abnormal Lab Results - Last 24 Hours (Table) 04/09/18 04/09/18 04/09/18 Range/Units 15:23 16:20 18:35 Hct 38.4 L (39.0-53.0) % APTT 19.5 L (22.0-30.0) sec Chloride (98-107) mmol/L BUN (9-20) mg/dL Creatinine (0.66-1.25) mg/dL Glucose (74-99) mg/dL Magnesium (1.6-2.3) mg/dL Ammonia 146 H (<30) umol/L 04/09/18 04/10/18 04/10/18 Range/Units 18:35 00:23 00:23 Hct (39.0-53.0) % APTT (22.0-30.0) sec Chloride 111 H (98-107) mmol/L BUN 4 L 4 L (9-20) mg/dL Creatinine 0.46 L 0.43 L (0.66-1.25) mg/dL Glucose (74-99) mg/dL Magnesium 1.5 L (1.6-2.3) mg/dL Ammonia 165 H (<30) umol/L 04/10/18 04/10/18 Range/Units 07:32 07:32 Hct (39.0-53.0) % APTT (22.0-30.0) sec Chloride 108 H (98-107) mmol/L BUN 3 L (9-20) mg/dL Creatinine 0.44 L (0.66-1.25) mg/dL Glucose 120 H (74-99) mg/dL Magnesium (1.6-2.3) mg/dL Ammonia 52 H (<30) umol/L Assessment and Plan Assessment: Assessment and Plan 1. Ornithine transcarbamylase deficiency: Patient is AOx3 with no signs of hyperammonemia. Flares likely related to non compliance with diet. Ammonia from 146 to 165 to 52. Continue D10 at 30 cc/h (decrease from 50 cc/h). Encourage PO hydration. Continue home medication of Ravicti 6.6g PO TID. [place] [facility] [place] remains [place]. FU Ammonia and BMP at 12PM. FU Dietitian 2. Hypomagnesemia: Mg 1.5 on admission. Replaced via IV, repeat 2.0 to 1.8 ( within normal limits). 3. DVT/GI Prophylaxis: SCD boots only.
[2018-04-10] MEDS: DEXTROSE 10% IN WATER 500 ML IV SCH ×2 (09:50→17:46)
[2018-04-10 12:33] LABS: Anion Gap 9 mmol/L; Blood Urea Nitrogen 3 mg/dL (9-20); Calcium 9.5 mg/dL (8.4-10.2); Carbon Dioxide 25 mmol/L (22-30); Chloride 107 mmol/L (98-107); Glucose 102 mg/dL (74-99); Magnesium 1.9 mg/dL (1.6-2.3); Potassium 4.6 mmol/L (3.5-5.1); Sodium 141 mmol/L (137-145)
[2018-04-10] MEDS ORDERED: traMADol 50 MG TAB PO STA (21:37)
[2018-04-10] MEDS ORDERED: DEXTROSE 10% IN WATER 500 ML in EMPTY BAG 1 BAG IV SCH (21:45)
[2018-04-10] MEDS ORDERED: DEXTROSE 10% IN WATER 500 ML IV SCH (22:00)
[2018-04-11 03:45] VITALS: RESP 16
[2018-04-11] MEDS: [UNRECOGNIZED DRUG - OTHER] PO SCH (07:46)
[2018-04-11 08:20] LABS: Anion Gap 8 mmol/L; Blood Urea Nitrogen <2 mg/dL (9-20); Calcium 9.7 mg/dL (8.4-10.2); Carbon Dioxide 25 mmol/L (22-30); Chloride 108 mmol/L (98-107); Glucose 111 mg/dL (74-99); Potassium 4.5 mmol/L (3.5-5.1); Sodium 141 mmol/L (137-145)
[2018-04-11 09:43] VITALS: BP 103/68; PULSE 45; TEMP 96.8
--- NOTE | 2018-04-11 10:22 | P.DS ---
Providers Date of admission: 04/09/18 18:16 Expected date of discharge: 04/11/18 Attending physician: Sabrina Colon MD Primary care physician: Salvador Guevara - Discharge Diagnosis(es) (1) Hypomagnesemia Current Visit: Yes Status: Acute (2) Hyperammonemia Current Visit: Yes Status: Acute (3) OTC (ornithine transcarbamylase deficiency) Current Visit: Yes Status: Acute Hospital Course: 37-year-old male with history of OTC (ornithine transcarbamylase deficiency) Patient presented the hospital due to nausea and not feeling well he was anticipating that his ammonia level would be very high so he came to the hospital for evaluation. He denies any confusion or any focal neurologic deficits. He claims to be compliant with his diet and home medications. In the emergency department she was found to have ammonia level of 131 and was admitted for IV fluid hydration and further monitoring. Currently patient feels comfortable he's tolerating diet denies any nausea or vomiting. Denies any abdominal pain. Denies any headache changes in his vision or hearing denies any GI bleeding. Patient was alert and oriented 3 throughout his hospitalization. He showed no signs of confusion. Initial ammonia was 146, which trended up to 165. His next ammonia was 52 and trended up to 192. At this time I called his PCP Dr. Guevara from [facility] [place]. He was very aware of the patient. He recommended repeating a blood draw to be done stat and placed on ice. Repeat blood draw came back within ammonium of 75 and 65 the following morning. Patient was advised follow-up with his PCP within 1-2 days of discharge. Patient was told to take all medications as advised. Pertinent Studies: Ammonia Patient Condition at Discharge: Stable Plan - Discharge Summary Discharge Rx Participant: No New Discharge Prescriptions: Continue Ravicti 1.1gm/Ml 6.6 gm PO TID Ibuprofen [Motrin] 800 mg PO TID Discharge Medication List Ravicti 1.1gm/Ml 6.6 gm PO TID 03/28/17 [History] Ibuprofen [Motrin] 800 mg PO TID 04/09/18 [History] Follow up Appointment(s)/Referral(s): Salvador Guevara MD [Primary Care Provider] - 1-2 days Activity/Diet/Wound Care/Special Instructions: Diet: No protein diet. Please follow-up with your primary care provider within 1-2 days of discharge. Please take all medications as advised. Discharge Disposition: HOME SELF-CARE
== END 2018-04-11 12:01 | disposition home or self-care (01) | DRG 642 ==
LOC: EC 14:36 → 4SSUR 18:16
PROVIDERS: ADMIT Internal Medicine; ATTEND Internal Medicine
DX: E72.4 Disorders of ornithine metabolism (principal); E83.42 Hypomagnesemia; F32.9 Major depressive disorder, single episode, unspecified; F41.9 Anxiety disorder, unspecified; G40.909 Epilepsy, unspecified, not intractable, without status epilepticus; K58.9 Irritable bowel syndrome, unspecified; Z91.11 Patient's noncompliance with dietary regimen; Z79.899 Other long term (current) drug therapy; Z88.8 Allergy status to other drugs, medicaments and biological substances; Z87.442 Personal history of urinary calculi; Z86.14 Personal history of Methicillin resistant Staphylococcus aureus infection; Z80.0 Family history of malignant neoplasm of digestive organs; Z83.79 Family history of other diseases of the digestive system
CPT/HCPCS: 36415; 80048; 80053; 82140; 82550; 82553; 83605; 83735; 84100; 84484; 85025; 85610; 85730; 93005; 99285

== ENCOUNTER 2018-05-23 08:05 | Emergency (ER) | payer MEDICARE ==
[2018-05-23 08:11] VITALS: RESP 18
[2018-05-23] MEDS ORDERED: DEXTROSE 10% IN WATER 1,000 ML IV ONE (08:29)
--- NOTE | 2018-05-23 08:36 | ED ---
Recheck HPI - General Chief Complaint: Recheck/Abnormal Lab/Rx Stated Complaint: Abn labs Time Seen by Provider: 05/23/18 08:12 Source: patient, RN notes reviewed Mode of arrival: ambulatory Limitations: no limitations - History of Present Illness Initial Comments: This is a 38-year-old male with a history of OTC deficiency with subsequent hyperammonia anemia who presents today with complaints of feeling lethargic weak with decreased appetite for last several days. He denies any fevers chills nausea vomiting sweats at this time no other symptoms he does feel like his ammonia level was high again. He denies any other complaints at this time he does present with his usual protocol - Related Data Home Medications Medication Instructions Recorded Confirmed Ravicti 1.1gm/Ml 6.6 gm PO TID 03/28/17 05/23/18 Ibuprofen [Motrin] 800 mg PO TID 04/09/18 05/23/18 Allergies Allergy/AdvReac Type Severity Reaction Status Date / Time alprazolam [From Xanax] AdvReac Liver Verified 05/23/18 08:11 Complications cyclobenzaprine AdvReac Confusion Verified 05/23/18 08:11 [From Flexeril] olanzapine [From Zyprexa] AdvReac Liver Verified 05/23/18 08:11 Complications sertraline [From Zoloft] AdvReac Liver Verified 05/23/18 08:11 Complications Review of Systems ROS Statement: Those systems with pertinent positive or pertinent negative responses have been documented in the HPI. ROS Other: All systems not noted in ROS Statement are negative. 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 intermittent hyperammonemia, hyperammonemia with AMS, torn left ACL and left knee effusion- uses brace and cane prn, anemia-normocytic, 2013 bilateral feet fx and R ankle fx, recent R hand fx per pt-no longer casted, gastric ulcers and vomited blood in past, IBS, kidney stones passed by pt, bone deficiency- bones break easily, seizures-last one many yrs ago, shingles 2009, Gout, History of Any Multi-Drug Resistant Organisms: MRSA Date of last positivie culture/infection: 2013 MDRO Source:: Back Past Surgical History: Adenoidectomy, Ear Surgery, Tonsillectomy Additional Past Surgical History / Comment(s): liver biopsy, L-knee drained of 30 ml of fluid, tubes bilateral ears. Past Anesthesia/Blood Transfusion Reactions: Previous Problems w/ Anesthesia Additional Past Anesthesia/Blood Transfusion Reaction / Comment(s): Unable to wake up and being overly aggressive. Past Psychological History: Anxiety, Bipolar, Depression Smoking Status: Never smoker Past Alcohol Use History: None Reported Past Drug Use History: Marijuana - Past Family History Father Family Medical History: Cancer, Liver Disease Additional Family Medical History / Comment(s): Father at age 61 in April 2014.colon cancer, cirrhosis of the liver Mother History Unknown: Yes Family Medical History: Cancer Brother(s) Family Medical History: No Reported History Sister(s) Family Medical History: No Reported History General Exam - General Exam Comments Initial Comments: This is a well-developed well-nourished awake alert oriented times 3 male Limitations: no limitations General appearance: alert, in no apparent distress Head exam: Present: atraumatic, normocephalic, normal inspection Eye exam: Present: normal appearance, PERRL, EOMI. Absent: scleral icterus, conjunctival injection, periorbital swelling ENT exam: Present: normal exam, mucous membranes moist Neck exam: Present: normal inspection. Absent: tenderness, meningismus, lymphadenopathy Respiratory exam: Present: normal lung sounds bilaterally. Absent: respiratory distress, wheezes, rales, rhonchi, stridor Cardiovascular Exam: Present: regular rate, normal rhythm, normal heart sounds. Absent: systolic murmur, diastolic murmur, rubs, gallop, clicks GI/Abdominal exam: Present: soft, normal bowel sounds. Absent: distended, tenderness, guarding, rebound, rigid Extremities exam: Present: normal inspection, full ROM, normal capillary refill. Absent: tenderness, pedal edema, joint swelling, calf tenderness Back exam: Present: normal inspection Neurological exam: Present: alert, oriented X3, CN II-XII intact Psychiatric exam: Present: normal affect, normal mood Skin exam: Present: warm, dry, intact, normal color. Absent: rash Course Vital Signs 05/23/18 08:09 Temperature 97.8 F Pulse Rate 69 Respiratory 18 Rate Blood Pressure 114/81 O2 Sat by Pulse 97 Oximetry Medical Decision Making - Medical Decision Making I did discuss findings with the patient he will be discharged the presentation likely represents some type of viral syndrome - Lab Data Result diagrams: 05/23/18 08:58 05/23/18 08:58 Lab Results 05/23/18 05/23/18 05/23/18 Range/Units 08:41 08:58 08:58 WBC 5.8 (3.8-10.6) k/uL RBC 4.64 (4.30-5.90) m/uL Hgb 13.7 (13.0-17.5) gm/dL Hct 41.5 (39.0-53.0) % MCV 89.4 (80.0-100.0) fL MCH 29.5 (25.0-35.0) pg MCHC 33.0 (31.0-37.0) g/dL RDW 13.9 (11.5-15.5) % Plt Count 152 (150-450) k/uL Neutrophils % 52 % Lymphocytes % 34 % Monocytes % 7 % Eosinophils % 4 % Basophils % 1 % Neutrophils # 3.0 (1.3-7.7) k/uL Lymphocytes # 2.0 (1.0-4.8) k/uL Monocytes # 0.4 (0-1.0) k/uL Eosinophils # 0.3 (0-0.7) k/uL Basophils # 0.1 (0-0.2) k/uL Sodium (137-145) mmol/L Potassium (3.5-5.1) mmol/L Chloride (98-107) mmol/L Carbon Dioxide (22-30) mmol/L Anion Gap mmol/L BUN (9-20) mg/dL Creatinine (0.66-1.25) mg/dL Est GFR (CKD-EPI)AfAm (>60 ml/min/1.73 sqM) Est GFR (CKD-EPI)NonAf (>60 ml/min/1.73 sqM) Glucose (74-99) mg/dL POC Glucose (mg/dL) 108 H (75-99) mg/dL POC Glu [place] Smearer Keila Chahal Calcium (8.4-10.2) mg/dL Magnesium (1.6-2.3) mg/dL Total Bilirubin (0.2-1.3) mg/dL AST (17-59) U/L ALT (21-72) U/L Alkaline Phosphatase (38-126) U/L Ammonia 26 (<30) umol/L Total Creatine Kinase (55-170) U/L CK-MB (CK-2) (0.0-2.4) ng/mL CK-MB (CK-2) Rel Index Troponin I (0.000-0.034) ng/mL Total Protein (6.3-8.2) g/dL Albumin (3.5-5.0) g/dL Urine Color Urine Appearance (Clear) Urine pH (5.0-8.0) Ur Specific Spencer (1.001-1.035) Urine Protein (Negative) Urine Glucose (UA) (Negative) Urine Ketones (Negative) Urine Blood (Negative) Urine Nitrite (Negative) Urine Bilirubin (Negative) Urine Urobilinogen (<2.0) mg/dL Ur Leukocyte Esterase (Negative) 05/23/18 05/23/18 05/23/18 Range/Units 08:58 08:58 08:58 WBC (3.8-10.6) k/uL RBC (4.30-5.90) m/uL Hgb (13.0-17.5) gm/dL Hct (39.0-53.0) % MCV (80.0-100.0) fL MCH (25.0-35.0) pg MCHC (31.0-37.0) g/dL RDW (11.5-15.5) % Plt Count (150-450) k/uL Neutrophils % % Lymphocytes % % Monocytes % % Eosinophils % % Basophils % % Neutrophils # (1.3-7.7) k/uL Lymphocytes # (1.0-4.8) k/uL Monocytes # (0-1.0) k/uL Eosinophils # (0-0.7) k/uL Basophils # (0-0.2) k/uL Sodium 142 (137-145) mmol/L Potassium 4.1 (3.5-5.1) mmol/L Chloride 111 H (98-107) mmol/L Carbon Dioxide 23 (22-30) mmol/L Anion Gap 8 mmol/L BUN <2 L (9-20) mg/dL Creatinine 0.48 L (0.66-1.25) mg/dL Est GFR (CKD-EPI)AfAm >90 (>60 ml/min/1.73 sqM) Est GFR (CKD-EPI)NonAf >90 (>60 ml/min/1.73 sqM) Glucose 100 H (74-99) mg/dL POC Glucose (mg/dL) (75-99) mg/dL POC Glu [place] Smearer ID Calcium 9.3 (8.4-10.2) mg/dL Magnesium 1.7 (1.6-2.3) mg/dL Total Bilirubin 0.6 (0.2-1.3) mg/dL AST 21 (17-59) U/L ALT 33 (21-72) U/L Alkaline Phosphatase 61 (38-126) U/L Ammonia (<30) umol/L Total Creatine Kinase 64 (55-170) U/L CK-MB (CK-2) 0.4 (0.0-2.4) ng/mL CK-MB (CK-2) Rel Index 0.6 Troponin I <0.012 (0.000-0.034) ng/mL Total Protein 6.6 (6.3-8.2) g/dL Albumin 4.0 (3.5-5.0) g/dL Urine Color Yellow Urine Appearance Clear (Clear) Urine pH 5.5 (5.0-8.0) Ur Specific Spencer 1.025 (1.001-1.035) Urine Protein Trace H (Negative) Urine Glucose (UA) Negative (Negative) Urine Ketones Negative (Negative) Urine Blood Negative (Negative) Urine Nitrite Negative (Negative) Urine Bilirubin Negative (Negative) Urine Urobilinogen <2.0 (<2.0) mg/dL Ur Leukocyte Esterase Negative (Negative) - Radiology Data Radiology results: report reviewed (I did review the imaging and report no acute findings.), image reviewed Disposition Clinical Impression: Viral syndrome, Anorexia, Feared condition not demonstrated Disposition: HOME SELF-CARE Condition: Good Instructions: Viral Syndrome (ED) Additional Instructions: Follow-up with your doctor and return if needed Is patient prescribed a controlled substance at d/c from ED?: No Referrals: Salvador Guevara MD [Primary Care Provider] - 1-2 days
[2018-05-23 08:43] LABS: Glucose,Whole Blood 108 mg/dL (75-99)
[2018-05-23 09:24] LABS: Appearance,Urine Clear (Clear); Bilirubin,Urine Negative (Negative); Blood,Urine Negative (Negative); Color,Urine Yellow; Glucose,Urine (UA) Negative (Negative); Ketones,Urine Negative (Negative); Leukocyte Esterase,Urine Negative (Negative); Nitrite,Urine Negative (Negative); PH, Urine 5.5 (5.0-8.0); Protein,Urine Trace (Negative); Specific Gravity,Urine 1.025 (1.001-1.035); Urobilinogen,Urine <2.0 mg/dL (<2.0)
[2018-05-23 09:32] LABS: Basophils # (A) 0.1 k/uL (0-0.2); Basophils % (A) 1 %; Eosinophils # (A) 0.3 k/uL (0-0.7); Eosinophils % (A) 4 %; HCT 41.5 % (39.0-53.0); HGB 13.7 gm/dL (13.0-17.5); Lymphocytes % (A) 34 %; MCH 29.5 pg (25.0-35.0); MCV 89.4 fL (80.0-100.0); Mean Platelet Volume 9.5; Monocytes # (A) 0.4 k/uL (0-1.0); Monocytes % (A) 7 %; Neutrophils % (A) 52 %; Platelet Count 152 k/uL (150-450); RBC 4.64 m/uL (4.30-5.90); RDW 13.9 % (11.5-15.5); WBC 5.8 k/uL (3.8-10.6)
--- NOTE | 2018-05-23 09:32 | XR ---
EXAMINATION TYPE: XR chest 2V DATE OF EXAM: 05/23/2018 HISTORY: cough. REFERENCE: Previous study dated 02/03/2018. FINDINGS: The lungs are clear. Pleural spaces are clear. The heart is not enlarged. IMPRESSION: NORMAL CHEST.
[2018-05-23 09:39] LABS: ALT 33 U/L (21-72); AST 21 U/L (17-59); Alkaline Phosphatase 61 U/L (38-126); Anion Gap 8 mmol/L; Blood Urea Nitrogen <2 mg/dL (9-20); Calcium 9.3 mg/dL (8.4-10.2); Carbon Dioxide 23 mmol/L (22-30); Chloride 111 mmol/L (98-107); Glucose 100 mg/dL (74-99); Magnesium 1.7 mg/dL (1.6-2.3); Potassium 4.1 mmol/L (3.5-5.1); Sodium 142 mmol/L (137-145); Total Bilirubin 0.6 mg/dL (0.2-1.3); Total Protein 6.6 g/dL (6.3-8.2)
[2018-05-23 09:41] LABS: Creatine Kinase 64 U/L (55-170)
[2018-05-23 09:54] LABS: Creatine Kinase MB 0.4 ng/mL (0.0-2.4); Troponin I <0.012 ng/mL (0.000-0.034)
[2018-05-23 10:54] VITALS: BP 143/68; PULSE 72; TEMP 98.1
== END 2018-05-23 10:54 | disposition home or self-care (01) ==
LOC: EC 08:05
DX: B34.9 Viral infection, unspecified (principal); R63.0 Anorexia; Z71.1 Person with feared health complaint in whom no diagnosis is made; Z86.14 Personal history of Methicillin resistant Staphylococcus aureus infection; Z79.1 Long term (current) use of non-steroidal anti-inflammatories (NSAID); E72.20 Disorder of urea cycle metabolism, unspecified; Z79.899 Other long term (current) drug therapy; Z88.8 Allergy status to other drugs, medicaments and biological substances
CPT/HCPCS: 36415; 71046; 80053; 81003; 82140; 82550; 82553; 83735; 84484; 85025; 96360; 96361; 99283

== ENCOUNTER 2018-07-16 22:34 | Observation (INO) | payer MEDICARE ==
[2018-07-16] MEDS ORDERED: LORazepam 2 MG/ML INJ IM STA (23:05)
[2018-07-16] MEDS ORDERED: HALOPERIDOL LACTATE 5 MG/ML 1 ML VIAL IM STA (23:05)
[2018-07-17 00:15] LABS: ALT 32 U/L (21-72); AST 24 U/L (17-59); Albumin 4.7 g/dL (3.5-5.0); Alcohol <10 mg/dL; Alkaline Phosphatase 75 U/L (38-126); Anion Gap 14 mmol/L; Blood Urea Nitrogen 2 mg/dL (9-20); Calcium 10.3 mg/dL (8.4-10.2); Carbon Dioxide 18 mmol/L (22-30); Chloride 112 mmol/L (98-107); Glucose 114 mg/dL (74-99); Potassium 3.7 mmol/L (3.5-5.1); Sodium 144 mmol/L (137-145); Total Bilirubin 0.6 mg/dL (0.2-1.3); Total Protein 7.4 g/dL (6.3-8.2)
[2018-07-17 00:17] LABS: Basophils # (A) 0.1 k/uL (0-0.2); Basophils % (A) 1 %; Eosinophils # (A) 0.2 k/uL (0-0.7); Eosinophils % (A) 2 %; HCT 41.9 % (39.0-53.0); HGB 14.1 gm/dL (13.0-17.5); Lymphocytes # (A) 2.3 k/uL (1.0-4.8); Lymphocytes % (A) 24 %; MCH 29.3 pg (25.0-35.0); MCHC 33.6 g/dL (31.0-37.0); MCV 87.2 fL (80.0-100.0); Mean Platelet Volume 9.6; Monocytes # (A) 0.6 k/uL (0-1.0); Monocytes % (A) 7 %; Neutrophils # (A) 6.2 k/uL (1.3-7.7); Neutrophils % (A) 66 %; Platelet Count 180 k/uL (150-450); RDW 13.5 % (11.5-15.5); WBC 9.5 k/uL (3.8-10.6)
[2018-07-17] MEDS ORDERED: DEXTROSE 10% IN WATER 1,000 ML IV ONE ×2 (00:31→09:30)
[2018-07-17] MEDS ORDERED: SODIUM CHLORIDE 0.9% 1,000 ML IV ONE (00:32)
--- NOTE | 2018-07-17 08:47 | ED ---
General Adult HPI - General Source: patient Mode of arrival: ambulatory Limitations: no limitations - History of Present Illness -: hour(s) Consistency: constant Improves with: none Worsens with: none Associated Symptoms: confusion, other (Not feeling right) <Cain Thompson - Last Filed: 07/17/18 08:54> <Bill Kaplan - Last Filed: 07/17/18 09:21> - General Chief complaint: Psychiatric Symptoms Stated complaint: mental health Time Seen by Provider: 07/16/18 22:48 - History of Present Illness Initial comments: This patient is a 38-year-old man, with history of bipolar disorder and also of OTC deficiency, who presents with concern that his ammonia level was high. The patient's did state that he was not feeling properly. Apparently had been describing a little bit of confusion. From the patient's descriptions she had been triaged as possible psychiatric evaluation. By the time I had seen the patient, he had been evaluated by nursing and then apparently had become combative, adducting a boxing stance and threatening to strike the caregivers. He had then been placed into 4. restraints when I had seen him.. When I see the patient he is denying headache, neck pain, chest or abdominal pain. He has been tolerating oral intake without vomiting or diarrhea. She denies fever or chills. (Cain Thompson) - Related Data Home Medications Medication Instructions Recorded Confirmed No Known Home Medications 07/17/18 07/17/18 Allergies Allergy/AdvReac Type Severity Reaction Status Date / Time alprazolam [From Xanax] AdvReac Liver Verified 07/17/18 08:14 Complications cyclobenzaprine AdvReac Confusion Verified 07/17/18 08:14 [From Flexeril] olanzapine [From Zyprexa] AdvReac Liver Verified 07/17/18 08:14 Complications sertraline [From Zoloft] AdvReac Liver Verified 07/17/18 08:14 Complications Review of Systems ROS Other: All systems not noted in ROS Statement are negative. Constitutional: Denies: fever, chills, weakness Eyes: Denies: vision change Respiratory: Denies: cough, dyspnea Cardiovascular: Denies: chest pain, palpitations, orthopnea, edema Gastrointestinal: Denies: abdominal pain, nausea, vomiting, diarrhea Genitourinary: Denies: hematuria Musculoskeletal: Denies: back pain Skin: Denies: rash Neurological: Reports: confusion. Denies: headache, weakness, numbness Psychiatric: Reports: anxiety. Denies: homicidal thoughts, suicidal thoughts <Cain Thompson - Last Filed: 07/17/18 08:54> ROS Other: All systems not noted in ROS Statement are negative. <Bill Kaplan - Last Filed: 07/17/18 09:21> ROS Statement: Those systems with pertinent positive or pertinent negative responses have been documented in the HPI. 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 intermittent hyperammonemia, hyperammonemia with AMS, torn left ACL and left knee effusion- uses brace and cane prn, anemia-normocytic, 2014 bilateral feet fx and R ankle fx, recent R hand fx per pt-no longer casted, gastric ulcers and vomited blood in past, IBS, kidney stones passed by pt, bone deficiency- bones break easily, seizures-last one many yrs ago, shingles 2009, Gout, History of Any Multi-Drug Resistant Organisms: MRSA Date of last positivie culture/infection: 2013 MDRO Source:: Back Past Surgical History: Adenoidectomy, Ear Surgery, Tonsillectomy Additional Past Surgical History / Comment(s): liver biopsy, L-knee drained of 30 ml of fluid, tubes bilateral ears. Past Anesthesia/Blood Transfusion Reactions: Previous Problems w/ Anesthesia Additional Past Anesthesia/Blood Transfusion Reaction / Comment(s): Unable to wake up and being overly aggressive. Past Psychological History: Anxiety, Bipolar, Depression Smoking Status: Never smoker Past Alcohol Use History: None Reported Past Drug Use History: Marijuana - Past Family History Father Family Medical History: Cancer, Liver Disease Additional Family Medical History / Comment(s): Father at age 61 in April 2014.colon cancer, cirrhosis of the liver Mother History Unknown: Yes Family Medical History: Cancer Brother(s) Family Medical History: No Reported History Sister(s) Family Medical History: No Reported History <Cain Thompson - Last Filed: 07/17/18 08:54> General Exam Limitations: no limitations General appearance: alert, in no apparent distress Head exam: Present: atraumatic, normocephalic Eye exam: Present: normal appearance. Absent: scleral icterus, conjunctival injection ENT exam: Present: normal oropharynx Neck exam: Present: normal inspection Respiratory exam: Present: normal lung sounds bilaterally. Absent: respiratory distress, wheezes, rales, rhonchi, stridor Cardiovascular Exam: Present: regular rate, normal rhythm, normal heart sounds. Absent: systolic murmur, diastolic murmur, rubs, gallop GI/Abdominal exam: Present: soft, normal bowel sounds. Absent: distended, tenderness, guarding, rebound, mass Extremities exam: Present: normal inspection, normal capillary refill. Absent: pedal edema, calf tenderness Back exam: Present: normal inspection Neurological exam: Present: alert Psychiatric exam: Present: agitated Skin exam: Present: warm, dry, intact, normal color. Absent: rash <Cain Thompson - Last Filed: 07/17/18 08:54> Vital Signs 07/16/18 07/17/18 22:39 08:31 Temperature 98.3 F 96.8 F L Pulse Rate 78 59 L Respiratory 18 18 Rate Blood Pressure 123/93 100/50 O2 Sat by Pulse 98 97 Oximetry Procedures - Restraint - Face to Face Restraint Occurrence 1 Patient's Immediate Situation: Endangers others' safety, Endangers staff safety Patient's Reaction to the Intervention: Belligerent, Suspicious, Aggressive Need to Continue or Terminate Restraint or Seclusion: Continue Face to Face Eval of Restraint Date: 07/16/18 Face to Face Eval of Restraint Time: 22:40 <Cain Thompson - Last Filed: 07/17/18 08:54> Medical Decision Making - Lab Data Result diagrams: 07/16/18 23:50 07/16/18 23:50 <Cain Thompson - Last Filed: 07/17/18 08:54> - Lab Data Result diagrams: 07/16/18 23:50 07/16/18 23:50 <Bill Kaplan - Last Filed: 07/17/18 09:21> - Medical Decision Making Patient is a 38-year-old man who at my initial evaluation was agitated and was threatening staff with striking them. He had adopted a boxers position. Given that he was here for possible psychiatric examination, the patient was placed into 4. restraints and given some sedation. I then went and reviewed the patient's chart, finding the details of the OTC deficiency. At that point IV started and attempted to draw labs. There was some initial difficulty with IV access. The patient subsequently given fluid bolus and started on D10. Case was discussed with the metabolic specialists from [facility]. They felt that given the initial level which is high but not terribly high given the patient's background that he should be treated with D10 for number of hours and have repeat level drawn for comparison. He was also to remain nothing by mouth so as not to have any further protein burden. Following the patient's repeat ammonia level which is only minimally decreased, the case to be discussed again with the metabolic specialists and disposition at their discretion. (Cain Thompson) Patient reevaluated by myself, Dr. Kaplan. Patient resting comfortably in bed. Patient complains of some depression however denies suicidal thoughts. Case was discussed in detail [place] [facility] [place] He does recommend admission with D10 and nothing by mouth for 24 hours. He does recommend checking ammonia every 6 hours and states it is essential the patient continues his home medication. Family member did go and retrieve patient's home medication and does have that at this time. Case was also discussed with Dr. Hunter, covering for hospital call, who will admit. (Bill Kaplan) - Lab Data Lab Results 07/16/18 07/16/18 07/16/18 Range/Units 23:50 23:50 23:50 WBC 9.5 (3.8-10.6) k/uL RBC 4.80 (4.30-5.90) m/uL Hgb 14.1 (13.0-17.5) gm/dL Hct 41.9 (39.0-53.0) % MCV 87.2 (80.0-100.0) fL MCH 29.3 (25.0-35.0) pg MCHC 33.6 (31.0-37.0) g/dL RDW 13.5 (11.5-15.5) % Plt Count 180 (150-450) k/uL Neutrophils % 66 % Lymphocytes % 24 % Monocytes % 7 % Eosinophils % 2 % Basophils % 1 % Neutrophils # 6.2 (1.3-7.7) k/uL Lymphocytes # 2.3 (1.0-4.8) k/uL Monocytes # 0.6 (0-1.0) k/uL Eosinophils # 0.2 (0-0.7) k/uL Basophils # 0.1 (0-0.2) k/uL Sodium 144 (137-145) mmol/L Potassium 3.7 (3.5-5.1) mmol/L Chloride 112 H (98-107) mmol/L Carbon Dioxide 18 L (22-30) mmol/L Anion Gap 14 mmol/L BUN 2 L (9-20) mg/dL Creatinine 0.64 L (0.66-1.25) mg/dL Est GFR (CKD-EPI)AfAm >90 (>60 ml/min/1.73 sqM) Est GFR (CKD-EPI)NonAf >90 (>60 ml/min/1.73 sqM) Glucose 114 H (74-99) mg/dL Calcium 10.3 H (8.4-10.2) mg/dL Total Bilirubin 0.6 (0.2-1.3) mg/dL AST 24 (17-59) U/L ALT 32 (21-72) U/L Alkaline Phosphatase 75 (38-126) U/L Ammonia 67 H (<30) umol/L Total Protein 7.4 (6.3-8.2) g/dL Albumin 4.7 (3.5-5.0) g/dL Serum Alcohol <10 mg/dL 07/17/18 07/17/18 Range/Units 06:46 08:00 WBC (3.8-10.6) k/uL RBC (4.30-5.90) m/uL Hgb (13.0-17.5) gm/dL Hct (39.0-53.0) % MCV (80.0-100.0) fL MCH (25.0-35.0) pg MCHC (31.0-37.0) g/dL RDW (11.5-15.5) % Plt Count (150-450) k/uL Neutrophils % % Lymphocytes % % Monocytes % % Eosinophils % % Basophils % % Neutrophils # (1.3-7.7) k/uL Lymphocytes # (1.0-4.8) k/uL Monocytes # (0-1.0) k/uL Eosinophils # (0-0.7) k/uL Basophils # (0-0.2) k/uL Sodium (137-145) mmol/L Potassium (3.5-5.1) mmol/L Chloride (98-107) mmol/L Carbon Dioxide (22-30) mmol/L Anion Gap mmol/L BUN (9-20) mg/dL Creatinine (0.66-1.25) mg/dL Est GFR (CKD-EPI)AfAm (>60 ml/min/1.73 sqM) Est GFR (CKD-EPI)NonAf (>60 ml/min/1.73 sqM) Glucose (74-99) mg/dL Calcium (8.4-10.2) mg/dL Total Bilirubin (0.2-1.3) mg/dL AST (17-59) U/L ALT (21-72) U/L Alkaline Phosphatase (38-126) U/L Ammonia 81 H 60 H (<30) umol/L Total Protein (6.3-8.2) g/dL Albumin (3.5-5.0) g/dL Serum Alcohol mg/dL Critical Care Time Critical Care Time: Yes (30 minutes) <Cain Thompson - Last Filed: 07/17/18 08:54> Disposition <Cain Thompson - Last Filed: 07/17/18 08:54> Is patient prescribed a controlled substance at d/c from ED?: No Decision Time: 09:21 <Bill Kaplan - Last Filed: 07/17/18 09:21> Clinical Impression: OTC (ornithine transcarbamylase deficiency) Disposition: ADMITTED IP TO THIS HOSP Referrals: Salvador Guevara MD [Primary Care Provider] - 1-2 days
[2018-07-17] MEDS ORDERED: NALOXONE 0.4 MG/ML 1 ML VIAL IV PRN (09:24)
[2018-07-17] MEDS: [UNRECOGNIZED DRUG - OTHER] PO SCH ×2 (11:31→14:50)
[2018-07-17 15:08] VITALS: BP 98/63; PULSE 60; RESP 16; TEMP 97.5
--- NOTE | 2018-07-17 16:36 | P.HPIM ---
History of Present Illness H&P Date: 07/17/18 Chief Complaint: Elevated ammonia This note will serve as the history of physical as well as the discharge summary. 38-year-old male with PMH of bipolar disorder, OTC deficiency presents the ED for elevated ammonia level. Patient states that he felt confused and not himself. He was evaluated in the emergency room and became combative. He was placed on 4 point restraints and given Haldol and Ativan. Patient started on D10 and ammonia level was noted to be elevated at 67. He was kept in the ED overnight and ammonia was trended. His ammonia went from 67 to 81 to 62 to 21 this afternoon around 2:15 PM. Patient was seen and examined around 4:30 PM. No acute events overnight. Patient was able to call up his store protection specialist and allow him to speak to me over the phone. Dr. Guevara's coworker recommended that I discharge the patient home if he is able to tolerate by mouth. Patient denies any nausea, vomiting, fever, chills, cough, chest pain, shortness of breath, palpitations, changes in urination or bowel habits. General: [non toxic], [bruise over the right orbit], [appears at stated age] Derm: [warm], [dry] Head: [atraumatic], [normocephalic], [symmetric] Eyes: [EOMI], [no lid lag], [anicteric sclera] Mouth: [no lip lesion], [mucus membranes moist] Cardiovascular: [S1S2 reg], [no murmur], [positive posterior tibial pulse bilateral], Lungs: [CTA bilateral], [no rhonchi, no rales] , [no accessory muscle use] Abdominal: [soft], [ nontender to palpation], [no guarding], [no appreciable organomegaly] Ext: [no gross muscle atrophy], [no edema], [no contractures] Neuro: [ CN II-XI grossly intact], [no focal neuro deficits] Psych: [Alert], [oriented], [appropriate affect] Assessment and Plan 1. Elevated ammonium 2. OTC deficiency 3. Hyperchloremic metabolic acidosis 1. Resolved. Ammonia went from 67 on admission to 21 on discharge. Restarted home medication Ravicti and given D10 in water overnight. Advised to follow-up with his store protection specialist on discharge. 2. Management as above. 3. Likely secondary to infused IVF. Advised BMP and 3 days to check for resolution. Patient's confusion has resolved. Patient is alert and oriented 4. I spoken to his store protection specialist who was recommended discharge with a normal ammonia level. His store protection specialist has advised me that he will call the patient this weekend with follow-up appointments. We will discharge patient today if he can tolerate by mouth. Review of Systems All systems: negative Past Medical History Past Medical History: GI Bleed, Seizure Disorder Additional Past Medical History / Comment(s): Ornithine TransCarbamylase (OTC) deficiency, impaired processing of protein and risk for intermittent hyperammonemia, hyperammonemia with AMS, torn left ACL and left knee effusion- uses brace and cane prn, anemia-normocytic, 2013 bilateral feet fx and R ankle fx, recent R hand fx per pt-no longer casted, gastric ulcers and vomited blood in past, IBS, kidney stones passed by pt, bone deficiency- bones break easily, seizures-last one many yrs ago, shingles 2009, gout History of Any Multi-Drug Resistant Organisms: MRSA Date of last positivie culture/infection: 2013 MDRO Source:: Back Past Surgical History: Adenoidectomy, Ear Surgery, Tonsillectomy Additional Past Surgical History / Comment(s): liver biopsy, L-knee drained of 30 ml of fluid, tubes bilateral ears. Past Anesthesia/Blood Transfusion Reactions: Previous Problems w/ Anesthesia Additional Past Anesthesia/Blood Transfusion Reaction / Comment(s): Unable to wake up and being overly aggressive. Smoking Status: Never smoker - Past Family History Father Family Medical History: Cancer, Liver Disease Additional Family Medical History / Comment(s): Father at age 61, colon cancer, cirrhosis of the liver. Father is . Mother History Unknown: Yes Family Medical History: Cancer Additional Family Medical History / Comment(s): Mother had multiple cancers. She is . Brother(s) Family Medical History: No Reported History Sister(s) Family Medical History: No Reported History Medications and Allergies Home Medications Medication Instructions Recorded Confirmed Type Ravicti 1.1gm/Ml 6.6 gm PO TID 07/17/18 07/17/18 History Allergies Allergy/AdvReac Type Severity Reaction Status Date / Time alprazolam [From Xanax] AdvReac Liver Verified 07/17/18 08:14 Complications cyclobenzaprine AdvReac Confusion Verified 07/17/18 08:14 [From Flexeril] olanzapine [From Zyprexa] AdvReac Liver Verified 07/17/18 08:14 Complications sertraline [From Zoloft] AdvReac Liver Verified 07/17/18 08:14 Complications Physical Exam Vitals: Vital Signs Temp Pulse Pulse Resp BP BP Pulse Ox 07/17/18 15:00 97.5 F L 60 16 98/63 96 07/17/18 13:21 97.4 F L 62 18 97/63 98 07/17/18 08:31 96.8 F L 59 L 18 100/50 97 07/16/18 22:39 98.3 F 78 18 123/93 98 Intake and Output 07/17/18 07/17/18 07/17/18 06:59 14:59 22:59 Other: # Voids 0 Results CBC & Chem 7: 07/16/18 23:50 07/16/18 23:50 Labs: Abnormal Lab Results - Last 24 Hours (Table) 07/16/18 07/16/18 07/17/18 Range/Units 23:50 23:50 06:46 Chloride 112 H (98-107) mmol/L Carbon Dioxide 18 L (22-30) mmol/L BUN 2 L (9-20) mg/dL Creatinine 0.64 L (0.66-1.25) mg/dL Glucose 114 H (74-99) mg/dL Calcium 10.3 H (8.4-10.2) mg/dL Ammonia 67 H 81 H (<30) umol/L 07/17/18 Range/Units 08:00 Chloride (98-107) mmol/L Carbon Dioxide (22-30) mmol/L BUN (9-20) mg/dL Creatinine (0.66-1.25) mg/dL Glucose (74-99) mg/dL Calcium (8.4-10.2) mg/dL Ammonia 60 H (<30) umol/L Thrombosis Risk Factor Assmnt - Choose All That Apply Any of the Below Risk Factors Present?: Yes Each Factor Represents 1 point: Obesity (BMI >25) Other Risk Factors: No Other congenital or acquired thrombophilia - If yes, enter type in comment: No Thrombosis Risk Factor Assessment Total Risk Factor Score: 1 Thrombosis Risk Factor Assessment Level: Low Risk
== END 2018-07-17 17:38 | disposition home or self-care (01) ==
LOC: EC 22:34 → 4SSUR 07-17 09:24 → INTOOBSV 07-17 09:24 → 4MS4W 07-17 12:47
PROVIDERS: ADMIT Family Medicine; ATTEND Family Medicine
DX: E72.4 Disorders of ornithine metabolism (principal); E87.2 Acidosis; R45.1 Restlessness and agitation; R41.0 Disorientation, unspecified; F31.9 Bipolar disorder, unspecified; F41.9 Anxiety disorder, unspecified; G40.909 Epilepsy, unspecified, not intractable, without status epilepticus; K58.9 Irritable bowel syndrome, unspecified; E66.9 Obesity, unspecified; Z68.31 Body mass index [BMI] 31.0-31.9, adult; Z78.1 Physical restraint status; Z79.899 Other long term (current) drug therapy; Z88.8 Allergy status to other drugs, medicaments and biological substances; Z87.19 Personal history of other diseases of the digestive system; Z86.14 Personal history of Methicillin resistant Staphylococcus aureus infection; Z86.19 Personal history of other infectious and parasitic diseases; Z87.11 Personal history of peptic ulcer disease; Z87.442 Personal history of urinary calculi; Z80.0 Family history of malignant neoplasm of digestive organs; Z83.79 Family history of other diseases of the digestive system; Z80.9 Family history of malignant neoplasm, unspecified
CPT/HCPCS: 96366 ×3; 82075; 96361; 96365 ×2; 96372; 99285; 36415; 80053; 82140 ×2; 85025; G0378; G0480; J2060; J1630; 80320

== ENCOUNTER 2018-08-07 10:24 | Emergency (ER) | payer MEDICARE ==
--- NOTE | 2018-08-07 11:02 | ED ---
General Adult HPI - General Chief complaint: Recheck/Abnormal Lab/Rx Stated complaint: Poss pneumonia Time Seen by Provider: 08/07/18 10:54 Source: patient Mode of arrival: ambulatory Limitations: no limitations - History of Present Illness Initial comments: Dictation was produced using [employer] dictation software. please excuse any grammatical, word or spelling errors. Chief Complaint: 38-year-old male with past medical history of OTC deficiency presents with request for ammonia level checked. History of Present Illness: Patient 38-year-old male he has OTC deficiency that was diagnosed at [facility] several years ago. Patient has his ammonia level rechecked every so often for evaluation. 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 He's had several issues of hyperammonia levels in the past. Patient states that he had a cold last week and is worried that his ammonia levels have increased. He gets his ammonia levels checked regularly. Patient's field agronomist is based out of [facility]. Been admitted multiple times for ammonia levels. He has no other complaint at this time. The ROS documented in this emergency department record has been reviewed and confirmed by me. Those systems with pertinent positive or negative responses have been documented in the HPI. All other systems are other negative and/or noncontributory. PHYSICAL EXAM: General Impression: Alert and oriented x3, not in acute distress HEENT: Normocephalic atraumatic, extra-ocular movements intact, pupils equal and reactive to light bilaterally, mucous membranes moist. Cardiovascular: Heart regular rate and rhythm, S1&S2 audible, no murmurs, rubs or gallops Chest: Lungs clear to auscultation bilaterally, no rhonchi, no wheeze, no rales Abdomen: Bowel sounds present, abdomen soft, non-tender, non-distended, no organomegaly Musculoskeletal: Pulses present and equal in all extremities, no peripheral edema Motor: Power 5/5 bilaterally, no focal deficits noted Neurological: CN II-XII grossly intact, no focal motor or sensory deficits noted Skin: Intact with no visualized rashes Psych: Normal affect and mood ED course: 38-year-old male with OTC deficiency. He requests ammonia level checked. Vital signs upon arrival are within acceptable limits. Patient has no other complaints at this time. Physical examination is benign. Laboratory evaluation obtained. CBC unremarkable. Metabolic panel is grossly unremarkable. Ammonia is 51. This case is discussed in detail with Dr. Montez, on-call field agronomist for patient's primary field agronomist who is Dr. Guevara who is aware of patient's ammonia level. He consulted with his colleagues. They recommend that patient is clear for discharge. He is told to follow up outpatient. Patient has appointment scheduled soon. This point no significant intervention is required at this time. Patient clear for discharge. - Related Data Home Medications Medication Instructions Recorded Confirmed Ravicti 1.1gm/Ml 6.6 gm PO TID 07/17/18 08/07/18 Allergies Allergy/AdvReac Type Severity Reaction Status Date / Time alprazolam [From Xanax] AdvReac Liver Verified 08/07/18 11:45 Complications cyclobenzaprine AdvReac Confusion Verified 08/07/18 11:45 [From Flexeril] olanzapine [From Zyprexa] AdvReac Liver Verified 08/07/18 11:45 Complications sertraline [From Zoloft] AdvReac Liver Verified 08/07/18 11:45 Complications Review of Systems ROS Statement: Those systems with pertinent positive or pertinent negative responses have been documented in the HPI. ROS Other: All systems not noted in ROS Statement are negative. Past Medical History Past Medical History: GI Bleed, Seizure Disorder Additional Past Medical History / Comment(s): Ornithine TransCarbamylase (OTC) deficiency, impaired processing of protein and risk for intermittent hyperammonemia, hyperammonemia with AMS, torn left ACL and left knee effusion- uses brace and cane prn, anemia-normocytic, 2013 bilateral feet fx and R ankle fx, recent R hand fx per pt-no longer casted, gastric ulcers and vomited blood in past, IBS, kidney stones passed by pt, bone deficiency- bones break easily, seizures-last one many yrs ago, shingles 2009, gout History of Any Multi-Drug Resistant Organisms: MRSA Date of last positivie culture/infection: 2013 MDRO Source:: Back Past Surgical History: Adenoidectomy, Ear Surgery, Tonsillectomy Additional Past Surgical History / Comment(s): liver biopsy, L-knee drained of 30 ml of fluid, tubes bilateral ears. Past Anesthesia/Blood Transfusion Reactions: Previous Problems w/ Anesthesia Additional Past Anesthesia/Blood Transfusion Reaction / Comment(s): Unable to wake up and being overly aggressive. Past Psychological History: Anxiety, Bipolar, Depression Smoking Status: Never smoker Past Alcohol Use History: None Reported Past Drug Use History: Marijuana - Past Family History Father Family Medical History: Cancer, Liver Disease Additional Family Medical History / Comment(s): Father at age 61, colon cancer, cirrhosis of the liver. Father is . Mother History Unknown: Yes Family Medical History: Cancer Additional Family Medical History / Comment(s): Mother had multiple cancers. She is . Brother(s) Family Medical History: No Reported History Sister(s) Family Medical History: No Reported History General Exam Limitations: no limitations Course Vital Signs 08/07/18 10:31 Temperature 98.3 F Pulse Rate 96 Respiratory 20 Rate Blood Pressure 157/81 O2 Sat by Pulse 100 Oximetry Medical Decision Making - Lab Data Result diagrams: 08/07/18 11:19 08/07/18 11:19 Lab Results 08/07/18 08/07/18 08/07/18 Range/Units 11:19 11:19 11:19 WBC 4.9 (3.8-10.6) k/uL RBC 4.61 (4.30-5.90) m/uL Hgb 14.0 (13.0-17.5) gm/dL Hct 40.6 (39.0-53.0) % MCV 88.0 (80.0-100.0) fL MCH 30.4 (25.0-35.0) pg MCHC 34.5 (31.0-37.0) g/dL RDW 13.6 (11.5-15.5) % Plt Count 172 (150-450) k/uL Neutrophils % 56 % Lymphocytes % 32 % Monocytes % 5 % Eosinophils % 4 % Basophils % 1 % Neutrophils # 2.7 (1.3-7.7) k/uL Lymphocytes # 1.6 (1.0-4.8) k/uL Monocytes # 0.3 (0-1.0) k/uL Eosinophils # 0.2 (0-0.7) k/uL Basophils # 0.1 (0-0.2) k/uL Sodium 141 (137-145) mmol/L Potassium 4.0 (3.5-5.1) mmol/L Chloride 112 H (98-107) mmol/L Carbon Dioxide 22 (22-30) mmol/L Anion Gap 7 mmol/L BUN 2 L (9-20) mg/dL Creatinine 0.48 L (0.66-1.25) mg/dL Est GFR (CKD-EPI)AfAm >90 (>60 ml/min/1.73 sqM) Est GFR (CKD-EPI)NonAf >90 (>60 ml/min/1.73 sqM) Glucose 102 H (74-99) mg/dL Calcium 9.3 (8.4-10.2) mg/dL Magnesium 1.6 (1.6-2.3) mg/dL Total Bilirubin 0.7 (0.2-1.3) mg/dL AST 22 (17-59) U/L ALT 31 (21-72) U/L Alkaline Phosphatase 67 (38-126) U/L Ammonia 51 H (<30) umol/L Total Protein 6.6 (6.3-8.2) g/dL Albumin 4.0 (3.5-5.0) g/dL Disposition Clinical Impression: Hyperammonemia Disposition: HOME SELF-CARE Condition: Good Is patient prescribed a controlled substance at d/c from ED?: No Referrals: Salvador Guevara MD [Primary Care Provider] - 1-2 days Time of Disposition: 13:22
[2018-08-07 11:40] LABS: Basophils # (A) 0.1 k/uL (0-0.2); Basophils % (A) 1 %; Eosinophils # (A) 0.2 k/uL (0-0.7); Eosinophils % (A) 4 %; HCT 40.6 % (39.0-53.0); Lymphocytes # (A) 1.6 k/uL (1.0-4.8); Lymphocytes % (A) 32 %; MCH 30.4 pg (25.0-35.0); MCHC 34.5 g/dL (31.0-37.0); Mean Platelet Volume 8.4; Monocytes # (A) 0.3 k/uL (0-1.0); Monocytes % (A) 5 %; Neutrophils # (A) 2.7 k/uL (1.3-7.7); Neutrophils % (A) 56 %; Platelet Count 172 k/uL (150-450); RBC 4.61 m/uL (4.30-5.90); RDW 13.6 % (11.5-15.5); WBC 4.9 k/uL (3.8-10.6)
[2018-08-07 11:47] LABS: ALT 31 U/L (21-72); AST 22 U/L (17-59); Alkaline Phosphatase 67 U/L (38-126); Anion Gap 7 mmol/L; Blood Urea Nitrogen 2 mg/dL (9-20); Calcium 9.3 mg/dL (8.4-10.2); Carbon Dioxide 22 mmol/L (22-30); Chloride 112 mmol/L (98-107); Glucose 102 mg/dL (74-99); Magnesium 1.6 mg/dL (1.6-2.3); Sodium 141 mmol/L (137-145); Total Bilirubin 0.7 mg/dL (0.2-1.3); Total Protein 6.6 g/dL (6.3-8.2)
[2018-08-07 13:34] VITALS: BP 113/59; PULSE 50; RESP 18; TEMP 98
== END 2018-08-07 13:33 | disposition home or self-care (01) ==
LOC: EC 10:24
DX: E72.20 Disorder of urea cycle metabolism, unspecified (principal); Z86.14 Personal history of Methicillin resistant Staphylococcus aureus infection; Z79.899 Other long term (current) drug therapy; Z88.8 Allergy status to other drugs, medicaments and biological substances
CPT/HCPCS: 36415; 80053; 82140; 83735; 85025; 99283

== ENCOUNTER 2018-09-22 11:16 | Emergency (ER) | payer MEDICARE ==
[2018-09-22] MEDS ORDERED: SODIUM CHLORIDE 0.9% 2,000 ML IV ONE (11:36)
--- NOTE | 2018-09-22 12:51 | ED ---
Recheck HPI - General Chief Complaint: Recheck/Abnormal Lab/Rx Stated Complaint: high ammonia levels Time Seen by Provider: 09/22/18 11:35 Source: patient, RN notes reviewed Mode of arrival: ambulatory Limitations: no limitations - History of Present Illness Initial Comments: 38-year-old male presents emergency department for possible elevated ammonia [place]. Patient has OTC deficiency and states that he is having some symptoms including nausea, headache, just feeling off. Patient states that he has no focal weakness. He states that his been trying to restrict his diet states he has been stressed in his body lately states he is concerned. Patient does have some nausea, diarrhea no vomiting. Patient denies any complaints. - Related Data Home Medications Medication Instructions Recorded Confirmed Ravicti 1.1gm/Ml 6.6 gm PO TID 07/17/18 09/22/18 Ibuprofen [Motrin Ib] 800 mg PO Q6H PRN 09/22/18 09/22/18 Allergies Allergy/AdvReac Type Severity Reaction Status Date / Time alprazolam [From Xanax] AdvReac Liver Verified 09/22/18 11:26 Complications cyclobenzaprine AdvReac Confusion Verified 09/22/18 11:26 [From Flexeril] olanzapine [From Zyprexa] AdvReac Liver Verified 09/22/18 11:26 Complications sertraline [From Zoloft] AdvReac Liver Verified 09/22/18 11:26 Complications Review of Systems ROS Statement: Those systems with pertinent positive or pertinent negative responses have been documented in the HPI. ROS Other: All systems not noted in ROS Statement are negative. Past Medical History Past Medical History: GI Bleed, Seizure Disorder Additional Past Medical History / Comment(s): Ornithine TransCarbamylase (OTC) deficiency, impaired processing of protein and risk for intermittent hypera mmonemia, hyperammonemia with AMS, torn left ACL and left knee effusion-uses brace and cane prn, anemia-normocytic, 2013 bilateral feet fx and R ankle fx, recent R hand fx per pt-no longer casted, gastric ulcers and vomited blood in past, IBS, kidney stones passed by pt, bone deficiency- bones break easily, seizures-last one many yrs ago, shingles 2009, gout History of Any Multi-Drug Resistant Organisms: MRSA Date of last positivie culture/infection: 2014 MDRO Source:: Back Past Surgical History: Adenoidectomy, Ear Surgery, Tonsillectomy Additional Past Surgical History / Comment(s): liver biopsy, L-knee drained of 30 ml of fluid, tubes bilateral ears. Past Anesthesia/Blood Transfusion Reactions: Previous Problems w/ Anesthesia Additional Past Anesthesia/Blood Transfusion Reaction / Comment(s): Unable to wake up and being overly aggressive. Past Psychological History: Anxiety, Bipolar, Depression Smoking Status: Never smoker Past Alcohol Use History: None Reported Past Drug Use History: Marijuana - Past Family History Father Family Medical History: Cancer, Liver Disease Additional Family Medical History / Comment(s): Father at age 61, colon cancer, cirrhosis of the liver. Father is . Mother History Unknown: Yes Family Medical History: Cancer Additional Family Medical History / Comment(s): Mother had multiple cancers. She is . Brother(s) Family Medical History: No Reported History Sister(s) Family Medical History: No Reported History General Exam Limitations: no limitations General appearance: alert, in no apparent distress Head exam: Present: atraumatic, normocephalic, normal inspection Neck exam: Present: normal inspection. Absent: tenderness, meningismus, lymphadenopathy Respiratory exam: Present: normal lung sounds bilaterally. Absent: respiratory distress, wheezes, rales, rhonchi, stridor Cardiovascular Exam: Present: regular rate, normal rhythm, normal heart sounds. Absent: systolic murmur, diastolic murmur, rubs, gallop, clicks GI/Abdominal exam: Present: soft, normal bowel sounds. Absent: distended, tenderness, guarding, rebound, rigid Course Vital Signs 09/22/18 11:18 Temperature 98.2 F Pulse Rate 87 Respiratory 18 Rate Blood Pressure 137/94 O2 Sat by Pulse 96 Oximetry Medical Decision Making - Medical Decision Making 38-year-old male presented for concerns of elevated ammonia level. Ammonia level is 20. Patient most likely just has a viral illness. Patient will be discharged return parameters were discussed. - Lab Data Result diagrams: 09/22/18 12:43 09/22/18 12:43 Lab Results 09/22/18 09/22/18 09/22/18 Range/Units 12:43 12:43 12:43 WBC 7.4 (3.8-10.6) k/uL RBC 5.05 (4.30-5.90) m/uL Hgb 15.0 (13.0-17.5) gm/dL Hct 43.4 (39.0-53.0) % MCV 86.0 (80.0-100.0) fL MCH 29.7 (25.0-35.0) pg MCHC 34.6 (31.0-37.0) g/dL RDW 13.3 (11.5-15.5) % Plt Count 184 (150-450) k/uL Neutrophils % 70 % Lymphocytes % 17 % Monocytes % 8 % Eosinophils % 3 % Basophils % 1 % Neutrophils # 5.1 (1.3-7.7) k/uL Lymphocytes # 1.2 (1.0-4.8) k/uL Monocytes # 0.6 (0-1.0) k/uL Eosinophils # 0.2 (0-0.7) k/uL Basophils # 0.1 (0-0.2) k/uL Sodium 143 (137-145) mmol/L Potassium 4.2 (3.5-5.1) mmol/L Chloride 110 H (98-107) mmol/L Carbon Dioxide 19 L (22-30) mmol/L Anion Gap 14 mmol/L BUN 2 L (9-20) mg/dL Creatinine 0.52 L (0.66-1.25) mg/dL Est GFR (CKD-EPI)AfAm >90 (>60 ml/min/1.73 sqM) Est GFR (CKD-EPI)NonAf >90 (>60 ml/min/1.73 sqM) Glucose 83 (74-99) mg/dL Calcium 10.6 H (8.4-10.2) mg/dL Total Bilirubin 0.8 (0.2-1.3) mg/dL AST 29 (17-59) U/L ALT 33 (21-72) U/L Alkaline Phosphatase 73 (38-126) U/L Ammonia 20 (<30) umol/L Total Protein 7.3 (6.3-8.2) g/dL Albumin 4.6 (3.5-5.0) g/dL Disposition Clinical Impression: Nausea & vomiting, Viral illness Disposition: HOME SELF-CARE Condition: Stable Instructions (If sedation given, give patient instructions): Viral Syndrome (ED) Additional Instructions: Please return to the Emergency Department if symptoms worsen or any other concerns. Is patient prescribed a controlled substance at d/c from ED?: No Referrals: Salvador Guevara MD [Primary Care Provider] - 1-2 days Time of Disposition: 13:47
[2018-09-22 13:19] LABS: Basophils # (A) 0.1 k/uL (0-0.2); Basophils % (A) 1 %; Eosinophils # (A) 0.2 k/uL (0-0.7); Eosinophils % (A) 3 %; HCT 43.4 % (39.0-53.0); Lymphocytes # (A) 1.2 k/uL (1.0-4.8); Lymphocytes % (A) 17 %; MCH 29.7 pg (25.0-35.0); MCHC 34.6 g/dL (31.0-37.0); Mean Platelet Volume 9.8; Monocytes # (A) 0.6 k/uL (0-1.0); Monocytes % (A) 8 %; Neutrophils # (A) 5.1 k/uL (1.3-7.7); Neutrophils % (A) 70 %; Platelet Count 184 k/uL (150-450); RBC 5.05 m/uL (4.30-5.90); RDW 13.3 % (11.5-15.5); WBC 7.4 k/uL (3.8-10.6)
[2018-09-22 13:41] LABS: ALT 33 U/L (21-72); AST 29 U/L (17-59); Albumin 4.6 g/dL (3.5-5.0); Alkaline Phosphatase 73 U/L (38-126); Anion Gap 14 mmol/L; Blood Urea Nitrogen 2 mg/dL (9-20); Calcium 10.6 mg/dL (8.4-10.2); Carbon Dioxide 19 mmol/L (22-30); Chloride 110 mmol/L (98-107); Glucose 83 mg/dL (74-99); Potassium 4.2 mmol/L (3.5-5.1); Sodium 143 mmol/L (137-145); Total Bilirubin 0.8 mg/dL (0.2-1.3); Total Protein 7.3 g/dL (6.3-8.2)
[2018-09-22 14:00] VITALS: BP 133/82; PULSE 82; RESP 19; TEMP 97.8
== END 2018-09-22 14:00 | disposition home or self-care (01) ==
LOC: EC 11:16
DX: B34.9 Viral infection, unspecified (principal); R11.2 Nausea with vomiting, unspecified; E72.20 Disorder of urea cycle metabolism, unspecified; Z86.14 Personal history of Methicillin resistant Staphylococcus aureus infection; Z87.442 Personal history of urinary calculi; Z87.81 Personal history of (healed) traumatic fracture; Z98.890 Other specified postprocedural states; Z79.899 Other long term (current) drug therapy; Z88.8 Allergy status to other drugs, medicaments and biological substances
CPT/HCPCS: 36415; 80053; 82140; 85025; 99283

== ENCOUNTER 2018-11-10 12:30 | Observation (INO) | payer MEDICARE ==
[2018-11-10] MEDS ORDERED: SODIUM CHLORIDE 0.9% 1,000 ML IV STA (14:14)
[2018-11-10 14:50] LABS: Basophils # (A) 0.1 k/uL (0-0.2); Basophils % (A) 1 %; Eosinophils # (A) 0.2 k/uL (0-0.7); Eosinophils % (A) 3 %; HCT 41.3 % (39.0-53.0); HGB 13.7 gm/dL (13.0-17.5); Lymphocytes # (A) 1.6 k/uL (1.0-4.8); Lymphocytes % (A) 31 %; MCH 29.5 pg (25.0-35.0); MCHC 33.1 g/dL (31.0-37.0); MCV 89.1 fL (80.0-100.0); Mean Platelet Volume 9.9; Monocytes # (A) 0.4 k/uL (0-1.0); Monocytes % (A) 7 %; Neutrophils % (A) 56 %; Platelet Count 159 k/uL (150-450); RBC 4.64 m/uL (4.30-5.90); RDW 12.9 % (11.5-15.5); WBC 5.3 k/uL (3.8-10.6)
[2018-11-10 15:00] LABS: ALT 21 U/L (21-72); AST 30 U/L (17-59); Albumin 4.3 g/dL (3.5-5.0); Alkaline Phosphatase 53 U/L (38-126); Anion Gap 9 mmol/L; Blood Urea Nitrogen <2 mg/dL (9-20); Calcium 10.8 mg/dL (8.4-10.2); Carbon Dioxide 21 mmol/L (22-30); Chloride 112 mmol/L (98-107); Glucose 98 mg/dL (74-99); Potassium 4.6 mmol/L (3.5-5.1); Sodium 142 mmol/L (137-145); Total Protein 6.9 g/dL (6.3-8.2)
[2018-11-10] MEDS ORDERED: DEXTROSE 10% IN WATER 1,000 ML IV ONE ×2 (16:16→16:32)
[2018-11-10] MEDS ORDERED: DEXTROSE 10 % IN WATER 1,000 ML IV STA (16:17)
--- NOTE | 2018-11-10 16:39 | ED ---
General Adult HPI - General Chief complaint: Recheck/Abnormal Lab/Rx Stated complaint: Confusion Time Seen by Provider: 11/10/18 13:57 Source: patient, RN notes reviewed Mode of arrival: EMS Limitations: no limitations - History of Present Illness Initial comments: 38-year-old male presents to the emergency department for a chief complaint of possible high ammonia levels. 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 Patient states that he was camping this weekend and is not sure if this may have caused it. States he may have altered his diet somewhat. States that his symptoms included looking like he had bags under his eyes which can happen with him as well as mild confusion.Patient has no other complaints at this time including shortness of breath, chest pain, abdominal pain, nausea or vomiting, headache, or visual changes. - Related Data Home Medications Medication Instructions Recorded Confirmed Ravicti 1.1gm/Ml 6.6 gm PO TID 07/17/18 11/10/18 Ibuprofen [Motrin Ib] 800 mg PO Q6H PRN 09/22/18 11/10/18 Allergies Allergy/AdvReac Type Severity Reaction Status Date / Time alprazolam [From Xanax] AdvReac Liver Verified 11/10/18 14:12 Complications cyclobenzaprine AdvReac Confusion Verified 11/10/18 14:12 [From Flexeril] olanzapine [From Zyprexa] AdvReac Liver Verified 11/10/18 14:12 Complications sertraline [From Zoloft] AdvReac Liver Verified 11/10/18 14:12 Complications Review of Systems ROS Statement: Those systems with pertinent positive or pertinent negative responses have been documented in the HPI. ROS Other: All systems not noted in ROS Statement are negative. Past Medical History Past Medical History: GI Bleed, Seizure Disorder Additional Past Medical History / Comment(s): Ornithine TransCarbamylase (OTC) deficiency, impaired processing of protein and risk for intermittent hyperammonemia, hyperammonemia with AMS, torn left ACL and left knee effusion- uses brace and cane prn, anemia-normocytic, 2013 bilateral feet fx and R ankle fx, recent R hand fx per pt-no longer casted, gastric ulcers and vomited blood in past, IBS, kidney stones passed by pt, bone deficiency- bones break easily, seizures-last one many yrs ago, shingles 2010, gout History of Any Multi-Drug Resistant Organisms: MRSA Date of last positivie culture/infection: 2013 MDRO Source:: Back Past Surgical History: Adenoidectomy, Ear Surgery, Tonsillectomy Additional Past Surgical History / Comment(s): liver biopsy, L-knee drained of 30 ml of fluid, tubes bilateral ears. Past Anesthesia/Blood Transfusion Reactions: Previous Problems w/ Anesthesia Additional Past Anesthesia/Blood Transfusion Reaction / Comment(s): Unable to wake up and being overly aggressive. Past Psychological History: Anxiety, Bipolar, Depression Smoking Status: Never smoker Past Alcohol Use History: None Reported Past Drug Use History: Marijuana - Past Family History Father Family Medical History: Cancer, Liver Disease Additional Family Medical History / Comment(s): Father at age 61, colon cancer, cirrhosis of the liver. Father is . Mother History Unknown: Yes Family Medical History: Cancer Additional Family Medical History / Comment(s): Mother had multiple cancers. She is . Brother(s) Family Medical History: No Reported History Sister(s) Family Medical History: No Reported History General Exam Limitations: no limitations General appearance: alert, in no apparent distress Head exam: Present: atraumatic, normocephalic, normal inspection Eye exam: Present: normal appearance, PERRL, EOMI. Absent: scleral icterus, conjunctival injection, periorbital swelling ENT exam: Present: normal exam, mucous membranes moist Neck exam: Present: normal inspection, full ROM. Absent: tenderness, meningis mus Respiratory exam: Present: normal lung sounds bilaterally. Absent: respiratory distress, wheezes, rales, rhonchi, stridor Cardiovascular Exam: Present: regular rate, normal rhythm, normal heart sounds. Absent: systolic murmur, diastolic murmur, rubs, gallop, clicks Neurological exam: Present: alert, oriented X3, CN II-XII intact Psychiatric exam: Present: normal affect, normal mood Course Vital Signs 11/10/18 11/10/18 11/10/18 12:51 14:38 15:54 Temperature 98.0 F Pulse Rate 62 61 52 L Respiratory 18 20 16 Rate Blood Pressure 123/85 122/56 116/90 O2 Sat by Pulse 98 99 99 Oximetry 11/10/18 11/10/18 16:56 19:00 Temperature 98.1 F Pulse Rate 61 53 L Respiratory 20 20 Rate Blood Pressure 119/65 119/72 O2 Sat by Pulse 96 99 Oximetry - Reevaluation(s) Reevaluation #1: 11/10/18 16:30 Paged Metabolic Disorders Reevaluation #2: 11/10/18 18:08 To reach genetic and metabolic disorder stone setter apprentice call [phone] followed by pager #[phone] Medical Decision Making - Medical Decision Making 38-year-old male presents to the emergency department for a chief complaint of high ammonia levels. Patient was camping this weekend which may have caused it. Ammonia levels are 52. I did discuss case with Dr. Rowe at [facility], [place] through the genetic and metabolic disorder department who recommend starting the patient on D10 at 150 mls per hour. Then recommended repeating ammonia at 4 hours. Patient will be admitted for fluids and recheck. Per Dr Laboy through [facility], continue D10 and patient can have a "no protein" diet. - Lab Data Result diagrams: 11/10/18 14:08 11/10/18 14:08 Lab Results 11/10/18 11/10/18 11/10/18 Range/Units 14:08 14:08 14:08 WBC 5.3 (3.8-10.6) k/uL RBC 4.64 (4.30-5.90) m/uL Hgb 13.7 (13.0-17.5) gm/dL Hct 41.3 (39.0-53.0) % MCV 89.1 (80.0-100.0) fL MCH 29.5 (25.0-35.0) pg MCHC 33.1 (31.0-37.0) g/dL RDW 12.9 (11.5-15.5) % Plt Count 159 (150-450) k/uL Neutrophils % 56 % Lymphocytes % 31 % Monocytes % 7 % Eosinophils % 3 % Basophils % 1 % Neutrophils # 3.0 (1.3-7.7) k/uL Lymphocytes # 1.6 (1.0-4.8) k/uL Monocytes # 0.4 (0-1.0) k/uL Eosinophils # 0.2 (0-0.7) k/uL Basophils # 0.1 (0-0.2) k/uL Sodium 142 (137-145) mmol/L Potassium 4.6 (3.5-5.1) mmol/L Chloride 112 H (98-107) mmol/L Carbon Dioxide 21 L (22-30) mmol/L Anion Gap 9 mmol/L BUN <2 L (9-20) mg/dL Creatinine 0.43 L (0.66-1.25) mg/dL Est GFR (CKD-EPI)AfAm >90 (>60 ml/min/1.73 sqM) Est GFR (CKD-EPI)NonAf >90 (>60 ml/min/1.73 sqM) Glucose 98 (74-99) mg/dL Calcium 10.8 H (8.4-10.2) mg/dL Total Bilirubin 1.0 (0.2-1.3) mg/dL AST 30 (17-59) U/L ALT 21 (21-72) U/L Alkaline Phosphatase 53 (38-126) U/L Ammonia 52 H (<30) umol/L Total Protein 6.9 (6.3-8.2) g/dL Albumin 4.3 (3.5-5.0) g/dL Disposition Clinical Impression: Hyperammonemia, OTC (ornithine transcarbamylase deficiency) Disposition: ADMITTED IP TO THIS HOSP Condition: Fair Is patient prescribed a controlled substance at d/c from ED?: No Referrals: Salvador Guevara MD [Primary Care Provider] - 1-2 days Time of Disposition: 17:22
[2018-11-10] MEDS ORDERED: NALOXONE 0.4 MG/ML 1 ML VIAL IV PRN (17:53)
[2018-11-10] MEDS ORDERED: SODIUM CHLORIDE 0.9% 1,000 ML IV SCH (18:00)
--- NOTE | 2018-11-10 20:50 | P.HPIM ---
History of Present Illness H&P Date: 11/10/18 Chief Complaint: nausea , feeling irritable 38 year old male , with histroy of ornithine transcarbamylase deficiency (OTC) patient presented with 3 days history of progressively not feeling well, typical of his usual symptoms when ammonia level is high , he reports nausea, feeling irritable, ann, and headaches. denies any vomiting or shaking , denies any abd pain. he does report frequent bowel movement. denies any bloody bowel movement. denies any focal neurological deficits denies any confusion or disorientation. denies any changes in his vision or hearing. But does report headaches.he reports being compliant with his diet and and medications. he was camping re cently but denies any unsanitised food or drink in the ER he was found to have ammonia level of 52, Dr. Laboy at [facility] was contacted she is assisting with the management. His management protocol was reviewedmost of the medications are unavailable except for the D10 IV fluid. patient has good appetite right now and asking for food Review of Systems Pertinent positives as noted in HPI. All other systems were reviewed and are negative Past Medical History Past Medical History: GI Bleed, Seizure Disorder Additional Past Medical History / Comment(s): Ornithine TransCarbamylase (OTC) deficiency, impaired processing of protein and risk for intermittent hyperammonemia, hyperammonemia with AMS, torn left ACL and left knee effusion- uses brace and cane prn, anemia-normocytic, 2013 bilateral feet fx and R ankle fx, recent R hand fx per pt-no longer casted, gastric ulcers and vomited blood in past, IBS, kidney stones , bone deficiency- bones break easily, seizures- last one many yrs ago, shingles 2009, gout History of Any Multi-Drug Resistant Organisms: MRSA Date of last positivie culture/infection: 2013 MDRO Source:: Back Past Surgical History: Adenoidectomy, Ear Surgery, Tonsillectomy Additional Past Surgical History / Comment(s): liver biopsy, L-knee drained of 30 ml of fluid, tubes bilateral ears. Past Anesthesia/Blood Transfusion Reactions: Previous Problems w/ Anesthesia Additional Past Anesthesia/Blood Transfusion Reaction / Comment(s): Unable to wake up and being overly aggressive. Past Psychological History: Anxiety, Bipolar, Depression Smoking Status: Never smoker Past Alcohol Use History: None Reported Past Drug Use History: Marijuana - Past Family History Father Family Medical History: Cancer, Liver Disease Additional Family Medical History / Comment(s): Father at age 61, colon cancer, cirrhosis of the liver. Father is . Mother History Unknown: Yes Family Medical History: Cancer Additional Family Medical History / Comment(s): Mother had multiple cancers. She is . Brother(s) Family Medical History: No Reported History Sister(s) Family Medical History: No Reported History Medications and Allergies Home Medications Medication Instructions Recorded Confirmed Type Ravicti 1.1gm/Ml 6.6 gm PO TID 07/17/18 11/10/18 History Ibuprofen [Motrin Ib] 800 mg PO Q6H PRN 09/22/18 11/10/18 History Allergies Allergy/AdvReac Type Severity Reaction Status Date / Time alprazolam [From Xanax] AdvReac Liver Verified 11/10/18 14:12 Complications cyclobenzaprine AdvReac Confusion Verified 11/10/18 14:12 [From Flexeril] olanzapine [From Zyprexa] AdvReac Liver Verified 11/10/18 14:12 Complications sertraline [From Zoloft] AdvReac Liver Verified 11/10/18 14:12 Complications Physical Exam Vitals: Vital Signs Temp Pulse Resp BP Pulse Ox 11/10/18 19:00 98.1 F 53 L 20 119/72 99 11/10/18 16:56 61 20 119/65 96 11/10/18 15:54 52 L 16 116/90 99 11/10/18 14:38 61 20 122/56 99 11/10/18 12:51 98.0 F 62 18 123/85 98 Intake and Output 11/10/18 11/10/18 11/10/18 06:59 14:59 22:59 Other: Weight 90.718 kg Constitutional: No acute distress, conversant, pleasant, well-developed left, no asterixis Eyes: Anicteric sclerae, moist conjunctiva, no lid-lag Pupils equal round reactive to light ENMT: NC/AT Oropharynx clear, no erythema, orexudates, poor oral hygiene Neck: Supple, FROM, no masses, or JVD No carotid bruits No thyromegaly Lungs: Clear to auscultation Clear to percussion Normal respiratory effort, no accessory muscle use Cardiovascular: Heart regular in rate and rhythm, No murmurs, gallops, or rubs No peripheral edema Abdominal: Soft Nontender, no guarding, rebound or rigidity Abdomen moving with respiration Normoactive bowel sounds No hepatomegaly, No splenomegaly No palpable mass No abdominal wall hernia noted Skin: Normal temperature, tone, texture, turgor No induration No subcutaneous nodules No rash, lesions No ulcers Extremities: No digital cyanosis No clubbing Pedal pulses intact and symmetrical Radial pulses intact and symmetrical No calf tenderness Psychiatric: Alert and oriented to person, place and time Appropriate affect fair judgment Neuro Muscles Strength 5/5 in all 4 extremities Sensation to light touch grossly present throughout Cranial nerves II-XII grossly intact No focal sensory deficits Lymphatics: no palpable cervical or supraclavicular , or inguinal lymph nodes Results CBC & Chem 7: 11/10/18 14:08 11/10/18 14:08 Labs: Abnormal Lab Results - Last 24 Hours (Table) 11/10/18 11/10/18 Range/Units 14:08 14:08 Chloride 112 H (98-107) mmol/L Carbon Dioxide 21 L (22-30) mmol/L BUN <2 L (9-20) mg/dL Creatinine 0.43 L (0.66-1.25) mg/dL Calcium 10.8 H (8.4-10.2) mg/dL Ammonia 52 H (<30) umol/L Assessment and Plan Assessment: 38-year-old male with history of OTC (ornithine transcarbamylase deficiency)with risk of intermittent hyper ammonia. Patient admitted as inpatient with anticipated length of stay more than 48 hours due to symptomatic hyper ammoniemia, for close monitoring. Patient normally gets his care at [facility] with Dr. Laboy. We will attempt conservative management using D10 and frequent high carb meals no protein in his diet. The plan is if ammonia continues to increase and patient become symptomatic us to transfer to her prehospital for full management per his protocol Plan: symptomatic hyperammonemia due to history of OTC (ornithine transcarbamylase deficiency) Patient protocol reviewed medications for intervention are not available. Case discussed with Dr. Laboy from [facility] continue to attemptconservative management with D10 and frequent high carb meals no protein. If ammonia level continues to increase or patient becomes symptomatic with confusion or other neurologic symptoms, patient will be transferred to [facility] to follow the full protocol for his management. Check ammonia every 6 hours continue with D10 at 1 50 mL per hour close follow-up of electrolytes Continue home medication glycerol phenyl butyrate use patient on medications DVT prophylaxis heparin subcu 3 times a day Preformed a thorough record review from recent hospitalization past hospitalizations for hyperammonemia due to history of OTC Surrogate decision-maker:patient CODE STATUS:full code Discussed with: Patient, ER, RN Anticipated discharge: 48-[address]: *pending clinical course A total of 60 minutes was spent on the care of this complex patient more than 50% of the time was spent in counseling and care coordination.
[2018-11-10] MEDS: IBUPROFEN 400 MG TAB PO PRN (21:50)
[2018-11-10] MEDS: DEXTROSE 10% IN WATER 500 ML in EMPTY BAG 1 BAG IV SCH (21:50)
[2018-11-10] MEDS: [UNRECOGNIZED DRUG - OTHER] PO SCH (21:51)
[2018-11-10] MEDS: HEPARIN SODIUM,PORCINE 5,000 UNIT/ML 1 ML VIAL SQ SCH (21:53)
[2018-11-10 23:27] VITALS: RESP 16
[2018-11-11 01:56] LABS: Anion Gap 9 mmol/L; Blood Urea Nitrogen <2 mg/dL (9-20); Calcium 9.8 mg/dL (8.4-10.2); Carbon Dioxide 24 mmol/L (22-30); Chloride 109 mmol/L (98-107); Glucose 98 mg/dL (74-99); Magnesium 1.3 mg/dL (1.6-2.3); Potassium 3.6 mmol/L (3.5-5.1); Sodium 142 mmol/L (137-145)
[2018-11-11] MEDS: MAGNESIUM SULFATE-D5W PMX 1 GM in DEXTROSE/WATER 1 100ML.BAG IVPB SCH ×2 (03:15→04:26)
[2018-11-11] MEDS: DEXTROSE 10% IN WATER 500 ML in EMPTY BAG 1 BAG IV SCH ×2 (03:15→09:54)
[2018-11-11] MEDS ORDERED: DEXTROSE 10% IN WATER 1,000 ML in EMPTY BAG 1 BAG IV SCH (09:01)
[2018-11-11] MEDS: [UNRECOGNIZED DRUG - OTHER] PO SCH ×2 (09:14→15:46)
[2018-11-11 10:02] LABS: Anion Gap 9 mmol/L; Blood Urea Nitrogen <2 mg/dL (9-20); Calcium 9.3 mg/dL (8.4-10.2); Carbon Dioxide 26 mmol/L (22-30); Chloride 107 mmol/L (98-107); Glucose 102 mg/dL (74-99); Magnesium 1.8 mg/dL (1.6-2.3); Potassium 4.2 mmol/L (3.5-5.1); Sodium 142 mmol/L (137-145)
[2018-11-11] MEDS: IBUPROFEN 400 MG TAB PO PRN (13:54)
[2018-11-11 14:37] VITALS: BP 127/85; PULSE 46; TEMP 98.6
[2018-11-11] MEDS: HEPARIN SODIUM,PORCINE 5,000 UNIT/ML 1 ML VIAL SQ SCH ×2 (15:45→15:50)
--- NOTE | 2018-11-11 20:30 | P.DS ---
Providers Date of admission: 11/10/18 19:22 Expected date of discharge: 11/11/18 Attending physician: Katie Ackerman DO Primary care physician: Salvador Guevara [facility] Course: Discharge Diagnosis: Symptomatic hyperammonemia due to ornithine transcarbamylase deficiency Seizure disorder GI bleed Irritable bowel syndrome Hospital Course: Patient is a 38-year-old male with a history of ornithine transcarbamylase deficiency, irritable bowel syndrome, and brittle bone who presented to the emergency department with not feeling well, mood or debility, headaches, and nausea. Patient is very familiar elevated ammonia level secondary to his OTC deficiency. In the ER he underwent an extensive evaluation. His ammonia was found to be 57. His trust manager was contacted. They recommended D5 at 150 mL an hour. This was placed in the ER. Patient was admitted to [facility] for further monitoring. Repeat ammonia level had decreased to 37 and D10 was decreased to 100 mL/h. His next ammonia level was up at 57, however symptomatically patient was feeling better and was believe that this may be a false result. Repeat one showed an ammonia level of 15 and then 8. He is determined stable for discharge home. He will continue his high carb, low protein diet. He will follow-up with his trust manager in 2 weeks. He will follow-up with his PCP in 1-2 days. Patient is very familiar with his condition and will re-presented to the ER with any signs of worsening ammonia levels. Patient seen and examined at bedside. Feeling better. No nausea. No altered mentation. No weakness. No tremors. Vital signs reviewed and stable. General: non toxic, no distress, appears at stated age Derm: warm, dry Head: atraumatic, normocephalic, symmetric Eyes: EOMI, no lid lag, anicteric sclera Mouth: no lip lesion, mucus membranes moist, poor dentition Cardiovascular: S1S2 reg, no murmur, positive posterior tibial pulse bilateral, Lungs: CTA bilateral, no rhonchi, no rales , no accessory muscle use Abdominal: soft, nontender to palpation, no guarding, no appreciable organomegaly Ext: no gross muscle atrophy, no edema, no contractures Neuro: CN II-XI grossly intact, no focal neuro deficits Psych: Alert, oriented, appropriate affect A total of 35 minutes of time were spent preparing this complex discharge summary . Patient Condition at Discharge: Stable Plan - Discharge Summary New Discharge Prescriptions: Continue Ravicti 1.1gm/Ml 6.6 gm PO TID Ibuprofen [Motrin Ib] 800 mg PO Q6H PRN PRN Reason: Pain Discharge Medication List Ravicti 1.1gm/Ml 6.6 gm PO TID 07/17/18 [History] Ibuprofen [Motrin Ib] 800 mg PO Q6H PRN 09/22/18 [History] Follow up Appointment(s)/Referral(s): Salvador Guevara MD [Primary Care Provider] - 1-2 days Patient Instructions/Handouts: Encephalopathy (DC) Activity/Diet/Wound Care/Special Instructions: follow up with Dr. Espinoza in the clinic. office is currently closed. Voicemail was left with them to call you. Discharge Disposition: HOME SELF-CARE
== END 2018-11-11 16:21 | disposition home or self-care (01) ==
LOC: EC 12:30 → 4MS4W 19:22
PROVIDERS: ADMIT Internal Medicine; ATTEND Internal Medicine
DX: E72.4 Disorders of ornithine metabolism (principal); G40.909 Epilepsy, unspecified, not intractable, without status epilepticus; Z87.19 Personal history of other diseases of the digestive system; K58.9 Irritable bowel syndrome, unspecified; Z79.899 Other long term (current) drug therapy; Z79.1 Long term (current) use of non-steroidal anti-inflammatories (NSAID); Z88.8 Allergy status to other drugs, medicaments and biological substances; Z87.11 Personal history of peptic ulcer disease; Z87.442 Personal history of urinary calculi; Z86.14 Personal history of Methicillin resistant Staphylococcus aureus infection; Z80.0 Family history of malignant neoplasm of digestive organs; Z80.8 Family history of malignant neoplasm of other organs or systems; Z83.79 Family history of other diseases of the digestive system
CPT/HCPCS: 96361 ×3; 96365; 96366; 96372; 99284; 36415; 80053; 80048; 82140 ×2; 83735; 85025; G0378 ×2; J1644; J3475

== ENCOUNTER 2018-12-31 17:54 | Emergency (ER) | payer MEDICARE ==
[2018-12-31 18:38] VITALS: TEMP 98.8
[2018-12-31 19:03] LABS: Basophils % (A) 1 %; Eosinophils # (A) 0.2 k/uL (0-0.7); Eosinophils % (A) 3 %; HCT 41.1 % (39.0-53.0); HGB 13.9 gm/dL (13.0-17.5); Lymphocytes # (A) 1.8 k/uL (1.0-4.8); Lymphocytes % (A) 32 %; MCH 29.4 pg (25.0-35.0); MCV 86.6 fL (80.0-100.0); Mean Platelet Volume 9.7; Monocytes # (A) 0.3 k/uL (0-1.0); Monocytes % (A) 6 %; Neutrophils # (A) 3.1 k/uL (1.3-7.7); Neutrophils % (A) 57 %; Platelet Count 168 k/uL (150-450); RBC 4.74 m/uL (4.30-5.90); RDW 13.1 % (11.5-15.5); WBC 5.5 k/uL (3.8-10.6)
[2018-12-31 19:11] LABS: ALT 20 U/L (21-72); AST 25 U/L (17-59); African American GFR (CKD) >90 (>60 ml/min/1.73 sqM); Albumin 4.7 g/dL (3.5-5.0); Alkaline Phosphatase 86 U/L (38-126); Anion Gap 13 mmol/L; Blood Urea Nitrogen <2 mg/dL (9-20); Carbon Dioxide 26 mmol/L (22-30); Chloride 107 mmol/L (98-107); Glucose 109 mg/dL (74-99); Potassium 3.2 mmol/L (3.5-5.1); Sodium 146 mmol/L (137-145); Total Bilirubin 0.8 mg/dL (0.2-1.3); Total Protein 7.4 g/dL (6.3-8.2)
[2018-12-31] MEDS ORDERED: SUMAtriptan SUCCINATE 6 MG/0.5 ML VIAL SQ STA (19:37)
--- NOTE | 2018-12-31 19:39 | ED ---
General Adult HPI - General Chief complaint: Recheck/Abnormal Lab/Rx Stated complaint: GEORGE Time Seen by Provider: 12/31/18 19:24 Source: patient Mode of arrival: ambulatory Limitations: no limitations - History of Present Illness Initial comments: Dictation was produced using [employer] dictation software. please excuse any grammatical, word or spelling errors. Chief Complaint: 38-year-old male presents with concerns of elevated ammonia. History of Present Illness: 38-year-old male with rare OTC deficiency. Patient sees a specialist out of [facility]. Patient states he normally feels symptomatic when his ammonia is high. Patient complaining of increased tiredness and fatigue last 2-3 days. Patient has no other complaints at this time. ROS is negative. The ROS documented in this emergency department record has been reviewed and confirmed by me. Those systems with pertinent positive or negative responses have been documented in the HPI. All other systems are other negative and/or noncontributory. PHYSICAL EXAM: General Impression: Alert and oriented x3, not in acute distress HEENT: Normocephalic atraumatic, extra-ocular movements intact, pupils equal and reactive to light bilaterally, mucous membranes moist. Cardiovascular: Heart regular rate and rhythm, S1&S2 audible, no murmurs, rubs or gallops Chest: Lungs clear to auscultation bilaterally, no rhonchi, no wheeze, no rales Abdomen: Bowel sounds present, abdomen soft, non-tender, non-distended, no organomegaly Musculoskeletal: Pulses present and equal in all extremities, no peripheral edema Motor: no focal deficits noted Neurological: CN II-XII grossly intact, no focal motor or sensory deficits noted Skin: Intact with no visualized rashes Psych: Normal affect and mood ED course: 38 year old male presents with concerns for elevated ammonia secondary to increased tiredness. Arrival are within acceptable limits. Patient reports that he does have a mild headache and would like treatment for it. Patient given Imitrex. Patient to be discharge. Return parameters discussed. Advised to follow-up with his primary care physician. - Related Data Home Medications Medication Instructions Recorded Confirmed Ravicti 1.1gm/Ml 6.6 gm PO TID 07/17/18 11/10/18 Ibuprofen [Motrin Ib] 800 mg PO Q6H PRN 09/22/18 11/10/18 Allergies Allergy/AdvReac Type Severity Reaction Status Date / Time alprazolam [From Xanax] AdvReac Liver Verified 11/10/18 14:12 Complications cyclobenzaprine AdvReac Confusion Verified 11/10/18 14:12 [From Flexeril] olanzapine [From Zyprexa] AdvReac Liver Verified 11/10/18 14:12 Complications sertraline [From Zoloft] AdvReac Liver Verified 11/10/18 14:12 Complications Review of Systems ROS Statement: Those systems with pertinent positive or pertinent negative responses have been documented in the HPI. ROS Other: All systems not noted in ROS Statement are negative. Past Medical History Past Medical History: GI Bleed, Seizure Disorder Additional Past Medical History / Comment(s): Ornithine TransCarbamylase (OTC) deficiency, impaired processing of protein and risk for intermittent hyperammonemia, hyperammonemia with AMS, torn left ACL and left knee effusion- uses brace and cane prn, anemia-normocytic, 2013 bilateral feet fx and R ankle fx, recent R hand fx per pt-no longer casted, gastric ulcers and vomited blood in past, IBS, kidney stones , bone deficiency- bones break easily, seizures- last one many yrs ago, shingles 2009, gout History of Any Multi-Drug Resistant Organisms: MRSA Date of last positivie culture/infection: 2013 MDRO Source:: Back Past Surgical History: Adenoidectomy, Ear Surgery, Tonsillectomy Additional Past Surgical History / Comment(s): liver biopsy, L-knee drained of 30 ml of fluid, tubes bilateral ears. Past Anesthesia/Blood Transfusion Reactions: Previous Problems w/ Anesthesia Additional Past Anesthesia/Blood Transfusion Reaction / Comment(s): Unable to wake up and being overly aggressive. Past Psychological History: Anxiety, Bipolar, Depression Smoking Status: Never smoker Past Alcohol Use History: None Reported Past Drug Use History: Marijuana - Past Family History Father Family Medical History: Cancer, Liver Disease Additional Family Medical History / Comment(s): Father at age 61, colon cancer, cirrhosis of the liver. Father is . Mother History Unknown: Yes Family Medical History: Cancer Additional Family Medical History / Comment(s): Mother had multiple cancers. She is . Brother(s) Family Medical History: No Reported History Sister(s) Family Medical History: No Reported History General Exam Limitations: no limitations Course Vital Signs 12/31/18 18:36 Temperature 98.8 F Pulse Rate 64 Respiratory 18 Rate Blood Pressure 153/90 O2 Sat by Pulse 98 Oximetry Medical Decision Making - Lab Data Result diagrams: 12/31/18 18:51 12/31/18 18:51 Lab Results 12/31/18 12/31/18 12/31/18 Range/Units 18:51 18:51 18:51 WBC 5.5 (3.8-10.6) k/uL RBC 4.74 (4.30-5.90) m/uL Hgb 13.9 (13.0-17.5) gm/dL Hct 41.1 (39.0-53.0) % MCV 86.6 (80.0-100.0) fL MCH 29.4 (25.0-35.0) pg MCHC 34.0 (31.0-37.0) g/dL RDW 13.1 (11.5-15.5) % Plt Count 168 (150-450) k/uL Neutrophils % 57 % Lymphocytes % 32 % Monocytes % 6 % Eosinophils % 3 % Basophils % 1 % Neutrophils # 3.1 (1.3-7.7) k/uL Lymphocytes # 1.8 (1.0-4.8) k/uL Monocytes # 0.3 (0-1.0) k/uL Eosinophils # 0.2 (0-0.7) k/uL Basophils # 0.0 (0-0.2) k/uL Sodium 146 H (137-145) mmol/L Potassium 3.2 L (3.5-5.1) mmol/L Chloride 107 (98-107) mmol/L Carbon Dioxide 26 (22-30) mmol/L Anion Gap 13 mmol/L BUN <2 L (9-20) mg/dL Creatinine 0.57 L (0.66-1.25) mg/dL Est GFR (CKD-EPI)AfAm >90 (>60 ml/min/1.73 sqM) Est GFR (CKD-EPI)NonAf >90 (>60 ml/min/1.73 sqM) Glucose 109 H (74-99) mg/dL Calcium 11.0 H (8.4-10.2) mg/dL Total Bilirubin 0.8 (0.2-1.3) mg/dL AST 25 (17-59) U/L ALT 20 L (21-72) U/L Alkaline Phosphatase 86 (38-126) U/L Ammonia 15 (<30) umol/L Total Protein 7.4 (6.3-8.2) g/dL Albumin 4.7 (3.5-5.0) g/dL Disposition Clinical Impression: Well adult health check Disposition: HOME SELF-CARE Condition: Good Instructions (If sedation given, give patient instructions): Weakness (ED) Is patient prescribed a controlled substance at d/c from ED?: No Referrals: Salvador Guevara MD [Primary Care Provider] - 1-2 days Time of Disposition: 19:39
[2018-12-31 20:16] VITALS: BP 130/82; PULSE 90; RESP 16
== END 2018-12-31 20:35 | disposition home or self-care (01) ==
LOC: EC 17:54
DX: Z00.00 Encounter for general adult medical examination without abnormal findings (principal); R51 Headache; Z88.8 Allergy status to other drugs, medicaments and biological substances
CPT/HCPCS: 36415; 80053; 82140; 85025; 99284; 96372; J3030

== ENCOUNTER 2019-01-06 10:20 | Emergency (ER) | payer MEDICARE ==
[2019-01-06 10:54] VITALS: BP 115/81; PULSE 63; RESP 18; TEMP 97.9
[2019-01-06] MEDS ORDERED: methylPREDNISolone SOD SUCCI 125 MG/2 ML VIAL IM ONE (11:04)
--- NOTE | 2019-01-06 11:15 | ED ---
Skin/Abscess/FB HPI - General Chief complaint: Skin/Abscess/Foreign Body Stated complaint: rash Time Seen by Provider: 01/06/19 10:55 Source: patient, RN notes reviewed Mode of arrival: ambulatory Limitations: no limitations - History of Present Illness Initial comments: 38-year-old male presents emergency Department chief complaint rash. Patient states has been going on for a few days. Patient states is very itchy. Patient states started after he was out in [place]. Patient believes he has poison ning. Patient has been using some [id number] medication sporadically no relief. Patient denies any difficulty breathing or difficulty swallowing. Patient states that he is very itchy. - Related Data Home Medications Medication Instructions Recorded Confirmed Ravicti 1.1gm/Ml 6.6 gm PO TID 07/17/18 12/31/18 Ibuprofen [Motrin] 800 mg PO TID PRN 12/31/18 12/31/18 Previous Rx's Medication Instructions Recorded Pramox-Calamine 1-8% Lotion 1 applic TOPICAL QID #6 oz 01/06/19 [Caladryl] predniSONE 10 mg PO DIRECTED #30 tab 01/06/19 Allergies Allergy/AdvReac Type Severity Reaction Status Date / Time alprazolam [From Xanax] AdvReac Liver Verified 01/06/19 10:54 Complications cyclobenzaprine AdvReac Confusion Verified 01/06/19 10:54 [From Flexeril] olanzapine [From Zyprexa] AdvReac Liver Verified 01/06/19 10:54 Complications sertraline [From Zoloft] AdvReac Liver Verified 01/06/19 10:54 Complications Review of Systems ROS Statement: Those systems with pertinent positive or pertinent negative responses have been documented in the HPI. ROS Other: All systems not noted in ROS Statement are negative. Past Medical History Past Medical History: GI Bleed, Seizure Disorder Additional Past Medical History / Comment(s): Ornithine TransCarbamylase (OTC) deficiency, impaired processing of protein and risk for intermittent hyperammonemia, hyperammonemia with AMS, torn left ACL and left knee effusion- uses brace and cane prn, anemia-normocytic, 2014 bilateral feet fx and R ankle fx, recent R hand fx per pt-no longer casted, gastric ulcers and vomited blood in past, IBS, kidney stones , bone deficiency- bones break easily, seizures- last one many yrs ago, shingles 2009, gout History of Any Multi-Drug Resistant Organisms: MRSA Date of last positivie culture/infection: 2013 MDRO Source:: Back Past Surgical History: Adenoidectomy, Ear Surgery, Tonsillectomy Additional Past Surgical History / Comment(s): liver biopsy, L-knee drained of 30 ml of fluid, tubes bilateral ears. Past Anesthesia/Blood Transfusion Reactions: Previous Problems w/ Anesthesia Additional Past Anesthesia/Blood Transfusion Reaction / Comment(s): Unable to wake up and being overly aggressive. Past Psychological History: Anxiety, Bipolar, Depression Smoking Status: Never smoker Past Alcohol Use History: None Reported Past Drug Use History: Marijuana - Past Family History Father Family Medical History: Cancer, Liver Disease Additional Family Medical History / Comment(s): Father at age 61, colon cancer, cirrhosis of the liver. Father is . Mother History Unknown: Yes Family Medical History: Cancer Additional Family Medical History / Comment(s): Mother had multiple cancers. She is . Brother(s) Family Medical History: No Reported History Sister(s) Family Medical History: No Reported History General Exam Limitations: no limitations General appearance: alert, in no apparent distress Head exam: Present: atraumatic, normocephalic, normal inspection Neck exam: Present: normal inspection. Absent: tenderness, meningismus, lymphadenopathy Respiratory exam: Present: normal lung sounds bilaterally. Absent: respiratory distress, wheezes, rales, rhonchi, stridor Cardiovascular Exam: Present: regular rate, normal rhythm, normal heart sounds. Absent: systolic murmur, diastolic murmur, rubs, gallop, clicks Skin exam: Present: warm, dry, rash (Erythematous vesicular papular rash and sporadic areas on his torso, upper extremities there are some linear lines noted to) Course Vital Signs 01/06/19 10:51 Temperature 97.9 F Pulse Rate 63 Respiratory 18 Rate Blood Pressure 115/81 O2 Sat by Pulse 97 Oximetry Medical Decision Making - Medical Decision Making 38-year-old male presented for rash. Patient has dermatitis related to poison ning. Patient was given steroids in emergency department we discharged on a steroid taper advise use [id number] cortisone cream or Caladryl Disposition Clinical Impression: Poison ning dermatitis Disposition: HOME SELF-CARE Condition: Stable Instructions (If sedation given, give patient instructions): Poison Ning (ED) Additional Instructions: Please return to the Emergency Department if symptoms worsen or any other concerns. Prescriptions: Pramox-Calamine 1-8% Lotion [Caladryl] 1 applic TOPICAL QID #6 oz predniSONE 10 mg PO DIRECTED #30 tab Is patient prescribed a controlled substance at d/c from ED?: No Referrals: Salvador Guevara MD [Primary Care Provider] - 1-2 days Time of Disposition: 11:14
== END 2019-01-06 11:44 | disposition home or self-care (01) ==
LOC: EC 10:20
DX: L23.7 Allergic contact dermatitis due to plants, except food (principal); E72.20 Disorder of urea cycle metabolism, unspecified; Z88.8 Allergy status to other drugs, medicaments and biological substances; Z79.899 Other long term (current) drug therapy; Z86.14 Personal history of Methicillin resistant Staphylococcus aureus infection
CPT/HCPCS: 99282; 96372; J2930

== ENCOUNTER 2019-02-09 21:55 | Inpatient (IN) | payer MEDICARE ==
[2019-02-09] MEDS ORDERED: SODIUM CHLORIDE 0.9% 1,000 ML IV STA ×2 (22:43)
[2019-02-09 23:08] LABS: Basophils % (A) 1 %; Eosinophils # (A) 0.1 k/uL (0-0.7); Eosinophils % (A) 1 %; HCT 40.3 % (39.0-53.0); HGB 13.6 gm/dL (13.0-17.5); Lymphocytes # (A) 2.1 k/uL (1.0-4.8); Lymphocytes % (A) 34 %; MCH 29.8 pg (25.0-35.0); MCHC 33.9 g/dL (31.0-37.0); MCV 87.9 fL (80.0-100.0); Mean Platelet Volume 9.2; Monocytes # (A) 0.6 k/uL (0-1.0); Monocytes % (A) 10 %; Neutrophils # (A) 3.3 k/uL (1.3-7.7); Neutrophils % (A) 53 %; Platelet Count 161 k/uL (150-450); RBC 4.58 m/uL (4.30-5.90); RDW 13.8 % (11.5-15.5); WBC 6.3 k/uL (3.8-10.6)
[2019-02-09 23:18] LABS: ALT 31 U/L (21-72); AST 21 U/L (17-59); African American GFR (CKD) >90 (>60 ml/min/1.73 sqM); Albumin 4.4 g/dL (3.5-5.0); Alkaline Phosphatase 76 U/L (38-126); Anion Gap 13 mmol/L; Blood Urea Nitrogen <2 mg/dL (9-20); Calcium 10.3 mg/dL (8.4-10.2); Carbon Dioxide 21 mmol/L (22-30); Chloride 109 mmol/L (98-107); Glucose 99 mg/dL (74-99); Potassium 3.3 mmol/L (3.5-5.1); Sodium 143 mmol/L (137-145); Total Bilirubin 1.1 mg/dL (0.2-1.3); Total Protein 7.2 g/dL (6.3-8.2)
[2019-02-09 23:21] LABS: INR 1.1 (<1.2); Prothrombin Time 11.5 sec (9.0-12.0)
--- NOTE | 2019-02-10 00:03 | ED ---
General Adult HPI <Bill Kaplan - Last Filed: 02/10/19 00:20> - General Source: patient, RN notes reviewed, old records reviewed Mode of arrival: ambulatory Limitations: no limitations <Bill Delgado - Last Filed: 02/10/19 00:41> - General Chief complaint: Recheck/Abnormal Lab/Rx Stated complaint: Feels like his labs are abnormal, vomiting Time Seen by Provider: 02/09/19 22:38 - History of Present Illness Initial comments: 38-year-old male patient past medical history of OTC deficiency presents ED chief complaint of 3 days of nausea vomiting diarrhea. Patient has well-known to this facility. Patient reports that he is presenting to get his ammonia checked as he feels that is elevated. Denies any other complaints this time he denies any chest pain shortness of breath. Denies any suicidal homicidal ideations. Systemic: Pt denies fatigue, fever/chills, rash. Pt denies weakness, night swe ats, weight loss. Neuro: Pt denies headache, visual disturbances, syncope or pre-syncope. HEENT: Pt denies ocular discharge or irritation, otalgia, rhinorrhea, pharyngitis or notable lymphadenopathy. Cardiopulmonary: Pt denies chest pain, SOB, heart palpitations, dyspnea on exertion. Abdominal/GI: Pt denies abdominal pain, n/v/d. : Pt denies dysuria, burning w/ urination, frequency/urgency. Denies new onset urinary or bowel incontinence. MSK: Pt denies myalgia, loss of strength or function in extremities. Neuro: Pt denies new onset weakness, paresthesias. (Bill Delgado) - Related Data Home Medications Medication Instructions Recorded Confirmed Ravicti 1.1gm/Ml 6.6 gm PO TID 07/17/18 02/09/19 Ibuprofen [Advil] 400 mg PO Q8HR PRN 02/09/19 02/09/19 Allergies Allergy/AdvReac Type Severity Reaction Status Date / Time alprazolam [From Xanax] AdvReac Liver Verified 02/09/19 22:44 Complications cyclobenzaprine AdvReac Confusion Verified 02/09/19 22:44 [From Flexeril] olanzapine [From Zyprexa] AdvReac Liver Verified 02/09/19 22:44 Complications sertraline [From Zoloft] AdvReac Liver Verified 02/09/19 22:44 Complications Review of Systems ROS Other: All systems not noted in ROS Statement are negative. <Bill Kaplan - Last Filed: 02/10/19 00:20> ROS Other: All systems not noted in ROS Statement are negative. <Bill Delgado - Last Filed: 02/10/19 00:41> ROS Statement: Those systems with pertinent positive or pertinent negative responses have been documented in the HPI. Past Medical History Past Medical History: GI Bleed, Seizure Disorder Additional Past Medical History / Comment(s): Ornithine TransCarbamylase (OTC) deficiency, impaired processing of protein and risk for intermittent hyperammonemia, hyperammonemia with AMS, torn left ACL and left knee effusion- uses brace and cane prn, anemia-normocytic, 2014 bilateral feet fx and R ankle fx, recent R hand fx per pt-no longer casted, gastric ulcers and vomited blood in past, IBS, kidney stones , bone deficiency- bones break easily, seizures- last one many yrs ago, shingles 2009, gout History of Any Multi-Drug Resistant Organisms: MRSA Date of last positivie culture/infection: 2013 MDRO Source:: Back Past Surgical History: Adenoidectomy, Ear Surgery, Tonsillectomy Additional Past Surgical History / Comment(s): liver biopsy, L-knee drained of 30 ml of fluid, tubes bilateral ears. Past Anesthesia/Blood Transfusion Reactions: Previous Problems w/ Anesthesia Additional Past Anesthesia/Blood Transfusion Reaction / Comment(s): Unable to wake up and being overly aggressive. Past Psychological History: Anxiety, Bipolar, Depression Smoking Status: Never smoker Past Alcohol Use History: None Reported Past Drug Use History: Marijuana - Past Family History Father Family Medical History: Cancer, Liver Disease Additional Family Medical History / Comment(s): Father at age 61, colon cancer, cirrhosis of the liver. Father is . Mother History Unknown: Yes Family Medical History: Cancer Additional Family Medical History / Comment(s): Mother had multiple cancers. She is . Brother(s) Family Medical History: No Reported History Sister(s) Family Medical History: No Reported History <Bill Delgado - Last Filed: 02/10/19 00:41> General Exam Limitations: no limitations <Bill Delgado Last Filed: 02/10/19 00:41> - General Exam Comments Initial Comments: Constitutional: NAD, AOX3, Pt has pleasant affect. HEENT: NC/AT, trachea midline, neck supple, no lymphadenopathy. Posterior pharynx non erythematous, without exudates. External ears appear normal, without discharge. Mucous membranes moist. Eyes PERRLA, EOM intact. There is no scleral icterus. No pallor noted. Cardiopulmonary: RRR, no murmurs, rubs or gallops, no JVD noted. Lungs CTAB in anterior and posterior amato. No peripheral edema. Abdominal exam: Abdomen soft and non-distended. Abdomen non-tender to palpation in all 4 quadrants. Bowel sounds active in LLQ. No hepatosplenomegaly. No ecchymosis Neuro: CN II-XII grossly intact. No nuchal rigidity. No raccon eyes, no vizcarra sign, no hemotympanum. No cervical spinal tenderness. MSK: No posterior calf tenderness bilaterally, homans sign negative bilaterally. Posterior tibialis and radial pulse +2 bilaterally. Sensation intact in upper and lower extremities. Full active ROM in upper and lower extremities, 5/5 stregnth. (Bill Delgado) Course <Bill Kaplan - Last Filed: 02/10/19 00:20> Vital Signs 02/09/19 22:32 Temperature 98.0 F Pulse Rate 63 Respiratory 16 Rate Blood Pressure 125/87 O2 Sat by Pulse 97 Oximetry - Reevaluation(s) Reevaluation #1: 02/10/19 00:20 Patient reevaluated by myself, Dr. Kaplan. Patient resting comfortable in bed. Patient complains of diarrhea and vomiting over the past few days, similar to his previous exacerbations of OTC deficiency. [facility]osis has been contacted. Case was also discussed with Dr. Rojas, who will admit covering for hospital call. (Bill Kaplan) Medical Decision Making - Lab Data Result diagrams: 02/09/19 22:55 02/09/19 22:55 <Bill Kaplan - Last Filed: 02/10/19 00:20> - Lab Data Result diagrams: 02/09/19 22:55 02/09/19 22:55 <Bill Delgado - Last Filed: 02/10/19 00:41> - Medical Decision Making 38-year-old male patient past medical history of OTC deficiency presents ED chief complaint of 3 days of nausea vomiting diarrhea. Patient has well-known to this facility. Patient reports that he is presenting to get his ammonia checked as he feels that is elevated. Denies any other complaints this time he denies any chest pain shortness of breath. Denies any suicidal homicidal ideations. Patient patient also stable, afebrile. Physical exam also acute pathology. Laboratory investigations revealed mildly elevated ammonia of 61. She was admitted, initiated on treatment by admitting physician. Case was discussed with patient previously established on-call services clerk whose having difficulties with her computer, recommend starting a patient on D10 pending her call back for further recommendations. Case discussed and patient seen by Dr. Kaplan. (Bill Delgado) - Lab Data Lab Results 02/09/19 02/09/19 02/09/19 Range/Units 22:55 22:55 22:55 WBC 6.3 (3.8-10.6) k/uL RBC 4.58 (4.30-5.90) m/uL Hgb 13.6 (13.0-17.5) gm/dL Hct 40.3 (39.0-53.0) % MCV 87.9 (80.0-100.0) fL MCH 29.8 (25.0-35.0) pg MCHC 33.9 (31.0-37.0) g/dL RDW 13.8 (11.5-15.5) % Plt Count 161 (150-450) k/uL Neutrophils % 53 % Lymphocytes % 34 % Monocytes % 10 % Eosinophils % 1 % Basophils % 1 % Neutrophils # 3.3 (1.3-7.7) k/uL Lymphocytes # 2.1 (1.0-4.8) k/uL Monocytes # 0.6 (0-1.0) k/uL Eosinophils # 0.1 (0-0.7) k/uL Basophils # 0.0 (0-0.2) k/uL PT (9.0-12.0) sec INR (<1.2) APTT (22.0-30.0) sec Sodium 143 (137-145) mmol/L Potassium 3.3 L (3.5-5.1) mmol/L Chloride 109 H (98-107) mmol/L Carbon Dioxide 21 L (22-30) mmol/L Anion Gap 13 mmol/L BUN <2 L (9-20) mg/dL Creatinine 0.59 L (0.66-1.25) mg/dL Est GFR (CKD-EPI)AfAm >90 (>60 ml/min/1.73 sqM) Est GFR (CKD-EPI)NonAf >90 (>60 ml/min/1.73 sqM) Glucose 99 (74-99) mg/dL Calcium 10.3 H (8.4-10.2) mg/dL Total Bilirubin 1.1 (0.2-1.3) mg/dL AST 21 (17-59) U/L ALT 31 (21-72) U/L Alkaline Phosphatase 76 (38-126) U/L Ammonia 61 H (<30) umol/L Total Protein 7.2 (6.3-8.2) g/dL Albumin 4.4 (3.5-5.0) g/dL 02/09/19 Range/Units 22:55 WBC (3.8-10.6) k/uL RBC (4.30-5.90) m/uL Hgb (13.0-17.5) gm/dL Hct (39.0-53.0) % MCV (80.0-100.0) fL MCH (25.0-35.0) pg MCHC (31.0-37.0) g/dL RDW (11.5-15.5) % Plt Count (150-450) k/uL Neutrophils % % Lymphocytes % % Monocytes % % Eosinophils % % Basophils % % Neutrophils # (1.3-7.7) k/uL Lymphocytes # (1.0-4.8) k/uL Monocytes # (0-1.0) k/uL Eosinophils # (0-0.7) k/uL Basophils # (0-0.2) k/uL PT 11.5 (9.0-12.0) sec INR 1.1 (<1.2) APTT 25.0 (22.0-30.0) sec Sodium (137-145) mmol/L Potassium (3.5-5.1) mmol/L Chloride (98-107) mmol/L Carbon Dioxide (22-30) mmol/L Anion Gap mmol/L BUN (9-20) mg/dL Creatinine (0.66-1.25) mg/dL Est GFR (CKD-EPI)AfAm (>60 ml/min/1.73 sqM) Est GFR (CKD-EPI)NonAf (>60 ml/min/1.73 sqM) Glucose (74-99) mg/dL Calcium (8.4-10.2) mg/dL Total Bilirubin (0.2-1.3) mg/dL AST (17-59) U/L ALT (21-72) U/L Alkaline Phosphatase (38-126) U/L Ammonia (<30) umol/L Total Protein (6.3-8.2) g/dL Albumin (3.5-5.0) g/dL Disposition <Bill Kalpan - Last Filed: 02/10/19 00:20> Is patient prescribed a controlled substance at d/c from ED?: No <Bill Delgado - Last Filed: 02/10/19 00:41> Clinical Impression: Hyperammonemia Disposition: ADMITTED IP TO THIS HOSP Condition: Fair Referrals: Salvador Guevara MD [Primary Care Provider] - 1-2 days
[2019-02-10] MEDS ORDERED: DEXTROSE 10% IN WATER 1,000 ML IV ONE (00:24)
[2019-02-10] MEDS ORDERED: NALOXONE 0.4 MG/ML 1 ML VIAL IV PRN (00:35)
[2019-02-10] MEDS ORDERED: POTASSIUM CHLORIDE ER 20 MEQ TAB.ER PO STA (01:15)
--- NOTE | 2019-02-10 01:22 | P.HPIM ---
History of Present Illness H&P Date: 02/10/19 Chief Complaint: Repeated nausea and vomiting 38-year-old male with known case of ornithine transcarbamylase deficiency OTC Patient presented to the hospital with repeated nausea and vomiting reports nonbloody no coffee-ground vomiting. He reports typical symptoms of his f lareups with decreased appetite and feeling nauseous and drained very tired and fatigued. He denies any chest pain or trouble breathing denies any abdominal pain denies any focal neurologic deficits denies any bloody bowel movements denies any changes in his vision or hearing. He claims to be compliant with his medications and diet as much as he can. Patient denies any sick contacts or recent traveling. In the ED he was found to have ammonia level of 61 half per hospital to assist was contacted recommended starting patient on his protocol with D10 at 1 50 mL per hour and to continue to closely monitor his ammonia level and to resume his home medications. Review of Systems Pertinent positives as noted in HPI. All other systems were reviewed and are negative Past Medical History Past Medical History: GI Bleed, Seizure Disorder Additional Past Medical History / Comment(s): Ornithine TransCarbamylase (OTC) deficiency, impaired processing of protein and risk for intermittent hyperammonemia, hyperammonemia with AMS, torn left ACL and left knee effusion- uses brace and cane prn, anemia-normocytic, 2013 bilateral feet fx and R ankle fx, recent R hand fx per pt-no longer casted, gastric ulcers and vomited blood in past, IBS, kidney stones , bone deficiency- bones break easily, seizures- last one many yrs ago, shingles 2009, gout History of Any Multi-Drug Resistant Organisms: MRSA Date of last positivie culture/infection: 2013 MDRO Source:: Back Past Surgical History: Adenoidectomy, Ear Surgery, Tonsillectomy Additional Past Surgical History / Comment(s): liver biopsy, L-knee drained of 30 ml of fluid, tubes bilateral ears. Past Anesthesia/Blood Transfusion Reactions: Previous Problems w/ Anesthesia Additional Past Anesthesia/Blood Transfusion Reaction / Comment(s): Unable to wake up and being overly aggressive. Past Psychological History: Anxiety, Bipolar, Depression Smoking Status: Never smoker Past Alcohol Use History: None Reported Past Drug Use History: Marijuana - Past Family History Father Family Medical History: Cancer, Liver Disease Additional Family Medical History / Comment(s): Father at age 61, colon cancer, cirrhosis of the liver. Father is . Mother History Unknown: Yes Family Medical History: Cancer Additional Family Medical History / Comment(s): Mother had multiple cancers. She is . Brother(s) Family Medical History: No Reported History Sister(s) Family Medical History: No Reported History Medications and Allergies Home Medications Medication Instructions Recorded Confirmed Type Ravicti 1.1gm/Ml 6.6 gm PO TID 07/17/18 02/09/19 History Ibuprofen [Advil] 400 mg PO Q8HR PRN 02/09/19 02/09/19 History Allergies Allergy/AdvReac Type Severity Reaction Status Date / Time alprazolam [From Xanax] AdvReac Liver Verified 02/09/19 22:44 Complications cyclobenzaprine AdvReac Confusion Verified 02/09/19 22:44 [From Flexeril] olanzapine [From Zyprexa] AdvReac Liver Verified 02/09/19 22:44 Complications sertraline [From Zoloft] AdvReac Liver Verified 02/09/19 22:44 Complications Physical Exam Vitals: Vital Signs Temp Pulse Resp BP Pulse Ox 02/09/19 22:32 98.0 F 63 16 125/87 97 Intake and Output 02/09/19 02/09/19 02/10/19 14:59 22:59 06:59 Other: Weight 88.813 kg Constitutional: No acute distress, conversant, pleasant Eyes: Anicteric sclerae, moist conjunctiva, no lid-lag Pupils equal round reactive to light ENMT: NC/AT Oropharynx clear, no erythema, or exudates Neck: Supple, FROM, no masses, or JVD No carotid bruits No thyromegaly Lungs: Clear to auscultation Clear to percussion Normal respiratory effort, no accessory muscle use Cardiovascular: Heart regular in rate and rhythm, No murmurs, gallops, or rubs No peripheral edema Abdominal: Soft Nontender, no guarding, rebound or rigidity Abdomen moving with respiration Normoactive bowel sounds No hepatomegaly, No splenomegaly No palpable mass No abdominal wall hernia noted Skin: Normal temperature, tone, texture, turgor No induration No subcutaneous nodules No rash, lesions No ulcers Extremities: No digital cyanosis No clubbing Pedal pulses intact and symmetrical Radial pulses intact and symmetrical No calf tenderness Psychiatric: Alert and oriented to person, place and time Appropriate affect fair judgment Neuro Muscles Strength 4/5 in all 4 extremities Sensation to light touch grossly present throughout Cranial nerves II-XII grossly intact No focal sensory deficits No asterixis Lymphatics: no palpable cervical or supraclavicular , or inguinal lymph nodes Results CBC & Chem 7: 02/09/19 22:55 02/09/19 22:55 Labs: Abnormal Lab Results - Last 24 Hours (Table) 02/09/19 02/09/19 Range/Units 22:55 22:55 Potassium 3.3 L (3.5-5.1) mmol/L Chloride 109 H (98-107) mmol/L Carbon Dioxide 21 L (22-30) mmol/L BUN <2 L (9-20) mg/dL Creatinine 0.59 L (0.66-1.25) mg/dL Calcium 10.3 H (8.4-10.2) mg/dL Ammonia 61 H (<30) umol/L Assessment and Plan Assessment: 38-year-old male with history of OTC ornithine transcarbamylase deficiency with intermittent hyperammonemia. Admitted as inpatient with anticipated length of stay more than 48 hours due to symptomatic hyperammonemia. Patient was initiated on protocol for management of his condition with D10 IV fluids and close monitoring of electrolytes and ammonia level. Dr. Lima from [facility] was contacted and we'll continue to follow up closely. If ammonia starts to go up or patient's symptoms worsens patient to be transferred at that point Plan: Symptomatic hyperammonemia due to ornithine transcarbamylase deficiency Patient started on protocol which reviewed with Dr. Lima from [facility] D10 IV fluid at 1 50 mL per hour High carb diet frequent meals no protein Continue home meds Check ammonia level every 6 hours check electrolytes every 6 hours DVT prophylaxis heparin subcu 3 times a day Preformed a thorough record review from recent hospitalization with symptomatic hyperammonemia due to OTC Surrogate decision-maker: CODE STATUS: Full code Discussed with: Patient, ER, RN Anticipated discharge: 48-[address]: Home A total of 60 minutes was spent on the care of this complex patient more than 50% of the time was spent in counseling and care coordination.
[2019-02-10 09:19] LABS: African American GFR (CKD) >90 (>60 ml/min/1.73 sqM); Anion Gap 11 mmol/L; Blood Urea Nitrogen 2 mg/dL (9-20); Calcium 9.2 mg/dL (8.4-10.2); Carbon Dioxide 22 mmol/L (22-30); Chloride 109 mmol/L (98-107); Glucose 104 mg/dL (74-99); Potassium 3.3 mmol/L (3.5-5.1); Sodium 142 mmol/L (137-145)
[2019-02-10] MEDS ORDERED: ONDANSETRON 4 MG/2 ML VIAL IVP PRN (09:19)
[2019-02-10 10:27] VITALS: BMI 28.0
[2019-02-10] MEDS ORDERED: Potassium Replacement Protocol 1 EACH MISC MISCELLANE PRN ×2 (10:45→13:53)
--- NOTE | 2019-02-10 11:10 | P.PN ---
Progress Note - Text Progress Note Date: 02/10/19 Please refer to H&P for complete documentation. Patient was seen. No acute events overnight. Patient with complaints of fatigue, nausea and feeling "out of it". This morning, patient had one episode of emesis. Patient reports slight improvement in his symptoms since being hydrated continues to complain of fatigue and slight confusion. His ammonia level has come down from 67-32. Patient states that he will have a friend bring in his medication from home at 12 PM. He denies any chest pain, shortness of breath or palpitations. No fever or chills. The case was discussed with the genetics team at [facility] ([place]). Patient will continued to be monitored here with his ammonia level being checked every 6 hours. Special instructions for RN has been given that ammonia will need to be placed on ice and ran as a STAT. Patient should be able to be monitored here as long as he can bring in his home medication. No protein diet. Patient is pending clinical improvement. Dr. Flores recommends D10 at 150 mL per hour. Given ammonia of 32, Dr. Flores feels that patient might be able to be discharged if he is able to tolerate oral fluid and is feeling okay. We will wait and see if patient can tolerate his lunch and to see if he can have his home medication brought in. Discharge planning pending clinical improvement.
[2019-02-10] MEDS: [UNRECOGNIZED DRUG - OTHER] PO SCH ×3 (13:48→20:57)
[2019-02-10] MEDS: DEXTROSE 10% IN WATER 500 ML in EMPTY BAG 1 BAG IV SCH ×4 (14:06→20:56)
[2019-02-10] MEDS: POTASSIUM CHLORIDE ER 20 MEQ TAB.ER PO SCH ×2 (14:06→18:07)
[2019-02-10] MEDS ORDERED: traMADol 50 MG TAB PO STA (16:49)
[2019-02-11] MEDS: DEXTROSE 10% IN WATER 500 ML in EMPTY BAG 1 BAG IV SCH ×3 (01:33→09:17)
[2019-02-11 07:58] LABS: African American GFR (CKD) >90 (>60 ml/min/1.73 sqM); Anion Gap 10 mmol/L; Blood Urea Nitrogen <2 mg/dL (9-20); Calcium 8.7 mg/dL (8.4-10.2); Carbon Dioxide 22 mmol/L (22-30); Chloride 109 mmol/L (98-107); Glucose 121 mg/dL (74-99); Potassium 3.4 mmol/L (3.5-5.1); Sodium 141 mmol/L (137-145)
[2019-02-11] MEDS ORDERED: POTASSIUM CHLORIDE ER 20 MEQ TAB.ER PO STA (08:13)
[2019-02-11] MEDS: [UNRECOGNIZED DRUG - OTHER] PO SCH (08:28)
[2019-02-11 08:40] VITALS: BP 109/64; PULSE 54; RESP 14; TEMP 97.8
--- NOTE | 2019-02-11 10:08 | P.DS ---
Providers Date of admission: 02/10/19 00:21 Expected date of discharge: 02/11/19 Attending physician: Sabrina Colon MD Primary care physician: Salvador Guevara [facility] Course: 58-year-old male with PMH of ornithine transcarboxylase deficiency presents the ED for nausea and vomiting along with decreased appetite and feelings of fatigue. In the ED, his found to have an ammonia level 61. Patient follows a lead designer Dr. Guevara out of [facility] and was advised to start D10 at 150 mL per hour. Patient initially had no access to his home medication which was not on formulary. He was able to get his home medication around noon on the day of admission. Patient's symptoms progressively improved and resolved at the time of discharge. His ammonia level was trended and went from [id number]. Patient is able to tolerate his diet prior to discharge. Patient was seen and examined. No acute events overnight. Patient reports complete resolution of his symptoms. He denies any headaches, abdominal pain, nausea or vomiting, chest pain, shortness of breath or palpitations. No fever or chills. Tolerating his diet well. States that his mood has improved. General: [non toxic], [no distress], [appears at stated age] Derm: [warm], [dry] Head: [atraumatic], [normocephalic], [symmetric] Mouth: [no lip lesion], [mucus membranes moist] Cardiovascular: [S1S2 reg], [no murmur], [positive DP pulse bilateral], Lungs: [CTA bilateral], [no rhonchi, no rales] , [no accessory muscle use] Abdominal: [soft], [ nontender to palpation], [no guarding], [no appreciable organomegaly] Ext: [no gross muscle atrophy], [no edema], [no contractures] Neuro:[no focal neuro deficits] Psych: [Alert], [oriented], [appropriate affect] Assessment and Plan Hyperammonemia due to OTC deficiency Ammonia this morning is 45. Patient's symptoms have resolved. He would like to go home. Plans: Continue low-protein diet at home. Continue Ravicti. Follow-up with Dr. Guevara at [facility]. Patient Condition at Discharge: Stable Plan - Discharge Summary Discharge Rx Participant: No New Discharge Prescriptions: Continue Ravicti 1.1gm/Ml 6.6 gm PO TID Ibuprofen [Advil] 400 mg PO Q8HR PRN PRN Reason: Pain Discharge Medication List Ravicti 1.1gm/Ml 6.6 gm PO TID 07/17/18 [History] Ibuprofen [Advil] 400 mg PO Q8HR PRN 02/09/19 [History] Follow up Appointment(s)/Referral(s): Salvador Guevara MD [Primary Care Provider] - 1-2 days Activity/Diet/Wound Care/Special Instructions: Diet: Low-protein Follow-up with Dr. Guevara at [facility] within 1-2 days of discharge. Discharge Disposition: HOME SELF-CARE
== END 2019-02-11 15:31 | disposition home or self-care (01) | DRG 642 ==
LOC: EC 21:55 → 3NMEDONC 02-10 00:21 → 4SSUR 02-10 07:45
PROVIDERS: ADMIT Internal Medicine; ATTEND Internal Medicine
DX: E72.4 Disorders of ornithine metabolism (principal); F31.9 Bipolar disorder, unspecified; F41.9 Anxiety disorder, unspecified; G40.909 Epilepsy, unspecified, not intractable, without status epilepticus; Z86.14 Personal history of Methicillin resistant Staphylococcus aureus infection; Z87.19 Personal history of other diseases of the digestive system; Z90.89 Acquired absence of other organs; Z98.890 Other specified postprocedural states; Z80.9 Family history of malignant neoplasm, unspecified; Z83.79 Family history of other diseases of the digestive system; Z88.8 Allergy status to other drugs, medicaments and biological substances; Z80.0 Family history of malignant neoplasm of digestive organs
CPT/HCPCS: 36415; 80048; 80053; 82140; 84132; 85025; 85610; 85730; 96360; 96361; 99285

== ENCOUNTER 2019-03-11 16:19 | Inpatient (IN) | payer MEDICARE ==
[2019-03-11] MEDS ORDERED: SODIUM CHLORIDE 0.9% 1,000 ML IV STA ×2 (16:57)
[2019-03-11] MEDS ORDERED: SODIUM CHLORIDE 0.9% 500 ML 500 ML IV STA (16:57)
--- NOTE | 2019-03-11 17:11 | ED ---
Nausea/Vomiting/Diarrhea HPI - General Chief complaint: Nausea/Vomiting/Diarrhea Stated complaint: Nausea/Vomitting Time Seen by Provider: 03/11/19 16:47 Source: patient, RN notes reviewed, old records reviewed Mode of arrival: ambulatory Limitations: no limitations - History of Present Illness Initial comments: This is a 38-year-old male the ER for evaluation. Patient's well-known to facility for evaluation regarding his chronic disease, patient does have significantly elevated ammonia, feels like his ammonia level is currently going up. Patient is OTC deficiency. No current nausea vomiting or diarrhea states she's been taking all medication therapy as directed. No recent fevers cough congestion. No abdominal pain currently MD complaint: nausea, vomiting -: days(s) Description of Vomiting: food contents, watery Description of Diarrhea: water Associated Abdominal Pain: Yes Location: diffuse Severity: mild Consistency: intermittent Improves with: none Worsens with: none Associated Symptoms: weakness, other (Confusion) - Related Data Home Medications Medication Instructions Recorded Confirmed Ravicti 1.1gm/Ml 6.6 gm PO TID 07/17/18 03/11/19 Naproxen 500 mg PO BID 03/11/19 03/11/19 Allergies Allergy/AdvReac Type Severity Reaction Status Date / Time alprazolam [From Xanax] AdvReac Liver Verified 03/11/19 17:09 Complications cyclobenzaprine AdvReac Confusion Verified 03/11/19 17:09 [From Flexeril] olanzapine [From Zyprexa] AdvReac Liver Verified 03/11/19 17:09 Complications sertraline [From Zoloft] AdvReac Liver Verified 03/11/19 17:09 Complications Review of Systems ROS Statement: Those systems with pertinent positive or pertinent negative responses have been documented in the HPI. ROS Other: All systems not noted in ROS Statement are negative. Past Medical History Past Medical History: GI Bleed, Renal Disease, Seizure Disorder Additional Past Medical History / Comment(s): Ornithine TransCarbamylase (OTC) deficiency, impaired processing of protein and risk for intermittent hyperammonemia, hyperammonemia with AMS, torn left ACL and left knee effusion- uses brace and cane prn, anemia-normocytic, 2014 bilateral feet fx and R ankle fx, recent R hand fx per pt-no longer casted, gastric ulcers and vomited blood in past, IBS, kidney stones, brittle bone disease, seizures-last one many yrs ago, shingles 2009, gout History of Any Multi-Drug Resistant Organisms: MRSA Date of last positivie culture/infection: 2013 MDRO Source:: Back Past Surgical History: Adenoidectomy, Ear Surgery, Tonsillectomy Additional Past Surgical History / Comment(s): liver biopsy, bilateral myringotomies/tubes, colonoscopy Past Anesthesia/Blood Transfusion Reactions: Previous Problems w/ Anesthesia Additional Past Anesthesia/Blood Transfusion Reaction / Comment(s): Unable to wake up and being overly aggressive. Past Psychological History: Anxiety, Bipolar, Depression Smoking Status: Never smoker Past Alcohol Use History: None Reported Past Drug Use History: None Reported - Past Family History Father Family Medical History: Cancer, Liver Disease Additional Family Medical History / Comment(s): Father at age 61, colon cancer, cirrhosis of the liver. Father is . Mother History Unknown: Yes Family Medical History: Cancer Additional Family Medical History / Comment(s): Mother had multiple cancers. She is . Brother(s) Family Medical History: No Reported History Sister(s) Family Medical History: No Reported History General Exam Limitations: no limitations General appearance: alert, in no apparent distress Head exam: Present: atraumatic, normocephalic, normal inspection Eye exam: Present: normal appearance, PERRL, EOMI. Absent: scleral icterus, conjunctival injection, periorbital swelling ENT exam: Present: normal exam, mucous membranes moist Neck exam: Present: normal inspection. Absent: tenderness, meningismus, lymphadenopathy Respiratory exam: Present: normal lung sounds bilaterally. Absent: respiratory distress, wheezes, rales, rhonchi, stridor Cardiovascular Exam: Present: regular rate, normal rhythm, normal heart sounds. Absent: systolic murmur, diastolic murmur, rubs, gallop, clicks GI/Abdominal exam: Present: soft, normal bowel sounds. Absent: distended, tenderness, guarding, rebound, rigid Extremities exam: Present: normal inspection, full ROM, normal capillary refill. Absent: tenderness, pedal edema, joint swelling, calf tenderness Back exam: Present: normal inspection Neurological exam: Present: alert, oriented X3, CN II-XII intact Psychiatric exam: Present: normal affect, normal mood Skin exam: Present: warm, dry, intact, normal color. Absent: rash Course Vital Signs 03/11/19 03/11/19 03/11/19 16:32 18:35 19:16 Temperature 98.1 F Pulse Rate 67 60 69 Respiratory 18 18 18 Rate Blood Pressure 135/94 115/81 120/82 O2 Sat by Pulse 97 98 98 Oximetry - Reevaluation(s) Reevaluation #1: 03/11/19 17:11 Record is reviewed Reevaluation #2: 03/11/19 19:31 Patient not feeling any better currently - Consultations Consultation #1: Spoke with Dr. Kathleen who is okay for admission Medical Decision Making - Medical Decision Making 38 male presents today for evaluation regards to OTC deficiency known, history of hyperammonemia with persistent nausea vomiting, unable to take medications at home ammonia is elevated 61, no need for current transfer, patient will follow protocol with IV resuscitation and monitoring of ammonia levels - Lab Data Result diagrams: 03/11/19 17:40 03/11/19 17:40 Lab Results 03/11/19 03/11/19 03/11/19 Range/Units 17:40 17:40 17:40 WBC 9.1 (3.8-10.6) k/uL RBC 4.72 (4.30-5.90) m/uL Hgb 14.5 (13.0-17.5) gm/dL Hct 41.9 (39.0-53.0) % MCV 88.7 (80.0-100.0) fL MCH 30.7 (25.0-35.0) pg MCHC 34.6 (31.0-37.0) g/dL RDW 13.5 (11.5-15.5) % Plt Count 155 (150-450) k/uL Neutrophils % 72 % Lymphocytes % 16 % Monocytes % 7 % Eosinophils % 1 % Basophils % 3 % Neutrophils # 6.5 (1.3-7.7) k/uL Lymphocytes # 1.5 (1.0-4.8) k/uL Monocytes # 0.6 (0-1.0) k/uL Eosinophils # 0.1 (0-0.7) k/uL Basophils # 0.3 H (0-0.2) k/uL Sodium 145 (137-145) mmol/L Potassium 3.0 L (3.5-5.1) mmol/L Chloride 106 (98-107) mmol/L Carbon Dioxide 27 (22-30) mmol/L Anion Gap 12 mmol/L BUN 2 L (9-20) mg/dL Creatinine 0.54 L (0.66-1.25) mg/dL Est GFR (CKD-EPI)AfAm >90 (>60 ml/min/1.73 sqM) Est GFR (CKD-EPI)NonAf >90 (>60 ml/min/1.73 sqM) Glucose 85 (74-99) mg/dL Plasma Lactic Acid Juan A 1.7 (0.7-2.0) mmol/L Calcium 9.9 (8.4-10.2) mg/dL Phosphorus 3.4 (2.5-4.5) mg/dL Magnesium 1.5 L (1.6-2.3) mg/dL Total Bilirubin 1.2 (0.2-1.3) mg/dL AST 26 (17-59) U/L ALT 28 (21-72) U/L Alkaline Phosphatase 69 (38-126) U/L Ammonia 61 H (<30) umol/L Total Protein 7.4 (6.3-8.2) g/dL Albumin 4.5 (3.5-5.0) g/dL Disposition Clinical Impression: Hyperammonemia, OTC (ornithine transcarbamylase deficiency), Nausea & vomiting Disposition: ADMITTED IP TO THIS HOSP Condition: Fair Is patient prescribed a controlled substance at d/c from ED?: No Referrals: Salvador Guevara MD [Primary Care Provider] - 1-2 days
[2019-03-11 17:52] LABS: Basophils # (A) 0.3 k/uL (0-0.2); Basophils % (A) 3 %; Eosinophils # (A) 0.1 k/uL (0-0.7); Eosinophils % (A) 1 %; HCT 41.9 % (39.0-53.0); HGB 14.5 gm/dL (13.0-17.5); Lymphocytes # (A) 1.5 k/uL (1.0-4.8); Lymphocytes % (A) 16 %; MCH 30.7 pg (25.0-35.0); MCHC 34.6 g/dL (31.0-37.0); MCV 88.7 fL (80.0-100.0); Monocytes # (A) 0.6 k/uL (0-1.0); Monocytes % (A) 7 %; Neutrophils # (A) 6.5 k/uL (1.3-7.7); Neutrophils % (A) 72 %; Platelet Count 155 k/uL (150-450); RBC 4.72 m/uL (4.30-5.90); RDW 13.5 % (11.5-15.5); WBC 9.1 k/uL (3.8-10.6)
[2019-03-11 18:01] LABS: ALT 28 U/L (21-72); AST 26 U/L (17-59); African American GFR (CKD) >90 (>60 ml/min/1.73 sqM); Albumin 4.5 g/dL (3.5-5.0); Alkaline Phosphatase 69 U/L (38-126); Anion Gap 12 mmol/L; Blood Urea Nitrogen 2 mg/dL (9-20); Calcium 9.9 mg/dL (8.4-10.2); Carbon Dioxide 27 mmol/L (22-30); Chloride 106 mmol/L (98-107); Glucose 85 mg/dL (74-99); Magnesium 1.5 mg/dL (1.6-2.3); Phosphorus 3.4 mg/dL (2.5-4.5); Sodium 145 mmol/L (137-145); Total Bilirubin 1.2 mg/dL (0.2-1.3); Total Protein 7.4 g/dL (6.3-8.2)
[2019-03-11 18:02] LABS: Lactic Acid, Venous 1.7 mmol/L (0.7-2.0)
[2019-03-11] MEDS ORDERED: LACTULOSE 20 GM/30 ML CUP PO ONE (19:28)
[2019-03-11] MEDS ORDERED: SODIUM CHLORIDE 0.9% 1,000 ML IV ONE (19:28)
[2019-03-11] MEDS ORDERED: ONDANSETRON 4 MG/2 ML VIAL IVP PRN (19:28)
[2019-03-11] MEDS ORDERED: ONDANSETRON 4 MG/2 ML VIAL IVP STA (19:28)
[2019-03-11] MEDS ORDERED: LACTULOSE 20 GM/30 ML CUP PO SCH (21:00)
[2019-03-11 21:41] VITALS: BMI 29.8
[2019-03-11] MEDS: LACTULOSE 20 GM/30 ML CUP PO SCH (21:42)
[2019-03-12] MEDS: LACTULOSE 20 GM/30 ML CUP PO SCH ×3 (07:42→21:50)
[2019-03-12] MEDS: [UNRECOGNIZED DRUG - OTHER] PO SCH ×3 (07:43→21:50)
[2019-03-12] MEDS: NAPROXEN 250 MG TAB PO SCH ×2 (07:43→21:49)
[2019-03-12] MEDS: PANTOPRAZOLE 40 MG/10 ML VIAL IVP SCH (07:43)
--- NOTE | 2019-03-12 07:46 | HP ---
HISTORY AND PHYSICAL CHIEF COMPLAINT: A 38-year-old white male with chronic disease of OTC deficiency with elevated ammonia. Feels like he is currently going up. He comes in to get rehydrated. He is on a protocol here for OTC deficiency, if his ammonia gets over 120 he is transferred to [facility]. Otherwise, continue with fluid rehydration. He has some vomit of food contents, watery. Diffuse intermittent weakness. MEDICATIONS: 1. 1.1 g/mL 6.6 g t.i.d. 2. Naprosyn 500 b.i.d. 14 POINT REVIEW OF SYSTEMS: Negative except for as mentioned in HPI. MEDICAL HISTORY: GI bleed, renal disease seizure disorder. He has Ornithine transcarbamylase deficiency, we are processing him for hyperammonemia. He has had AMS, torn left ACL with left knee effusion with a brace and a cane. He has history of and vomiting when passed kidney stones, seizures. SURGERIES: Adenoidectomy, ear surgery, tonsillectomy, liver biopsy, bilateral , colonoscopy. FAMILY HISTORY: Father cancer, liver disease. Mother with cancer. Brother and sister negative. VITAL SIGNS: Stable, afebrile. CARDIOVASCULAR: S1, S2. LUNGS: Clear. GI: Soft. HEMATOLOGY: Negative Homans. PSYCH: Fair mood and affect. NEUROLOGIC: Alert and oriented x3. Thin, cachectic, temp 98.1, pulse 86 to 67, blood pressure 120 to 130s/90s. ASSESSMENT: OTC deficiency with hyperammonemia, nausea, vomiting, some dehydration. IV fluids. Monitor ammonia levels. Please see further orders. Maybe GI consult for high ammonia levels. MMODL / IJN: [id number] /
[2019-03-12 08:16] LABS: Basophils # (A) 0.1 k/uL (0-0.2); Basophils % (A) 2 %; Eosinophils # (A) 0.2 k/uL (0-0.7); Eosinophils % (A) 4 %; HCT 39.8 % (39.0-53.0); HGB 13.1 gm/dL (13.0-17.5); Lymphocytes # (A) 2.1 k/uL (1.0-4.8); Lymphocytes % (A) 37 %; MCH 29.7 pg (25.0-35.0); MCHC 32.8 g/dL (31.0-37.0); MCV 90.5 fL (80.0-100.0); Mean Platelet Volume 9.7; Monocytes # (A) 0.4 k/uL (0-1.0); Monocytes % (A) 8 %; Neutrophils # (A) 2.7 k/uL (1.3-7.7); Neutrophils % (A) 48 %; Platelet Count 136 k/uL (150-450); RDW 13.4 % (11.5-15.5); WBC 5.7 k/uL (3.8-10.6)
[2019-03-12 08:33] LABS: ALT 25 U/L (21-72); AST 22 U/L (17-59); African American GFR (CKD) >90 (>60 ml/min/1.73 sqM); Albumin 3.4 g/dL (3.5-5.0); Alkaline Phosphatase 45 U/L (38-126); Anion Gap 9 mmol/L; Blood Urea Nitrogen <2 mg/dL (9-20); Calcium 8.8 mg/dL (8.4-10.2); Carbon Dioxide 26 mmol/L (22-30); Chloride 108 mmol/L (98-107); Glucose 91 mg/dL (74-99); Potassium 3.5 mmol/L (3.5-5.1); Sodium 143 mmol/L (137-145); Total Bilirubin 1.2 mg/dL (0.2-1.3); Total Protein 5.9 g/dL (6.3-8.2)
--- NOTE | 2019-03-12 11:38 | P.CONS ---
History of Present Illness - Reason for Consult Consult date: 03/12/19 Elevated ammonia Requesting physician: Alfredo Kathleen - Chief Complaint History of urea cycle discorde hyperammonemia nausea vomiting - History of Present Illness 38-year-old male with a history of urea cycle disorder/OTC maintained on Ravicti, hyperammonemia presents with concern for elevated ammonia at 61. Nausea vomiting. White count 5.7. Hemoglobin 13.1. LFTs normal. Admission ammonia 61 presently 104. No asterixis or changes in mentation. Receiving Lactulose. Repeat ammonia this afternoon. No hx of liver disorders. In the past he has required hospitalizations at [facility] when ammonia levels worsen. Review of Systems Constitutional: Denies fever, chills, sweats, weight gain, or loss. HEENT: Negative for migraines, blurred vision or loss, earaches, drainage, tinnitus, oral mucosal lesions, dysphagia, or odynophagia. Cardiac: Negative for chest pain, arrhythmias, or palpitation. Respiratory: Negative for shortness of breath, hemoptysis, cough, or sputum production. Gastrointestinal: See HPI for pertinent findings. Genitourinary: Negative for hematuria, urgency, frequency, polyuria, dysuria, or penile discharge. Musculoskeletal: Negative for muscle aches, swelling, arthritis, and arthralgias. Neurologic: Negative for stroke or TIA. Endocrine: Negative for thyroid problems. Skin: Negative for rash or itching. Psychiatric: Negative history for depression and anxiety Past Medical History Past Medical History: GI Bleed, Renal Disease, Seizure Disorder Additional Past Medical History / Comment(s): Ornithine TransCarbamylase (OTC) deficiency, impaired processing of protein and risk for intermittent hyperammonemia, hyperammonemia with AMS, torn left ACL and left knee effusion- uses brace and cane prn, anemia-normocytic, 2013 bilateral feet fx and R ankle fx, recent R hand fx per pt-no longer casted, gastric ulcers and vomited blood in past, IBS, kidney stones, brittle bone disease, seizures-last one many yrs ag o, shingles 2009, gout History of Any Multi-Drug Resistant Organisms: MRSA Year Discovered:: 2013 MDRO Source:: Back Past Surgical History: Adenoidectomy, Ear Surgery, Tonsillectomy Additional Past Surgical History / Comment(s): liver biopsy, bilateral myringotomies/tubes, colonoscopy Past Anesthesia/Blood Transfusion Reactions: Previous Problems w/ Anesthesia Additional Past Anesthesia/Blood Transfusion Reaction / Comm: Unable to wake up and being overly aggressive. Past Psychological History: Anxiety, Bipolar, Depression Additional Psychological History / Comment(s): Poor impulse control, anger management issues. History of being placed in restraints, numerous inpatient psychiatric admissions including [facility]. PT lives with his spouse. He has a bearded dragon. He has a L knee brace and cane he uses prn. Pt can read and write a little. Smoking Status: Never smoker Past Alcohol Use History: None Reported Additional Past Alcohol Use History / Comment(s): Patient states he has been a nonsmoker. He smokes marijuana on occasion. Past Drug Use History: Marijuana Additional Drug Use History / Comment(s): uses marijuana. - Past Family History Father Family Medical History: Cancer, Liver Disease Additional Family Medical History / Comment(s): Father at age 61, colon cancer, cirrhosis of the liver. Father is . Mother History Unknown: Yes Family Medical History: Cancer Additional Family Medical History / Comment(s): Mother had multiple cancers. Sh e is . Brother(s) Family Medical History: No Reported History Sister(s) Family Medical History: No Reported History Medications and Allergies Home Medications Medication Instructions Recorded Confirmed Type Ravicti 1.1gm/Ml 6.6 gm PO TID 07/17/18 03/11/19 History Naproxen 500 mg PO BID 03/11/19 03/11/19 History Allergies Allergy/AdvReac Type Severity Reaction Status Date / Time alprazolam [From Xanax] AdvReac Liver Verified 03/11/19 17:09 Complications cyclobenzaprine AdvReac Confusion Verified 03/11/19 17:09 [From Flexeril] olanzapine [From Zyprexa] AdvReac Liver Verified 03/11/19 17:09 Complications sertraline [From Zoloft] AdvReac Liver Verified 03/11/19 17:09 Complications Physical Exam Vitals: Vital Signs Temp Pulse Pulse Resp BP BP Pulse Ox 03/12/19 07:22 97.3 F L 48 L 16 138/85 99 03/11/19 21:00 98.0 F 56 L 18 144/96 98 03/11/19 19:16 69 18 120/82 98 03/11/19 18:35 60 18 115/81 98 03/11/19 16:32 98.1 F 67 18 135/94 97 Intake and Output 03/11/19 03/12/19 03/12/19 22:59 06:59 14:59 Intake Total 620 500 Balance 620 500 Intake: Oral 620 500 Other: Voiding Method Toilet # Voids 0 1 Weight 91.762 kg General appearance: The patient is alert, oriented, in no acute distress. HET: Head is normocephalic and atraumatic. Pupils are equal and reactive. Oropharynx is clear without lesions. Neck: Supple without lymphadenopathy. Trachea midline. Heart: S1 S2. Regular rate and rhythm. Lungs: No crackles or wheezes are heard. Abdomen: Soft, nontender, nondistended with bowel sounds. No peritoneal signs. No palpable organomegaly or masses. Extremities: Normal skin color and turgor. No cyanosis, rash, ulceration, clubbing, or edema. Radial and pedal pulses are 2/4 bilaterally. Neurological: No focal deficits. Strength and sensation are grossly intact. Results CBC & Chem 7: 03/12/19 07:49 03/12/19 07:49 Labs: Abnormal Lab Results - Last 24 Hours (Table) 03/11/19 03/11/19 03/11/19 Range/Units 17:40 17:40 17:40 Plt Count (150-450) k/uL Basophils # 0.3 H (0-0.2) k/uL Potassium 3.0 L (3.5-5.1) mmol/L Chloride (98-107) mmol/L BUN 2 L (9-20) mg/dL Creatinine 0.54 L (0.66-1.25) mg/dL Magnesium 1.5 L (1.6-2.3) mg/dL Ammonia 61 H (<30) umol/L Total Protein (6.3-8.2) g/dL Albumin (3.5-5.0) g/dL 03/12/19 03/12/19 03/12/19 Range/Units 07:49 07:49 07:49 Plt Count 136 L (150-450) k/uL Basophils # (0-0.2) k/uL Potassium (3.5-5.1) mmol/L Chloride 108 H (98-107) mmol/L BUN <2 L (9-20) mg/dL Creatinine 0.47 L (0.66-1.25) mg/dL Magnesium (1.6-2.3) mg/dL Ammonia 104 H (<30) umol/L Total Protein 5.9 L (6.3-8.2) g/dL Albumin 3.4 L (3.5-5.0) g/dL Assessment and Plan (1) OTC (ornithine transcarbamylase deficiency) Narrative/Plan: 38 y/o male PMH OTC maintained on Ravicti;OTC is a rare condition may require to coordinate efforts multiple specialists and hyperammonemia presently receiving lactulose therapy without symptoms of coma. Current Visit: Yes Status: Acute Code(s): E72.4 - DISORDERS OF ORNITHINE METABOLISM SNOMED Code(s): 83016404 Plan: 1. Continue lactulose. Close monitoring of ammonia level. If hyperammonemia does not improve advised transfer to tertiary center for further evaluation and management of his OTC. Thank you for this kind referral and the opportunity to participate in the care of your patient. This consultation was discussed with Dr. Flores. The impression and plan of care have been directed as dictated.
[2019-03-13 06:50] LABS: Basophils % (A) 0 %; Eosinophils # (A) 0.2 k/uL (0-0.7); Eosinophils % (A) 4 %; HCT 36.5 % (39.0-53.0); HGB 12.7 gm/dL (13.0-17.5); Lymphocytes % (A) 37 %; MCH 30.9 pg (25.0-35.0); MCHC 34.9 g/dL (31.0-37.0); MCV 88.7 fL (80.0-100.0); Mean Platelet Volume 9.1; Monocytes # (A) 0.4 k/uL (0-1.0); Monocytes % (A) 7 %; Neutrophils # (A) 2.7 k/uL (1.3-7.7); Neutrophils % (A) 50 %; Platelet Count 135 k/uL (150-450); RBC 4.12 m/uL (4.30-5.90); RDW 13.2 % (11.5-15.5); WBC 5.4 k/uL (3.8-10.6)
[2019-03-13 07:01] LABS: ALT 27 U/L (21-72); AST 21 U/L (17-59); African American GFR (CKD) >90 (>60 ml/min/1.73 sqM); Albumin 3.3 g/dL (3.5-5.0); Alkaline Phosphatase 51 U/L (38-126); Anion Gap 8 mmol/L; Blood Urea Nitrogen <2 mg/dL (9-20); Calcium 8.8 mg/dL (8.4-10.2); Carbon Dioxide 25 mmol/L (22-30); Chloride 111 mmol/L (98-107); Glucose 94 mg/dL (74-99); Potassium 3.2 mmol/L (3.5-5.1); Sodium 144 mmol/L (137-145); Total Protein 5.7 g/dL (6.3-8.2)
[2019-03-13 07:50] VITALS: RESP 16
[2019-03-13] MEDS: [UNRECOGNIZED DRUG - OTHER] PO SCH ×3 (10:11→21:55)
[2019-03-13] MEDS: LACTULOSE 20 GM/30 ML CUP PO SCH ×2 (10:11→21:55)
[2019-03-13] MEDS: PANTOPRAZOLE 40 MG/10 ML VIAL IVP SCH (10:11)
--- NOTE | 2019-03-13 10:56 | PN ---
PROGRESS NOTE DATE OF DICTATION: 03/13/2019 The patient is a 38-year-old pleasant white male who was diagnosed with urea cycle disorder at and follows at [facility]. He was admitted to the hospital because of hyperammonemia with an ammonia level of 105. The patient has been maintained on Ravicti for management of hyperammonemia. This morning he is feeling better. No nausea, vomiting. No abdominal pain. Repeat ammonia level was 49 today. He denies any symptoms. PHYSICAL EXAMINATION: He appears comfortable. No apparent distress. VITAL SIGNS: Stable. Blood pressure is 131/81, pulse rate 45, temperature 97.7. HEENT examination unremarkable. Conjunctivae pink. Sclerae anicteric. Oral cavity no lesions. NECK: No JVD or lymph node enlargement. CHEST: Clear to auscultation. HEART: Regular rate and rhythm. ABDOMEN: Soft. Bowel sounds are positive. No organomegaly. EXTREMITIES: No pedal edema. SKIN: No rashes. NEUROLOGIC: Alert and oriented x3. No focal deficits. LABS FROM TODAY: WBC 5.4, hemoglobin 12.7, platelets 135. Basic metabolic panel is within normal limits. Ammonia level is 49. ALT, AST, T-bilirubin and alkaline phosphatase are normal. IMPRESSION: Hyperammonemia secondary to urea cycle disorder. The patient is maintained on Ravicti on an outpatient basis. He also was given a dose of lactulose yesterday. Ammonia levels have significantly improved from 104 to 49 and he is feeling well. RECOMMENDATIONS: 1. Continue with diet modification with low-protein diet. 2. Continue current medications. 3. Will follow with you. Thank you for this consultation. MMODL / IJN: [id number] /
[2019-03-13] MEDS: NAPROXEN 250 MG TAB PO SCH ×2 (12:33→21:52)
[2019-03-13] MEDS ORDERED: ACETAMINOPHEN TAB 325 MG TAB PO PRN (20:30)
--- NOTE | 2019-03-14 00:50 | PN ---
PROGRESS NOTE 38-year-old white male with hyperammonemia. He is on lactulose and fluid rehydration. Ammonia level is down from 112 down to 52. Cardiovascular: S1-S2. Lungs clear. GI soft. Hematology: Negative Homans. ASSESSMENT: Hyperammonemia, improving. Continue with fluid rehydration. Possible discharge home in the next 24 to 48 hours. MMODL / IJN: [id number] /
[2019-03-14] MEDS: NAPROXEN 250 MG TAB PO SCH (08:33)
[2019-03-14] MEDS: PANTOPRAZOLE 40 MG/10 ML VIAL IVP SCH ×2 (08:34→08:36)
[2019-03-14] MEDS: [UNRECOGNIZED DRUG - OTHER] PO SCH (08:34)
[2019-03-14] MEDS: LACTULOSE 20 GM/30 ML CUP PO SCH ×2 (08:34→08:35)
[2019-03-14] MEDS ORDERED: PANTOPRAZOLE 40 MG TABLET PO STA (08:36)
[2019-03-14 08:49] VITALS: BP 116/77; PULSE 44; TEMP 97.8
--- NOTE | 2019-03-14 14:00 | PN ---
PROGRESS NOTE DATE OF DICTATION: March 14, 2019 Patient is a 38-year-old pleasant white male with history of a urea cycle disorder, admitted to hospital with hyperammonemia. The patient clinically doing well. He is complaining of some headaches. He reports no abdominal pain. No nausea, no vomiting. PHYSICAL EXAMINATION: Appears comfortable in no apparent distress. Vital signs stable. Blood pressure is 132/86, pulse rate 82 per minute. Afebrile. HEENT examination unremarkable. Conjunctivae pink. Sclerae anicteric. Oral cavity no lesions. NECK: No JVD or lymph node enlargement. CHEST: Clear to auscultation. HEART: Regular rate and rhythm. ABDOMEN: Soft. Bowel sounds are positive. No organomegaly. EXTREMITIES: No pedal edema. SKIN: No rashes. NEUROLOGIC: Alert and oriented x3. No focal deficits. LABS: WBC 5.4, hemoglobin 12.7, platelets are 135. The ammonia is 62. Basic metabolic panel is within normal limits. IMPRESSION: Hypoalbuminemia secondary to urea cycle disorder. The patient is maintained on outpatient 3 times daily. Clinically, he is doing well. Ammonia levels are still slightly increased. RECOMMENDATION: 1. The patient advised to be on a strict low-protein diet. 2. Continue with 6.6 g p.o. t.i.d. 3. Repeat labs in the morning and will follow with you closely. Thank you for this consultation. MMSELINL / IJN: [id number] /
== END 2019-03-14 13:45 | disposition home or self-care (01) | DRG 642 ==
LOC: EC 16:19 → 4MS4W 19:30 → EC 20:27 → 4SSUR 03-12 16:15 → OBSVTOIN 03-14 09:17
PROVIDERS: ADMIT Family Medicine; ATTEND Family Medicine
DX: E72.4 Disorders of ornithine metabolism (principal); E86.0 Dehydration; G40.909 Epilepsy, unspecified, not intractable, without status epilepticus; F31.9 Bipolar disorder, unspecified; E88.09 Other disorders of plasma-protein metabolism, not elsewhere classified; F41.9 Anxiety disorder, unspecified; Z80.0 Family history of malignant neoplasm of digestive organs; Z88.8 Allergy status to other drugs, medicaments and biological substances; Z86.14 Personal history of Methicillin resistant Staphylococcus aureus infection; Z90.49 Acquired absence of other specified parts of digestive tract; Z90.89 Acquired absence of other organs; Z98.890 Other specified postprocedural states; Z80.8 Family history of malignant neoplasm of other organs or systems; Z83.79 Family history of other diseases of the digestive system
CPT/HCPCS: 36415; 80053; 82140; 83605; 83735; 84100; 85025; 96361; 96374; 99285

== ENCOUNTER 2019-04-26 08:20 | Emergency (ER) | payer MEDICARE ==
[2019-04-26] MEDS ORDERED: SODIUM CHLORIDE 0.9% 500 ML 500 ML IV STA (08:39)
--- NOTE | 2019-04-26 08:39 | ED ---
General Adult HPI - General Chief complaint: Recheck/Abnormal Lab/Rx Stated complaint: abn labs Time Seen by Provider: 04/26/19 08:20 Source: patient, RN notes reviewed, old records reviewed Mode of arrival: ambulatory Limitations: no limitations - History of Present Illness Initial comments: This is a 39-year-old male who presents to the emergency department with a past medical history of ornithine transcarbamylase deficiency. Patient comes in the emergency department because he's been vomiting and having diarrhea over the last 3 days and he worries that his ammonia levels are elevated. Patient denies any fever chills per patient denies any chest pain difficulty breathing first breath per patient denies headache patient denies any numbness weakness. Patient denies any lightheadedness or dizziness. Patient denies any back pain. Patient denies any dysuria hematuria urinary frequency. Patient denies any upper respiratory symptoms. Patient denies any abdominal pain but does state he is having diarrhea and has had some vomiting. - Related Data Home Medications Medication Instructions Recorded Confirmed Ravicti 1.1gm/Ml 6.6 gm PO TID 07/17/18 04/26/19 Naproxen 500 mg PO BID PRN 03/11/19 04/26/19 Indomethacin [Indocin] 25 mg PO BID 04/26/19 04/26/19 Omeprazole 20 mg PO DAILY 04/26/19 04/26/19 Allergies Allergy/AdvReac Type Severity Reaction Status Date / Time alprazolam [From Xanax] AdvReac Liver Verified 04/26/19 08:47 Complications cyclobenzaprine AdvReac Confusion Verified 04/26/19 08:47 [From Flexeril] olanzapine [From Zyprexa] AdvReac Liver Verified 04/26/19 08:47 Complications sertraline [From Zoloft] AdvReac Liver Verified 04/26/19 08:47 Complications Review of Systems ROS Statement: Those systems with pertinent positive or pertinent negative responses have been documented in the HPI. ROS Other: All systems not noted in ROS Statement are negative. Past Medical History Past Medical History: GI Bleed, Renal Disease, Seizure Disorder Additional Past Medical History / Comment(s): Ornithine TransCarbamylase (OTC) deficiency, impaired processing of protein and risk for intermittent hyperammonemia, hyperammonemia with AMS, torn left ACL and left knee effusion- uses brace and cane prn, anemia-normocytic, 2013 bilateral feet fx and R ankle fx, recent R hand fx per pt-no longer casted, gastric ulcers and vomited blood in past, IBS, kidney stones, brittle bone disease, seizures-last one many yrs ago, shingles 2009, gout History of Any Multi-Drug Resistant Organisms: MRSA Date of last positivie culture/infection: 2013 MDRO Source:: Back Past Surgical History: Adenoidectomy, Ear Surgery, Tonsillectomy Additional Past Surgical History / Comment(s): liver biopsy, bilateral myringotomies/tubes, colonoscopy Past Anesthesia/Blood Transfusion Reactions: Previous Problems w/ Anesthesia Additional Past Anesthesia/Blood Transfusion Reaction / Comment(s): Unable to wake up and being overly aggressive. Past Psychological History: Anxiety, Bipolar, Depression Smoking Status: Never smoker Past Alcohol Use History: None Reported Past Drug Use History: Marijuana - Past Family History Father Family Medical History: Cancer, Liver Disease Additional Family Medical History / Comment(s): Father at age 61, colon cancer, cirrhosis of the liver. Father is . Mother History Unknown: Yes Family Medical History: Cancer Additional Family Medical History / Comment(s): Mother had multiple cancers. She is . Brother(s) Family Medical History: No Reported History Sister(s) Family Medical History: No Reported History General Exam - General Exam Comments Initial Comments: GENERAL: Patient is well-developed and well-nourished. Patient is nontoxic and well- hydrated and is in mild distress. ENT: Neck is soft and supple. No significant lymphadenopathy is noted. Oropharynx is clear. Moist mucous membranes. Neck has full range of motion without eliciting any pain. EYES: The sclera were anicteric and conjunctiva were pink and moist. Extraocular movements were intact and pupils were equal round and reactive to light. Eyelids were unremarkable. PULMONARY: Unlabored respirations. Good breath sounds bilaterally. No audible rales rhonchi or wheezing was noted. CARDIOVASCULAR: There is a regular rate and rhythm without any murmurs gallops or rubs. ABDOMEN: Soft and nontender with normal bowel sounds. No palpable organomegaly was noted. There is no palpable pulsatile mass. SKIN: Skin is clear with no lesions or rashes and otherwise unremarkable. NEUROLOGIC: Patient is alert and oriented x3. Cranial nerves II through XII are grossly intact. Motor and sensory are also intact. Normal speech, volume and content. Symmetrical smile. MUSCULOSKELETAL: Normal extremities with adequate strength and full range of motion. No lower extremity swelling or edema. No calf tenderness. LYMPHATICS: No significant lymphadenopathy is noted PSYCHIATRIC: Normal psychiatric evaluation. Limitations: no limitations Course Vital Signs 04/26/19 04/26/19 04/26/19 08:22 08:54 09:00 Temperature 98.2 F 98.4 F Pulse Rate 55 L Pulse Rate [ 47 L Lap Regulator ] Respiratory 18 20 Rate Blood Pressure 145/92 O2 Sat by Pulse 98 96 Oximetry Medical Decision Making - Medical Decision Making Patient had a 27 ammonia level and when I told the patient as he wanted to be discharged immediately. I asked if he wanted me to call the physicians downtown who monitor this for him he did not he stated that his lungs it's in the normal range he feels comfortable to go home he is no longer nauseated he's got some fluid and he does not want to stay any longer. I asked him a second time if he wanted me to verify this he insisted he wanted to leave immediately. - Lab Data Result diagrams: 04/26/19 09:24 04/26/19 09:24 Lab Results 04/26/19 04/26/19 04/26/19 Range/Units 09:24 09:24 09:24 WBC 5.5 (3.8-10.6) k/uL RBC 4.32 (4.30-5.90) m/uL Hgb 13.4 (13.0-17.5) gm/dL Hct 38.1 L (39.0-53.0) % MCV 88.3 (80.0-100.0) fL MCH 31.1 (25.0-35.0) pg MCHC 35.3 (31.0-37.0) g/dL RDW 13.0 (11.5-15.5) % Plt Count 157 (150-450) k/uL Neutrophils % 53 % Lymphocytes % 31 % Monocytes % 8 % Eosinophils % 5 % Basophils % 1 % Neutrophils # 2.9 (1.3-7.7) k/uL Lymphocytes # 1.7 (1.0-4.8) k/uL Monocytes # 0.4 (0-1.0) k/uL Eosinophils # 0.3 (0-0.7) k/uL Basophils # 0.1 (0-0.2) k/uL Sodium 143 (137-145) mmol/L Potassium 3.3 L (3.5-5.1) mmol/L Chloride 109 H (98-107) mmol/L Carbon Dioxide 25 (22-30) mmol/L Anion Gap 9 mmol/L BUN <2 L (9-20) mg/dL Creatinine 0.48 L (0.66-1.25) mg/dL Est GFR (CKD-EPI)AfAm >90 (>60 ml/min/1.73 sqM) Est GFR (CKD-EPI)NonAf >90 (>60 ml/min/1.73 sqM) Glucose 109 H (74-99) mg/dL Calcium 9.0 (8.4-10.2) mg/dL Total Bilirubin 0.8 (0.2-1.3) mg/dL AST 21 (17-59) U/L ALT 23 (21-72) U/L Alkaline Phosphatase 55 (38-126) U/L Ammonia 27 (<30) umol/L Total Protein 6.5 (6.3-8.2) g/dL Albumin 4.0 (3.5-5.0) g/dL Amylase 40 (30-110) U/L Lipase 230 (23-300) U/L Disposition Clinical Impression: Gastroenteritis Disposition: HOME SELF-CARE Additional Instructions: Patient should follow-up with the specialist with a phone call today. Is patient prescribed a controlled substance at d/c from ED?: No Referrals: Salvador Guevara MD [Primary Care Provider] - 1-2 days Time of Disposition: 10:18
[2019-04-26 09:44] LABS: Basophils # (A) 0.1 k/uL (0-0.2); Basophils % (A) 1 %; Eosinophils # (A) 0.3 k/uL (0-0.7); Eosinophils % (A) 5 %; HCT 38.1 % (39.0-53.0); HGB 13.4 gm/dL (13.0-17.5); Lymphocytes # (A) 1.7 k/uL (1.0-4.8); Lymphocytes % (A) 31 %; MCH 31.1 pg (25.0-35.0); MCHC 35.3 g/dL (31.0-37.0); MCV 88.3 fL (80.0-100.0); Mean Platelet Volume 8.5; Monocytes # (A) 0.4 k/uL (0-1.0); Monocytes % (A) 8 %; Neutrophils # (A) 2.9 k/uL (1.3-7.7); Neutrophils % (A) 53 %; Platelet Count 157 k/uL (150-450); RBC 4.32 m/uL (4.30-5.90); WBC 5.5 k/uL (3.8-10.6)
[2019-04-26 09:50] LABS: ALT 23 U/L (21-72); AST 21 U/L (17-59); African American GFR (CKD) >90 (>60 ml/min/1.73 sqM); Alkaline Phosphatase 55 U/L (38-126); Amylase 40 U/L (30-110); Anion Gap 9 mmol/L; Blood Urea Nitrogen <2 mg/dL (9-20); Carbon Dioxide 25 mmol/L (22-30); Chloride 109 mmol/L (98-107); Glucose 109 mg/dL (74-99); Potassium 3.3 mmol/L (3.5-5.1); Sodium 143 mmol/L (137-145); Total Bilirubin 0.8 mg/dL (0.2-1.3); Total Protein 6.5 g/dL (6.3-8.2)
[2019-04-26 10:30] VITALS: BP 140/84; PULSE 56; RESP 18; TEMP 98.1
== END 2019-04-26 10:29 | disposition home or self-care (01) ==
LOC: EC 08:20
DX: K52.9 Noninfective gastroenteritis and colitis, unspecified (principal); M10.9 Gout, unspecified; Z88.8 Allergy status to other drugs, medicaments and biological substances; Z79.1 Long term (current) use of non-steroidal anti-inflammatories (NSAID); Z79.899 Other long term (current) drug therapy; Z86.14 Personal history of Methicillin resistant Staphylococcus aureus infection; Z87.19 Personal history of other diseases of the digestive system; Z80.0 Family history of malignant neoplasm of digestive organs; Z83.79 Family history of other diseases of the digestive system
CPT/HCPCS: 36415; 80053; 82140; 82150; 83690; 85025; 99284

== ENCOUNTER 2019-06-11 10:39 | Emergency (ER) | payer MEDICARE ==
[2019-06-11 11:18] VITALS: PULSE 54; TEMP 97.7
--- NOTE | 2019-06-11 11:40 | ED ---
General Adult HPI - General Chief complaint: Recheck/Abnormal Lab/Rx Stated complaint: Abnormal ammonia levels Time Seen by Provider: 06/11/19 11:15 Source: patient, RN notes reviewed, old records reviewed Mode of arrival: ambulatory Limitations: no limitations - History of Present Illness Initial comments: This is a 39-year-old male who presents emergency Department with a past medical history significant for ornithine transcarbamylase deficiency. Patient is supposed to be checked weekly for his ammonia levels but he does not do this. Patient states he has been a little more easily irritated and more agitated so he decided to come in and get him checked today. Patient denies any recent fever chills per patient denies any chest pain palpitations difficulty breathing shortest breath. Patient denies any abdominal pain. Patient denies any nausea vomiting diarrhea. - Related Data Home Medications Medication Instructions Recorded Confirmed Ravicti 1.1gm/Ml 6.6 gm PO TID 07/17/18 06/11/19 Indomethacin [Indocin] 25 mg PO BID PRN 04/26/19 06/11/19 Omeprazole 20 mg PO DAILY 04/26/19 06/11/19 Allergies Allergy/AdvReac Type Severity Reaction Status Date / Time alprazolam [From Xanax] AdvReac Liver Verified 06/11/19 12:09 Complications cyclobenzaprine AdvReac Confusion Verified 06/11/19 12:09 [From Flexeril] olanzapine [From Zyprexa] AdvReac Liver Verified 06/11/19 12:09 Complications sertraline [From Zoloft] AdvReac Liver Verified 06/11/19 12:09 Complications Review of Systems ROS Statement: Those systems with pertinent positive or pertinent negative responses have been documented in the HPI. ROS Other: All systems not noted in ROS Statement are negative. Past Medical History Past Medical History: GI Bleed, Renal Disease, Seizure Disorder Additional Past Medical History / Comment(s): Ornithine TransCarbamylase (OTC) deficiency, impaired processing of protein and risk for intermittent h yperammonemia, hyperammonemia with AMS, torn left ACL and left knee effusion- uses brace and cane prn, anemia-normocytic, 2014 bilateral feet fx and R ankle fx, recent R hand fx per pt-no longer casted, gastric ulcers and vomited blood in past, IBS, kidney stones, brittle bone disease, seizures-last one many yrs ago, shingles 2009, gout History of Any Multi-Drug Resistant Organisms: MRSA Date of last positivie culture/infection: 2013 MDRO Source:: Back Past Surgical History: Adenoidectomy, Ear Surgery, Tonsillectomy Additional Past Surgical History / Comment(s): liver biopsy, bilateral myringotomies/tubes, colonoscopy Past Anesthesia/Blood Transfusion Reactions: Previous Problems w/ Anesthesia Additional Past Anesthesia/Blood Transfusion Reaction / Comment(s): Unable to wake up and being overly aggressive. Past Psychological History: Anxiety, Bipolar, Depression Smoking Status: Never smoker Past Alcohol Use History: None Reported Past Drug Use History: Marijuana - Past Family History Father Family Medical History: Cancer, Liver Disease Additional Family Medical History / Comment(s): Father at age 61, colon cancer, cirrhosis of the liver. Father is . Mother History Unknown: Yes Family Medical History: Cancer Additional Family Medical History / Comment(s): Mother had multiple cancers. She is . Brother(s) Family Medical History: No Reported History Sister(s) Family Medical History: No Reported History General Exam - General Exam Comments Initial Comments: GENERAL: Patient is well-developed and well-nourished. Patient is nontoxic and well- hydrated and is in no acute distress. ENT: Neck is soft and supple. No significant lymphadenopathy is noted. Oropharynx is clear. Moist mucous membranes. Neck has full range of motion without eliciting any pain. EYES: The sclera were anicteric and conjunctiva were pink and moist. Extraocular movements were intact and pupils were equal round and reactive to light. Eyelids were unremarkable. PULMONARY: Unlabored respirations. Good breath sounds bilaterally. No audible rales rhonchi or wheezing was noted. CARDIOVASCULAR: There is a regular rate and rhythm without any murmurs gallops or rubs. ABDOMEN: Soft and nontender with normal bowel sounds. SKIN: Skin is clear with no lesions or rashes and otherwise unremarkable. NEUROLOGIC: Patient is alert and oriented x3. Cranial nerves II through XII are grossly intact. Motor and sensory are also intact. Normal speech, volume and content. Symmetrical smile. MUSCULOSKELETAL: Normal extremities with adequate strength and full range of motion. No lower extremity swelling or edema. No calf tenderness. LYMPHATICS: No significant lymphadenopathy is noted PSYCHIATRIC: Normal psychiatric evaluation. Limitations: no limitations Course Vital Signs 06/11/19 06/11/19 06/11/19 11:15 11:18 12:18 Temperature 97.7 F Pulse Rate 54 L 54 L Respiratory 18 20 20 Rate Blood Pressure 118/85 149/91 O2 Sat by Pulse 99 100 Oximetry Medical Decision Making - Medical Decision Making His ammonia level is normal. Patient has been asymptomatic throughout his ED stay. - Lab Data Result diagrams: 06/11/19 12:00 06/11/19 12:00 Lab Results 06/11/19 06/11/19 06/11/19 Range/Units 12:00 12:00 12:00 WBC 8.3 (3.8-10.6) k/uL RBC 4.58 (4.30-5.90) m/uL Hgb 13.7 (13.0-17.5) gm/dL Hct 40.3 (39.0-53.0) % MCV 87.8 (80.0-100.0) fL MCH 29.9 (25.0-35.0) pg MCHC 34.1 (31.0-37.0) g/dL RDW 13.4 (11.5-15.5) % Plt Count 172 (150-450) k/uL Neutrophils % 65 % Lymphocytes % 22 % Monocytes % 7 % Eosinophils % 3 % Basophils % 1 % Neutrophils # 5.4 (1.3-7.7) k/uL Lymphocytes # 1.9 (1.0-4.8) k/uL Monocytes # 0.6 (0-1.0) k/uL Eosinophils # 0.2 (0-0.7) k/uL Basophils # 0.1 (0-0.2) k/uL Sodium 143 (137-145) mmol/L Potassium 4.4 (3.5-5.1) mmol/L Chloride 109 H (98-107) mmol/L Carbon Dioxide 25 (22-30) mmol/L Anion Gap 9 mmol/L BUN <2 L (9-20) mg/dL Creatinine 0.54 L (0.66-1.25) mg/dL Est GFR (CKD-EPI)AfAm >90 (>60 ml/min/1.73 sqM) Est GFR (CKD-EPI)NonAf >90 (>60 ml/min/1.73 sqM) Glucose 106 H (74-99) mg/dL Calcium 10.1 (8.4-10.2) mg/dL Total Bilirubin 0.9 (0.2-1.3) mg/dL AST 23 (17-59) U/L ALT 16 (4-49) U/L Alkaline Phosphatase 68 (38-126) U/L Ammonia 10 (<30) umol/L Total Protein 7.1 (6.3-8.2) g/dL Albumin 4.4 (3.5-5.0) g/dL Disposition Clinical Impression: Agitation Disposition: HOME SELF-CARE Condition: Good Is patient prescribed a controlled substance at d/c from ED?: No Referrals: Salvador Guevara MD [Primary Care Provider] - 1-2 days Time of Disposition: 12:35
[2019-06-11 12:18] LABS: Basophils # (A) 0.1 k/uL (0-0.2); Basophils % (A) 1 %; Eosinophils # (A) 0.2 k/uL (0-0.7); Eosinophils % (A) 3 %; HCT 40.3 % (39.0-53.0); HGB 13.7 gm/dL (13.0-17.5); Lymphocytes # (A) 1.9 k/uL (1.0-4.8); Lymphocytes % (A) 22 %; MCH 29.9 pg (25.0-35.0); MCHC 34.1 g/dL (31.0-37.0); MCV 87.8 fL (80.0-100.0); Mean Platelet Volume 10.6; Monocytes # (A) 0.6 k/uL (0-1.0); Monocytes % (A) 7 %; Neutrophils # (A) 5.4 k/uL (1.3-7.7); Neutrophils % (A) 65 %; Platelet Count 172 k/uL (150-450); RBC 4.58 m/uL (4.30-5.90); RDW 13.4 % (11.5-15.5); WBC 8.3 k/uL (3.8-10.6)
[2019-06-11 12:22] VITALS: RESP 20
[2019-06-11 12:24] LABS: ALT 16 U/L (4-49); AST 23 U/L (17-59); African American GFR (CKD) >90 (>60 ml/min/1.73 sqM); Albumin 4.4 g/dL (3.5-5.0); Alkaline Phosphatase 68 U/L (38-126); Anion Gap 9 mmol/L; Blood Urea Nitrogen <2 mg/dL (9-20); Calcium 10.1 mg/dL (8.4-10.2); Carbon Dioxide 25 mmol/L (22-30); Chloride 109 mmol/L (98-107); Glucose 106 mg/dL (74-99); Non-African American GFR(CKD) >90 (>60 ml/min/1.73 sqM); Potassium 4.4 mmol/L (3.5-5.1); Sodium 143 mmol/L (137-145); Total Bilirubin 0.9 mg/dL (0.2-1.3); Total Protein 7.1 g/dL (6.3-8.2)
[2019-06-11 12:26] VITALS: BP 149/91
== END 2019-06-11 12:55 | disposition home or self-care (01) ==
LOC: EC 10:39
DX: R45.1 Restlessness and agitation (principal); E72.4 Disorders of ornithine metabolism; Z88.8 Allergy status to other drugs, medicaments and biological substances; Z79.899 Other long term (current) drug therapy; Z86.14 Personal history of Methicillin resistant Staphylococcus aureus infection; Z87.19 Personal history of other diseases of the digestive system
CPT/HCPCS: 36415; 80053; 82140; 85025; 99284

== ENCOUNTER 2019-06-12 07:44 | Emergency (ER) | payer MEDICARE ==
[2019-06-12 07:49] VITALS: TEMP 97.8
[2019-06-12] MEDS ORDERED: SODIUM CHLORIDE 0.9% 500 ML 500 ML IV STA (08:07)
--- NOTE | 2019-06-12 08:30 | XR ---
EXAMINATION TYPE: XR KUB DATE OF EXAM: 06/12/2019 8:24 AM CLINICAL HISTORY: Left flank pain for one day. TECHNIQUE: Two Upright KUB images of the abdomen are obtained. COMPARISON: Abdominal x-ray and CT abdomen and pelvis June 13, 2017. FINDINGS: Scattered gas is seen in non-distended stomach and small bowel loops. Gas is seen in non-di stended colon along the periphery. There is no visceromegaly, pneumoperitoneum, or abnormal calcifica tion appreciated. Right pelvic phlebolith. Lung bases remain clear. Osseous structures are intact. IMPRESSION: Overall nonobstructive bowel gas pattern. No definitive new nephrolithiasis.
--- NOTE | 2019-06-12 08:33 | ED ---
General Adult HPI - General Chief complaint: Back Pain/Injury Stated complaint: abd pain Time Seen by Provider: 06/12/19 07:45 Source: patient, EMS, RN notes reviewed, old records reviewed Mode of arrival: EMS Limitations: no limitations - History of Present Illness Initial comments: This is a 39-year-old male who presents emergency Department complaining of abdominal pain. Patient was seen in emergency department yesterday he did not mention abdominal pain. Patient states she has a history of kidney stones. Patient thinks his urine looked darker site think she has some blood in his urine. Patient denies any vomiting or diarrhea. Patient denies any fever chills. Patient denies any back pain. Patient states eating normally - Related Data Home Medications Medication Instructions Recorded Confirmed Ravicti 1.1gm/Ml 6.6 gm PO TID 07/17/18 06/11/19 Indomethacin [Indocin] 25 mg PO BID PRN 04/26/19 06/11/19 Omeprazole 20 mg PO DAILY 04/26/19 06/11/19 Previous Rx's Medication Instructions Recorded Ketorolac [Toradol] 10 mg PO Q6HR #15 tab 06/12/19 Tamsulosin [Flomax] 0.4 mg PO DAILY #10 cap 06/12/19 Allergies Allergy/AdvReac Type Severity Reaction Status Date / Time alprazolam [From Xanax] AdvReac Liver Verified 06/11/19 12:09 Complications cyclobenzaprine AdvReac Confusion Verified 06/11/19 12:09 [From Flexeril] olanzapine [From Zyprexa] AdvReac Liver Verified 06/11/19 12:09 Complications sertraline [From Zoloft] AdvReac Liver Verified 06/11/19 12:09 Complications Review of Systems ROS Statement: Those systems with pertinent positive or pertinent negative responses have been documented in the HPI. ROS Other: All systems not noted in ROS Statement are negative. Past Medical History Past Medical History: GI Bleed, Renal Disease, Seizure Disorder Additional Past Medical History / Comment(s): Ornithine TransCarbamylase (OTC) deficiency, impaired processing of protein and risk for intermittent hyperammonemia, hyperammonemia with AMS, torn left ACL and left knee effusion- uses brace and cane prn, anemia-normocytic, 2014 bilateral feet fx and R ankle fx, recent R hand fx per pt-no longer casted, gastric ulcers and vomited blood in past, IBS, kidney stones, brittle bone disease, seizures-last one many yrs ago, shingles 2009, gout History of Any Multi-Drug Resistant Organisms: MRSA Date of last positivie culture/infection: 2013 MDRO Source:: Back Past Surgical History: Adenoidectomy, Ear Surgery, Tonsillectomy Additional Past Surgical History / Comment(s): liver biopsy, bilateral myringotomies/tubes, colonoscopy Past Anesthesia/Blood Transfusion Reactions: Previous Problems w/ Anesthesia Additional Past Anesthesia/Blood Transfusion Reaction / Comment(s): Unable to wake up and being overly aggressive. Past Psychological History: Anxiety, Bipolar, Depression Smoking Status: Never smoker Past Alcohol Use History: None Reported Past Drug Use History: Marijuana - Past Family History Father Family Medical History: Cancer, Liver Disease Additional Family Medical History / Comment(s): Father at age 61, colon cancer, cirrhosis of the liver. Father is . Mother History Unknown: Yes Family Medical History: Cancer Additional Family Medical History / Comment(s): Mother had multiple cancers. She is . Brother(s) Family Medical History: No Reported History Sister(s) Family Medical History: No Reported History General Exam - General Exam Comments Initial Comments: GENERAL: Patient is well-developed and well-nourished. Patient is nontoxic and well- hydrated and is in mild distress. ENT: Neck is soft and supple. No significant lymphadenopathy is noted. Oropharynx is clear. Moist mucous membranes. Neck has full range of motion without eliciting any pain. EYES: The sclera were anicteric and conjunctiva were pink and moist. Extraocular mo vements were intact and pupils were equal round and reactive to light. Eyelids were unremarkable. PULMONARY: Unlabored respirations. Good breath sounds bilaterally. No audible rales rhonchi or wheezing was noted. CARDIOVASCULAR: There is a regular rate and rhythm without any murmurs gallops or rubs. ABDOMEN: Slight left-sided abdominal pain no rebound or guard. No palpable organomegaly was noted. There is no palpable pulsatile mass. SKIN: Skin is clear with no lesions or rashes and otherwise unremarkable. NEUROLOGIC: Patient is alert and oriented x3. Cranial nerves II through XII are grossly intact. Motor and sensory are also intact. Normal speech, volume and content. Symmetrical smile. MUSCULOSKELETAL: Normal extremities with adequate strength and full range of motion. No lower extremity swelling or edema. No calf tenderness. LYMPHATICS: No significant lymphadenopathy is noted PSYCHIATRIC: Normal psychiatric evaluation. Limitations: no limitations Course Vital Signs 06/12/19 06/12/19 07:45 10:08 Temperature 97.8 F Pulse Rate 54 L 87 Respiratory 16 16 Rate Blood Pressure 139/85 140/79 O2 Sat by Pulse 97 99 Oximetry Medical Decision Making - Medical Decision Making Labs were repeated because they look diluted and on the repeat labs were much more similar to the day before. Patient was feeling much more comfortable and it is assumed that he had a kidney stone because the blood in the urine and the fact that his had them before and he stated that this pain felt the same. - Lab Data Result diagrams: 06/12/19 09:55 06/12/19 09:55 Lab Results 06/12/19 06/12/19 06/12/19 Range/Units 08:05 08:05 08:05 WBC 4.8 (3.8-10.6) k/uL RBC 4.20 L (4.30-5.90) m/uL Hgb 12.5 L (13.0-17.5) gm/dL Hct 37.4 L (39.0-53.0) % MCV 88.9 (80.0-100.0) fL MCH 29.8 (25.0-35.0) pg MCHC 33.5 (31.0-37.0) g/dL RDW 13.3 (11.5-15.5) % Plt Count 102 L (150-450) k/uL Neutrophils % 50 % Lymphocytes % 34 % Monocytes % 8 % Eosinophils % 5 % Basophils % 1 % Neutrophils # 2.4 (1.3-7.7) k/uL Lymphocytes # 1.6 (1.0-4.8) k/uL Monocytes # 0.4 (0-1.0) k/uL Eosinophils # 0.2 (0-0.7) k/uL Basophils # 0.0 (0-0.2) k/uL Sodium 145 (137-145) mmol/L Potassium 3.2 L (3.5-5.1) mmol/L Chloride 119 H (98-107) mmol/L Carbon Dioxide 18 L (22-30) mmol/L Anion Gap 8 mmol/L BUN <2 L (9-20) mg/dL Creatinine 0.40 L (0.66-1.25) mg/dL Est GFR (CKD-EPI)AfAm >90 (>60 ml/min/1.73 sqM) Est GFR (CKD-EPI)NonAf >90 (>60 ml/min/1.73 sqM) Glucose 86 (74-99) mg/dL Calcium 7.5 L (8.4-10.2) mg/dL Total Bilirubin 0.6 (0.2-1.3) mg/dL AST 22 (17-59) U/L ALT 12 (4-49) U/L Alkaline Phosphatase 54 (38-126) U/L Total Protein 5.2 L (6.3-8.2) g/dL Albumin 2.9 L (3.5-5.0) g/dL Amylase 31 (30-110) U/L Lipase 167 (23-300) U/L Urine Color Yellow Urine Appearance Clear (Clear) Urine pH 5.5 (5.0-8.0) Ur Specific [place] 1.018 (1.001-1.035) Urine Protein Negative (Negative) Urine Glucose (UA) Negative (Negative) Urine Ketones Negative (Negative) Urine Blood Large H (Negative) Urine Nitrite Negative (Negative) Urine Bilirubin Negative (Negative) Urine Urobilinogen <2.0 (<2.0) mg/dL Ur Leukocyte Esterase Negative (Negative) Urine RBC >182 H (0-5) /hpf Urine WBC 3 (0-5) /hpf Ur Squamous Epith Cells <1 (0-4) /hpf Hyaline Casts 7 H (0-2) /lpf Urine Mucus Rare H (None) /hpf 06/12/19 06/12/19 Range/Units 09:55 09:55 WBC 6.1 (3.8-10.6) k/uL RBC 4.60 (4.30-5.90) m/uL Hgb 13.7 (13.0-17.5) gm/dL Hct 40.8 (39.0-53.0) % MCV 88.7 (80.0-100.0) fL MCH 29.9 (25.0-35.0) pg MCHC 33.7 (31.0-37.0) g/dL RDW 13.4 (11.5-15.5) % Plt Count 124 L (150-450) k/uL Neutrophils % 53 % Lymphocytes % 29 % Monocytes % 8 % Eosinophils % 5 % Basophils % 3 % Neutrophils # 3.2 (1.3-7.7) k/uL Lymphocytes # 1.8 (1.0-4.8) k/uL Monocytes # 0.5 (0-1.0) k/uL Eosinophils # 0.3 (0-0.7) k/uL Basophils # 0.2 (0-0.2) k/uL Sodium 145 (137-145) mmol/L Potassium 4.5 (3.5-5.1) mmol/L Chloride 111 H (98-107) mmol/L Carbon Dioxide 22 (22-30) mmol/L Anion Gap 12 mmol/L BUN <2 L (9-20) mg/dL Creatinine 0.51 L (0.66-1.25) mg/dL Est GFR (CKD-EPI)AfAm >90 (>60 ml/min/1.73 sqM) Est GFR (CKD-EPI)NonAf >90 (>60 ml/min/1.73 sqM) Glucose 103 H (74-99) mg/dL Calcium 9.8 (8.4-10.2) mg/dL Total Bilirubin 0.8 (0.2-1.3) mg/dL AST 34 (17-59) U/L ALT 17 (4-49) U/L Alkaline Phosphatase 82 (38-126) U/L Total Protein 6.9 (6.3-8.2) g/dL Albumin 4.2 (3.5-5.0) g/dL Amylase (30-110) U/L Lipase (23-300) U/L Urine Color Urine Appearance (Clear) Urine pH (5.0-8.0) Ur Specific [place] (1.001-1.035) Urine Protein (Negative) Urine Glucose (UA) (Negative) Urine Ketones (Negative) Urine Blood (Negative) Urine Nitrite (Negative) Urine Bilirubin (Negative) Urine Urobilinogen (<2.0) mg/dL Ur Leukocyte Esterase (Negative) Urine RBC (0-5) /hpf Urine WBC (0-5) /hpf Ur Squamous Epith Cells (0-4) /hpf Hyaline Casts (0-2) /lpf Urine Mucus (None) /hpf Disposition Clinical Impression: Kidney stone Disposition: HOME SELF-CARE Instructions (If sedation given, give patient instructions): Kidney Stones (ED) Prescriptions: Tamsulosin [Flomax] 0.4 mg PO DAILY #10 cap Ketorolac [Toradol] 10 mg PO Q6HR #15 tab Is patient prescribed a controlled substance at d/c from ED?: No Referrals: Salvador Guevara MD [Primary Care Provider] - 1-2 days Time of Disposition: 10:50
[2019-06-12 08:39] LABS: Appearance,Urine Clear (Clear); Bilirubin,Urine Negative (Negative); Blood,Urine Large (Negative); Color,Urine Yellow; Glucose,Urine (UA) Negative (Negative); Hyaline Casts,Urine 7 /lpf (0-2); Ketones,Urine Negative (Negative); Leukocyte Esterase,Urine Negative (Negative); Mucus,Urine Rare /hpf; Nitrite,Urine Negative (Negative); PH, Urine 5.5 (5.0-8.0); Protein,Urine Negative (Negative); RBC,Urine >182 /hpf (0-5); Specific Gravity,Urine 1.018 (1.001-1.035); Squamous Epithelial Cell,Urine <1 /hpf (0-4); Urobilinogen,Urine <2.0 mg/dL (<2.0); WBC,Urine 3 /hpf (0-5)
[2019-06-12 08:47] LABS: ALT 12 U/L (4-49); AST 22 U/L (17-59); African American GFR (CKD) >90 (>60 ml/min/1.73 sqM); Albumin 2.9 g/dL (3.5-5.0); Alkaline Phosphatase 54 U/L (38-126); Amylase 31 U/L (30-110); Anion Gap 8 mmol/L; Blood Urea Nitrogen <2 mg/dL (9-20); Calcium 7.5 mg/dL (8.4-10.2); Carbon Dioxide 18 mmol/L (22-30); Chloride 119 mmol/L (98-107); Glucose 86 mg/dL (74-99); Non-African American GFR(CKD) >90 (>60 ml/min/1.73 sqM); Potassium 3.2 mmol/L (3.5-5.1); Sodium 145 mmol/L (137-145); Total Bilirubin 0.6 mg/dL (0.2-1.3); Total Protein 5.2 g/dL (6.3-8.2)
[2019-06-12 08:49] LABS: Basophils % (A) 1 %; Eosinophils # (A) 0.2 k/uL (0-0.7); Eosinophils % (A) 5 %; HCT 37.4 % (39.0-53.0); HGB 12.5 gm/dL (13.0-17.5); Lymphocytes # (A) 1.6 k/uL (1.0-4.8); Lymphocytes % (A) 34 %; MCH 29.8 pg (25.0-35.0); MCHC 33.5 g/dL (31.0-37.0); MCV 88.9 fL (80.0-100.0); Monocytes # (A) 0.4 k/uL (0-1.0); Monocytes % (A) 8 %; Neutrophils # (A) 2.4 k/uL (1.3-7.7); Neutrophils % (A) 50 %; Platelet Count 102 k/uL (150-450); RDW 13.3 % (11.5-15.5); WBC 4.8 k/uL (3.8-10.6)
[2019-06-12 10:09] VITALS: PULSE 87
[2019-06-12 10:14] LABS: Basophils # (A) 0.2 k/uL (0-0.2); Basophils % (A) 3 %; Eosinophils # (A) 0.3 k/uL (0-0.7); Eosinophils % (A) 5 %; HCT 40.8 % (39.0-53.0); HGB 13.7 gm/dL (13.0-17.5); Lymphocytes # (A) 1.8 k/uL (1.0-4.8); Lymphocytes % (A) 29 %; MCH 29.9 pg (25.0-35.0); MCHC 33.7 g/dL (31.0-37.0); MCV 88.7 fL (80.0-100.0); Mean Platelet Volume 10.3; Monocytes # (A) 0.5 k/uL (0-1.0); Monocytes % (A) 8 %; Neutrophils # (A) 3.2 k/uL (1.3-7.7); Neutrophils % (A) 53 %; Platelet Count 124 k/uL (150-450); RDW 13.4 % (11.5-15.5); WBC 6.1 k/uL (3.8-10.6)
[2019-06-12 10:24] LABS: ALT 17 U/L (4-49); African American GFR (CKD) >90 (>60 ml/min/1.73 sqM); Albumin 4.2 g/dL (3.5-5.0); Anion Gap 12 mmol/L; Blood Urea Nitrogen <2 mg/dL (9-20); Calcium 9.8 mg/dL (8.4-10.2); Carbon Dioxide 22 mmol/L (22-30); Chloride 111 mmol/L (98-107); Glucose 103 mg/dL (74-99); Non-African American GFR(CKD) >90 (>60 ml/min/1.73 sqM); Sodium 145 mmol/L (137-145); Total Bilirubin 0.8 mg/dL (0.2-1.3); Total Protein 6.9 g/dL (6.3-8.2)
[2019-06-12 10:32] LABS: AST 34 U/L (17-59); Alkaline Phosphatase 82 U/L (38-126); Potassium 4.5 mmol/L (3.5-5.1)
[2019-06-12 11:22] VITALS: BP 143/81; RESP 18
== END 2019-06-12 11:15 | disposition home or self-care (01) ==
LOC: EC 07:44
DX: N20.0 Calculus of kidney (principal); Z79.899 Other long term (current) drug therapy; Z88.8 Allergy status to other drugs, medicaments and biological substances
CPT/HCPCS: 36415; 74018; 80053; 81001; 82150; 83690; 85025; 96360; 99285

== ENCOUNTER 2019-07-05 10:35 | Emergency (ER) | payer MEDICARE ==
--- NOTE | 2019-07-05 11:13 | ED ---
General Adult HPI - General Source: patient Mode of arrival: ambulatory Limitations: no limitations <Mohamud Chatterjee - Last Filed: 07/05/19 13:33> <Caleb Alves - Last Filed: 07/05/19 19:31> - General Chief complaint: Recheck/Abnormal Lab/Rx Stated complaint: poss altered ammonia levels Time Seen by Provider: 07/05/19 11:07 - History of Present Illness Initial comments: Patient is a 39-year-old male with history of OTC deficiency presenting to emergency Department with chief complaint of increased confusion. Mother reports the patient often has elevated levels and is treated in the emergency per pro tocol provided from the [facility]. Mother reports patient has slight confusion and states that "he does not feel like himself". Mother reports a typical signs of elevation his ammonia levels. There are started to come to the ED for further medical management. Patient also reports some nominal pain and nausea. Patient alert and oriented and is a good historian. (Mohamud Chatterjee) - Related Data Home Medications Medication Instructions Recorded Confirmed Ravicti 1.1gm/Ml 6.6 gm PO TID 07/17/18 07/05/19 Allergies Allergy/AdvReac Type Severity Reaction Status Date / Time alprazolam [From Xanax] AdvReac Liver Verified 07/05/19 10:45 Complications cyclobenzaprine AdvReac Confusion Verified 07/05/19 10:45 [From Flexeril] olanzapine [From Zyprexa] AdvReac Liver Verified 07/05/19 10:45 Complications sertraline [From Zoloft] AdvReac Liver Verified 07/05/19 10:45 Complications Review of Systems ROS Other: All systems not noted in ROS Statement are negative. <Mohamud Chatterjee - Last Filed: 07/05/19 13:33> ROS Other: All systems not noted in ROS Statement are negative. <Caleb Alves - Last Filed: 07/05/19 19:31> ROS Statement: Those systems with pertinent positive or pertinent negative responses have been documented in the HPI. Past Medical History Past Medical History: GI Bleed, Renal Disease, Seizure Disorder Additional Past Medical History / Comment(s): Ornithine TransCarbamylase (OTC) deficiency, impaired processing of protein and risk for intermittent hyperammonemia, hyperammonemia with AMS, torn left ACL and left knee effusion-uses brace and cane prn, anemia-normocytic, 2013 bilateral feet fx and R ankle fx, recent R hand fx per pt-no longer casted, gastric ulcers and vomited blood in past, IBS, kidney stones, brittle bone disease, seizures-last one many yrs ago, shingles 2009, gout History of Any Multi-Drug Resistant Organisms: MRSA Date of last positivie culture/infection: 2013 MDRO Source:: Back Past Surgical History: Adenoidectomy, Ear Surgery, Tonsillectomy Additional Past Surgical History / Comment(s): liver biopsy, bilateral myringotomies/tubes, colonoscopy Past Anesthesia/Blood Transfusion Reactions: Previous Problems w/ Anesthesia Additional Past Anesthesia/Blood Transfusion Reaction / Comment(s): Unable to wake up and being overly aggressive. Past Psychological History: Anxiety, Bipolar, Depression Smoking Status: Never smoker Past Alcohol Use History: None Reported Past Drug Use History: None Reported - Past Family History Father Family Medical History: Cancer, Liver Disease Additional Family Medical History / Comment(s): Father at age 61, colon cancer, cirrhosis of the liver. Father is . Mother History Unknown: Yes Family Medical History: Cancer Additional Family Medical History / Comment(s): Mother had multiple cancers. She is . Brother(s) Family Medical History: No Reported History Sister(s) Family Medical History: No Reported History <Mohamud Chatterjee - Last Filed: 07/05/19 13:33> General Exam Limitations: no limitations General appearance: alert, in no apparent distress Head exam: Present: atraumatic, normocephalic, normal inspection Eye exam: Present: normal appearance, PERRL, EOMI Pupils: Present: normal accommodation ENT exam: Present: normal exam, normal oropharynx, mucous membranes dry Neck exam: Present: normal inspection, full ROM Respiratory exam: Present: normal lung sounds bilaterally Cardiovascular Exam: Present: regular rate, normal rhythm, normal heart sounds GI/Abdominal exam: Present: soft. Absent: distended, tenderness, guarding Extremities exam: Present: normal inspection, full ROM Back exam: Present: normal inspection, full ROM Neurological exam: Present: alert, oriented X3 Psychiatric exam: Present: normal affect, normal mood Skin exam: Present: warm, dry, intact, normal color <Mohamud Chatterjee - Last Filed: 07/05/19 13:33> Course <Caleb Alves - Last Filed: 07/05/19 19:31> Vital Signs 07/05/19 07/05/19 07/05/19 10:41 12:24 13:00 Temperature 97.1 F L 97.9 F Pulse Rate 54 L 39 L Respiratory 18 16 16 Rate Blood Pressure 143/95 134/84 O2 Sat by Pulse 99 99 Oximetry 07/05/19 07/05/19 07/05/19 13:30 14:49 16:07 Temperature Pulse Rate 46 L 52 L 49 L Respiratory 16 16 16 Rate Blood Pressure 94/66 O2 Sat by Pulse 100 97 97 Oximetry - Reevaluation(s) Reevaluation #1: 07/05/19 13:00 39 -year-old male history of OTC deficiency. I did evaluate this patient after ammonia level had returned significantly elevated at 242. I discussed case with the warhead maintenance specialist at [facility] and [facility] Dr. Laboy regarding treatment. I discussed case with the pharmacist at this institution on multiple occasions regarding the need for arginine infusion, and Ammonul infusion and the possibility of a lipid infusion. We do not stock any of these medications at this institution. Dr. Laboy does recommend continuing dextrose 10 with half normal saline and 20 mEq of potassium at 1.5 times maintenance.(Continued for the patient and transport is arranged to [facility]. (Caleb Alves) Reevaluation #2: 07/05/19 17:45 Patient reevaluated multiple times, he is alert, answering questions appropriately, he does have a resting bradycardia which is normal for this patient although vital signs are stable. (Caleb Alves) Reevaluation #3: 07/05/19 17:45 I discussed this case with the fellow covering at the [facility] and recommends redrawing another ammonia. This will be obtained. 07/05/19 18:10 (Caleb Alves) Reevaluation #4: 07/05/19 19:30 Repeat ammonia is 101. I again discussed this with the fellow at [facility] who is recommending transfer to [place]. (Caleb Alves) EKG Findings - EKG Comments: EKG Findings:: EKG: Sinus bradycardia with sinus arrhythmia no ST segment elevation, rate of 45, VT interval 138, QRS duration 100, QTC 411 <Caleb Alves - Last Filed: 07/05/19 19:31> Medical Decision Making - Lab Data Result diagrams: 07/05/19 11:30 07/05/19 11:30 <Mohamud Chatterjee - Last Filed: 07/05/19 13:33> - Lab Data Result diagrams: 07/05/19 11:30 07/05/19 11:30 <Caleb Alves - Last Filed: 07/05/19 19:31> - Medical Decision Making Patient has been evaluated multiple times while in the emergency department he is alert and oriented. He has no episodes of vomiting. He is hungry and is given a no protein diet. He is maintained on dextrose 10 with half-normal and lipid infusion at the recommendations of the genetic and metabolic team at [facility] His ammonia has been checked 2 additional times in the emergency department, first recheck was 87, the recommendation at that time was to continue IV treatments and redraw at 1700. The redraw at 1700 was 215. I discussed case with the fellow from [facility] and recommends a redraw for another ammonia. Patient will be transferred by EMS to [facility], diagnosis of hyperammonemia, OTC deficiency. Case discussed with the ER physician Dr. Noriega at [facility]. Accepting transfer. (Caleb Alves) - Lab Data Lab Results 07/05/19 07/05/19 07/05/19 Range/Units 11:30 11:30 11:30 WBC 9.0 (3.8-10.6) k/uL RBC 4.52 (4.30-5.90) m/uL Hgb 13.6 (13.0-17.5) gm/dL Hct 39.3 (39.0-53.0) % MCV 87.0 (80.0-100.0) fL MCH 30.0 (25.0-35.0) pg MCHC 34.5 (31.0-37.0) g/dL RDW 13.4 (11.5-15.5) % Plt Count 177 (150-450) k/uL Neutrophils % 70 % Lymphocytes % 22 % Monocytes % 6 % Eosinophils % 1 % Basophils % 0 % Neutrophils # 6.3 (1.3-7.7) k/uL Lymphocytes # 2.0 (1.0-4.8) k/uL Monocytes # 0.5 (0-1.0) k/uL Eosinophils # 0.1 (0-0.7) k/uL Basophils # 0.0 (0-0.2) k/uL Manual Slide Review Performed Large Platelets Present RBC Morphology Normal Sodium 145 (137-145) mmol/L Potassium 3.3 L (3.5-5.1) mmol/L Chloride 111 H (98-107) mmol/L Carbon Dioxide 24 (22-30) mmol/L Anion Gap 10 mmol/L BUN 3 L (9-20) mg/dL Creatinine 0.42 L (0.66-1.25) mg/dL Est GFR (CKD-EPI)AfAm >90 (>60 ml/min/1.73 sqM) Est GFR (CKD-EPI)NonAf >90 (>60 ml/min/1.73 sqM) Glucose 104 H (74-99) mg/dL Calcium 10.1 (8.4-10.2) mg/dL Total Bilirubin 0.9 (0.2-1.3) mg/dL AST 26 (17-59) U/L ALT 26 (4-49) U/L Alkaline Phosphatase 56 (38-126) U/L Ammonia 242 H (<30) umol/L Total Protein 6.5 (6.3-8.2) g/dL Albumin 4.1 (3.5-5.0) g/dL Amylase 49 (30-110) U/L Lipase 170 (23-300) U/L Urine Color Urine Appearance (Clear) Urine pH (5.0-8.0) Ur Specific Dodson (1.001-1.035) Urine Protein (Negative) Urine Glucose (UA) (Negative) Urine Ketones (Negative) Urine Blood (Negative) Urine Nitrite (Negative) Urine Bilirubin (Negative) Urine Urobilinogen (<2.0) mg/dL Ur Leukocyte Esterase (Negative) Urine RBC (0-5) /hpf Urine WBC (0-5) /hpf Ur Squamous Epith Cells (0-4) /hpf Urine Mucus (None) /hpf 01/20/20 01/20/20 01/20/20 Range/Units 12:20 13:34 17:14 WBC (3.8-10.6) k/uL RBC (4.30-5.90) m/uL Hgb (13.0-17.5) gm/dL Hct (39.0-53.0) % MCV (80.0-100.0) fL MCH (25.0-35.0) pg MCHC (31.0-37.0) g/dL RDW (11.5-15.5) % Plt Count (150-450) k/uL Neutrophils % % Lymphocytes % % Monocytes % % Eosinophils % % Basophils % % Neutrophils # (1.3-7.7) k/uL Lymphocytes # (1.0-4.8) k/uL Monocytes # (0-1.0) k/uL Eosinophils # (0-0.7) k/uL Basophils # (0-0.2) k/uL Manual Slide Review Large Platelets RBC Morphology Sodium (137-145) mmol/L Potassium (3.5-5.1) mmol/L Chloride (98-107) mmol/L Carbon Dioxide (22-30) mmol/L Anion Gap mmol/L BUN (9-20) mg/dL Creatinine (0.66-1.25) mg/dL Est GFR (CKD-EPI)AfAm (>60 ml/min/1.73 sqM) Est GFR (CKD-EPI)NonAf (>60 ml/min/1.73 sqM) Glucose (74-99) mg/dL Calcium (8.4-10.2) mg/dL Total Bilirubin (0.2-1.3) mg/dL AST (17-59) U/L ALT (4-49) U/L Alkaline Phosphatase (38-126) U/L Ammonia 87 H 215 H (<30) umol/L Total Protein (6.3-8.2) g/dL Albumin (3.5-5.0) g/dL Amylase (30-110) U/L Lipase (23-300) U/L Urine Color Yellow Urine Appearance Clear (Clear) Urine pH 6.0 (5.0-8.0) Ur Specific Dodson 1.022 (1.001-1.035) Urine Protein Trace H (Negative) Urine Glucose (UA) Negative (Negative) Urine Ketones Negative (Negative) Urine Blood Small H (Negative) Urine Nitrite Negative (Negative) Urine Bilirubin Negative (Negative) Urine Urobilinogen <2.0 (<2.0) mg/dL Ur Leukocyte Esterase Negative (Negative) Urine RBC 57 H (0-5) /hpf Urine WBC 2 (0-5) /hpf Ur Squamous Epith Cells <1 (0-4) /hpf Urine Mucus Many H (None) /hpf 07/05/19 Range/Units 18:37 WBC (3.8-10.6) k/uL RBC (4.30-5.90) m/uL Hgb (13.0-17.5) gm/dL Hct (39.0-53.0) % MCV (80.0-100.0) fL MCH (25.0-35.0) pg MCHC (31.0-37.0) g/dL RDW (11.5-15.5) % Plt Count (150-450) k/uL Neutrophils % % Lymphocytes % % Monocytes % % Eosinophils % % Basophils % % Neutrophils # (1.3-7.7) k/uL Lymphocytes # (1.0-4.8) k/uL Monocytes # (0-1.0) k/uL Eosinophils # (0-0.7) k/uL Basophils # (0-0.2) k/uL Manual Slide Review Large Platelets RBC Morphology Sodium (137-145) mmol/L Potassium (3.5-5.1) mmol/L Chloride (98-107) mmol/L Carbon Dioxide (22-30) mmol/L Anion Gap mmol/L BUN (9-20) mg/dL Creatinine (0.66-1.25) mg/dL Est GFR (CKD-EPI)AfAm (>60 ml/min/1.73 sqM) Est GFR (CKD-EPI)NonAf (>60 ml/min/1.73 sqM) Glucose (74-99) mg/dL Calcium (8.4-10.2) mg/dL Total Bilirubin (0.2-1.3) mg/dL AST (17-59) U/L ALT (4-49) U/L Alkaline Phosphatase (38-126) U/L Ammonia 101 H (<30) umol/L Total Protein (6.3-8.2) g/dL Albumin (3.5-5.0) g/dL Amylase (30-110) U/L Lipase (23-300) U/L Urine Color Urine Appearance (Clear) Urine pH (5.0-8.0) Ur Specific Dodson (1.001-1.035) Urine Protein (Negative) Urine Glucose (UA) (Negative) Urine Ketones (Negative) Urine Blood (Negative) Urine Nitrite (Negative) Urine Bilirubin (Negative) Urine Urobilinogen (<2.0) mg/dL Ur Leukocyte Esterase (Negative) Urine RBC (0-5) /hpf Urine WBC (0-5) /hpf Ur Squamous Epith Cells (0-4) /hpf Urine Mucus (None) /hpf Critical Care Time Critical Care Time: Yes Total Critical Care Time: 35 <Caleb Alves - Last Filed: 07/05/19 19:31> Disposition <Mohamud Chatterjee - Last Filed: 07/05/19 13:33> Is patient prescribed a controlled substance at d/c from ED?: No Time of Disposition: 17:43 - Out of Hospital Transfer - Req. Specs Out of Hospital Transfer - Requested Specifics: Other Emergency Center (Transfer to [facility], accepting physician Dr. Noriega) <Caleb Alves - Last Filed: 07/05/19 19:31> Clinical Impression: OTC (ornithine transcarbamylase deficiency), Hyperammonemia Disposition: OTHER INSTITUTION NOT DEFINED Condition: Serious Referrals: Salvador Guevara MD [Primary Care Provider] - 1-2 days
[2019-07-05] MEDS ORDERED: POTASSIUM CHLORIDE 20 MEQ in WATER FOR INJECTION 1 100ML.BAG IVPB STA (11:23)
[2019-07-05 12:25] VITALS: RESP 16
[2019-07-05 12:28] LABS: Basophils % (A) 0 %; Eosinophils # (A) 0.1 k/uL (0-0.7); Eosinophils % (A) 1 %; HCT 39.3 % (39.0-53.0); HGB 13.6 gm/dL (13.0-17.5); Lymphocytes % (A) 22 %; MCHC 34.5 g/dL (31.0-37.0); Mean Platelet Volume 11.7; Monocytes # (A) 0.5 k/uL (0-1.0); Monocytes % (A) 6 %; Neutrophils # (A) 6.3 k/uL (1.3-7.7); Neutrophils % (A) 70 %; Platelet Count 177 k/uL (150-450); RBC 4.52 m/uL (4.30-5.90); RDW 13.4 % (11.5-15.5)
[2019-07-05 12:42] LABS: ALT 26 U/L (4-49); AST 26 U/L (17-59); African American GFR (CKD) >90 (>60 ml/min/1.73 sqM); Albumin 4.1 g/dL (3.5-5.0); Alkaline Phosphatase 56 U/L (38-126); Amylase 49 U/L (30-110); Anion Gap 10 mmol/L; Blood Urea Nitrogen 3 mg/dL (9-20); Calcium 10.1 mg/dL (8.4-10.2); Carbon Dioxide 24 mmol/L (22-30); Chloride 111 mmol/L (98-107); Glucose 104 mg/dL (74-99); Non-African American GFR(CKD) >90 (>60 ml/min/1.73 sqM); Potassium 3.3 mmol/L (3.5-5.1); Sodium 145 mmol/L (137-145); Total Bilirubin 0.9 mg/dL (0.2-1.3); Total Protein 6.5 g/dL (6.3-8.2)
[2019-07-05] MEDS ORDERED: ONDANSETRON 4 MG/2 ML VIAL IVP STA (12:43)
[2019-07-05 12:47] LABS: Appearance,Urine Clear (Clear); Bilirubin,Urine Negative (Negative); Blood,Urine Small (Negative); Color,Urine Yellow; Glucose,Urine (UA) Negative (Negative); Ketones,Urine Negative (Negative); Leukocyte Esterase,Urine Negative (Negative); Mucus,Urine Many /hpf; Nitrite,Urine Negative (Negative); Protein,Urine Trace (Negative); RBC,Urine 57 /hpf (0-5); Specific Gravity,Urine 1.022 (1.001-1.035); Squamous Epithelial Cell,Urine <1 /hpf (0-4); Urobilinogen,Urine <2.0 mg/dL (<2.0); WBC,Urine 2 /hpf (0-5)
[2019-07-05 12:53] LABS: Large Platelets Present
[2019-07-05] MEDS ORDERED: DEXTROSE IV ONE ×3 (13:10)
[2019-07-05] MEDS ORDERED: SODIUM CHLORIDE IV ONE ×3 (13:10)
[2019-07-05] MEDS ORDERED: WATER IV ONE ×3 (13:10)
[2019-07-05] MEDS ORDERED: [UNRECOGNIZED DRUG - OTHER] IV ONE ×3 (13:10)
[2019-07-05] MEDS ORDERED: FAT EMULSION 20% 250 ML in EMPTY BAG 1 BAG IV ONE (16:00)
[2019-07-05] MEDS ORDERED: ACETAMINOPHEN TAB 325 MG TAB PO STA (16:08)
[2019-07-05 20:12] VITALS: BP 148/59; PULSE 63; TEMP 98.3
[2019-07-05] MEDS ORDERED: WATER IV SCH ×3 (20:15)
[2019-07-05] MEDS ORDERED: [UNRECOGNIZED DRUG - OTHER] IV SCH ×3 (20:15)
[2019-07-05] MEDS ORDERED: SODIUM CHLORIDE IV SCH ×3 (20:15)
[2019-07-05] MEDS ORDERED: DEXTROSE IV SCH ×3 (20:15)
[2019-07-06] MEDS ORDERED: FAT EMULSION 20% 250 ML in EMPTY BAG 1 BAG IV SCH (16:00)
== END 2019-07-05 20:20 | disposition short-term general hospital (02) ==
LOC: EC 10:35
DX: E72.20 Disorder of urea cycle metabolism, unspecified (principal); Z88.8 Allergy status to other drugs, medicaments and biological substances; Z79.899 Other long term (current) drug therapy; Z86.14 Personal history of Methicillin resistant Staphylococcus aureus infection
CPT/HCPCS: 36415; 93005; 80053; 82140; 82150; 83690; 85025; 81001; 99291; 96365; 96367; 96366 ×5; 96368; J3480 ×2; J2405

== ENCOUNTER 2019-10-08 22:34 | Emergency (ER) | payer MEDICARE ==
[2019-10-08] MEDS ORDERED: SODIUM CHLORIDE 0.9% 2,000 ML IV ONE (22:40)
[2019-10-08 22:56] VITALS: BP 127/92; PULSE 54; RESP 26; TEMP 97.7
[2019-10-08 23:06] LABS: Basophils # (A) 0.1 k/uL (0-0.2); Basophils % (A) 1 %; Eosinophils # (A) 0.4 k/uL (0-0.7); Eosinophils % (A) 4 %; HCT 30.5 % (39.0-53.0); HGB 10.2 gm/dL (13.0-17.5); Lymphocytes % (A) 34 %; MCHC 33.4 g/dL (31.0-37.0); MCV 89.8 fL (80.0-100.0); Mean Platelet Volume 10.5; Monocytes # (A) 0.7 k/uL (0-1.0); Monocytes % (A) 8 %; Neutrophils # (A) 4.6 k/uL (1.3-7.7); Neutrophils % (A) 51 %; Platelet Count 159 k/uL (150-450); RDW 13.7 % (11.5-15.5)
[2019-10-08 23:11] LABS: ALT 13 U/L (4-49); AST 21 U/L (17-59); African American GFR (CKD) >90 (>60 ml/min/1.73 sqM); Albumin 2.7 g/dL (3.5-5.0); Alcohol <10 mg/dL; Alkaline Phosphatase 47 U/L (38-126); Anion Gap 6 mmol/L; Blood Urea Nitrogen <2 mg/dL (9-20); Carbon Dioxide 17 mmol/L (22-30); Chloride 119 mmol/L (98-107); Glucose 116 mg/dL (74-99); Non-African American GFR(CKD) >90 (>60 ml/min/1.73 sqM); Sodium 142 mmol/L (137-145); Total Bilirubin 0.4 mg/dL (0.2-1.3); Total Protein 4.7 g/dL (6.3-8.2)
[2019-10-08 23:17] LABS: INR 1.3 (<1.2); Prothrombin Time 12.8 sec (9.0-12.0)
[2019-10-08 23:18] LABS: Potassium 2.5 mmol/L (3.5-5.1)
[2019-10-08 23:19] LABS: Amylase <30 U/L (30-110); Calcium 6.5 mg/dL (8.4-10.2); Creatine Kinase 85 U/L (55-170)
[2019-10-08 23:22] LABS: Partial Thromboplastin Time 21.2 sec (22.0-30.0)
[2019-10-08 23:31] LABS: Creatine Kinase MB 0.8 ng/mL (0.0-2.4); Troponin I <0.012 ng/mL (0.000-0.034)
[2019-10-08] MEDS ORDERED: DIPH,PERTUS(ACELL)TETVAC-LF 0.5 ML VIAL IM ONE (23:42)
[2019-10-08 23:58] LABS: Appearance,Urine Clear (Clear); Bilirubin,Urine Negative (Negative); Blood,Urine Small (Negative); Color,Urine Light Yellow; Glucose,Urine (UA) Negative (Negative); Hyaline Casts,Urine 10 /lpf (0-2); Ketones,Urine Negative (Negative); Leukocyte Esterase,Urine Negative (Negative); Mucus,Urine Rare /hpf; Nitrite,Urine Negative (Negative); PH, Urine 5.5 (5.0-8.0); Protein,Urine Negative (Negative); RBC,Urine 17 /hpf (0-5); Specific Gravity,Urine 1.017 (1.001-1.035); Squamous Epithelial Cell,Urine <1 /hpf (0-4); Urobilinogen,Urine <2.0 mg/dL (<2.0); WBC,Urine 1 /hpf (0-5)
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
[2019-10-09 00:02] LABS: Amphetamine Screen,Urine Not Detected (NotDetected); Barbiturate Screen,Urine Not Detected (NotDetected); Benzodiazepines Screen,Urine Not Detected (NotDetected); Cocaine Screen,Urine Not Detected (NotDetected); Methadone Screen, Urine Not Detected (NotDetected); Opiate Screen,Urine Not Detected (NotDetected); Oxycodone Screen, Urine Not Detected (NotDetected); Phencyclidine Screen,Urine Not Detected (NotDetected); Tricyclic Antidepressant,Urine Not Detected (NotDetected); Urn Cannabinoid Scrn Detected (NotDetected)
[2019-10-09] MEDS ORDERED: MORPHINE SULFATE 4 MG/ML SYRINGE IV STA (00:09)
[2019-10-09] MEDS ORDERED: LORazepam 2 MG/ML INJ IV STA (00:09)
--- NOTE | 2019-10-09 00:17 | CT ---
EXAMINATION TYPE: CT brain aurea wo con DATE OF EXAM: 10/08/2019 COMPARISON: 02/24/2016 HISTORY: attempted suicide CT DLP: 1673.8 mGycm. Automated Exposure Control for Dose Reduction was Utilized. TECHNIQUE: CT scan of the head and cervical spine are performed without contrast. FINDINGS: Cylindrical foreign body enters the left posterior parietal calvarium near the vertex exten ding through the left cerebral hemisphere across the clivus extending below the right mandible. There is extensive subarachnoid hemorrhage throughout the brain, acute intraventricular hemorrhage seen in the left lateral ventricle, and acute subdural hematoma on the left measuring 1.0 cm in greatest thi ckness. There is left to right midline shift of 1.0 cm. There is narrowing of the sulci particularly on the left indicative of cerebral edema. Calvarial fracture site is seen of the left parietal bone f rom the entry wound and few foci of pneumocephalus are also seen. High density within the teresita and me dulla appear is intraparenchymal hemorrhage. The patient is intubated. Moderate mucosal thickening of the paranasal sinuses. Extensive subcutaneou s emphysema of the face and neck. Subdural hemorrhage is seen along the tentorium cerebelli. There is slight irregularity of the posterior contour of C2 although there is motion artifact. No abn ormal prevertebral soft tissue swelling. Reversal usual cervical lordosis. No definitive cervical spi nal fracture. Mild geographic airspace disease in the lung apices. Extensive pneumomediastinum and th e visualized portions of the upper mediastinum. Again extensive subcutaneous emphysema of the neck. B lood products and/or secretions surround the endotracheal tube approximately. Soft tissues are diffic ult to evaluate given the extensive subcutaneous edema. IMPRESSION: 1. Extensive subarachnoid hemorrhage, acute left subdural hematoma measuring 1.0 cm in greatest thick ness, left intraventricular hemorrhage, and brainstem intraparenchymal hemorrhage. Cerebral edema wit h 1.0 cm [id number] midline shift. Known foreign body traversing the left parietal bone through th e brain parenchyma into the soft tissues of the neck and terminating deep to the right mandible. 2. Extensive subcutaneous emphysema of the head and neck, extensive pneumomediastinum, and mild pneum ocephalus. 3. Subtle irregularity at C2 is likely from patient motion. No definitive cervical spine fracture. Findings were discussed with the ordering ER physician at 12:11 AM on 10/09/[address] Pineda.
[2019-10-09 00:18] LABS: VBG PH 7.25 (7.31-7.41)
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
--- NOTE | 2019-10-09 00:30 | XR ---
EXAMINATION TYPE: XR chest 1V portable DATE OF EXAM: 10/09/2019 COMPARISON: 05/23/2018 HISTORY: Intubation. Attempted suicide. TECHNIQUE: Single view FINDINGS: There is soft tissue air over the mediastinum and in both axilla. There is a pneumopericard ium. The lungs appear clear of infiltrate. I see no pneumothorax. IMPRESSION: There is pneumomediastinum and pneumopericardium. Soft tissue air also extending into the axilla bilaterally. Normal heart. Exam findings were discussed with Dr. Thompson at 12:30 AM.
== END 2019-10-09 01:00 | disposition short-term general hospital (02) ==
LOC: EC 22:34
DX: T79.7XXA Traumatic subcutaneous emphysema, initial encounter (principal); S06.890A Other specified intracranial injury without loss of consciousness, initial encounter; E87.6 Hypokalemia; E87.2 Acidosis; D64.9 Anemia, unspecified; R40.2430 Glasgow coma scale score 3-8, unspecified time; E72.4 Disorders of ornithine metabolism; Z23 Encounter for immunization; Z79.899 Other long term (current) drug therapy; Z88.8 Allergy status to other drugs, medicaments and biological substances; Z86.14 Personal history of Methicillin resistant Staphylococcus aureus infection; X78.8XXA Intentional self-harm by other sharp object, initial encounter; Y93.89 Activity, other specified
CPT/HCPCS: 99291; 96374; 96375 ×2; 90471; 31500; 36415; 86900; 86901; 80053; 82140; 82150; 82550; 82553; 82803; 83605; 83690; 84484; 85025; 85610; 85730; 86850; 81001; 80306; 71045; 72125; 70450; 90715; G0480; J2060; J2270; J0690; 80320; 94002